=== PATIENT | female | born 1945 | race Two or more races ===

== ENCOUNTER 2023-02-04 23:09 | Inpatient (IN) | payer OTHER ==
[~2023-02-04] VITALS: Ht 152.4 cm; Wt 91.4 kg
[2023-02-05 00:34] LABS: Basophils # (auto) 0.1 10 ^3/uL (0-0.2); Hemoglobin 8.9 g/dL (12.2-16.2); Mean Corpuscular Hemoglobin 19.5 pg (28.0-32.0)
[2023-02-05 00:35] LABS: Basophils % (auto) 0.9 % (0.0-2.0); Eosinophils # (auto) 0.1 10 ^3/uL (0-0.8); Eosinophils % (auto) 0.6 % (0.0-7.0); Hematocrit 28.7 % (36.0-46.0); Lymphocytes # (auto) 0.9 10 ^3/uL (0.4-5.4); Mean Corpuscular Hgb Conc. 30.8 g/dL (32.0-36.0); Mean Corpuscular Volume 63.2 fL (80.0-100.0); Monocytes # (auto) 0.4 10 ^3/uL (0-1.3); Monocytes % (auto) 4.7 % (0.0-12.0); Neutrophils # (auto) 8.1 10 ^3/uL (1.6-8.6); Neutrophils % (auto) 84.8 % (37.0-80.0); Red Blood Cells 4.55 10^6/uL (4.0-5.20); Red Cell Distribution Width 18.7 % (11.8-14.3); White Blood Cell 9.5 10^3/uL (4.4-10.8)
[2023-02-05 00:46] LABS: Albumin 3.7 g/dL (3.4-5.0); BUN/Creatinine Ratio 23.8 (10.0-20.0); Calcium 8.4 mg/dL (8.5-10.1); Potassium 3.2 mmol/L (3.5-5.1)
[2023-02-05 00:55] LABS: Bilirubin, Total 0.4 mg/dL (0.2-1.0); Total Protein 6.8 g/dL (6.4-8.2)
[2023-02-05] MEDS ORDERED: NITROGLYCERIN 2% OINT 1GM PKG TD STA (06:11)
[2023-02-05] MEDS ORDERED: ASPirin 81 mg TAB PO ONE (06:15)
[2023-02-05] MEDS ORDERED: ONDANSETRON HCL 4 MG/2 ML VIAL IV ONE (06:15)
[2023-02-05] MEDS ORDERED: MORPHINE SULFATE 4 MG/ML SYR/VIAL IV ONE (06:15)
[2023-02-05] MEDS ORDERED: POTASSIUM CHL 20 Meq TABLET PO ONE (08:00)
[2023-02-05] MEDS ORDERED: MORPHINE SULFATE INJ 2 MG/ml SYRG IV PRN (10:15)
[2023-02-05] MEDS ORDERED: NITROGLYCERIN 0.4 MG SL TAB SL PRN (10:15)
[2023-02-05] MEDS ORDERED: AMLO1TAB21 PO (10:17)
[2023-02-05] MEDS ORDERED: FURO40TA4 PO (10:17)
[2023-02-05] MEDS ORDERED: RIV20T PO (10:17)
[2023-02-05] MEDS ORDERED: PANT40TA57 PO (10:17)
[2023-02-05] MEDS ORDERED: METO1TAB9 PO (10:17)
[2023-02-05] MEDS ORDERED: IPRATROPIUM BROM 0.5 MG/2.5ML INH SOL NEB PRN (10:30)
[2023-02-05] MEDS ORDERED: ALBUTEROL SULF 2.5 MG/0.5ML(0.5%) NEB SOLN NEB PRN (10:30)
[2023-02-05 10:44] VITALS: PULSE 61; RESP 18; O2SAT 98
[2023-02-05] MEDS ORDERED: IOHEXOL 300 MG/ML 100ML BOTTLE IJ ONE (11:28)
[2023-02-05 11:50] VITALS: O2SAT 96
[2023-02-05 16:00] LABS: INR 1.34 (0.9-1.15); Partial Thromboplastin Time 34.2 SEC (24.5-34.5); Prothrombin Time 13.8 sec (9.3-11.8)
[2023-02-05] MEDS ORDERED: RIVAROXABAN 20 MG TAB PO SCH (17:30)
[2023-02-05 18:23] VITALS: O2SAT 98
[2023-02-05 19:20] VITALS: PULSE 90; RESP 18; O2SAT 96
[2023-02-05] MEDS: ATORVASTATIN 20 MG TAB PO SCH (20:31)
[2023-02-05] MEDS: METOPROLOL SUCCINATE XL 50 MG TAB PO SCH ×2 (20:32→20:38)
[2023-02-05] MEDS: amLODIPine BESYLATE 5 MG TAB PO SCH (20:32)
[2023-02-05 23:03] VITALS: BP 153/78; PULSE 57; PULSE 60; RESP 18; TEMP 98.3; O2SAT 99
[2023-02-06] VITALS (9 sets, daily range): BP systolic 141–185; BP diastolic 72–89; PULSE 53–96; RESP 15–18; TEMP 97.6–98.6; O2SAT 96–100
[2023-02-06] MEDS: HYDROcodone-ACET 5/325MG TAB PO PRN ×2 (02:24→16:36)
[2023-02-06 02:48] LABS: Urine Bacteria FEW /hpf (None Seen); Urine Blood Negative /uL (Negative); Urine Clarity Clear (Clear); Urine Color Colorless (Yellow); Urine Protein, UAD Negative (Negative); Urine Specific Gravity 1.007 (1.001-1.035); Urine Urobilinogen Normal (Negative); Urine WBC 22 /hpf (0 - 5)
[2023-02-06 06:09] LABS: Basophils # (auto) 0 10 ^3/uL (0-0.2); Basophils % (auto) 0.6 % (0.0-2.0); Eosinophils # (auto) 0.1 10 ^3/uL (0-0.8); Eosinophils % (auto) 1.6 % (0.0-7.0); Hematocrit 26.8 % (36.0-46.0); Hemoglobin 8.4 g/dL (12.2-16.2); Lymphocytes # (auto) 1.7 10 ^3/uL (0.4-5.4); Lymphocytes % (auto) 36.7 % (10.0-50.0); Mean Corpuscular Hemoglobin 19.6 pg (28.0-32.0); Mean Corpuscular Hgb Conc. 31.2 g/dL (32.0-36.0); Mean Corpuscular Volume 62.8 fL (80.0-100.0); Monocytes # (auto) 0.5 10 ^3/uL (0-1.3); Monocytes % (auto) 10.9 % (0.0-12.0); Neutrophils # (auto) 2.3 10 ^3/uL (1.6-8.6); Neutrophils % (auto) 50.2 % (37.0-80.0); Red Blood Cells 4.26 10^6/uL (4.0-5.20); Red Cell Distribution Width 18.6 % (11.8-14.3); White Blood Cell 4.6 10^3/uL (4.4-10.8)
[2023-02-06 06:35] LABS: Calcium 8.4 mg/dL (8.5-10.1); Potassium 3.5 mmol/L (3.5-5.1)
[2023-02-06 06:38] LABS: % Iron Saturation 5.1 % (15-50)
[2023-02-06 06:39] LABS: BUN/Creatinine Ratio 18.2 (10.0-20.0); Bilirubin, Total 0.4 mg/dL (0.2-1.0); Total Protein 6.1 g/dL (6.4-8.2)
[2023-02-06 07:57] LABS: Hypochromia Marked
[2023-02-06 07:59] LABS: Platelet Estimate Decreased; Target Cell FEW
[2023-02-06 08:08] LABS: Anisocytosis Moderate
[2023-02-06] MEDS ORDERED: ADENOSINE 77 MG in GIVE UN-DILUTED 0 ML IV STA (08:37)
[2023-02-06] MEDS ORDERED: PANTOPRAZOLE 40 MG TAB PO SCH (10:00)
[2023-02-06] MEDS: ENOXAPARIN SOD 40 MG/0.4 ML SYRINGE SC SCH (10:18)
[2023-02-06] MEDS: ASPirin-EC 81 mg tab PO SCH (10:18)
[2023-02-06] MEDS: PANTOPRAZOLE 40 MG/10 ML VIAL INJ IV SCH (10:18)
[2023-02-06] MEDS: FUROSEMIDE 20 MG/2 ML VIAL IV SCH (10:19)
[2023-02-06] MEDS ORDERED: SODIUM FERR GLUC 62.5MG/5ML 125 MG in SODIUM CHL 0.9% 100 ML IV ONE (16:00)
[2023-02-06] MEDS: amLODIPine BESYLATE 5 MG TAB PO SCH (20:01)
[2023-02-06] MEDS: METOPROLOL SUCCINATE XL 50 MG TAB PO SCH (20:01)
[2023-02-06] MEDS: ATORVASTATIN 20 MG TAB PO SCH (20:02)
[2023-02-06] MEDS: hydrALAZINE HCL 20 MG/ML VL IV PRN (21:55)
[2023-02-07] VITALS (7 sets, daily range): BP systolic 105–167; BP diastolic 66–93; PULSE 50–89; RESP 16–19; TEMP 97.4–98; O2SAT 99–100
[2023-02-07] MEDS: HYDROcodone-ACET 5/325MG TAB PO PRN (03:10)
[2023-02-07] MEDS: PANTOPRAZOLE 40 MG/10 ML VIAL INJ IV SCH (08:42)
[2023-02-07] MEDS: FUROSEMIDE 20 MG/2 ML VIAL IV SCH (08:42)
[2023-02-07] MEDS: ASPirin-EC 81 mg tab PO SCH (08:42)
[2023-02-07] MEDS: ENOXAPARIN SOD 40 MG/0.4 ML SYRINGE SC SCH (08:42)
[2023-02-07 09:38] LABS: Basophils # (auto) 0.1 10 ^3/uL (0-0.2); Eosinophils # (auto) 0.1 10 ^3/uL (0-0.8); Hemoglobin 9.7 g/dL (12.2-16.2); Mean Corpuscular Hemoglobin 19.4 pg (28.0-32.0); Mean Corpuscular Volume 62.6 fL (80.0-100.0); Neutrophils # (auto) 2.4 10 ^3/uL (1.6-8.6); Neutrophils % (auto) 48.1 % (37.0-80.0)
[2023-02-07 09:40] LABS: Basophils % (auto) 1.2 % (0.0-2.0); Eosinophils % (auto) 1.2 % (0.0-7.0); Hematocrit 31.2 % (36.0-46.0); Lymphocytes # (auto) 1.8 10 ^3/uL (0.4-5.4); Lymphocytes % (auto) 36.4 % (10.0-50.0); Monocytes # (auto) 0.6 10 ^3/uL (0-1.3); Monocytes % (auto) 13.1 % (0.0-12.0); Nucleated Red Blood Cells % 0.2 %; Red Blood Cells 4.98 10^6/uL (4.0-5.20); Red Cell Distribution Width 19.2 % (11.8-14.3); White Blood Cell 4.9 10^3/uL (4.4-10.8)
[2023-02-07 09:58] LABS: Calcium 9.3 mg/dL (8.5-10.1); Potassium 4.2 mmol/L (3.5-5.1)
[2023-02-07] MEDS ORDERED: FUROSEMIDE 40 MG/4 ML VIAL IV SCH (10:00)
[2023-02-07 10:01] LABS: BUN/Creatinine Ratio 10.3 (10.0-20.0)
[2023-02-07 12:45] LABS: Hypochromia Marked; Platelet Estimate Adequate
[2023-02-07] MEDS: hydrALAZINE HCL 20 MG/ML VL IV PRN (15:18)
[2023-02-07] MEDS: METOPROLOL SUCCINATE XL 50 MG TAB PO SCH (20:21)
[2023-02-07] MEDS: amLODIPine BESYLATE 5 MG TAB PO SCH (20:22)
[2023-02-07] MEDS: ATORVASTATIN 20 MG TAB PO SCH (21:18)
[2023-02-08 05:00] VITALS: BP 127/71; PULSE 58; RESP 16; TEMP 98.1; O2SAT 99
[2023-02-08 07:05] VITALS: O2SAT 97
[2023-02-08 07:08] LABS: BUN/Creatinine Ratio 22.1 (10.0-20.0); Calcium 8.6 mg/dL (8.5-10.1); Potassium 3.5 mmol/L (3.5-5.1)
[2023-02-08 07:30] VITALS: PULSE 55
[2023-02-08] MEDS: PANTOPRAZOLE 40 MG/10 ML VIAL INJ IV SCH (08:58)
[2023-02-08] MEDS: ENOXAPARIN SOD 40 MG/0.4 ML SYRINGE SC SCH (08:58)
[2023-02-08] MEDS: ASPirin-EC 81 mg tab PO SCH (08:58)
[2023-02-08 09:00] VITALS: BP 147/76; PULSE 59; RESP 18; TEMP 98.1; O2SAT 100
[2023-02-08] MEDS ORDERED: FUROSEMIDE 40 MG/4 ML VIAL IV SCH (10:00)
== END 2023-02-08 12:25 | disposition home or self-care (01) | DRG 306 ==
LOC: ER 23:09 → TELE 02-05 10:06 → TELE-WESTW 02-05 22:22
PROVIDERS: ADMIT Internal Medicine Pulmonary Disease; ATTEND Student in an Organized Health Care Education/Training Program
DX: I35.0 Nonrheumatic aortic (valve) stenosis (principal); I50.43 Acute on chronic combined systolic (congestive) and diastolic (congestive) heart failure; I48.20 Chronic atrial fibrillation, unspecified; N39.0 Urinary tract infection, site not specified; K92.2 Gastrointestinal hemorrhage, unspecified; I11.0 Hypertensive heart disease with heart failure; K52.9 Noninfective gastroenteritis and colitis, unspecified; D50.9 Iron deficiency anemia, unspecified; J44.9 Chronic obstructive pulmonary disease, unspecified; E05.80 Other thyrotoxicosis without thyrotoxic crisis or storm; I25.10 Atherosclerotic heart disease of native coronary artery without angina pectoris; D63.8 Anemia in other chronic diseases classified elsewhere; E78.5 Hyperlipidemia, unspecified; I25.2 Old myocardial infarction; Z79.01 Long term (current) use of anticoagulants; Z95.0 Presence of cardiac pacemaker; Z88.0 Allergy status to penicillin; Z88.2 Allergy status to sulfonamides
CPT/HCPCS: 36415; 71045; 74176; 78452; 80048; 80053; 80061; 81001; 83540; 83550; 83735; 83880; 84436; 84443; 84481; 84484; 85025; 85379; 85610; 85730; 87086; 93005; 93017; 93306; 93886; 93970; 96374; 96375; 96376; C9113; G0378; J0153; J2405

== ENCOUNTER 2023-05-31 02:32 | Inpatient (IN) | payer OTHER ==
[~2023-05-31] VITALS: Ht 144.8 cm; Wt 73.4 kg
[~2023-05-31 02:32] MED LIST: AMLO1TAB21 PO; FURO40TA4 PO; METO1TAB9 PO; PANT40TA57 PO; RIV20T PO
[2023-05-31 03:28] LABS: Mean Corpuscular Hemoglobin 16.7 pg (28.0-32.0); White Blood Cell 4.7 10^3/uL (4.4-10.8)
[2023-05-31 03:30] LABS: Hematocrit 19.6 % (36.0-46.0); Mean Corpuscular Volume 55.5 fL (80.0-100.0); Red Blood Cells 3.53 10^6/uL (4.0-5.20)
[2023-05-31 03:35] LABS: Alanine Aminotransferase 31 U/L (7-40); Albumin 4.1 g/dL (3.2-4.8); Alkaline Phosphatase 103 U/L (46-116); Anion Gap 9 (5-15); Aspartate Aminotransferase 36 U/L (13-40); BUN/Creatinine Ratio 15.6 (10.0-20.0); Bilirubin, Total 0.6 mg/dL (0.2-1.0); Blood Urea Nitrogen 15 mg/dL (9-23); Calcium 8.4 mg/dL (8.7-10.4); Carbon Dioxide 24 mmol/L (20-30); Chloride 110 mmol/L (98-107); Glucose 90 mg/dL (74-106); Magnesium 1.8 mg/dL (1.6-2.6); Potassium 3.4 mmol/L (3.5-5.1); Sodium 143 mmol/L (136-145); Total Protein 6.6 g/dL (5.7-8.2)
[2023-05-31 03:44] LABS: Red Cell Distribution Width 20.2 % (11.8-14.3)
[2023-05-31 03:45] LABS: Hemoglobin 5.9 g/dL (12.2-16.2)
[2023-05-31 03:54] LABS: Basophils % (manual) 0 (0.0-2.0); Blast Cells 0; Metamyelocytes % 0; Myelocytes % 0; Promyelocytes % 0; Reactive Lymphocytes 0
[2023-05-31 04:44] LABS: Band Neutrophils % (manual) 1; Eosinophils % (manual) 1 (0-7); Lymphocytes % (manual) 27 (10.0-50.0); Monocytes % (manual) 7 (0-12)
[2023-05-31 04:45] LABS: Anisocytosis Slight; Hypochromia Marked; Ovalocytes FEW; Platelet Estimate Adequate; Target Cell FEW
[2023-05-31] MEDS ORDERED: LACTATED RINGER'S 1,000 ML IV ONE (06:00)
[2023-05-31] MEDS ORDERED: PANTOPRAZOLE 40mg/50ML NS AE 50 ML IV ONE (06:00)
[2023-05-31] MEDS ORDERED: PANTOPRAZOLE 80 MG in SODIUM CHL 0.9% 100 ML IV ONE (06:00)
[2023-05-31 06:20] VITALS: PULSE 53; RESP 18; O2SAT 97
[2023-05-31] MEDS ORDERED: IOHEXOL 300 MG/ML 100ML BOTTLE IJ ONE (06:23)
[2023-05-31] MEDS ORDERED: diphenhdrAMINE HCL 50 MG/1 ML VL IV ONE ×2 (08:00)
[2023-05-31] MEDS ORDERED: IODIXANOL 320MG/ML 100ML BTL IV ONE (08:02)
[2023-05-31 08:25] LABS: INR 1.54 (0.9-1.15); Prothrombin Time 15.7 sec (9.3-11.8)
[2023-05-31 09:34] LABS: Hematocrit 18.6 % (36.0-46.0)
[2023-05-31 09:43] LABS: Hemoglobin 5.5 g/dL (12.2-16.2)
[2023-05-31] MEDS ORDERED: ONDANSETRON HCL 4 MG/2 ML VIAL IV PRN (09:45)
[2023-05-31] MEDS ORDERED: ALBUTEROL MEDNEB 2.5 mg/3ml NEB NEB PRN (09:45)
[2023-05-31] MEDS ORDERED: MORPHINE SULFATE INJ 2 MG/ml SYRG IV PRN (09:45)
[2023-05-31] MEDS ORDERED: IPRATROPIUM BROM 0.5 MG/2.5ML INH SOL NEB PRN (09:45)
[2023-05-31] MEDS ORDERED: NITROGLYCERIN 0.4 MG SL TAB SL PRN (09:45)
[2023-05-31] MEDS ORDERED: POTASSIUM CHL 20MEQ/100ML 100 ML IV ONE (09:45)
[2023-05-31] MEDS ORDERED: hydrALAZINE HCL 20 MG/ML VL IV PRN (10:00)
[2023-05-31] MEDS ORDERED: PANTOPRAZOLE 40 MG/10 ML VIAL INJ IV SCH (10:00)
[2023-05-31] MEDS: FUROSEMIDE 40 MG/4 ML VIAL IV SCH (10:10)
[2023-05-31] MEDS: METOPROLOL SUCCINATE XL 50 MG TAB PO SCH (10:11)
[2023-05-31] MEDS: amLODIPine BESYLATE 5 MG TAB PO SCH (10:13)
[2023-05-31 10:21] VITALS: BP 171/85; PULSE 67; RESP 20; TEMP 98.2; O2SAT 97
[2023-05-31 10:24] LABS: Urine Bacteria NONE SEEN /hpf (None Seen); Urine Blood Negative /uL (Negative); Urine Clarity Clear (Clear); Urine Color Colorless (Yellow); Urine Protein, UAD Negative (Negative); Urine Specific Gravity 1.006 (1.001-1.035); Urine Urobilinogen Normal (Negative); Urine WBC <1 /hpf (0 - 5)
[2023-05-31 11:48] LABS: Hematocrit 20.3 % (36.0-46.0)
[2023-05-31 11:48] LABS: Free T3 2.74 pg/mL (2.3-4.2); Free T4 (Free Thyroxine) 1.08 ng/dL (0.89-1.76)
[2023-05-31 11:50] LABS: Hemoglobin 5.9 g/dL (12.2-16.2)
[2023-05-31 12:55] VITALS: PULSE 67; RESP 18; O2SAT 97
[2023-05-31] MEDS ORDERED: MAGNESIUM SULFATE 1GM/100ML 100 ML IV ONE (14:45)
[2023-05-31] MEDS ORDERED: POTASSIUM CHL 20 Meq TABLET PO ONE (14:45)
[2023-05-31] MEDS ORDERED: AMIODARONE HCL 200 MG TAB PO ONE (14:45)
[2023-05-31 18:39] VITALS: O2SAT 100
[2023-05-31 19:40] VITALS: RESP 20; O2SAT 100
[2023-05-31] MEDS: PANTOPRAZOLE 40mg/50ML NS AE 50 ML IV SCH (20:22)
[2023-05-31 21:21] LABS: Hematocrit 17.5 % (36.0-46.0)
[2023-05-31 21:24] LABS: Hemoglobin 5.3 g/dL (12.2-16.2)
[2023-05-31] MEDS ORDERED: AMIODARONE HCL 200 MG TAB PO SCH (22:00)
[2023-06-01] VITALS (11 sets, daily range): BP systolic 131–150; BP diastolic 62–75; PULSE 50–62; RESP 15–19; TEMP 98–99.4; O2SAT 99–100
[2023-06-01] MEDS: PANTOPRAZOLE 40mg/50ML NS AE 50 ML IV SCH ×5 (00:08→21:35)
[2023-06-01] MEDS ORDERED: METH5TAB98 PO (00:43)
[2023-06-01 05:52] LABS: Basophils # (auto) 0 10 ^3/uL (0-0.2); Eosinophils # (auto) 0.1 10 ^3/uL (0-0.8); Lymphocytes # (auto) 1.2 10 ^3/uL (0.4-5.4); Monocytes # (auto) 0.6 10 ^3/uL (0-1.3)
[2023-06-01 05:55] LABS: Basophils % (auto) 0.5 % (0.0-2.0); Eosinophils % (auto) 2.4 % (0.0-7.0); Hematocrit 18.1 % (36.0-46.0); Lymphocytes % (auto) 27.2 % (10.0-50.0); Mean Corpuscular Hemoglobin 16.6 pg (28.0-32.0); Mean Corpuscular Hgb Conc. 30.2 g/dL (32.0-36.0); Mean Corpuscular Volume 54.9 fL (80.0-100.0); Monocytes % (auto) 12.7 % (0.0-12.0); Neutrophils # (auto) 2.6 10 ^3/uL (1.6-8.6); Neutrophils % (auto) 57.2 % (37.0-80.0); Nucleated Red Blood Cells % 0.1 %; White Blood Cell 4.6 10^3/uL (4.4-10.8)
[2023-06-01 06:08] LABS: Alanine Aminotransferase 27 U/L (7-40); Albumin 3.6 g/dL (3.2-4.8); Alkaline Phosphatase 91 U/L (46-116); Anion Gap 6 (5-15); Aspartate Aminotransferase 23 U/L (13-40); BUN/Creatinine Ratio 11.8 (10.0-20.0); Bilirubin, Total 0.7 mg/dL (0.2-1.0); Blood Urea Nitrogen 11 mg/dL (9-23); Carbon Dioxide 27 mmol/L (20-30); Chloride 110 mmol/L (98-107); Glucose 73 mg/dL (74-106); Phosphorus 3.4 mg/dL (2.4-5.1); Potassium 3.7 mmol/L (3.5-5.1); Sodium 143 mmol/L (136-145); Total Protein 5.8 g/dL (5.7-8.2)
[2023-06-01 06:19] LABS: Hemoglobin 5.5 g/dL (12.2-16.2)
[2023-06-01] MEDS: FUROSEMIDE 40 MG/4 ML VIAL IV SCH (09:29)
[2023-06-01] MEDS: AMIODARONE HCL 200 MG TAB PO SCH ×2 (09:31→21:46)
[2023-06-01] MEDS: amLODIPine BESYLATE 5 MG TAB PO SCH (09:32)
[2023-06-01] MEDS: METOPROLOL SUCCINATE XL 50 MG TAB PO SCH (09:32)
[2023-06-01] MEDS ORDERED: POTASSIUM CHL 20MEQ/100ML 100 ML IV ONE (11:45)
[2023-06-01] MEDS ORDERED: SODIUM FERR GLUC 62.5MG/5ML 125 MG in SODIUM CHL 0.9% 100 ML IV ONE (14:00)
[2023-06-01] MEDS: MORPHINE SULFATE INJ 2 MG/ml SYRG IV PRN ×2 (15:22→23:50)
[2023-06-02] VITALS (9 sets, daily range): BP systolic 137–153; BP diastolic 59–75; PULSE 55–61; RESP 18–20; TEMP 98.8–99.6; O2SAT 96–100
[2023-06-02] MEDS: PANTOPRAZOLE 40mg/50ML NS AE 50 ML IV SCH ×4 (01:16→16:15)
[2023-06-02] MEDS ORDERED: LIDOCAINE VISCOUS 2% 15ML UD ONE (08:49)
[2023-06-02] MEDS ORDERED: diphenhdrAMINE HCL 50 MG/1 ML VL ONE (08:49)
[2023-06-02] MEDS ORDERED: SODIUM CHLORIDE LOCK 10 ML ONE (08:49)
[2023-06-02] MEDS ORDERED: MIDAZOLAM HCL 5 MG/ML-1ML VIAL ONE (08:49)
[2023-06-02] MEDS ORDERED: fentaNYL CITRATE 100 MCG/2 ML VL ONE ×2 (08:50→08:54)
[2023-06-02 09:22] LABS: Mean Corpuscular Hgb Conc. 30.5 g/dL (32.0-36.0); Red Blood Cells 3.61 10^6/uL (4.0-5.20)
[2023-06-02 09:23] LABS: Hematocrit 19.6 % (36.0-46.0); Mean Corpuscular Hemoglobin 16.6 pg (28.0-32.0); Mean Corpuscular Volume 54.4 fL (80.0-100.0); White Blood Cell 6.2 10^3/uL (4.4-10.8)
[2023-06-02 09:25] LABS: Red Cell Distribution Width 20.6 % (11.8-14.3)
[2023-06-02 09:27] LABS: Band Neutrophils % (manual) 0; Basophils % (manual) 0 (0.0-2.0); Blast Cells 0; Metamyelocytes % 0; Myelocytes % 0; Promyelocytes % 0; Reactive Lymphocytes 0
[2023-06-02 09:34] LABS: Chloride 105 mmol/L (98-107); Potassium 3.5 mmol/L (3.5-5.1); Sodium 140 mmol/L (136-145)
[2023-06-02 09:35] LABS: Anion Gap 5 (5-15); Carbon Dioxide 30 mmol/L (20-30)
[2023-06-02 09:36] LABS: Calcium 8.3 mg/dL (8.5-10.1)
[2023-06-02 09:40] LABS: Glucose 126 mg/dL (74-106)
[2023-06-02 09:41] LABS: BUN/Creatinine Ratio 11.3 (10.0-20.0); Blood Urea Nitrogen 11 mg/dL (9-23)
[2023-06-02] MEDS: FUROSEMIDE 40 MG TAB PO SCH (09:50)
[2023-06-02] MEDS: METOPROLOL SUCCINATE XL 50 MG TAB PO SCH (09:50)
[2023-06-02] MEDS: amLODIPine BESYLATE 5 MG TAB PO SCH (09:51)
[2023-06-02] MEDS: AMIODARONE HCL 200 MG TAB PO SCH ×2 (09:51→21:36)
[2023-06-02] MEDS ORDERED: IRON SUCROSE COMPLEX 200 MG in SODIUM CHL 0.9% 100 ML IV SCH (12:00)
[2023-06-02] MEDS: SODIUM FERR GLUC 62.5MG/5ML 125 MG in SODIUM CHL 0.9% 100 ML IV SCH (12:29)
[2023-06-02 12:49] LABS: Eosinophils % (manual) 1 (0-7); Lymphocytes % (manual) 31 (10.0-50.0); Monocytes % (manual) 7 (0-12); Platelet Estimate Adequate
[2023-06-02 12:50] LABS: Anisocytosis Slight; Hypochromia Marked; Ovalocytes MANY; Tear Drop Cells MANY
[2023-06-02] MEDS ORDERED: ACETAMINOPHEN 325 MG TAB PO PRN (20:15)
[2023-06-02] MEDS: MORPHINE SULFATE INJ 2 MG/ml SYRG IV PRN (21:02)
[2023-06-03] VITALS (11 sets, daily range): BP systolic 131–161; BP diastolic 73–78; PULSE 50–70; RESP 16–18; TEMP 98.1–99.3; O2SAT 97–100
[2023-06-03] MEDS: PANTOPRAZOLE 40mg/50ML NS AE 50 ML IV SCH ×6 (01:15→21:58)
[2023-06-03] MEDS: FUROSEMIDE 40 MG TAB PO SCH (10:29)
[2023-06-03] MEDS: METOPROLOL SUCCINATE XL 50 MG TAB PO SCH (10:30)
[2023-06-03] MEDS: AMIODARONE HCL 200 MG TAB PO SCH ×2 (10:31→21:51)
[2023-06-03] MEDS: amLODIPine BESYLATE 5 MG TAB PO SCH (10:32)
[2023-06-03 11:15] LABS: Chloride 104 mmol/L (98-107); Potassium 3.3 mmol/L (3.5-5.1); Sodium 138 mmol/L (136-145)
[2023-06-03 11:16] LABS: Anion Gap 9 (5-15); Carbon Dioxide 25 mmol/L (20-30)
[2023-06-03 11:17] LABS: Calcium 8.4 mg/dL (8.7-10.4)
[2023-06-03 11:21] LABS: Glucose 100 mg/dL (74-106)
[2023-06-03 11:29] LABS: BUN/Creatinine Ratio 5.9 (10.0-20.0); Blood Urea Nitrogen < 5 mg/dL (9-23)
[2023-06-03 11:55] LABS: Hemoglobin 7.1 g/dL (12.2-16.2); Lymphocytes # (auto) 2.6 10 ^3/uL (0.4-5.4); Mean Corpuscular Hemoglobin 16.3 pg (28.0-32.0); Monocytes # (auto) 0.8 10 ^3/uL (0-1.3); White Blood Cell 9.8 10^3/uL (4.4-10.8)
[2023-06-03 11:58] LABS: Basophils # (auto) 0.1 10 ^3/uL (0-0.2); Basophils % (auto) 0.7 % (0.0-2.0); Eosinophils # (auto) 0.1 10 ^3/uL (0-0.8); Eosinophils % (auto) 0.6 % (0.0-7.0); Hematocrit 23.9 % (36.0-46.0); Mean Corpuscular Hgb Conc. 29.6 g/dL (32.0-36.0); Mean Corpuscular Volume 55.1 fL (80.0-100.0); Monocytes % (auto) 8.4 % (0.0-12.0); Neutrophils # (auto) 6.2 10 ^3/uL (1.6-8.6); Neutrophils % (auto) 63.3 % (37.0-80.0); Nucleated Red Blood Cells % 0.4 %; Red Blood Cells 4.34 10^6/uL (4.0-5.20)
[2023-06-03 12:00] LABS: Red Cell Distribution Width 20.7 % (11.8-14.3)
[2023-06-03] MEDS: SODIUM FERR GLUC 62.5MG/5ML 125 MG in SODIUM CHL 0.9% 100 ML IV SCH (12:43)
[2023-06-03] MEDS ORDERED: TROLAMINE SALICYLATE 10% TOP CREAM TOP PRN (17:00)
[2023-06-03] MEDS ORDERED: TROLAMINE SALICYLATE 10% TOP CREAM TOP ONE (17:00)
[2023-06-03] MEDS: MORPHINE SULFATE INJ 2 MG/ml SYRG IV PRN (22:09)
[2023-06-04] VITALS (8 sets, daily range): BP systolic 140–154; BP diastolic 59–79; PULSE 58–76; RESP 18; TEMP 97.9–99; O2SAT 99–100
[2023-06-04] MEDS: PANTOPRAZOLE 40mg/50ML NS AE 50 ML IV SCH ×5 (02:36→22:45)
[2023-06-04 05:45] LABS: Anion Gap 8 (5-15); Carbon Dioxide 28 mmol/L (20-30); Chloride 101 mmol/L (98-107); Potassium 3.7 mmol/L (3.5-5.1); Sodium 137 mmol/L (136-145)
[2023-06-04 05:46] LABS: Calcium 8.4 mg/dL (8.7-10.4)
[2023-06-04 05:51] LABS: BUN/Creatinine Ratio 6.7 (10.0-20.0); Blood Urea Nitrogen 6 mg/dL (9-23); Glucose 86 mg/dL (74-106)
[2023-06-04 06:44] LABS: Basophils # (auto) 0.1 10 ^3/uL (0-0.2); Eosinophils # (auto) 0.1 10 ^3/uL (0-0.8); Eosinophils % (auto) 0.7 % (0.0-7.0)
[2023-06-04 06:46] LABS: Basophils % (auto) 0.8 % (0.0-2.0); Hematocrit 22.3 % (36.0-46.0); Lymphocytes # (auto) 3.4 10 ^3/uL (0.4-5.4); Lymphocytes % (auto) 36.5 % (10.0-50.0); Mean Corpuscular Hemoglobin 17.1 pg (28.0-32.0); Mean Corpuscular Hgb Conc. 30.8 g/dL (32.0-36.0); Mean Corpuscular Volume 55.4 fL (80.0-100.0); Monocytes # (auto) 0.8 10 ^3/uL (0-1.3); Monocytes % (auto) 8.2 % (0.0-12.0); Neutrophils % (auto) 53.8 % (37.0-80.0); Nucleated Red Blood Cells % 0.6 %; Red Blood Cells 4.02 10^6/uL (4.0-5.20); White Blood Cell 9.3 10^3/uL (4.4-10.8)
[2023-06-04 07:14] LABS: Red Cell Distribution Width 21.4 % (11.8-14.3)
[2023-06-04 07:17] LABS: Hemoglobin 6.9 g/dL (12.2-16.2)
[2023-06-04] MEDS: METOPROLOL SUCCINATE XL 50 MG TAB PO SCH (09:30)
[2023-06-04] MEDS: amLODIPine BESYLATE 5 MG TAB PO SCH (09:32)
[2023-06-04] MEDS: AMIODARONE HCL 200 MG TAB PO SCH ×2 (09:33→22:23)
[2023-06-04] MEDS: FUROSEMIDE 40 MG TAB PO SCH (09:36)
[2023-06-04] MEDS: SODIUM FERR GLUC 62.5MG/5ML 125 MG in SODIUM CHL 0.9% 100 ML IV SCH (12:35)
[2023-06-04] MEDS: MORPHINE SULFATE INJ 2 MG/ml SYRG IV PRN (22:37)
[2023-06-05] VITALS (7 sets, daily range): BP systolic 122–157; BP diastolic 58–72; PULSE 57–66; RESP 16–20; TEMP 98–99.1; O2SAT 91–100
[2023-06-05] MEDS: PANTOPRAZOLE 40mg/50ML NS AE 50 ML IV SCH ×4 (04:17→18:39)
[2023-06-05 08:20] LABS: Hematocrit 22.9 % (36.0-46.0); Mean Corpuscular Volume 56.6 fL (80.0-100.0)
[2023-06-05 08:21] LABS: Mean Corpuscular Hemoglobin 17.1 pg (28.0-32.0); Mean Corpuscular Hgb Conc. 30.2 g/dL (32.0-36.0); Red Blood Cells 4.05 10^6/uL (4.0-5.20); White Blood Cell 7.5 10^3/uL (4.4-10.8)
[2023-06-05 08:37] LABS: Chloride 101 mmol/L (98-107); Potassium 3.4 mmol/L (3.5-5.1); Sodium 136 mmol/L (136-145)
[2023-06-05 08:38] LABS: Anion Gap 8 (5-15); Calcium 8.6 mg/dL (8.5-10.1); Carbon Dioxide 27 mmol/L (20-30)
[2023-06-05 08:42] LABS: Red Cell Distribution Width 21.3 % (11.8-14.3)
[2023-06-05 08:43] LABS: BUN/Creatinine Ratio 7.1 (10.0-20.0); Blood Urea Nitrogen 6 mg/dL (9-23); Glucose 95 mg/dL (74-106)
[2023-06-05 08:44] LABS: Hemoglobin 6.9 g/dL (12.2-16.2)
[2023-06-05 08:46] LABS: Band Neutrophils % (manual) 0; Basophils % (manual) 0 (0.0-2.0); Blast Cells 0; Eosinophils % (manual) 0 (0-7); Metamyelocytes % 0; Myelocytes % 0; Promyelocytes % 0; Reactive Lymphocytes 0
[2023-06-05] MEDS ORDERED: POTASSIUM EFFERVESENT TAB 25 MEQ PO ONE (09:30)
[2023-06-05 09:59] LABS: Lymphocytes % (manual) 9 (10.0-50.0); Monocytes % (manual) 4 (0-12)
[2023-06-05 10:00] LABS: Anisocytosis Slight; Hypochromia Marked
[2023-06-05 10:01] LABS: Platelet Estimate Adequate
[2023-06-05] MEDS: METOPROLOL SUCCINATE XL 50 MG TAB PO SCH (10:03)
[2023-06-05] MEDS: amLODIPine BESYLATE 5 MG TAB PO SCH (10:04)
[2023-06-05] MEDS: FUROSEMIDE 40 MG TAB PO SCH (10:04)
[2023-06-05] MEDS: AMIODARONE HCL 200 MG TAB PO SCH ×2 (10:04→22:58)
[2023-06-05] MEDS: SODIUM FERR GLUC 62.5MG/5ML 125 MG in SODIUM CHL 0.9% 100 ML IV SCH (12:43)
[2023-06-05] MEDS: THROAT LOZENGES(CEPASTAT) MT PRN ×2 (18:39→23:34)
[2023-06-06] MEDS: PANTOPRAZOLE 40mg/50ML NS AE 50 ML IV SCH ×5 (03:55→21:56)
[2023-06-06 05:00] VITALS: BP 145/74; PULSE 60; RESP 19; TEMP 98.8; O2SAT 100
[2023-06-06 08:00] VITALS: BP_SYST 116; BP_SYST 162; BP_DIAS 70; BP_DIAS 87; PULSE 58; PULSE 63; RESP 22; TEMP 98.6; O2SAT 100
[2023-06-06] MEDS: AMIODARONE HCL 200 MG TAB PO SCH ×2 (09:54→22:00)
[2023-06-06] MEDS: FUROSEMIDE 40 MG TAB PO SCH (10:00)
[2023-06-06] MEDS: METOPROLOL SUCCINATE XL 50 MG TAB PO SCH (10:01)
[2023-06-06] MEDS: amLODIPine BESYLATE 5 MG TAB PO SCH (10:04)
[2023-06-06 12:00] VITALS: BP 140/65; PULSE 58; RESP 20; TEMP 99; O2SAT 100
[2023-06-06] MEDS: SODIUM FERR GLUC 62.5MG/5ML 125 MG in SODIUM CHL 0.9% 100 ML IV SCH (13:49)
[2023-06-06 16:00] VITALS: BP 124/51; PULSE 60; RESP 20; TEMP 98.6; O2SAT 100
[2023-06-06 20:00] VITALS: PULSE 63; PULSE 64; RESP 16; O2SAT 100
[2023-06-06] MEDS ORDERED: traMADol HCL 50 MG TAB PO PRN (21:15)
[2023-06-06 22:00] VITALS: BP 110/63; PULSE 63; RESP 16; TEMP 98; O2SAT 100
[2023-06-07] VITALS (7 sets, daily range): BP systolic 109–154; BP diastolic 70–81; PULSE 59–67; RESP 16–22; TEMP 98.1–99; O2SAT 98–100
[2023-06-07] MEDS: PANTOPRAZOLE 40mg/50ML NS AE 50 ML IV SCH ×4 (01:10→16:10)
[2023-06-07 06:57] LABS: Hemoglobin 7.3 g/dL (12.2-16.2)
[2023-06-07 06:59] LABS: Hematocrit 24.2 % (36.0-46.0); Mean Corpuscular Hemoglobin 17.4 pg (28.0-32.0); Mean Corpuscular Hgb Conc. 30.1 g/dL (32.0-36.0); Mean Corpuscular Volume 57.8 fL (80.0-100.0); Red Blood Cells 4.19 10^6/uL (4.0-5.20); White Blood Cell 7.8 10^3/uL (4.4-10.8)
[2023-06-07 07:36] LABS: Red Cell Distribution Width 21.9 % (11.8-14.3)
[2023-06-07 07:37] LABS: Band Neutrophils % (manual) 0; Basophils % (manual) 0 (0.0-2.0); Blast Cells 0; Metamyelocytes % 0; Myelocytes % 0; Promyelocytes % 0; Reactive Lymphocytes 0
[2023-06-07] MEDS ORDERED: POTASSIUM CHL 20MEQ/100ML 100 ML IV ONE (08:15)
[2023-06-07] MEDS: AMIODARONE HCL 200 MG TAB PO SCH (08:42)
[2023-06-07] MEDS: amLODIPine BESYLATE 5 MG TAB PO SCH (08:45)
[2023-06-07] MEDS: FUROSEMIDE 40 MG TAB PO SCH (08:46)
[2023-06-07 10:43] LABS: Eosinophils % (manual) 3 (0-7); Lymphocytes % (manual) 31 (10.0-50.0); Monocytes % (manual) 5 (0-12)
[2023-06-07 10:44] LABS: Platelet Estimate Adequate
[2023-06-07 10:46] LABS: Anisocytosis Slight; Hypochromia Marked
[2023-06-07] MEDS ORDERED: PANT40TA57 PO (11:05)
[2023-06-07] MEDS: THROAT LOZENGES(CEPASTAT) MT PRN (12:09)
[2023-06-07] MEDS ORDERED: POTASSIUM CHL 20 Meq TABLET PO ONE (12:30)
[2023-06-07] MEDS: METOPROLOL SUCCINATE XL 50 MG TAB PO SCH (12:41)
[2023-06-07] MEDS: SODIUM FERR GLUC 62.5MG/5ML 125 MG in SODIUM CHL 0.9% 100 ML IV SCH (12:42)
[2023-06-07] MEDS: diphenhdrAMINE HCL 50 MG/1 ML VL ONE ×2 (15:27→15:29)
[2023-06-07] MEDS ORDERED: LIDOCAINE VISCOUS 2% 15ML UD ONE (15:30)
[2023-06-07] MEDS ORDERED: MIDAZOLAM HCL 5 MG/ML-1ML VIAL ONE (15:30)
[2023-06-07] MEDS ORDERED: fentaNYL CITRATE 100 MCG/2 ML VL ONE (15:31)
== END 2023-06-07 20:08 | disposition home or self-care (01) | DRG 380 ==
LOC: ER 02:32 → TELE 09:39 → TELE-EAST 06-01 00:15
PROVIDERS: ADMIT Internal Medicine; ATTEND Internal Medicine
PROC: 05HC33Z Insertion of Infusion Device into Left Basilic Vein, Percutaneous Approach (ICD-10-PCS; principal; 2023-06-05)
PROC: B54NZZA Ultrasonography of Left Upper Extremity Veins, Guidance (ICD-10-PCS; 2023-06-05)
PROC: 0DB98ZX Excision of Duodenum, Via Natural or Artificial Opening Endoscopic, Diagnostic (ICD-10-PCS; 2023-06-07)
PROC: 0DB68ZX Excision of Stomach, Via Natural or Artificial Opening Endoscopic, Diagnostic (ICD-10-PCS; 2023-06-07)
DX: K22.11 Ulcer of esophagus with bleeding (principal); I50.33 Acute on chronic diastolic (congestive) heart failure; K29.01 Acute gastritis with bleeding; E66.9 Obesity, unspecified; I48.0 Paroxysmal atrial fibrillation; R04.0 Epistaxis; I16.0 Hypertensive urgency; E87.6 Hypokalemia; I80.8 Phlebitis and thrombophlebitis of other sites; I08.3 Combined rheumatic disorders of mitral, aortic and tricuspid valves; R39.198 Other difficulties with micturition; E05.90 Thyrotoxicosis, unspecified without thyrotoxic crisis or storm; K44.9 Diaphragmatic hernia without obstruction or gangrene; D50.9 Iron deficiency anemia, unspecified; I11.0 Hypertensive heart disease with heart failure; J44.9 Chronic obstructive pulmonary disease, unspecified; Z88.0 Allergy status to penicillin; Z88.2 Allergy status to sulfonamides; Z90.711 Acquired absence of uterus with remaining cervical stump; Z79.01 Long term (current) use of anticoagulants; Z68.35 Body mass index [BMI] 35.0-35.9, adult
CPT/HCPCS: 36415; 43239; 71045; 74177; 80048; 80053; 81001; 83735; 83880; 84100; 84439; 84443; 84481; 84484; 85007; 85014; 85018; 85025; 85027; 85610; 85730; 87086; 93005; 93306; 93970; 93971; C9113; G0378; J2250; J2405; J3480; Q9967

== ENCOUNTER 2024-05-10 06:10 | Inpatient (IN) | payer OTHER ==
[~2024-05-10] VITALS: Ht 162.6 cm; Wt 62.3 kg
[~2024-05-10 06:10] MED LIST changes: +METH5TAB98 PO; -RIV20T PO
[2024-05-10] MEDS: LABETALOL HCL 20 MG/4 ML VL IV ONE (08:49)
[2024-05-10 09:17] LABS: Chloride 108 mmol/L (98-107); Sodium 141 mmol/L (136-145)
[2024-05-10 09:18] LABS: Anion Gap 8 (5-15); Calcium 9.8 mg/dL (8.7-10.4); Carbon Dioxide 25 mmol/L (20-31)
[2024-05-10 09:23] LABS: BUN/Creatinine Ratio 21.4 (10.0-20.0); Blood Urea Nitrogen 15 mg/dL (9-23); Glucose 96 mg/dL (74-106)
[2024-05-10] MEDS ORDERED: ONDANSETRON HCL 4 MG/2 ML VIAL IV PRN (09:45)
[2024-05-10] MEDS ORDERED: KETOROLAC TROMETH 30 MG/ML 1ML VIAL IV PRN (09:45)
[2024-05-10 10:22] LABS: Hemoglobin 11.1 g/dL (12.2-16.2)
[2024-05-10 10:24] LABS: Hematocrit 34.4 % (36.0-46.0); Mean Corpuscular Hemoglobin 22.3 pg (28.0-32.0); Mean Corpuscular Hgb Conc. 32.3 g/dL (32.0-36.0); Platelet Count (auto) 243 10^3/uL (140-450); Red Blood Cells 4.98 10^6/uL (4.0-5.20); Red Cell Distribution Width 15.1 % (11.8-14.3); White Blood Cell 7.4 10^3/uL (4.4-10.8)
[2024-05-10 10:32] LABS: Basophils % (manual) 0 (0.0-2.0); Blast Cells 0; Eosinophils % (manual) 0 (0-7); Metamyelocytes % 0; Myelocytes % 0; Promyelocytes % 0; Reactive Lymphocytes 0
[2024-05-10] MEDS: SODIUM CHLORIDE 0.9% 1,000 ML IV ONE (10:32)
[2024-05-10] MEDS: FUROSEMIDE 40 MG TAB PO SCH (10:33)
[2024-05-10] MEDS: cefTRIAXone 1GM/50ML D5W 50 ML IV SCH (10:33)
[2024-05-10] MEDS: amLODIPine BESYLATE 5 MG TAB PO SCH (10:35)
[2024-05-10] MEDS: METOPROLOL SUCCINATE XL 50 MG TAB PO SCH (10:35)
[2024-05-10] MEDS: PANTOPRAZOLE 40 MG TAB PO SCH (10:36)
[2024-05-10 11:30] LABS: Urine Bacteria None Seen /hpf (None Seen)
[2024-05-10 11:53] LABS: Urine Blood Negative /uL (Negative); Urine Clarity Clear (Clear); Urine Color Light-Yellow (Yellow); Urine Protein, UAD Negative (Negative); Urine Specific Gravity 1.012 (1.001-1.035); Urine Urobilinogen Normal (Negative); Urine pH 5.5 (5.0-9.0)
[2024-05-10 12:22] LABS: Band Neutrophils % (manual) 5; Lymphocytes % (manual) 27 (10.0-50.0); Monocytes % (manual) 9 (0-12)
[2024-05-10 12:25] LABS: Platelet Estimate Adequate
[2024-05-10 12:26] LABS: Anisocytosis Slight; Hypochromia Moderate
[2024-05-10 12:27] LABS: Ovalocytes FEW
[2024-05-10 13:30] LABS: Urine Epithelial Cast FEW /hpf (<5); Urine WBC None Seen /hpf (0 - 5)
[2024-05-10] MEDS: methIMAzole 5 MG TAB PO SCH (14:00)
[2024-05-10 16:42] VITALS: BP 148/82
[2024-05-10 16:57] VITALS: PULSE 72; RESP 19; O2SAT 95
[2024-05-10] MEDS ORDERED: ACET-1881 PO (17:16)
[2024-05-10] MEDS: ACETAMINOPHEN 325 MG TAB PO PRN (17:30)
[2024-05-10 20:00] VITALS: RESP 18
[2024-05-10 21:00] VITALS: BP 166/113; PULSE 70; RESP 20; TEMP 97.8; O2SAT 100
[2024-05-10] MEDS: hydrALAZINE HCL 20 MG/ML VL IV PRN (21:54)
[2024-05-11] MEDS: diphenhdrAMINE HCL 50 MG/1 ML VL IV PRN (00:26)
[2024-05-11 07:17] LABS: Basophils # (auto) 0 10 ^3/uL (0-0.2); Eosinophils # (auto) 0 10 ^3/uL (0-0.8); Monocytes # (auto) 0.7 10 ^3/uL (0-1.3); Neutrophils # (auto) 7.8 10 ^3/uL (1.6-8.6); Nucleated Red Blood Cells % 0.1 %; Platelet Count (auto) 312 10^3/uL (140-450); Red Blood Cells 5.44 10^6/uL (4.0-5.20); White Blood Cell 9.6 10^3/uL (4.4-10.8)
[2024-05-11 07:20] LABS: Basophils % (auto) 0.4 % (0.0-2.0); Eosinophils % (auto) 0.4 % (0.0-7.0); Hematocrit 38.2 % (36.0-46.0); Lymphocytes % (auto) 10.5 % (10.0-50.0); Mean Corpuscular Hgb Conc. 31.3 g/dL (32.0-36.0); Mean Corpuscular Volume 70.2 fL (80.0-100.0); Monocytes % (auto) 7.7 % (0.0-12.0); Red Cell Distribution Width 14.8 % (11.8-14.3)
[2024-05-11 07:35] LABS: Anion Gap 13 (5-15); Carbon Dioxide 22 mmol/L (20-31); Chloride 108 mmol/L (98-107); Potassium 3.5 mmol/L (3.5-5.1); Sodium 143 mmol/L (136-145)
[2024-05-11 07:36] LABS: Calcium 10.2 mg/dL (8.7-10.4)
[2024-05-11 07:41] LABS: BUN/Creatinine Ratio 13.9 (10.0-20.0); Blood Urea Nitrogen 10 mg/dL (9-23); Glucose 104 mg/dL (74-106)
[2024-05-11 08:00] VITALS: PULSE 75; RESP 18; O2SAT 96
[2024-05-11 09:00] VITALS: BP 176/99; PULSE 94; RESP 17; TEMP 98.4; O2SAT 98
[2024-05-11 13:05] VITALS: BP 161/92; PULSE 91; RESP 16; TEMP 98.3; O2SAT 99
[2024-05-11] MEDS ORDERED: BACDST PO (13:43)
[2024-05-11 14:12] VITALS: BP 139/79; PULSE 84
[2024-05-11 14:17] VITALS: BP 139/79; PULSE 91; RESP 16; TEMP 98.3; O2SAT 99
== END 2024-05-11 15:00 | disposition home or self-care (01) | DRG 304 ==
LOC: ER 06:10 → OVERFLOW 09:40 → CENTRAL 16:40
PROVIDERS: ADMIT Registered Nurse General Practice; ATTEND Registered Nurse General Practice
DX: I16.0 Hypertensive urgency (principal); G93.41 Metabolic encephalopathy; N39.0 Urinary tract infection, site not specified; F03.90 Unspecified dementia, unspecified severity, without behavioral disturbance, psychotic disturbance, mood disturbance, and anxiety; J44.89 Other specified chronic obstructive pulmonary disease; I11.0 Hypertensive heart disease with heart failure; I48.91 Unspecified atrial fibrillation; E05.90 Thyrotoxicosis, unspecified without thyrotoxic crisis or storm; I50.9 Heart failure, unspecified; R32 Unspecified urinary incontinence; Z88.0 Allergy status to penicillin; Z79.899 Other long term (current) drug therapy
CPT/HCPCS: 36415; 70450; 71045; 80048; 81001; 82962; 84484; 85007; 85025; 85027; 87086; 99291; G0378; J1885

== ENCOUNTER 2024-07-26 05:43 | Inpatient (IN) | payer MEDICARE, OTHER ==
[~2024-07-26] VITALS: Ht 154.9 cm; Wt 60.2 kg
[~2024-07-26 05:43] MED LIST changes: +ACET-1881 PO; +BACDST PO; +FERR325T24 PO; +METO2.5T PO
--- NOTE | 2024-07-26 06:59 | ED.PDOC ---
Altered Mental Status HPI Comments 78 year old female brought in by daughter presents to the ED with chief complaint of ALOC. Daughter reports that the patient has been increasingly confused and having a poor appetite for the past few days. Daughter relays that the patient had stopped walking on her own yesterday and seems to have decreased activity, which is not normal for her. Daughter states over the past month, the patient has lost about 22 lbs due to a poor appetite. Daughter notes that the patient's urine has been dark recently. Patient denies any concerns at this time and is unable to answer questions. Chief Complaint: ALOC Time Seen by MD: 06:53 Reviewed Notes: Nurses Notes, Medications, Allergies Allergies: Coded Allergies: Penicillins (Verified Allergy, Unknown, 02/04/23) Sulfa Antibiotics (Verified Allergy, Unknown, 02/04/23) Home Meds Active Scripts Sulfamethoxazole W/Trimethopri (Bactrim Ds Tablet) 1 Tab Tb, 1 TAB PO BID for 3 Days, #6 TAB Prov:KIA BLOUNT MD 05/11/24 Pantoprazole Sodium Sesquihydr (Pantoprazole Sodium Dr) 40 Mg Tab, 1 TAB PO BID, #60 TAB 5 Refills Prov:TEAGAN ANN MD 06/07/23 Reported Medications Ferrous Sulfate (Gnp Iron) 325 Mg Tab, 1 TAB PO BID 07/26/24 Metolazone (Metolazone) 2.5 Mg Tab, 1 TAB PO DAILY 07/26/24 Acetaminophen (Acetaminophen) 325 Mg Tab, 325 MG PO Q4HP PRN for MILD PAIN for 30 Days, MG 0 Refills 05/10/24 Methimazole (Methimazole) 5 Mg Tab, 3 TAB PO TID 06/01/23 Furosemide (Furosemide) 40 Mg Tab, 1 TAB PO DAILY 02/05/23 Amlodipine Besylate (Amlodipine Besylate) 2.5 Mg Tab, 1 TAB PO DAILY 02/05/23 Metoprolol Succinate (Metoprolol Succinate Er) 100 Mg Tab, 1 TAB PO DAILY 02/05/23 Information Source: Patient, Relative (Daughter) Mode of Arrival: Ambulatory Severity: Moderate Timing: Days Duration: Since onset Prehospital treatment: None Quality: Decreased Alertness, Change in Behavior, Confusion, Not Eating Recent: None History of: Dementia Associated Signs and Symptoms: None Past Medical History PAST MEDICAL HISTORY: AFIB, Anemia, Asthma, CHF, COPD, Dementia, HTN Surgical History: Unknown [employer] History: Unknown Family History Family History: Reviewed,noncontributory to illness Social History Smoker: Non-Smoker Alcohol: Denies ETOH Use Drugs: Denies Drug Use Lives In: Home Constitutional: denies: chills, diaphoresis, fatigue, fever, malaise, sweats, weakness, others EENTM: denies: blurred vision, double vision, ear bleeding, ear discharge, ear drainage, ear pain, ear ringing, eye pain, eye redness, hearing loss, mouth pain , mouth swelling, nasal discharge, nose bleeding, nose congestion, nose pain, photophobia, tearing, throat pain, throat swelling, voice changes, others Respiratory: denies: cough, hemoptysis, orthopnea, SOB at rest, shortness of breath, SOB with excertion, stridor, wheezing, others Cardiovascular: denies: chest pain, dizzy spells, diaphoresis, Dyspnea on exertion, edema, irregular heart beat, left arm pain, lightheadedness, palpitations, PND, syncope, others Gastrointestinal: reports: poor appetite; denies: abdomen distended, abdominal pain, blood streaked bowels, constipated, diarrhea, dysphagia, difficulty swallowing, hematemesis, melena, nausea, poor fluid intake, rectal bleeding, rectal pain, vomiting, others Genitourinary: denies: abnormal vagina bleeding, burning, dyspareunia, dysuria, flank pain, frequency, hematuria, incontinence, pain, , vagina discharge, urgency, others Neurological: denies: dizziness, fainting, headache, left sided numbness, left sided weakness, numbness, paresthesia, pre-existing deficit, right sided numbness, right sided weakness, seizure, speech problems, tingling, tremors, weakness, others Musculoskeletal: denies: back pain, gout, joint pain, joint swelling, muscle pain, muscle stiffness, neck pain, others Integumetry: denies: bruises, change in color, change in hair/nails, dryness, laceration, lesions, lumps, rash, wounds, others Allergic/Immunocompromised: denies: Difficulty Healing, Frequent Infections, Hives, Itching, others Hematologic/Lymphatic: denies: anemia, blood clots, easy bleeding, easy bruising, swollen glands, others Endocrine: denies: excessive hunger, excessive sweating, excessive thirst, excessive urination, flushing, intolerance to cold, intolerance to heat, unexplained weight gain, unexplained weight loss, others Psychiatric: denies: anxiety, bipolar disorder, depression, hopeless, panic disorder, schizophrenia, sleepless, suicidal, others Unable to Obtain due to: Altered Mental Status, Dementia All Other Systems: Reviewed and Negative Physical Exam General Appearance: No Apparent Distress, Other (Patient not able to follow commands completely) HEENT: Normal ENT Inspection, PERRL/EOMI Neck: Full Range of Motion, Non-Tender, Normal, Normal Inspection Respiratory: Chest Non-Tender, Lungs Clear, No Accessory Muscle Use, No Respiratory Distress, Normal Breath Sounds Cardiovascular: No Edema, No JVD, No Murmur, No Gallop, Normal Peripheral Pulses, Regular Rate/Rhythm Breast Exam: Deferred Gastrointestinal: No Organomegaly, Non Tender, No Pulsatile Mass, Normal Bowel Sounds, Soft Genitalia: Deferred Pelvic: Deferred Rectal: Deferred Extremities: No calf tenderness, Normal capillary refill, Normal inspection, Normal range of motion, Non-tender, No pedal edema Musculoskeletal : Apperance: Normal Neurologic: Alert, hospitality aide II-XII nml as Tested, No Motor Deficits, Normal Affect, Normal Mood, No Sensory Deficits Cerebellar Function: Normal Reflexes: Normal Skin: Dry, Normal Color, Warm Lymphatic: No Adenopathy EKG EKG : Pulse Rate (adult): 92 Equality: Normal Cardiac Rhythm: NSR Block: None Hypertrophy: None ST: Normal Comments Normal axis, Normal intervals, no ischemic changes Was a procedure done? Was a procedure done?: No Differential Diagnosis (ALOC) Differential Diagnosis: Dehydration, Encephalopathy, Other (UTI) X-Ray, Labs, Meds, VS Vital Signs Date Time Temp Pulse Resp B/P (MAP) Pulse Ox O2 Delivery O2 Flow Rate FiO2 07/26/24 16:14 95 29 129/75 (93) 99 07/26/24 13:55 98.9 108 18 123/86 (98) 99 98.9 07/26/24 10:57 98.7 119 16 123/74 (90) 99 98.7 07/26/24 08:46 91 17 96 Room Air* 0 21 07/26/24 08:17 98.4 99 18 151/94 (113) 99 98.4 07/26/24 06:59 92 07/26/24 06:33 92 07/26/24 06:09 99.6 91 20 149/97 (114) 96 Lab Test 07/26/24 08:34 07/26/24 08:19 07/26/24 07:16 Range/Units Urine Color Yellow Yellow Urine Clarity Hazy H Clear Urine pH 6.0 5.0-9.[address] 1.030 1.001-1.035 Urine Protein 1+ H Negative Urine Ketones Trace Negative Urine Blood Negative Negative /uL Urine Nitrite Negative Negative Urine Bilirubin Negative Negative Urine Urobilinogen Normal Negative mg/dL Urine Leukocyte Esterase 3+ Negative /uL Urine RBC 2 0 - 4 /hpf Urine WBC 43 0 - 5 /hpf Urine Squamous Epithelial Cells Few <5 /hpf Urine Bacteria Few H None Seen /hpf Urine Mucus Few None Seen Urine Glucose Normal Normal mg/dL Troponin I High Sensitivity 20 20 </=34 ng/L White Blood Count 7.7 4.4-10.8 10^3/uL Red Blood Count 5.25 H 4.0-5.20 10^6/uL Hemoglobin 11.2 L 12.2-16.2 g/dL Hematocrit 35.1 L 36.0-46.0 % Mean Corpuscular Volume 66.8 L 80.0-100.0 fL Mean Corpuscular Hemoglobin 21.4 L 28.0-32.0 pg Mean Corpuscular Hemoglobin Concent 32.0 32.0-36.0 g/dL Red Cell Distribution Width 16.2 H 11.8-14.3 % Platelet Count 303 140-450 10^3/uL Mean Platelet Volume 9.7 6.9-10.8 fL Neutrophils (%) (Auto) 73.3 37.0-80.0 % Lymphocytes (%) (Auto) 15.5 10.0-50.0 % Monocytes (%) (Auto) 9.8 0.0-12.0 % Eosinophils (%) (Auto) 1.0 0.0-7.0 % Basophils (%) (Auto) 0.4 0.0-2.0 % Neutrophils # (Auto) 5.7 1.6-8.6 10 ^3/uL Lymphocytes # (Auto) 1.2 0.4-5.4 10 ^3/uL Monocytes # (Auto) 0.8 0-1.3 10 ^3/uL Eosinophils # (Auto) 0.1 0-0.8 10 ^3/uL Basophils # (Auto) 0 0-0.2 10 ^3/uL Nucleated Red Blood Cells 0.1 % Sodium Level 144 136-145 mmol/L Potassium Level 3.3 L 3.5-5.1 mmol/L Chloride Level 109 H 98-107 mmol/L Carbon Dioxide Level 27 20-31 mmol/L Anion Gap 8 5-15 Blood Urea Nitrogen 24 H 9-23 mg/dL Creatinine 0.55 0.550-1.02 mg/dL Glomerular Filtration Rate Calc 94 >90 mL/min BUN/Creatinine Ratio 43.6 H 10.0-20.0 Serum Glucose 104 74-106 mg/dL Calcium Level 10.5 H 8.7-10.4 mg/dL Total Bilirubin 0.6 0.2-1.0 mg/dL Aspartate Amino Transferase (AST) 19 13-40 U/L Alanine Aminotransferase (ALT) 13 7-40 U/L Alkaline Phosphatase 65 46-116 U/L Total Protein 6.7 5.7-8.2 g/dL Albumin 3.8 3.2-4.8 g/dL Current Medications Medications (Trade) Dose Ordered Sig/Heather Route Start Time Stop Time Status Last Admin Sodium Chloride 1,000 ml @ 1,000 mls/hr Q1H ONCE IVB 07/26/24 06:45 07/26/24 07:44 DC 07/26/24 08:37 CT Head: FINDINGS: There is no evidence of acute intracranial hemorrhage, extra-axial collection, mass effect, midline shift, herniation or hydrocephalus. There are periventricular and subcortical hypodensities, nonspecific, but likely reflecting sequelae of chronic microvascular ischemic changes. The ventricles, sulci and cisterns are age appropriate. The leahy-white differentiation is intact. Mastoid air cells are clear. There is opacification of the right maxillary sinus. No depressed calvarial fracture. The surrounding soft tissues are unremarkable. IMPRESSION: 1. No evidence of acute intracranial abnormality. Chest XR: FINDINGS: Lungs: Clear. Cardiac: Heart size is within normal limits. Pulmonary vasculature: Unremarkable. Mediastinum/bk: A zipper overlies the mediastinum near the aortic arch, partially obscuring visualization. Dense atherosclerotic calcification of the aortic arch. Bones: No acute osseous abnormality identified. Other: No other significant findings. IMPRESSION: No evidence of acute disease in the chest. X-Ray, Labs, Meds, VS Comment Patient has elevated troponin. She has a paced rhythm. There is no ST elevation. Therefore patient was treated for non STEMI. Recommended hospitalization. Patient agreed Images Reviewed?: Images reviewed and evaluated by me Time of 1ST Reevaluation: 07:53 Reevaluation 1ST: Unchanged Patient Education/Counseling: Diagnosis, Treatment Family Education/Counseling: Diagnosis, Treatment Additional Information I reviewed the following notes from patient's past medical encounters: 05/10/24 for ALOC The following tests were ordered, and results were reviewed by me: Troponin, UA, CBC, CMP, EKG, Head CT, Chest XR Additional Information was gathered from interviewing the following independent historians: Daughter I reviewed and agreed with the following test results read by other providers: Head CT, Chest XR I discussed treatment and results with medical personnel and daughter. Departure 1 Departure Time of Disposition: 16:32 Impression: Primary Impression: Non-STEMI (non-ST elevated myocardial infarction) Disposition: ADMITTED INPATIENT Admit to: Tele Condition: Critical Critical Care Note Critical Care Time?: Yes (35 min-critical care time only) Critical care comment: CRITICAL CARE TIME: 35 minutes Treatments/Evaluations: Close monitoring and treatment of unstable vital signs, cardiorespiratory, and neurologic status, while maintaining tight balance of fluid, respiratory, and cardiac interventions. This time includes discussing the case with the patient and the patients family. This time does not include all procedures stated elsewhere in this record. This time also includes reviewing old records, labs and radiological studies. This time includes examining and re- examining the patient. Additionally, this time also includes arranging care with admitting and consulting physicians. Stability Stability form required: No Heart Score Heart Score: Heart Score Response (Comments) Value History N/A 0 EKG N/A 0 Age N/A 0 Risk Factors N/A 0 Troponin N/A 0 Total 0 I personally scribed for MARCO RAGLAND MD ([email or web address]) on 07/26/24 at 06:59. Electronically submitted by Ernie Durán ([email or web address]). I personally scribed for MARCO RAGLAND MD ([email or web address]) on 07/26/24 at 07:42. Electronically submitted by Ernie Durán ([email or web address]). I personally scribed for MARCO RAGLAND MD ([email or web address]) on 07/26/24 at 08:12. Electronically submitted by Ernie Durán ([email or web address]). MARCO RAGLAND MD Jul 26, 2024 06:59
--- NOTE | 2024-07-26 07:37 | DVH ---
CLINICAL INFORMATION: 78 years old, Female; shortness of breath. TECHNIQUE: Single AP portable chest radiograph was obtained. COMPARISON: XY CHEST PORTABLE on DOS: 05/10/24, XY CHEST PORTABLE on DOS: 05/31/23, XY CHEST PORTABLE on DOS: 02/04/23 FINDINGS: Lungs: Clear. Cardiac: Heart size is within normal limits. Pulmonary vasculature: Unremarkable. Mediastinum/bk: A zipper overlies the mediastinum near the aortic arch, partially obscuring visuali zation. Dense atherosclerotic calcification of the aortic arch. Bones: No acute osseous abnormality identified. Other: No other significant findings. IMPRESSION: No evidence of acute disease in the chest.
--- NOTE | 2024-07-26 07:39 | DVH ---
EXAM: CT HEAD WITHOUT CONTRAST INDICATION: ams TECHNIQUE: CT of the head without intravenous contrast. Coronal and sagittal reformatted images are submitted. Radiation Dose : 1. Head: CT Dose: CTDI volume is 48.92 mGy. Dose-length product is 871.49 mGy*cm The dose indicators for CT are the volume Computed Tomography (CT) Dose Index (CTDIvol) and the Dose Length Product (DLP), and are measured in units of mGy and mGy-cm, respectively. These indicators are not patient dose, but values generated from the CT scanner acquisition factors. The report includes radiation exposure data for exposures received during this examination. All CT scans at this medical facility are performed using dose modulation techniques as appropriate to a performed exam including the following: Automated exposure control was utilized; adjustment of the MA and/or KV according to patient size; and use of iterative reconstruction technique. COMPARISON: CT HEAD WITHOUT CONTRAST on DOS: 05/10/24 FINDINGS: There is no evidence of acute intracranial hemorrhage, extra-axial collection, mass effect, midline s hift, herniation or hydrocephalus. There are periventricular and subcortical hypodensities, nonspecific, but likely reflecting sequelae of chronic microvascular ischemic changes. The ventricles, sulci and cisterns are age appropriate. The leahy-white differentiation is intact. Mastoid air cells are clear. There is opacification of the right maxillary sinus. No depressed calvarial fracture. The surrounding soft tissues are unremarkable. IMPRESSION: 1. No evidence of acute intracranial abnormality.
--- NOTE | 2024-07-26 07:53 | ECG ---
[facility] Test Date: 2024-07-26 Test Time: 06:18:55 Pat Name: KALI QUAN Department: ER Room: Gender: F Rate Examiner: STACEY : 1945 Requested By: MARCO RAGLAND Order Number: [id number] Reading MD: Kevan Wong Measurements Intervals Edgar Rate: 92 P: 22 UT: 137 QRS: -9 QRSD: 86 T: 41 QT: 346 QTc: 429 Interpretive Statements Sinus rhythm Left ventricular hypertrophy Baseline wander in lead(s) V3 Electronically Signed On 07-26-2024 13:15:04 PST by Kevan Wong Please click the below link to view image of tracing.
[2024-07-26 08:07] LABS: Basophils # (auto) 0 10 ^3/uL (0-0.2); Eosinophils # (auto) 0.1 10 ^3/uL (0-0.8); Hemoglobin 11.2 g/dL (12.2-16.2); Monocytes # (auto) 0.8 10 ^3/uL (0-1.3); Neutrophils # (auto) 5.7 10 ^3/uL (1.6-8.6); Nucleated Red Blood Cells % 0.1 %
[2024-07-26 08:12] LABS: Basophils % (auto) 0.4 % (0.0-2.0); Hematocrit 35.1 % (36.0-46.0); Lymphocytes # (auto) 1.2 10 ^3/uL (0.4-5.4); Lymphocytes % (auto) 15.5 % (10.0-50.0); Mean Corpuscular Hemoglobin 21.4 pg (28.0-32.0); Mean Corpuscular Volume 66.8 fL (80.0-100.0); Monocytes % (auto) 9.8 % (0.0-12.0); Neutrophils % (auto) 73.3 % (37.0-80.0); Platelet Count (auto) 303 10^3/uL (140-450); Red Blood Cells 5.25 10^6/uL (4.0-5.20); Red Cell Distribution Width 16.2 % (11.8-14.3); White Blood Cell 7.7 10^3/uL (4.4-10.8)
[2024-07-26 08:23] LABS: Alanine Aminotransferase 13 U/L (7-40); Albumin 3.8 g/dL (3.2-4.8); Alkaline Phosphatase 65 U/L (46-116); Anion Gap 8 (5-15); Aspartate Aminotransferase 19 U/L (13-40); BUN/Creatinine Ratio 43.6 (10.0-20.0); Bilirubin, Total 0.6 mg/dL (0.2-1.0); Carbon Dioxide 27 mmol/L (20-31); Glucose 104 mg/dL (74-106); Sodium 144 mmol/L (136-145); Total Protein 6.7 g/dL (5.7-8.2)
[2024-07-26 08:30] LABS: Blood Urea Nitrogen 24 mg/dL (9-23); Calcium 10.5 mg/dL (8.7-10.4); Chloride 109 mmol/L (98-107); Potassium 3.3 mmol/L (3.5-5.1)
[2024-07-26] MEDS: SODIUM CHLORIDE 0.9% 1,000 ML IVB ONE (08:37)
[2024-07-26 08:46] VITALS: PULSE 91; RESP 17; O2SAT 96
[2024-07-26 09:12] LABS: Urine Bacteria FEW /hpf (None Seen); Urine Blood Negative /uL (Negative); Urine Color Yellow (Yellow); Urine Mucus FEW (None Seen); Urine Protein, UAD 1+ (Negative); Urine Squamous Epithelial Cell FEW /hpf (<5); Urine Urobilinogen Normal (Negative); Urine WBC 43 /hpf (0 - 5)
[2024-07-26 09:15] LABS: Urine Clarity Hazy (Clear)
[2024-07-26] MEDS ORDERED: HYDROcodone-ACET 5/325MG TAB PO PRN (16:15)
[2024-07-26] MEDS: cefTRIAXone 1GM/50ML D5W 50 ML IV ONE (16:15)
[2024-07-26] MEDS ORDERED: MORPHINE SULFATE INJ 2 MG/ml SYRG IV PRN (16:15)
[2024-07-26] MEDS ORDERED: NITROGLYCERIN 0.4 MG SL TAB SL PRN (16:15)
[2024-07-26] MEDS: POTASSIUM CHLORIDE 40 MEQ, LIDOCAINE 1% (LOCAL ANESTH.) 4 ML in SODIUM CHL 0.9% 250 ML IV ONE (16:15)
[2024-07-26] MEDS ORDERED: FERR1TAB8 PO (16:25)
[2024-07-26] MEDS: MAGNESIUM SULFATE 1GM/100ML 100 ML IV ONE (16:42)
--- NOTE | 2024-07-26 16:48 | DVHHP2 ---
History of Present Illness Reason for Visit: ALOC History of Present Illness Zara Soriano is a 78-year-old female with past medical history of hypertension, COPD, asthma, AFib, CHF, dementia, anemia, and stent placement over 3 years ago per daughter who presents to the ED for altered level of consciousness. Patient's daughter reports that her confusion has gotten progressively worse in the last week, also poor appetite, loss of 22 lb in the last several months, complains of leg pain bilateral, and decreased activity. Patient's daughter also reports that she has been voiding with dark urine. Patient's daughter states that she was able to walk around but the last week she has been in bed. Patient's daughter reports that she has been with them for 3 years but before that was in [place]. Patient answers questions with soft voice and tone but confused, however is alert. Upon examination when palpating lower extremities patient grimaces and complains of pain. 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 Heme/Onc: Anemia NOS Past Surgical History EGD Stent greater than 3 years ago Family History: None Smoke: No ALCOHOL: none Drugs: None Lives: with Family Domestic Violence: Neg Review of Systems Constitutional: Yes: Weakness, Other (Poor appetite) Genitourinary: Other (Dark urine output) Musculoskeletal: leg pain; No: other, neck pain, shoulder pain, arm pain, back pain, hand pain, foot pain Neurological: Confusion Allergies: Coded Allergies: Penicillins (Verified Allergy, Unknown, 02/04/23) Sulfa Antibiotics (Verified Allergy, Unknown, 02/04/23) Exam Vital Signs Vital Signs Date Time Temp Pulse Resp B/P (MAP) Pulse Ox O2 Delivery O2 Flow Rate FiO2 07/26/24 16:14 95 29 129/75 (93) 99 07/26/24 13:55 98.9 98.9 07/26/24 08:46 Room Air* 0 21 General Appearance: Alert, Cooperative, No acute distress HEENT: Atraumatic, PERRLA, EOMI, Mucous membr. moist/pink Respiratory: Clear to auscultation, Normal air movement Cardiovascular: Normal S1, Normal S2, No murmurs Abdominal: Normal bowel sounds, Soft, No tenderness, No hepatospenomegaly, No masses Extremities: No cyanosis Skin: No significant lesion Neuro: Sensation intact Psych/Mental Status: Other (confused) Labs/Xrays Labs Test 07/26/24 08:34 07/26/24 08:19 07/26/24 07:16 Range/Units Urine Color Yellow Yellow Urine Clarity Hazy H Clear Urine pH 6.0 5.0-9.0 Urine Specific [place] 1.030 1.001-1.035 Urine Protein 1+ H Negative Urine Ketones Trace Negative Urine Blood Negative Negative /uL Urine Nitrite Negative Negative Urine Bilirubin Negative Negative Urine Urobilinogen Normal Negative mg/dL Urine Leukocyte Esterase 3+ Negative /uL Urine RBC 2 0 - 4 /hpf Urine WBC 43 0 - 5 /hpf Urine Squamous Epithelial Cells Few <5 /hpf Urine Bacteria Few H None Seen /hpf Urine Mucus Few None Seen Urine Glucose Normal Normal mg/dL Troponin I High Sensitivity 20 </=34 ng/L White Blood Count 7.7 4.4-10.8 10^3/uL Red Blood Count 5.25 H 4.0-5.20 10^6/uL Hemoglobin 11.2 L 12.2-16.2 g/dL Hematocrit 35.1 L 36.0-46.0 % Mean Corpuscular Volume 66.8 L 80.0-100.0 fL Mean Corpuscular Hemoglobin 21.4 L 28.0-32.0 pg Mean Corpuscular Hemoglobin Concent 32.0 32.0-36.0 g/dL Red Cell Distribution Width 16.2 H 11.8-14.3 % Platelet Count 303 140-450 10^3/uL Mean Platelet Volume 9.7 6.9-10.8 fL Neutrophils (%) (Auto) 73.3 37.0-80.0 % Lymphocytes (%) (Auto) 15.5 10.0-50.0 % Monocytes (%) (Auto) 9.8 0.0-12.0 % Eosinophils (%) (Auto) 1.0 0.0-7.0 % Basophils (%) (Auto) 0.4 0.0-2.0 % Neutrophils # (Auto) 5.7 1.6-8.6 10 ^3/uL Lymphocytes # (Auto) 1.2 0.4-5.4 10 ^3/uL Monocytes # (Auto) 0.8 0-1.3 10 ^3/uL Eosinophils # (Auto) 0.1 0-0.8 10 ^3/uL Basophils # (Auto) 0 0-0.2 10 ^3/uL Nucleated Red Blood Cells 0.1 % Sodium Level 144 136-145 mmol/L Potassium Level 3.3 L 3.5-5.1 mmol/L Chloride Level 109 H 98-107 mmol/L Carbon Dioxide Level 27 20-31 mmol/L Anion Gap 8 5-15 Blood Urea Nitrogen 24 H 9-23 mg/dL Creatinine 0.55 0.550-1.02 mg/dL Glomerular Filtration Rate Calc 94 >90 mL/min BUN/Creatinine Ratio 43.6 H 10.0-20.0 Serum Glucose 104 74-106 mg/dL Calcium Level 10.5 H 8.7-10.4 mg/dL Total Bilirubin 0.6 0.2-1.0 mg/dL Aspartate Amino Transferase (AST) 19 13-40 U/L Alanine Aminotransferase (ALT) 13 7-40 U/L Alkaline Phosphatase 65 46-116 U/L Total Protein 6.7 5.7-8.2 g/dL Albumin 3.8 3.2-4.8 g/dL EXAM: CT HEAD WITHOUT CONTRAST INDICATION: ams TECHNIQUE: CT of the head without intravenous contrast. Coronal and sagittal reformatted images are submitted. Radiation Dose : 1. Head: CT Dose: CTDI volume is 48.92 mGy. Dose-length product is 871.49 mGy*cm The dose indicators for CT are the volume Computed Tomography (CT) Dose Index (CTDIvol) and the Dose Length Product (DLP), and are measured in units of mGy and mGy-cm, respectively. These indicators are not patient dose, but values generated from the CT scanner acquisition factors. The report includes radiation exposure data for exposures received during this examination. All CT scans at this medical facility are performed using dose modulation techniques as appropriate to a performed exam including the following: Automated exposure control was utilized; adjustment of the MA and/or KV according to patient size; and use of iterative reconstruction technique. COMPARISON: CT HEAD WITHOUT CONTRAST on DOS: 05/10/24 FINDINGS: There is no evidence of acute intracranial hemorrhage, extra-axial collection, mass effect, midline shift, herniation or hydrocephalus. There are periventricular and subcortical hypodensities, nonspecific, but likely reflecting sequelae of chronic microvascular ischemic changes. The ventricles, sulci and cisterns are age appropriate. The leahy-white differentiation is intact. Mastoid air cells are clear. There is opacification of the right maxillary sinus. No depressed calvarial fracture. The surrounding soft tissues are unremarkable. IMPRESSION: 1. No evidence of acute intracranial abnormality. CLINICAL INFORMATION: 78 years old, Female; shortness of breath. TECHNIQUE: Single AP portable chest radiograph was obtained. COMPARISON: XY CHEST PORTABLE on DOS: 05/10/24, XY CHEST PORTABLE on DOS: 05/31/23, XY CHEST PORTABLE on DOS: 02/04/23 FINDINGS: Lungs: Clear. Cardiac: Heart size is within normal limits. Pulmonary vasculature: Unremarkable. Mediastinum/bk: A zipper overlies the mediastinum near the aortic arch, partially obscuring visualization. Dense atherosclerotic calcification of the aortic arch. Bones: No acute osseous abnormality identified. Other: No other significant findings. IMPRESSION: No evidence of acute disease in the chest. 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 labs TSH Vitamin B12 Vitamin-D Hypokalemia Replete lytes Chronic hypertension Continue home medication Chronic COPD Chronic asthma Respiratory treatments p.r.n. Chronic AFib History of stent 3 years ago Continue home medication Rounding team to Consider cardiology consult if patient is symptomatic Chronic CHF Continue home medication Chronic dementia Monitor FEN/PPX diet HL PUD ppx -continue home med, protonix DVT ppx - Lovenox Discussed plan of care with patient, patient's daughter, and nurse Admit to tele Home medications reconciled Plan discussed with: Patient, Daughter My Orders Orders - ESTELLA JAVIER [employer]GER Procedure Category Date Status Time Ceftriaxone Ivpb PHA 07/27/24 Verified Rocephin 09:00 Ceftriaxone Ivpb PHA 07/26/24 Verified Rocephin 16:15 Admit ADMIT 07/26/24 Verified 16:15 Allergies LJ 07/26/24 Verified 16:15 Code Status CODE 07/26/24 Verified 16:15 Hydrocodone-Acet PHA 07/26/24 Verified 5/325mg Tab ([place] 16:15 Ondansetron Hcl PHA 07/26/24 Verified (Zofran) 16:15 Complete Blood Count LAB 07/27/24 Verified 04:00 Comprehensive LAB 07/27/24 Verified Metabolic Panel 04:00 Cardiac DIET 07/26/24 Verified Diet-2gna,Lofat,Lochol Dinner Enoxaparin Sodium PHA 07/27/24 Verified (Lovenox) 10:00 Acetaminophen Tablet PHA 07/26/24 Verified (Tylenol Tablet) 16:15 Nitroglycerin PHA 07/26/24 Verified Sublingual (Ntrostat 16:15 Morphine Sulfate PHA 07/26/24 Verified Injection 16:15 Stat Ekg For Chest [facility] 07/26/24 Verified Pain 16:15 Notify Md Of Changes [facility] 07/26/24 Verified From Base 16:15 Hydroelectric Systems Technician For [facility] 07/26/24 Verified 24 Hours 16:15 Emergency Dysrhythmia [facility] 07/26/24 Verified Protocol 16:15 Rhythm Strips Once [facility] 07/26/24 Verified Every Shift 16:15 Oxygen By Nasal RT 07/26/24 Verified Cannula 16:15 Furosemide Injection PHA 07/27/24 Verified (Lasix Injection) 10:00 Potassium Chl Bin PHA 07/26/24 Verified KCL 16:15 Magnesium LAB 07/26/24 Verified 16:15 Magnesium Bin PHA 07/26/24 Verified 16:15 Bilat Lower Dvt US 07/26/24 Verified 16:15 Furosemide Tablet PHA 07/27/24 Verified (Lasix Tablet) 10:00 Methimazole Tab PHA 07/26/24 Verified (Tapazole) 22:00 Pantoprazole Tablet PHA 07/26/24 Verified (Protonix Tablet) 22:00 (Nf) Amlodipine PHA 07/27/24 Verified Besylate 10:00 (Nf) Metoprolol PHA 07/27/24 Verified Succinate (Metoprolol 10:00 Date of Service: Jul 26, 2024 Billing Provider: ESTELLA JAVIER Common Visit Codes: [id number] INP/OBS CARE (HIGH) ESTELLA JAVIER Jul 26, 2024 16:48
[2024-07-26 18:40] VITALS: PULSE 93; RESP 18; O2SAT 99
[2024-07-26 19:00] VITALS: BP 162/87; PULSE 97; RESP 18; TEMP 98.2; O2SAT 97
--- NOTE | 2024-07-26 19:24 | DVH ---
Procedure: US BiLat Lower DVT Study Date and Requested Time: 07/26/2024 06:10 PM History: pain ble Comparison: US BILAT LOWER DVT on DOS: 05/31/23, US BILAT LOWER DVT on DOS: 02/05/23 Technique: Multiple high resolution leahy-scale images with and without compression obtained of the bi lateral lower extremity veins, including the common femoral vein, deep femoral vein, proximal mid and distal superficial femoral vein, and popliteal vein. Additional limited images of the greater saphen ous vein also obtained. Augmentation performed as indicated. Color and spectral doppler flow images o btained as indicated. Findings: No visible intraluminal venous thrombus. No evidence of incompressibility or abnormal color or spectr al Doppler flow visualized in the bilateral lower extremity veins including, the common femoral vein, deep femoral vein, proximal mid and distal superficial femoral vein, and popliteal vein. Greater sap henous vein grossly unremarkable. Impression: No sonographic evidence of bilateral lower extremity deep venous thrombosis.
[2024-07-26 20:00] VITALS: PULSE 97; RESP 18; O2SAT 96
[2024-07-26 21:00] VITALS: BP 162/81; PULSE 97; RESP 18; TEMP 98.2; O2SAT 96
[2024-07-26] MEDS: methIMAzole 5 MG TAB PO ONE (21:51)
[2024-07-26] MEDS ORDERED: methIMAzole 5 MG TAB PO SCH (22:00)
[2024-07-27] VITALS (7 sets, daily range): BP systolic 122–166; BP diastolic 67–98; PULSE 63–105; RESP 18–20; TEMP 98.1–99.3; O2SAT 93–98
[2024-07-27 06:28] LABS: Basophils # (auto) 0 10 ^3/uL (0-0.2); Eosinophils # (auto) 0.1 10 ^3/uL (0-0.8); Monocytes # (auto) 0.9 10 ^3/uL (0-1.3); Red Cell Distribution Width 15.9 % (11.8-14.3)
[2024-07-27 06:32] LABS: Alanine Aminotransferase 15 U/L (7-40); Alkaline Phosphatase 63 U/L (46-116); Anion Gap 9 (5-15); Aspartate Aminotransferase 17 U/L (13-40); BUN/Creatinine Ratio 39.2 (10.0-20.0); Blood Urea Nitrogen 20 mg/dL (9-23); Calcium 9.9 mg/dL (8.7-10.4); Carbon Dioxide 28 mmol/L (20-31); Glucose 94 mg/dL (74-106); Sodium 145 mmol/L (136-145)
[2024-07-27 06:33] LABS: Albumin 3.6 g/dL (3.2-4.8); Basophils % (auto) 0.3 % (0.0-2.0); Bilirubin, Total 0.7 mg/dL (0.2-1.0); Eosinophils % (auto) 1.2 % (0.0-7.0); Hematocrit 32.7 % (36.0-46.0); Hemoglobin 10.7 g/dL (12.2-16.2); Lymphocytes # (auto) 0.9 10 ^3/uL (0.4-5.4); Lymphocytes % (auto) 9.8 % (10.0-50.0); Mean Corpuscular Hemoglobin 21.7 pg (28.0-32.0); Mean Corpuscular Hgb Conc. 32.6 g/dL (32.0-36.0); Mean Corpuscular Volume 66.5 fL (80.0-100.0); Monocytes % (auto) 9.2 % (0.0-12.0); Neutrophils # (auto) 7.6 10 ^3/uL (1.6-8.6); Neutrophils % (auto) 79.5 % (37.0-80.0); Platelet Count (auto) 286 10^3/uL (140-450); Red Blood Cells 4.92 10^6/uL (4.0-5.20); Total Protein 6.2 g/dL (5.7-8.2); White Blood Cell 9.5 10^3/uL (4.4-10.8)
[2024-07-27 06:39] LABS: Chloride 108 mmol/L (98-107); Potassium 3.5 mmol/L (3.5-5.1)
[2024-07-27] MEDS: ENOXAPARIN SOD 30 MG/0.3 ML SYRINGE SC SCH (10:00)
[2024-07-27] MEDS ORDERED: FUROSEMIDE 40 MG TAB PO SCH (10:00)
[2024-07-27] MEDS: METOPROLOL SUCCINATE XL 50 MG TAB PO SCH (10:27)
[2024-07-27] MEDS: amLODIPine BESYLATE 5 MG TAB PO SCH (10:28)
[2024-07-27] MEDS: FUROSEMIDE 40 MG/4 ML VIAL IV SCH (10:41)
[2024-07-27] MEDS: cefTRIAXone 1GM/50ML D5W 50 ML IV SCH (10:41)
--- NOTE | 2024-07-27 12:28 | DVHPN2 ---
Reviewed: Care Plan, H&P, Labs, Medications, Previous Orders, Radiology Changes from previous H/P or p: No Changes Genitourinary: Other (Dark urine output) Musculoskeletal: No other, No neck pain, No shoulder pain, No arm pain, No back pain, No hand pain; leg pain; No foot pain Objective Vitals Vital Signs Date Time Temp Pulse Resp B/P (MAP) Pulse Ox O2 Delivery O2 Flow Rate FiO2 07/27/24 10:41 166/98 07/27/24 10:27 63 07/27/24 09:00 98.3 19 97 98.3 07/26/24 20:00 Room Air* 0 21 Intake/Output Intake and Output 07/27/24 07:00 Intake Total 1150 ml Balance 1150 ml Intake Oral 150 ml IV Total 1000 ml # Voids 3 Medications Current Medications Medications Dose Ordered Sig/Heather Route Start Time Stop Time Status Last Admin Dose Admin Ceftriaxone Sodium 50 ml @ 100 mls/hr DAILY@09 IV 07/27/24 09:00 07/27/24 10:41 100 MLS/HR Acetaminophen/ Hydrocodone Bitart 1 tab Q4HP PRN PO 07/26/24 16:15 Ondansetron HCl 4 mg Q4HP PRN IV 07/26/24 16:15 Enoxaparin Sodium 30 mg DAILY SC 07/27/24 10:00 Acetaminophen 650 mg Q6HP PRN PO 07/26/24 16:15 Nitroglycerin 0.4 mg Q5MINP PRN SL 07/26/24 16:15 Morphine Sulfate 2 mg Q30M PRN IV 07/26/24 16:15 Furosemide 40 mg DAILY IV 07/27/24 10:00 07/27/24 10:41 40 MG Methimazole 15 mg TID PO 07/26/24 22:00 UNV Pantoprazole Sodium 40 mg BID PO 07/26/24 22:00 Hold Amlodipine Besylate 2.5 mg DAILY PO 07/27/24 10:00 07/27/24 10:28 2.5 MG Metoprolol Succinate 100 mg DAILY PO 07/27/24 10:00 07/27/24 10:27 100 MG Laboratory Results Laboratory Tests 07/27/24 05:30 Chemistry Test 07/27/24 05:30 Albumin 3.6 g/dL (3.2-4.8) Calcium Level 9.9 mg/dL (8.7-10.4) Total Protein 6.2 g/dL (5.7-8.2) LFT Test 07/27/24 05:30 Alanine Aminotransferase (ALT) 15 U/L (7-40) Alkaline Phosphatase 63 U/L (46-116) Aspartate Amino Transferase (AST) 17 U/L (13-40) Total Bilirubin 0.7 mg/dL (0.2-1.0) Urinalysis Test 07/26/24 08:34 Urine Color Yellow (Yellow) Urine Clarity Hazy (Clear) H Urine pH 6.0 (5.0-9.0) Urine Specific [place] 1.030 (1.001-1.035) Urine Protein 1+ (Negative) H Urine Ketones Trace (Negative) Urine Blood Negative /uL (Negative) Urine Nitrite Negative (Negative) Urine Bilirubin Negative (Negative) Urine Urobilinogen Normal mg/dL (Negative) Urine Leukocyte Esterase 3+ /uL (Negative) Urine RBC 2 /hpf (0 - 4) Urine WBC 43 /hpf (0 - 5) Urine Squamous Epithelial Cells Few /hpf (<5) Urine Bacteria Few /hpf (None Seen) H Urine Mucus Few (None Seen) Urine Glucose Normal mg/dL (Normal) Labs and/or images reviewed: Labs reviewed by me, Image(s) reviewed by me Assessment/Plan Assessment/Plan Sepsis secondary to urinary tract infection blood cultures urine cultures Acute urinary tract infection: Rocephin Acute metabolic encephalopathy Hypertension : Amlodipine, metoprolol Acute hypokalemia Acute COPD exacerbation History of AFib Acute CHF exacerbation Dementia History of stents 3 years ago We will check D-dimer Kassandra test rapid influenza test Chest x-ray negative CT head negative DVT ruled out Time spent 65 minutes Condition guarded Advanced care planning time 20 minutes Patient is full code Plan discussed with: Patient My Orders Orders - DARIO HOLMAN MD Procedure Category Date Status Time Blood Culture TARIK 07/27/24 Transmitted 12:21 Urine Bacterial TARIK 07/27/24 Transmitted Culture 12:21 Date of Service: Jul 27, 2024 Billing Provider: DARIO HOLMAN MD Common Visit Codes: [id number] CARE 30-74 MIN DARIO HOLMAN MD Jul 27, 2024 12:28
[2024-07-27] MEDS: ACETAMINOPHEN 325 MG TAB PO PRN (15:34)
--- NOTE | 2024-07-27 21:57 | DVHSR ---
APPROVED REPORT EXAM: Two-dimensional and M-mode echocardiogram with Doppler and color Doppler. Blood Pressure: 166/67 mmHg INDICATION CHF RISK FACTORS Height: 5'1", Weight: 128 DIMENSIONS LVDd4.2 (3.8-5.7cm)LA (2D)4.0 (1.9-4.0cm)Aortic Root3.2 (2.0-3.7cm) LVDs3.3 (2.5-4.0cm)LA (MM) (1.9-4.0cm)Aortic Cusp Exc1.2 (1.5-2.0cm) EF (%) 45.0 (55-70%)Rt. Atrium4.0 (1.9-4.0cm)Asc. Aorta cm IVSd1.3 (0.7-1.1cm)RV (D) (1.8-2.4cm) PWd1.3 (0.7-1.1cm) Mitral Valve MitralMitral Stenosis E wave0.91m/sMV Mean GR.mmHg A wave0.79m/sMV Peak GR.mmHg E/A ratio1.22D MVAcm2 DECEL [id number] 1/2 Timems Aortic Valve Aortic ValveAortic Stenosis V11.16m/Miki Mean GR.10mmHg V22.38m/Miki Peak GR.23mmHg LVOT Diameter1.9 (1.8-2.4cm)Doppler AVA1.38cm2 AI P 1/2 Lzcu917.19ms Pulmonic Valve V21.48m/s Tricuspid Valve TR Velocity3.57m/s [id number] Other Information Technically limited study due to body habitus, patient sensitive to touch. Conclusion 1. MODERATE DEGREE LVH AND MODERATE DEGREE LV DIASTOLIC DYSFUNCTION 2. LV EJECTION FRACTION IS 55% AND IS NORMAL 3. SLIGHTLY DILATED LA 4. HEAVILY CALCIFIED AORTIC LEAFLETS PEAK GRADIENT ACROSS AORTIC VALVE IS 23 MM OF HG AND MEAN GRADIENT IS 10 MM OF HG AORTIC VALVE AREA IS 1.37 CM SQUARE. IT IS MODERATE DEGREE AORTIC STENOSIS ASSOCIATED MODERATE DEGREE AORTIC REGURGITATION 5.. MODERATE DEGREE PULMONARY HYPERTENSION RVSP IS 55 MM OF HG AND IS HIGH 6. NO EFFUSION
[2024-07-27] MEDS ORDERED: FURO20TA3 PO (22:08)
[2024-07-27] MEDS ORDERED: PANT40TA2 PO (22:12)
[2024-07-27] MEDS ORDERED: METO-289 PO (22:12)
[2024-07-28] VITALS (9 sets, daily range): BP systolic 116–173; BP diastolic 70–103; PULSE 68–150; RESP 14–19; TEMP 97.8–101.1; O2SAT 96–100
[2024-07-28 00:26] LABS: COVID19 ANTIGEN SOFIA FIA NEGATIVE (NEGATIVE); Rapid Influenza A Negative (Negative); Rapid Influenza B Negative (Negative)
--- NOTE | 2024-07-28 08:25 | DVHPN2 ---
Reviewed: Care Plan, H&P, Labs, Medications, Previous Orders, Radiology Changes from previous H/P or p: No Changes Genitourinary: Other (Dark urine output) Musculoskeletal: No other, No neck pain, No shoulder pain, No arm pain, No back pain, No hand pain; leg pain; No foot pain Objective Vitals Vital Signs Date Time Temp Pulse Resp B/P (MAP) Pulse Ox O2 Delivery O2 Flow Rate FiO2 07/28/24 05:00 98.1 68 16 143/70 (94) 99 98.1 07/27/24 20:00 Room Air* 0 21 Intake/Output Intake and Output 07/28/24 07:00 Intake Total 530 ml Output Total 700 ml Balance -170 ml Intake Oral 480 ml IV Total 50 ml Output Urine Total 700 ml # Voids 3 Medications Current Medications Medications Dose Ordered Sig/Heather Route Start Time Stop Time Status Last Admin Dose Admin Ceftriaxone Sodium 50 ml @ 100 mls/hr DAILY@09 IV 07/27/24 09:00 07/27/24 10:41 100 MLS/HR Acetaminophen/ Hydrocodone Bitart 1 tab Q4HP PRN PO 07/26/24 16:15 Ondansetron HCl 4 mg Q4HP PRN IV 07/26/24 16:15 Enoxaparin Sodium 30 mg DAILY SC 07/27/24 10:00 07/27/24 14:54 30 MG Acetaminophen 650 mg Q6HP PRN PO 07/26/24 16:15 07/27/24 21:58 650 MG Nitroglycerin 0.4 mg Q5MINP PRN SL 07/26/24 16:15 Morphine Sulfate 2 mg Q30M PRN IV 07/26/24 16:15 Furosemide 40 mg DAILY IV 07/27/24 10:00 07/27/24 10:41 40 MG Methimazole 15 mg TID PO 07/26/24 22:00 Hold Pantoprazole Sodium 40 mg BID PO 07/26/24 22:00 Hold Amlodipine Besylate 2.5 mg DAILY PO 07/27/24 10:00 07/27/24 10:28 2.5 MG Metoprolol Succinate 100 mg DAILY PO 07/27/24 10:00 07/27/24 10:27 100 MG Laboratory Results Laboratory Tests 07/27/24 05:30 Coagulation Test 07/27/24 12:50 D-Dimer, Quantitative 1.01 mg/L FEU (0.0-0.49) H Urinalysis Test 07/26/24 08:34 Urine Color Yellow (Yellow) Urine Clarity Hazy (Clear) H Urine pH 6.0 (5.0-9.0) Urine Specific [place] 1.030 (1.001-1.035) Urine Protein 1+ (Negative) H Urine Ketones Trace (Negative) Urine Blood Negative /uL (Negative) Urine Nitrite Negative (Negative) Urine Bilirubin Negative (Negative) Urine Urobilinogen Normal mg/dL (Negative) Urine Leukocyte Esterase 3+ /uL (Negative) Urine RBC 2 /hpf (0 - 4) Urine WBC 43 /hpf (0 - 5) Urine Squamous Epithelial Cells Few /hpf (<5) Urine Bacteria Few /hpf (None Seen) H Urine Mucus Few (None Seen) Urine Glucose Normal mg/dL (Normal) Labs and/or images reviewed: Labs reviewed by me, Image(s) reviewed by me Assessment/Plan Assessment/Plan Sepsis secondary to urinary tract infection blood cultures pending, urine cultures pending Acute urinary tract infection: Rocephin Acute metabolic encephalopathy Hypertension : Amlodipine, metoprolol Acute hypokalemia Acute COPD exacerbation History of AFib History of hyperthyroidism: continue methimazole 15 mg PO TID Acute CHF exacerbation: Ejection fraction 55% Dementia History of stents 3 years ago Kassandra test negative Flu test negative D-dimer elevated 1.0: Patient is altered and confused; we will do CT chest angiogram to rule out PE tomorrow Chest x-ray negative CT head negative DVT ruled out Time spent 45 minutes Condition guarded Patient is full code Plan discussed with: Patient My Orders Orders - DARIO HOLMAN MD Procedure Category Date Status Time Blood Culture TARIK 07/27/24 In Process 12:21 Urine Bacterial TARIK 07/27/24 In Process Culture 12:21 Date of Service: Jul 28, 2024 Billing Provider: DARIO HOLMAN MD Common Visit Codes: [id number] INP/OBS CARE(HIGH) DARIO HOLMAN MD Jul 28, 2024 08:25
--- NOTE | 2024-07-28 09:27 | DVH ---
CLINICAL INFORMATION: 78 years old, Female; Altered mental status. TECHNIQUE: Axial imaging was obtained through the brain without contrast. Coronal and sagittal refor matted images were obtained, reviewed, and stored. Images were reviewed in brain and bone windows. A ll CT scans at this medical facility are performed using dose modulation techniques as appropriate to a performed exam including the following: Automated exposure control was utilized; adjustment of the MA and/or KV according to patient size; and use of iterative reconstruction technique. CTDIvol = 58.5, 58.5, 0.07 mGy DLP = 2058.87 mGy-cm COMPARISON: CT HEAD WITHOUT CONTRAST on DOS: 07/26/24, CT HEAD WITHOUT CONTRAST on DOS: 05/10/24 FINDINGS: There is prominent motion artifact on the 1st attempted images with improvement on the 2nd set of images, although mild motion artifact persists. There is no acute intracranial hemorrhage or e xtraaxial fluid collection. No mass effect or midline shift. Scattered areas of hypoattenuation are s een in the periventricular and subcortical white matter, which are nonspecific but most likely sequel ae of small vessel ischemic disease. The ventricles and sulci are within normal limits in size for ag e. Basal cisterns are patent. The calvarium is unremarkable. Partial opacification of the right m axillary sinus. There is thickening of the right maxillary sinus matute, likely due to chronic sinusit is. Mastoid air cells are clear. IMPRESSION: 1. Motion limited study. 2. No evidence of acute intracranial hemorrhage. 3. Nonacute findings as described above.
[2024-07-28] MEDS: methIMAzole 5 MG TAB PO SCH (09:43)
[2024-07-28] MEDS: ONDANSETRON HCL 4 MG/2 ML VIAL IV PRN (10:54)
[2024-07-28 14:31] LABS: Basophils # (auto) 0 10 ^3/uL (0-0.2); Basophils % (auto) 0.2 % (0.0-2.0); Eosinophils # (auto) 0 10 ^3/uL (0-0.8); Lymphocytes # (auto) 0.3 10 ^3/uL (0.4-5.4); Neutrophils # (auto) 12.1 10 ^3/uL (1.6-8.6)
[2024-07-28 14:34] LABS: Eosinophils % (auto) 0.1 % (0.0-7.0); Hematocrit 38.8 % (36.0-46.0); Lymphocytes % (auto) 2.7 % (10.0-50.0); Mean Corpuscular Hemoglobin 21.2 pg (28.0-32.0); Mean Corpuscular Hgb Conc. 31.1 g/dL (32.0-36.0); Mean Corpuscular Volume 68.4 fL (80.0-100.0); Monocytes # (auto) 0.2 10 ^3/uL (0-1.3); Monocytes % (auto) 1.4 % (0.0-12.0); Neutrophils % (auto) 95.6 % (37.0-80.0); Nucleated Red Blood Cells % 0.4 %; Platelet Count (auto) 334 10^3/uL (140-450); Red Blood Cells 5.67 10^6/uL (4.0-5.20); Red Cell Distribution Width 15.8 % (11.8-14.3); White Blood Cell 12.7 10^3/uL (4.4-10.8)
--- NOTE | 2024-07-28 15:12 | DVH ---
CHEST RADIOGRAPH Indication: R/O ASPIRATION Technique: Single frontal view of the chest was obtained Comparison: XY CHEST PORTABLE on DOS: 07/26/24, XY CHEST PORTABLE on DOS: 05/10/24, XY CHEST PORTABLE on DOS: 05/31/23 FINDINGS: Lines and Tubes: None Lungs: Possible right perihilar infiltrate Pleura: No effusion. No pneumothorax. Cardiomediastinal contours: Unremarkable Bones: No acute osseous abnormality. IMPRESSION: 1. Possible right perihilar infiltrate.
[2024-07-28 15:24] LABS: Alanine Aminotransferase 17 U/L (7-40); Alkaline Phosphatase 73 U/L (46-116); Anion Gap 15 (5-15); Aspartate Aminotransferase 35 U/L (13-40); Blood Urea Nitrogen 18 mg/dL (9-23); Calcium 10.2 mg/dL (8.7-10.4); Carbon Dioxide 25 mmol/L (20-31); Chloride 102 mmol/L (98-107); Potassium 3.8 mmol/L (3.5-5.1); Sodium 142 mmol/L (136-145)
[2024-07-28 15:25] LABS: Albumin 4.1 g/dL (3.2-4.8); Bilirubin, Total 0.4 mg/dL (0.2-1.0); Total Protein 7.3 g/dL (5.7-8.2)
[2024-07-28 15:44] LABS: Glucose 129 mg/dL (74-106)
[2024-07-28] MEDS ORDERED: METOPROLOL TARTRATE 50 MG TAB PO ONE (16:45)
[2024-07-28] MEDS: hydrALAZINE HCL 20 MG/ML VL IV ONE (16:56)
[2024-07-28] MEDS: SODIUM CHLORIDE 0.9% 250 ML IV ONE (20:30)
[2024-07-28] MEDS: ACETAMINOPHEN 650 MG RECT SUPP PR PRN (20:35)
[2024-07-28 20:53] LABS: Hematocrit 42.6 % (36.0-46.0); Hemoglobin 13.2 g/dL (12.2-16.2); Mean Corpuscular Hemoglobin 20.9 pg (28.0-32.0); Mean Corpuscular Volume 67.5 fL (80.0-100.0); Platelet Count (auto) 338 10^3/uL (140-450); Red Blood Cells 6.32 10^6/uL (4.0-5.20); White Blood Cell 10.5 10^3/uL (4.4-10.8)
[2024-07-28] MEDS: ACETAMINOPHEN 650 MG RECT SUPP PR ONE (20:53)
[2024-07-28 21:03] LABS: Band Neutrophils % (manual) 0; Basophils % (manual) 0 (0.0-2.0); Blast Cells 0; Eosinophils % (manual) 0 (0-7); Metamyelocytes % 0; Myelocytes % 0; Promyelocytes % 0; Reactive Lymphocytes 0
[2024-07-28 21:12] LABS: Alanine Aminotransferase 15 U/L (7-40); Albumin 4.4 g/dL (3.2-4.8); Alkaline Phosphatase 76 U/L (46-116); Anion Gap 15 (5-15); Aspartate Aminotransferase 25 U/L (13-40); BUN/Creatinine Ratio 25.7 (10.0-20.0); Blood Urea Nitrogen 19 mg/dL (9-23); Carbon Dioxide 24 mmol/L (20-31); Chloride 102 mmol/L (98-107); Magnesium 1.6 mg/dL (1.6-2.6); Sodium 141 mmol/L (136-145)
[2024-07-28 21:13] LABS: Bilirubin, Total 0.4 mg/dL (0.2-1.0); Total Protein 7.8 g/dL (5.7-8.2)
[2024-07-28 21:15] LABS: Calcium 10.5 mg/dL (8.7-10.4); Glucose 140 mg/dL (74-106); Potassium 3.3 mmol/L (3.5-5.1)
[2024-07-28 21:49] LABS: Lymphocytes % (manual) 4 (10.0-50.0); Monocytes % (manual) 3 (0-12); Platelet Estimate Adequate
[2024-07-28 21:50] LABS: Hypochromia Moderate
[2024-07-28] MEDS ORDERED: METOPROLOL TARTRATE 50 MG TAB PO SCH (22:00)
--- NOTE | 2024-07-28 22:21 | DVHINCON2 ---
Date of service: Jul 28, [address] Khalil Reason for Consultation AOC changes History of Present Illness Ms. Gisela Escalona is a 78 years old female with a history of hypertension, atrial fibrillation have congestive heart failure, asthma, COPD, anemia, dementia, the patient was brought to the [facility] on 07/26/2024 with a chief company of progressive confusion. At this time, she is awake, she was possibly responds to verbal stimuli, but she is only oriented to herself, she does not vocalize, follow my verbal commands, but she was able to move her arms and legs According to her daughters, the past and has been doing well for 1-2 weeks, she was active until 1-2 weeks ago, when she became progressively confused, become less physically active, she stopped walking for about one week, she has been very sleep for 2-3 days prior to this hospitalization. In the hospital, the patient was found to have UTI, she was spiked temperature on 07/28/2024 Since [id number], the patient has had progressive mild intermittent short-term memory difficulty, she was has gait disturbance and she used a cane to walk. In early 2023, the patient was said to have dementia, she remember all her family members, but she was not able to find her way home in her neighborhood, she was completely dependent on the family for daily living, her family put her on the close supervision She was not on dementia treatment Her daughter relates the patient was had three convulsive event with loss of consciousness in 2022, 2023, and 06/2024, there was no associated incontinence or other trauma/laceration, the patient is not on seizure medications On 07/28/2024, the patient was had a spell of unresponsiveness to verbal stimuli, and her heart rate was 150, the EKG shows evidence of SVT One of the daughters was very upset because she did not understand why the patient was had Shaw when she already had UTI Urinalysis, 07/26/2024: 43, urine leukocyte esterase: 3+ WBC/HB/PLT/MCV, 07/28/2024: 10.5/34/2/338/67.5 CMP, 07/28/2024: Unremarkable Ca, 07/26/2024:10.5, 07/27/2024: 9.9 Vitamin B12, 07/26/2024: 892 TSH, 07/26/2024: < 0.01 Chest x-ray, 07/26/2024: No evidence of acute disease in the chest CT head, 07/26/2024: No evidence of acute intracranial abnormality CT head, 07/28/2024: 1. Motion limited study. 2. No evidence of acute intracranial hemorrhage. 3. Nonacute findings as described above Past Medical History Hypertension, congestive heart failure, AFib, asthma, COPD, anemia, dementia Past Surgical History None Family History: FH: dementia G8 FATHER FHx: rheumatoid arthritis G8 MOTHER Family History Rheumatoid arthritis, her father had dementia Social History She was tobacco smoke, no history of alcohol or recreational substance abuse Allergies: Coded Allergies: Penicillins (Verified Allergy, Unknown, 02/04/23) Sulfa Antibiotics (Verified Allergy, Unknown, 02/04/23) Home Meds Reported Medications Pantoprazole Sodium Sesquihydr (Protonix) 40 Mg Tab, 40 MG PO DAILY, #30 TAB 07/27/24 Metoprolol Succinate (Metoprolol Succinate Er) 50 Mg Tab, 50 MG PO DAILY for 30 Days, MG 07/27/24 Furosemide (Furosemide) 20 Mg Tab, 20 MG PO DAILY, TAB 07/27/24 Ferrous Sulfate (Ferrous Sulfate) 325 Mg Tab, 325 MG PO EOD for 30 Days, MG 07/27/24 Methimazole (Methimazole) 5 Mg Tab, 15 MG PO DAILY, TAB 07/27/24 Acetaminophen (Acetaminophen) 325 Mg Tab, 325 MG PO Q4HP PRN for MILD PAIN for 30 Days, MG 0 Refills 05/10/24 Amlodipine Besylate (Amlodipine Besylate) 2.5 Mg Tab, 1 TAB PO DAILY 02/05/23 Discontinued Reported Medications Pantoprazole Sodium Sesquihydr (Protonix) 40 Mg Tab, 20 MG PO DAILY, #30 TAB 07/27/24 Ferrous Sulfate (Gnp Iron) 325 Mg Tab, 1 TAB PO BID 07/26/24 Metolazone (Metolazone) 2.5 Mg Tab, 1 TAB PO DAILY 07/26/24 Methimazole (Methimazole) 5 Mg Tab, 3 TAB PO TID 06/01/23 Furosemide (Furosemide) 40 Mg Tab, 1 TAB PO DAILY 02/05/23 Metoprolol Succinate (Metoprolol Succinate Er) 100 Mg Tab, 1 TAB PO DAILY 02/05/23 Current Medications Current Medications Medications (Trade) Dose Ordered Sig/Heather Route PRN Reason Start Time Stop Time Status Last Admin Methimazole (Tapazole) 15 mg DAILY PO 07/28/24 10:00 Metoprolol Tartrate (Lopressor Tablet) 50 mg BID PO 07/28/24 22:00 07/28/24 16:47 DC Acetaminophen (Tylenol Suppository) 650 mg Q6HP PRN DC PAIN SCALE 1-3 OR TEMP>100.4 07/28/24 20:30 07/28/24 20:35 Review of Systems As above, the other systems are negative Vital Signs Vital Signs Date Time Temp Pulse Resp B/P (MAP) Pulse Ox O2 Delivery O2 Flow Rate FiO2 07/28/24 21:48 99.0 07/28/24 21:00 150 19 149/79 (102) 99 07/28/24 08:10 Room Air* 0 21 Physical Exam GENERAL EXAM: General: the patient is well developed and nourished. No acute distress. HEENT: Normocephalic, neck is supple, no carotid bruits. No mass. RESPIRATORY: Normal respiratory effort with symmetrical lung expansion. Lungs clear to auscultation. CARDIOVASCULAR: Regular rate and rhythm with no murmurs. S1, S2. ABDOMEN: Soft, nontender, normal bowel sound NEUROLOGICAL: MENTAL STATUS: Subjective SPEECH, LANGUAGE, HIGHER CORTICAL FUNCTION: She does not vocalize CRANIAL NERVES: #2: Visual field is full to visual thread #3,4,6: Pupils are equal, round and reactive. EOMs full and conjugate. #5: Facial sensation intact in all three divisions bilaterally. Mandibular strength intact. #7: Facial muscles symmetrical and strength intact. #8: Deferred #9,10: Deferred #11: Deferred #12: Deferred SENSATION: Sensation to touch and pinprick is okay MOTOR: Normal tone in the upper and lower extremity. Normal muscle bulk. No fasciculations. No abnormal movements or posturing. She moves the arms and legs REFLEXES: Deep tendon reflexes are symmetrical. No pathological reflexes. CEREBELLAR/COORDINATION: Deferred GAIT/STATION: deferred Labs/Diagnostic Data Labs Test 07/28/24 20:40 07/28/24 20:27 07/28/24 13:52 07/27/24 23:40 Range/Units White Blood Count 10.5 4.4-10.8 10^3/uL Red Blood Count 6.32 H 4.0-5.20 10^6/uL Hemoglobin 13.2 12.2-16.2 g/dL Hematocrit 42.6 36.0-46.0 % Mean Corpuscular Volume 67.5 L 80.0-100.0 fL Mean Corpuscular Hemoglobin 20.9 L 28.0-32.0 pg Mean Corpuscular Hemoglobin Concent 31.0 L 32.0-36.0 g/dL Red Cell Distribution Width 16.0 H 11.8-14.3 % Platelet Count 338 140-450 10^3/uL Mean Platelet Volume 9.2 6.9-10.8 fL Neutrophils (%) (Auto) 37.0-80.0 % Lymphocytes (%) (Auto) 10.0-50.0 % Monocytes (%) (Auto) 0.0-12.0 % Basophils (%) (Auto) 0.0-2.0 % Neutrophils # (Auto) 1.6-8.6 10 ^3/uL Lymphocytes # (Auto) 0.4-5.4 10 ^3/uL Monocytes # (Auto) 0-1.3 10 ^3/uL Differential Total Cells Counted 100.0 100 Neutrophils % (Manual) 93 H 37.0-80.0 Band Neutrophils % (Manual) 0 Lymphocytes % (Manual) 4 L 10.0-50.0 Monocytes % (Manual) 3 0-12 Eosinophils % (Manual) 0 0-7 Basophils % (Manual) 0 0.0-2.0 Metamyelocytes % (manual) 0 Myelocytes % (Manual) 0 Promyelocytes % (Manual) 0 Blast Cells % (Manual) 0 Reactive Lymphocytes 0 Platelet Estimate Adequate Hypochromasia (manual) Moderate Microcytosis Marked Sodium Level 141 136-145 mmol/L Potassium Level 3.3 L 3.5-5.1 mmol/L Chloride Level 102 98-107 mmol/L Carbon Dioxide Level 24 20-31 mmol/L Anion Gap 15 5-15 Blood Urea Nitrogen 19 9-23 mg/dL Creatinine 0.74 0.550-1.02 mg/dL Glomerular Filtration Rate Calc 83 >90 mL/min BUN/Creatinine Ratio 25.7 H 10.0-20.0 Serum Glucose 140 H 74-106 mg/dL Lactic Acid Level 1.6 0.4-2.0 mmol/L Calcium Level 10.5 H 8.7-10.4 mg/dL Magnesium Level 1.6 1.6-2.6 mg/dL Total Bilirubin 0.4 0.2-1.0 mg/dL Aspartate Amino Transferase (AST) 25 13-40 U/L Alanine Aminotransferase (ALT) 15 7-40 U/L Alkaline Phosphatase 76 46-116 U/L Total Protein 7.8 5.7-8.2 g/dL Albumin 4.4 3.2-4.8 g/dL POC Glucose 153 H 70-106 mg/dl Eosinophils (%) (Auto) 0.1 0.0-7.0 % Eosinophils # (Auto) 0 0-0.8 10 ^3/uL Basophils # (Auto) 0 0-0.2 10 ^3/uL Nucleated Red Blood Cells 0.4 % Ammonia 21 11-32 umol/L Influenza Type A Antigen Negative Negative Influenza Type B Antigen Negative Negative SARS-CoV-2 Antigen (Rapid) Negative NEGATIVE Test 07/27/24 12:50 07/26/24 08:34 07/26/24 08:19 07/26/24 08:16 Range/Units D-Dimer, Quantitative 1.01 H 0.0-0.49 mg/L FEU Urine Color Yellow Yellow Urine Clarity Hazy H Clear Urine pH 6.0 5.0-9.0 Urine Specific [place] 1.030 1.001-1.035 Urine Protein 1+ H Negative Urine Ketones Trace Negative Urine Blood Negative Negative /uL Urine Nitrite Negative Negative Urine Bilirubin Negative Negative Urine Urobilinogen Normal Negative mg/dL Urine Leukocyte Esterase 3+ Negative /uL Urine RBC 2 0 - 4 /hpf Urine WBC 43 0 - 5 /hpf Urine Squamous Epithelial Cells Few <5 /hpf Urine Bacteria Few H None Seen /hpf Urine Mucus Few None Seen Urine Glucose Normal Normal mg/dL Troponin I High Sensitivity 20 </=34 ng/L Thyroid Stimulating Hormone (TSH) < 0.01 L 0.55-4.78 uIU/mL Vitamin B12 Level 892 211-911 pg/mL Microbiology Date/Time Source Procedure Growth Status 07/27/24 14:10 Blood Blood Culture - Preliminary NO GROWTH AFTER 24 HOURS OF INCUBATION. Resulted Assessment Altered mental status Metabolic encephalopathy secondary to UTI Dementia Likely Alzheimer disease Rule out other etiology Urinary tract infection Sepsis Convulsive spells with loss of consciousness Like the patient was had generalized tonic-clonic seizure Rule out other etiology Gait disturbance secondary to dementia, metabolic encephalopathy Plan/Recommendation Monitoring Supportive treatment Telemetry Vitamin B12, folic acid EEG MRI brain scan IV antibiotics Ativan for seizure breakthrough May consider preventive seizure treatment Up to chair Physical therapy Room bright during the daytime More recommendation per clinical course This is a long, complicated consultation Prognosis: Poor This medical document was created using an electronic medical record system with [employer]ge dictation system. Although this document has been carefully reviewed, there may still be some phonetic and typographical errors. These areas are purely typographical due to imperfections of the software programs, and do not reflect any compromise in the patient's medical care. Plan discussed with: Daughter, Other AIDEN GONZALEZ MD Jul 28, 2024 22:21
[2024-07-28] MEDS: dilTIAZem 25 MG/5 ML VIAL IV ONE (23:04)
[2024-07-28] MEDS: POTASSIUM CHL 20MEQ/100ML 100 ML IV ONE (23:05)
[2024-07-28] MEDS ORDERED: LORazepam 2MG/ML-1ML VIAL IV PRN (23:15)
[2024-07-29] VITALS (13 sets, daily range): BP systolic 141–181; BP diastolic 76–106; PULSE 90–166; RESP 14–39; TEMP 98.2–103.2; O2SAT 88–100
[2024-07-29] MEDS: SODIUM CHLORIDE 0.9% 500 ML IV ONE (05:21)
--- NOTE | 2024-07-29 07:01 | RESUS ---
CODE ASSIST ASSESSSMENT Initial Information Code Assist Date: Jul 28, 2024 Code Assist Time: 20:23 Location of Arrest: Central Room # 215B Time Notified: 20:23 Time PMD returned call: 20:23 Crash Cart Opened and Supplies: No Situation Staff concerned/worried, speci: HR >130 Situation comment: Patient's heart rate elevated, EKG done, EKG showed SVT, code assist called, resident Olivia reviewed EKG, new orders received. Background Background: Zara Soriano is a 78-year-old female with past medical history of hypertension, COPD, asthma, AFib, CHF, dementia, anemia, and stent placement over 3 years ago per daughter who presents to the ED for altered level of consciousness. Patient's daughter reports that her confusion has gotten progressively worse in the last week, also poor appetite, loss of 22 lb in the last several months, complains of leg pain bilateral, and decreased activity. Patient's daughter also reports that she has been voiding with dark urine. Patient's daughter states that she was able to walk around but the last week she has been in bed. Assessment Temperature (Fahrenheit): 103 Blood Pressure Systolic: 146 Blood Pressure Diastolic: 73 Respiratory Rate: 24 O2 Sat by Pulse Oximetry: 97 Recommendations/Interventions Medications and Responses : ADULT Medications Given: Medication Comment: TYLENOL 650 MG RECTAL AND NS 250 ML Heart Rate: 131 EKG Rhythm: Atrial Flutter Blood Pressure Systolic: 141 Blood Pressure Diastolic: 75 Respiratory Rate: 20 O2 Sat by Pulse Oximetry: 97 Outcome Outcome: Problem Resolved Team Members Team Members GENOVEVA BRAN RN, DONNA RN, ANYI RN, REGLA RN DA RN, LUIS F RN, JAYLENE RT, NIHARIKA RT. GENOVEVA PATEL Jul 29, 2024 07:01
[2024-07-29] MEDS: ACETAMINOPHEN IV 1000 MG/100ML (10MG/ML) IV ONE (07:08)
--- NOTE | 2024-07-29 07:35 | RESUS ---
CODE ASSIST ASSESSSMENT Initial Information Code Assist Date: Jul 29, 2024 Code Assist Time: 06:37 Location of Arrest: Central Room # 215B Time Notified: 06:37 Time PMD returned call: 06:37 Crash Cart Opened and Supplies: No Situation Staff concerned/worried, speci: HR >130 Situation comment: Patient's heart rate elevated, EKG done, EKG showed SVT, code assist called, resident Olivia reviewed EKG, new orders received. Background Background: Zara Soriano is a 78-year-old female with past medical history of hypertension, COPD, asthma, AFib, CHF, dementia, anemia, and stent placement over 3 years ago per daughter who presents to the ED for altered level of consciousness. Patient's daughter reports that her confusion has gotten progressively worse in the last week, also poor appetite, loss of 22 lb in the last several months, complains of leg pain bilateral, and decreased activity. Patient's daughter also reports that she has been voiding with dark urine. Patient's daughter states that she was able to walk around but the last week she has been in bed. Assessment Temperature (Fahrenheit): 103 Blood Pressure Systolic: 146 Blood Pressure Diastolic: 73 Respiratory Rate: 24 O2 Sat by Pulse Oximetry: 97 Assessment comment: PT AWAKE SHIVERING, COOLING MEASURES BEEN DONE. Recommendations/Interventions Medications and Responses : Medication Time: 06:45 Route of Administration: IV Medication Comment: TYLENOL 1 GM IV EKG Rhythm: Atrial Fibrillation Blood Pressure Systolic: 170 Blood Pressure Diastolic: 101 Respiratory Rate: 24 O2 Sat by Pulse Oximetry: 97 Procedures: Cardiac Monitoring Outcome Outcome: Problem Resolved Team Members Team Members GENOVEVA HENRY MAY RN, LUIS F RN, ANYI RN, DONNA RN, FAYE RT, KEMAR RT GENOVEVA PATEL Jul 29, 2024 07:35
[2024-07-29 07:40] LABS: Urine Bacteria None Seen /hpf (None Seen)
[2024-07-29] MEDS: POTASSIUM CHL 20MEQ/100ML 100 ML IV ONE (07:45)
[2024-07-29] MEDS ORDERED: VANCOMYCIN PER PHARMACY 0 MG IV SCH (07:45)
[2024-07-29 08:00] LABS: Urine Blood 2+ /uL (Negative); Urine Clarity Clear (Clear); Urine Color Yellow (Yellow); Urine Mucus FEW (None Seen); Urine Protein, UAD 1+ (Negative); Urine Specific Gravity 1.027 (1.001-1.035); Urine Squamous Epithelial Cell FEW /hpf (<5); Urine Urobilinogen Normal (Negative); Urine WBC 2 /hpf (0 - 5); Urine pH 5.5 (5.0-9.0)
[2024-07-29 08:06] LABS: Basophils # (auto) 0 10 ^3/uL (0-0.2); Lymphocytes # (auto) 0.5 10 ^3/uL (0.4-5.4); Monocytes # (auto) 0.5 10 ^3/uL (0-1.3); Nucleated Red Blood Cells % 0.1 %
[2024-07-29 08:08] LABS: Basophils % (auto) 0.3 % (0.0-2.0); Eosinophils # (auto) 0.3 10 ^3/uL (0-0.8); Eosinophils % (auto) 2.4 % (0.0-7.0); Hematocrit 38.5 % (36.0-46.0); Hemoglobin 11.8 g/dL (12.2-16.2); Lymphocytes % (auto) 4.1 % (10.0-50.0); Mean Corpuscular Hemoglobin 21.2 pg (28.0-32.0); Mean Corpuscular Hgb Conc. 30.7 g/dL (32.0-36.0); Mean Corpuscular Volume 69.2 fL (80.0-100.0); Monocytes % (auto) 4.3 % (0.0-12.0); Neutrophils # (auto) 11.3 10 ^3/uL (1.6-8.6); Neutrophils % (auto) 88.9 % (37.0-80.0); Platelet Count (auto) 372 10^3/uL (140-450); Red Blood Cells 5.56 10^6/uL (4.0-5.20); Red Cell Distribution Width 16.1 % (11.8-14.3); White Blood Cell 12.7 10^3/uL (4.4-10.8)
[2024-07-29 08:19] LABS: Alanine Aminotransferase 13 U/L (7-40); Alkaline Phosphatase 67 U/L (46-116); Anion Gap 16 (5-15); Aspartate Aminotransferase 30 U/L (13-40); Bilirubin, Total 0.5 mg/dL (0.2-1.0); Blood Urea Nitrogen 19 mg/dL (9-23); Calcium 9.8 mg/dL (8.7-10.4); Carbon Dioxide 21 mmol/L (20-31); Chloride 106 mmol/L (98-107); Magnesium 1.8 mg/dL (1.6-2.6); Potassium 3.8 mmol/L (3.5-5.1); Sodium 143 mmol/L (136-145); Total Protein 7.2 g/dL (5.7-8.2)
[2024-07-29 08:21] LABS: Glucose 136 mg/dL (74-106)
--- NOTE | 2024-07-29 09:02 | DVHPN2 ---
Progress Note - Dictate Date Seen: Jul 29, 2024 Medical Necessity Reason Pt with a Central, PICC or Fol: Yes The following are medically ne: Shaw Catheter Subjective Ms. Gisela Escalona is a 78 years old female with a history of hypertension, atrial fibrillation have congestive heart failure, asthma, COPD, anemia, dementia, the patient was brought to the [facility] on 07/26/2024 with a chief company of progressive confusion. I have seen and examined the patient, I have discussed with her nurse, she had Julius cox assistant professor of german called out for SVT in the morning on 07/29/24. Eyes are open, looking around, does not pay attention to me, does not respond to my verbal stimuli She spikes temperature Her daughter in the room, they confirmed the history is obtained from them yesterday Her daughter relates the patient father had Lewy body disease (he did have visual hallucination) Urinalysis, 07/26/2024: 43, urine leukocyte esterase: 3+ WBC/HB/PLT/MCV, 07/28/2024: 10.5/34/2/338/67.5 CMP, 07/28/2024: Unremarkable Ca, 07/26/2024:10.5, 07/27/2024: 9.9 Vitamin B12, 07/26/2024: 892 TSH, 07/26/2024: < 0.01 Chest x-ray, 07/26/2024: No evidence of acute disease in the chest CT head, 07/26/2024: No evidence of acute intracranial abnormality CT head, 07/28/2024: 1. Motion limited study. 2. No evidence of acute intracranial hemorrhage. 3. Nonacute findings as described above vital signs Vital Sign Date Time Temp Pulse Resp B/P (MAP) Pulse Ox O2 Delivery O2 Flow Rate FiO2 07/29/24 07:49 24 97 07/29/24 07:01 217.4 131 07/29/24 05:00 141/102 (115) 07/28/24 20:00 Room Air* 0 21 Total Intake and Output 07/28/24 07/28/24 07/29/24 15:00 23:00 07:00 Intake Total 0 ml 300 ml 600 ml Output Total 600 ml 300 ml Balance 0 ml -300 ml 300 ml medications Current Medications Medications Dose Ordered Sig/Heather Route Start Time Stop Time Status Last Admin Dose Admin Ceftriaxone Sodium 50 ml @ 100 mls/hr DAILY@09 IV 07/27/24 09:00 07/28/24 09:43 100 MLS/HR Ondansetron HCl 4 mg Q4HP PRN IV 07/26/24 16:15 07/28/24 10:54 4 MG Enoxaparin Sodium 30 mg DAILY SC 07/27/24 10:00 07/28/24 10:00 30 MG Nitroglycerin 0.4 mg Q5MINP PRN SL 07/26/24 16:15 Morphine Sulfate 2 mg Q30M PRN IV 07/26/24 16:15 Furosemide 40 mg DAILY IV 07/27/24 10:00 07/28/24 09:43 40 MG Pantoprazole Sodium 40 mg BID PO 07/26/24 22:00 Hold Amlodipine Besylate 2.5 mg DAILY PO 07/27/24 10:00 07/27/24 10:28 2.5 MG Metoprolol Succinate 100 mg DAILY PO 07/27/24 10:00 07/27/24 10:27 100 MG Methimazole 15 mg DAILY PO 07/28/24 10:00 Acetaminophen 650 mg Q6HP PRN NH 07/28/24 20:30 07/29/24 02:46 650 MG Lorazepam 1 mg ONCE PRN IV 07/28/24 23:15 Vancomycin HCl 0 ml @ 0 mls/hr UD IV 07/29/24 07:45 UNV Hydralazine HCl 10 mg Q6HP PRN IV 07/29/24 08:45 objective General: the patient is well developed and nourished. No acute distress. MENTAL STATUS: Subjective SPEECH, LANGUAGE, HIGHER CORTICAL FUNCTION: She does not vocalize CRANIAL NERVES: Pupils are equal, round and reactive. EOMs full and conjugate. Facial sensation intact in all three divisions bilaterally. Mandibular strength intact. Facial muscles symmetrical and strength intact. SENSATION: Sensation to touch and pinprick is okay MOTOR: Normal tone in the upper and lower extremity. Normal muscle bulk. No fasciculations. No abnormal movements or posturing. She moves the arms and legs REFLEXES: Deep tendon reflexes are symmetrical. No pathological reflexes. CEREBELLAR/COORDINATION: Deferred GAIT/STATION: deferred laboratory and microbiology Laboratory Tests 07/29/24 07:23 Test 07/29/24 07:23 Range/Units Serum Glucose 136 H 74-106 mg/dL Problem List Altered mental status Metabolic encephalopathy secondary to UTI Dementia ? Alzheimer disease ? Lewy body disease Rule out other etiology Urinary tract infection Sepsis Convulsive spells with loss of consciousness Like the patient was had generalized tonic-clonic seizure Rule out other etiology Gait disturbance secondary to dementia, metabolic encephalopathy Assessment/Plan Monitoring Supportive treatment Telemetry Vitamin B12, folic acid EEG MRI brain scan IV antibiotics Ativan for seizure breakthrough May consider preventive seizure treatment Up to chair Physical therapy Room bright during the daytime More recommendation per clinical course This medical document was created using an electronic medical record system with [employer] dictation system. Although this document has been carefully reviewed, there may still be some phonetic and typographical errors. These areas are purely typographical due to imperfections of the software programs, and do not reflect any compromise in the patient's medical care. Prognosis poor Plan discussed with: Daughter, Other Total Time (mins): 40 AIDEN GONZALEZ MD Jul 29, 2024 09:02
[2024-07-29] MEDS: hydrALAZINE HCL 20 MG/ML VL IV PRN (09:09)
[2024-07-29] MEDS: KETOROLAC TROMETH 30 MG/ML 1ML VIAL IV STA (09:10)
[2024-07-29 09:25] LABS: Ovalocytes FEW; Tear Drop Cells FEW
[2024-07-29 09:26] LABS: Hypochromia Moderate
[2024-07-29 09:27] LABS: Giant Platelets Few; Large Platelets FEW; Platelet Estimate Adequate
[2024-07-29] MEDS: METOPROLOL TARTRATE 1MG/1ML-5ML VIAL IV ONE (09:58)
[2024-07-29] MEDS ORDERED: LABETALOL HCL 20 MG/4 ML VL IV PRN (10:30)
--- NOTE | 2024-07-29 10:56 | ECG ---
[facility] Test Date: 2024-07-28 Test Time: 17:55:02 Pat Name: KALI QUAN Department: Respiratoy Room: 0262D Gender: F Urban Anthropologist: PAIGE : 1945 Requested By: RENETTA BARNHART Order Number: [id number] Reading MD: Maddy Tucker Measurements Intervals Pillager Rate: 138 P: 0 CA: 0 QRS: 70 QRSD: 97 T: -30 QT: 315 QTc: 478 Interpretive Statements Incomplete analysis due to missing data in precordial lead(s) Likely sinus tachycardia Probable left ventricular hypertrophy Nonspecific T abnormalities, inferior leads Artifact in lead(s) II,III,aVL,V1,V2,V3,V5 and baseline wander in lead(s) V2 Missing lead(s): V6 Electronically Signed On 07-30-2024 12:16:21 PST by Maddy Tucker Please click the below link to view image of tracing.
[2024-07-29] MEDS: VANCOMYCIN 750MG KIT 100 ML IV ONE (11:26)
[2024-07-29] MEDS: SODIUM CHLORIDE 0.9% 1,000 ML IV ONE (11:26)
[2024-07-29 12:46] LABS: Folate (Folic Acid) 30.88 ng/mL (>5.38)
[2024-07-29] MEDS ORDERED: AMIODARONE 360mg/200mL PREMIX 200 ML IV ONE (13:45)
[2024-07-29] MEDS ORDERED: methIMAzole 5 MG TAB PO SCH (14:00)
[2024-07-29] MEDS: AMIODARONE BOLUS KIT 100 ML IV ONE (14:23)
[2024-07-29] MEDS: HYDROCORTISONE SOD SUCC 100 MG/2ML INJ VIAL IV STA (14:57)
[2024-07-29] MEDS: MEROPENEM 1GM IVPB 50 ML IV ONE (15:07)
--- NOTE | 2024-07-29 15:19 | DVHINCON2 ---
Date of service: Jul 29, [address] Nassar Reason for Consultation concern for thyroid storm History of Present Illness 78 year old female with a history of hypertension, CAD s/p PCI, HF, Afib, asthma, COPD who presents on 07/26 with altered level of conscoiusness. Patient has been experiencing gradually declining energy levels, increased confusion, reduced appetite, approximately 22lb weight loss over past 1mo prior to admission, and b/l LE pain as well. Patient was admitted on 07/26. Initially was hemodynamically stable. There was concern of some unclear infection and patient has been receiving IV abx since admission. Recently escalated to IV vancomycin and meropenem. Notably during initial workup patient found to have TSH undetectably low. She does have an underlying history of hyperthyroidism for which she takes MMI 15mg tid. Although unclear whether patient has been taking at home or not. As of 07/28 patient has been developing increased fevers, SVT, hypertension. No currently identifiable infection. Past Medical History Problems Medical Problems: (1) Non-STEMI (non-ST elevated myocardial infarction) Status: Acute Family History: FH: dementia G8 FATHER FHx: rheumatoid arthritis G8 MOTHER Allergies: Coded Allergies: Penicillins (Verified Allergy, Unknown, 02/04/23) Sulfa Antibiotics (Verified Allergy, Unknown, 02/04/23) Home Meds Reported Medications Pantoprazole Sodium Sesquihydr (Protonix) 40 Mg Tab, 40 MG PO DAILY, #30 TAB 07/27/24 Metoprolol Succinate (Metoprolol Succinate Er) 50 Mg Tab, 50 MG PO DAILY for 30 Days, MG 07/27/24 Furosemide (Furosemide) 20 Mg Tab, 20 MG PO DAILY, TAB 07/27/24 Ferrous Sulfate (Ferrous Sulfate) 325 Mg Tab, 325 MG PO EOD for 30 Days, MG 07/27/24 Methimazole (Methimazole) 5 Mg Tab, 15 MG PO DAILY, TAB 07/27/24 Acetaminophen (Acetaminophen) 325 Mg Tab, 325 MG PO Q4HP PRN for MILD PAIN for 30 Days, MG 0 Refills 05/10/24 Amlodipine Besylate (Amlodipine Besylate) 2.5 Mg Tab, 1 TAB PO DAILY 02/05/23 Discontinued Reported Medications Pantoprazole Sodium Sesquihydr (Protonix) 40 Mg Tab, 20 MG PO DAILY, #30 TAB 07/27/24 Ferrous Sulfate (Gnp Iron) 325 Mg Tab, 1 TAB PO BID 07/26/24 Metolazone (Metolazone) 2.5 Mg Tab, 1 TAB PO DAILY 07/26/24 Methimazole (Methimazole) 5 Mg Tab, 3 TAB PO TID 06/01/23 Furosemide (Furosemide) 40 Mg Tab, 1 TAB PO DAILY 02/05/23 Metoprolol Succinate (Metoprolol Succinate Er) 100 Mg Tab, 1 TAB PO DAILY 02/05/23 Current Medications Current Medications Medications (Trade) Dose Ordered Sig/Heather Route PRN Reason Start Time Stop Time Status Last Admin Metoprolol Tartrate (Lopressor Tablet) 50 mg BID PO 07/28/24 22:00 07/28/24 16:47 DC Acetaminophen (Tylenol Suppository) 650 mg Q6HP PRN ID PAIN SCALE 1-3 OR TEMP>100.4 07/28/24 20:30 07/29/24 12:21 Lorazepam (Ativan Inj) 1 mg ONCE PRN IV MRI 07/28/24 23:15 Vancomycin HCl 0 ml @ 0 mls/hr UD IV 07/29/24 07:45 Hydralazine HCl (Apresoline Injection) 10 mg Q6HP PRN IV SBP>170 07/29/24 08:45 07/29/24 11:58 DC 07/29/24 09:09 Ketorolac Tromethamine (Toradol Injection) 15 mg ONCE STAT IV 07/29/24 08:46 07/29/24 08:56 DC 07/29/24 09:10 Labetalol HCl (Labetalol HCl) 20 mg PRN PRN IV SBP>160 07/29/24 10:30 07/29/24 10:54 DC Labetalol HCl (Labetalol HCl) 20 mg Q2HPRN PRN IV SBP>160 07/29/24 10:45 Amlodipine Besylate (Norvasc Tablet) 10 mg DAILY PO 07/30/24 10:00 Methimazole (Tapazole) 15 mg TID PO 07/29/24 14:00 Vancomycin HCl 250 ml @ 250 mls/hr DAILY IV 07/30/24 11:00 Hydrocortisone Sodium Succinate (Solu-CORTEF INJECTION) 100 mg Q8HR STAT IV 07/29/24 13:50 07/29/24 14:18 DC 07/29/24 14:57 Vital Signs Vital Signs Date Time Temp Pulse Resp B/P (MAP) Pulse Ox O2 Delivery O2 Flow Rate FiO2 07/29/24 13:21 99.7 07/29/24 09:58 156 168/91 07/29/24 07:49 24 97 07/28/24 20:00 Room Air* 0 21 Physical Exam Gen - lying in bed HEENT - nontender thyroid, non enlarged thyroid CV - tachycardic Resp - CTAB Neuro - AO x 0, alert, but not able to verbalize Labs/Diagnostic Data Labs Test 07/29/24 14:25 07/29/24 07:46 07/29/24 07:23 07/28/24 23:38 Range/Units Thyroid Stimulating Hormone (TSH) < 0.01 L 0.55-4.78 uIU/mL White Blood Count 12.7 H 4.4-10.8 10^3/uL Red Blood Count 5.56 H 4.0-5.20 10^6/uL Hemoglobin 11.8 L 12.2-16.2 g/dL Hematocrit 38.5 36.0-46.0 % Mean Corpuscular Volume 69.2 L 80.0-100.0 fL Mean Corpuscular Hemoglobin 21.2 L 28.0-32.0 pg Mean Corpuscular Hemoglobin Concent 30.7 L 32.0-36.0 g/dL Red Cell Distribution Width 16.1 H 11.8-14.3 % Platelet Count 372 140-450 10^3/uL Mean Platelet Volume 9.6 6.9-10.8 fL Neutrophils (%) (Auto) 88.9 H 37.0-80.0 % Lymphocytes (%) (Auto) 4.1 L 10.0-50.0 % Monocytes (%) (Auto) 4.3 0.0-12.0 % Eosinophils (%) (Auto) 2.4 0.0-7.0 % Basophils (%) (Auto) 0.3 0.0-2.0 % Neutrophils # (Auto) 11.3 H 1.6-8.6 10 ^3/uL Lymphocytes # (Auto) 0.5 0.4-5.4 10 ^3/uL Monocytes # (Auto) 0.5 0-1.3 10 ^3/uL Eosinophils # (Auto) 0.3 0-0.8 10 ^3/uL Basophils # (Auto) 0 0-0.2 10 ^3/uL Nucleated Red Blood Cells 0.1 % Platelet Estimate Adequate Large Platelets Few Giant Platelets Few Hypochromasia (manual) Moderate Poikilocytosis (manual) Slight Microcytosis Marked Tear Drop Cells Few Ovalocytes Few Urine Color Yellow Yellow Urine Clarity Clear Clear Urine pH 5.5 5.0-9.0 Urine Specific [place] 1.027 1.001-1.035 Urine Protein 1+ H Negative Urine Ketones 3+ H Negative Urine Blood 2+ H Negative /uL Urine Nitrite Negative Negative Urine Bilirubin Negative Negative Urine Urobilinogen Normal Negative mg/dL Urine Leukocyte Esterase Trace Negative /uL Urine RBC 63 0 - 4 /hpf Urine WBC 2 0 - 5 /hpf Urine Squamous Epithelial Cells Few <5 /hpf Urine Bacteria None seen None Seen /hpf Urine Mucus Few None Seen Urine Glucose Normal Normal mg/dL Sodium Level 143 136-145 mmol/L Potassium Level 3.8 3.5-5.1 mmol/L Chloride Level 106 98-107 mmol/L Carbon Dioxide Level 21 20-31 mmol/L Anion Gap 16 H 5-15 Blood Urea Nitrogen 19 9-23 mg/dL Creatinine 0.73 0.550-1.02 mg/dL Glomerular Filtration Rate Calc 85 >90 mL/min BUN/Creatinine Ratio 26.0 H 10.0-20.0 Serum Glucose 136 H 74-106 mg/dL Hemoglobin A1c 5.0 <5.7 % A1C Lactic Acid Level 1.9 0.4-2.0 mmol/L Calcium Level 9.8 8.7-10.4 mg/dL Magnesium Level 1.8 1.6-2.6 mg/dL Total Bilirubin 0.5 0.2-1.0 mg/dL Aspartate Amino Transferase (AST) 30 13-40 U/L Alanine Aminotransferase (ALT) 13 7-40 U/L Alkaline Phosphatase 67 46-116 U/L Total Protein 7.2 5.7-8.2 g/dL Albumin 4.0 3.2-4.8 g/dL Folic Acid 30.88 >5.38 ng/mL Test 07/28/24 20:40 07/28/24 20:27 07/28/24 13:52 07/27/24 23:40 Range/Units Differential Total Cells Counted 100.0 100 Neutrophils % (Manual) 93 H 37.0-80.0 Band Neutrophils % (Manual) 0 Lymphocytes % (Manual) 4 L 10.0-50.0 Monocytes % (Manual) 3 0-12 Eosinophils % (Manual) 0 0-7 Basophils % (Manual) 0 0.0-2.0 Metamyelocytes % (manual) 0 Myelocytes % (Manual) 0 Promyelocytes % (Manual) 0 Blast Cells % (Manual) 0 Reactive Lymphocytes 0 POC Glucose 153 H 70-106 mg/dl Ammonia 21 11-32 umol/L Influenza Type A Antigen Negative Negative Influenza Type B Antigen Negative Negative SARS-CoV-2 Antigen (Rapid) Negative NEGATIVE Test 07/27/24 12:50 07/26/24 08:19 07/26/24 08:16 Range/Units D-Dimer, Quantitative 1.01 H 0.0-0.49 mg/L FEU Troponin I High Sensitivity 20 </=34 ng/L Microbiology Date/Time Source Procedure Growth Status 07/28/24 00:10 Voided Urine Urine Culture - Preliminary Resulted 07/27/24 14:10 Blood Blood Culture - Preliminary NO GROWTH AFTER 48 HOURS OF INCUBATION. Resulted Assessment # Thyroid storm # Sepsis # Afib with RVR # Hypertension # Asthma # COPD # CAD s/p PCI - Start hydrocortisone IV 100mg every 8 hours - Place NG tube - Start PTU 400mg bolus once, then 200mg every 4 hours - Start propranolol 40mg every 4 hours - Order TSH, FT4, TT3, TRAb, TSI - Consider empiric IV abx and pursuing infectious workup as needed Plan discussed with: Other (family unable to be contacted) CHRIS LUCIO MD Jul 29, 2024 15:19
[2024-07-29 15:24] LABS: Free T4 (Free Thyroxine) 3.94 ng/dL (0.89-1.76); T3 Total 1.72 ng/mL (0.60-1.81)
[2024-07-29] MEDS: PROPYLTHIOURACIL 50 MG TAB NG ONE (15:30)
--- NOTE | 2024-07-29 16:30 | DVHPN2 ---
Subjective Seen and examined at bedside. Family also present at bedside. Patient is very agitated. Daughters at bedside. Possibly patients condition due to thyroid storm? No clear evidence of infection but will still continue ABx. Endocrine was consulted. Reviewed: Care Plan, H&P, Labs, Medications, Previous Orders, Radiology Changes from previous H/P or p: No Changes Genitourinary: No Dysuria, No Frequency, No Incontinence, No Hematuria, No Retention, No Other Musculoskeletal: No other, No neck pain, No shoulder pain, No arm pain, No back pain, No hand pain, No foot pain Objective Vitals Vital Signs Date Time Temp Pulse Resp B/P (MAP) Pulse Ox O2 Delivery O2 Flow Rate FiO2 07/29/24 13:21 99.7 07/29/24 09:58 156 168/91 07/29/24 07:49 24 97 07/28/24 20:00 Room Air* 0 21 Intake/Output Intake and Output 07/29/24 07:00 Intake Total 900 ml Output Total 900 ml Balance 0 ml Intake Oral 0 ml IV Total 900 ml Output Urine Total 900 ml # Bowel Movements 1 Exam Gen: in bed agitated and restless Cvs: Tachycardic, Irregular Resp: BLAE Abd: Soft, NT Drilling Supervisor: AAO x 2 Ext: Able to move all 4 ext w/o difficulty Medications Current Medications Medications Dose Ordered Sig/Heather Route Start Time Stop Time Status Last Admin Dose Admin Ceftriaxone Sodium 50 ml @ 100 mls/hr DAILY@09 IV 07/27/24 09:00 07/29/24 15:06 100 MLS/HR Ondansetron HCl 4 mg Q4HP PRN IV 07/26/24 16:15 07/28/24 10:54 4 MG Enoxaparin Sodium 30 mg DAILY SC 07/27/24 10:00 07/29/24 15:08 30 MG Nitroglycerin 0.4 mg Q5MINP PRN SL 07/26/24 16:15 Morphine Sulfate 2 mg Q30M PRN IV 07/26/24 16:15 Furosemide 40 mg DAILY IV 07/27/24 10:00 07/28/24 09:43 40 MG Pantoprazole Sodium 40 mg BID PO 07/26/24 22:00 Hold Metoprolol Succinate 100 mg DAILY PO 07/27/24 10:00 Hold 07/27/24 10:27 100 MG Acetaminophen 650 mg Q6HP PRN VT 07/28/24 20:30 07/29/24 12:21 650 MG Lorazepam 1 mg ONCE PRN IV 07/28/24 23:15 Vancomycin HCl 0 ml @ 0 mls/hr UD IV 07/29/24 07:45 Labetalol HCl 20 mg Q2HPRN PRN IV 07/29/24 10:45 Amlodipine Besylate 10 mg DAILY PO 07/30/24 10:00 Vancomycin HCl 250 ml @ 250 mls/hr DAILY IV 07/30/24 11:00 Propylthiouracil 200 mg Q4HR NG 07/29/24 18:00 Propranolol HCl 40 mg Q4HR NG 07/29/24 15:30 Dorzolamide HCl 1 drop QAM EACHEYE 07/30/24 07:00 UNV Hydrocortisone Sodium Succinate 100 mg Q8HR IV 07/29/24 22:00 Laboratory Results Laboratory Tests 07/29/24 07:23 Chemistry Test 07/28/24 20:40 07/29/24 07:23 Albumin 4.4 g/dL (3.2-4.8) 4.0 g/dL (3.2-4.8) Calcium Level 10.5 mg/dL (8.7-10.4) H 9.8 mg/dL (8.7-10.4) Magnesium Level 1.6 mg/dL (1.6-2.6) 1.8 mg/dL (1.6-2.6) Total Protein 7.8 g/dL (5.7-8.2) 7.2 g/dL (5.7-8.2) LFT Test 07/28/24 20:40 07/29/24 07:23 Alanine Aminotransferase (ALT) 15 U/L (7-40) 13 U/L (7-40) Alkaline Phosphatase 76 U/L (46-116) 67 U/L (46-116) Aspartate Amino Transferase (AST) 25 U/L (13-40) 30 U/L (13-40) Total Bilirubin 0.4 mg/dL (0.2-1.0) 0.5 mg/dL (0.2-1.0) HgA1c, TSH Test 07/29/24 07:23 07/29/24 07:46 Hemoglobin A1c 5.0 % A1C (<5.7) Thyroid Stimulating Hormone (TSH) < 0.01 uIU/mL (0.55-4.78) L Urinalysis Test 07/29/24 07:23 Urine Color Yellow (Yellow) Urine Clarity Clear (Clear) Urine pH 5.5 (5.0-9.0) Urine Specific [place] 1.027 (1.001-1.035) Urine Protein 1+ (Negative) H Urine Ketones 3+ (Negative) H Urine Blood 2+ /uL (Negative) H Urine Nitrite Negative (Negative) Urine Bilirubin Negative (Negative) Urine Urobilinogen Normal mg/dL (Negative) Urine Leukocyte Esterase Trace /uL (Negative) Urine RBC 63 /hpf (0 - 4) Urine WBC 2 /hpf (0 - 5) Urine Squamous Epithelial Cells Few /hpf (<5) Urine Bacteria None seen /hpf (None Seen) Urine Mucus Few (None Seen) Urine Glucose Normal mg/dL (Normal) Microbiology Microbiology Date/Time Source Procedure Growth Status 07/28/24 00:10 Voided Urine Urine Culture - Preliminary Resulted 07/27/24 14:10 Blood Blood Culture - Preliminary NO GROWTH AFTER 48 HOURS OF INCUBATION. Resulted Assessment/Plan Assessment/Plan # Metabolic vs Toxic Encephalopathy - Cont Abx for now - CT Head negative # Possible Thyroid Storm - Endocrine Cx done - Hydrocortisone IV - PTU and Propanolol # Leg Pain - MRI as outpatient Critical care time 45 mins Plan discussed with: Patient My Orders Orders - RENETTA BARNHART MD Procedure Category Date Status Time Labetalol Hcl PHA 07/29/24 In Process (Labetalol Hcl) 10:45 Amlodipine Tablet PHA 07/30/24 In Process (Norvasc Tablet) 10:00 Complete Blood Count LAB 07/30/24 Verified 04:00 Comprehensive LAB 07/30/24 Verified Metabolic Panel 04:00 B-Type Natriuretic LAB 07/30/24 Verified Peptide 04:00 Magnesium LAB 07/30/24 Verified 04:00 Thyroid Stimulating LAB 08/03/24 Verified Hormone 05:00 Place Ng ORDERS 07/29/24 Transmitted 15:37 Date of Service: Jul 29, 2024 Billing Provider: RENETTA BARNHART MD Common Visit Codes: 67189-[id number] CARE 30-74 MIN RENETTA BARNHART MD Jul 29, 2024 16:30
--- NOTE | 2024-07-29 16:59 | ECG ---
[facility] Test Date: 2024-07-28 Test Time: 18:31:50 Pat Name: KALI QUAN Department: Respiratoy Room: 0262D Gender: F Cardiac Care Nurse: PAIGE : 1945 Requested By: DARIO HOLMAN Order Number: [id number] Reading MD: Maddy Tucker Measurements Intervals [place] Rate: 133 P: 74 PA: 137 QRS: -8 QRSD: 83 T: 79 QT: 315 QTc: 469 Interpretive Statements Sinus tachycardia Multiform ventricular premature complexes Left ventricular hypertrophy Nonspecific T abnrm, anterolateral leads Electronically Signed On 07-30-2024 12:16:30 PST by Maddy Tucker Please click the below link to view image of tracing.
[2024-07-29 17:06] LABS: Vitamin D 25-Hydroxy 37 ng/mL (.); Vitamin D-2 25-Hydroxy <1.0 ng/mL (.); Vitamin D-3 25-Hydroxy 37 ng/mL (.)
[2024-07-29] MEDS: PROPRANOLOL HCL 20 MG TAB NG SCH (18:00)
[2024-07-29] MEDS: HYDROCORTISONE SOD SUCC 100 MG/2ML INJ VIAL IV ONE (19:07)
[2024-07-29] MEDS: LABETALOL HCL 20 MG/4 ML VL IV PRN (19:07)
[2024-07-29] MEDS ORDERED: AMIODARONE 360mg/200mL PREMIX 200 ML IV SCH (19:46)
--- NOTE | 2024-07-29 21:52 | DVH ---
EXAM: XY CHEST XRAY 1 VIEW TECHNIQUE: Single frontal chest radiograph CLINICAL HISTORY: NG PLACEMENT CONFIRMATION COMPARISON: XY CHEST PORTABLE on DOS: 07/28/24, XY CHEST PORTABLE on DOS: 07/26/24, XY CHEST PORTABLE o n DOS: 05/10/24 Findings/Impression: Frontal chest radiograph demonstrates no acute osseous or superficial soft tissue abnormalities. Enteric tube terminates above the level of the GE junction. Recommend advancing 9 cm for more optimal positioning. The trachea is midline. The cardiac silhouette and mediastinum are within normal limits. No pneumothorax, pleural effusions, or consolidations.
[2024-07-29] MEDS ORDERED: DORZOLAMIDE HCL 2% OPTH(EYE) SOL 10ML EACHEYE ONE (22:00)
[2024-07-29] MEDS: PROPYLTHIOURACIL 50 MG TAB NG SCH (22:00)
[2024-07-29] MEDS: PROPRANOLOL HCL 20 MG TAB ONE ×2 (22:48)
[2024-07-30] VITALS (23 sets, daily range): BP systolic 97–166; BP diastolic 58–90; PULSE 67–118; RESP 12–27; TEMP 98.4–99.9; O2SAT 95–100
[2024-07-30] MEDS: HYDROCORTISONE SOD SUCC 100 MG/2ML INJ VIAL IV SCH (03:32)
[2024-07-30] MEDS ORDERED: DORZOLAMIDE HCL 2% OPTH(EYE) SOL 10ML EACHEYE SCH (07:00)
--- NOTE | 2024-07-30 08:09 | ECG ---
[facility] Test Date: 2024-07-29 Test Time: 12:52:01 Pat Name: KALI QUAN Department: Respiratoy Room: 0262D A Gender: F Investigation Manager: : 1945 Requested By: CRISTELA SOARES Order Number: [id number] Reading MD: Maddy Tucker Measurements Intervals [place] Rate: 134 P: 82 AL: 132 QRS: -25 QRSD: 124 T: 77 QT: 303 QTc: 453 Interpretive Statements Sinus tachycardia Multiform ventricular premature complexes Anterior Q waves possibly due to LVH Artifact in lead(s) I,II,III,aVR,aVL,aVF,V1,V2 Electronically Signed On 07-30-2024 12:18:00 PST by Maddy Tucker Please click the below link to view image of tracing.
--- NOTE | 2024-07-30 09:10 | DVHPN2 ---
Progress Note - Dictate Date Seen: Jul 30, 2024 Medical Necessity Reason Pt with a Central, PICC or Fol: Yes The following are medically ne: Shaw Catheter Subjective Ms. Gisela Escalona is a 78 years old female with a history of hypertension, atrial fibrillation have congestive heart failure, asthma, COPD, anemia, dementia, the patient was brought to the [facility] on 07/26/2024 with a chief company of progressive confusion. I have seen and examined the patient, I have discussed with her nurse, her eyes are open, at times looking around, but is nonresponsive to my verbal stimuli, she responds to visual thread She spikes temperature Urinalysis, 07/26/2024: 43, urine leukocyte esterase: 3+ WBC/HB/PLT/MCV, 07/28/2024: 10.5/34/2/338/67.5 CMP, 07/28/2024: Unremarkable Ca, 07/26/2024:10.5, 07/27/2024: 9.9 Vitamin B12, 07/26/2024: 892 Folic acid 07/26/24: 30.88 TSH, 07/26/2024: < 0.01 Chest x-ray, 07/26/2024: No evidence of acute disease in the chest CT head, 07/26/2024: No evidence of acute intracranial abnormality CT head, 07/28/2024: 1. Motion limited study. 2. No evidence of acute intracranial hemorrhage. 3. Nonacute findings as described above vital signs Vital Sign Date Time Temp Pulse Resp B/P (MAP) Pulse Ox O2 Delivery O2 Flow Rate FiO2 07/30/24 08:00 99.7 75 25 164/89 (114) 99 211.5 07/30/24 06:00 Room Air* 0 21 Total Intake and Output 07/29/24 07/29/24 07/30/24 15:00 23:00 07:00 Intake Total 0 ml 0 ml Output Total 250 ml Balance -250 ml 0 ml medications Current Medications Medications Dose Ordered Sig/Heather Route Start Time Stop Time Status Last Admin Dose Admin Ceftriaxone Sodium 50 ml @ 100 mls/hr DAILY@09 IV 07/27/24 09:00 07/29/24 15:06 100 MLS/HR Ondansetron HCl 4 mg Q4HP PRN IV 07/26/24 16:15 07/28/24 10:54 4 MG Enoxaparin Sodium 30 mg DAILY SC 07/27/24 10:00 07/29/24 15:08 30 MG Nitroglycerin 0.4 mg Q5MINP PRN SL 07/26/24 16:15 Morphine Sulfate 2 mg Q30M PRN IV 07/26/24 16:15 Furosemide 40 mg DAILY IV 07/27/24 10:00 07/28/24 09:43 40 MG Pantoprazole Sodium 40 mg BID PO 07/26/24 22:00 Hold Metoprolol Succinate 100 mg DAILY PO 07/27/24 10:00 Hold 07/27/24 10:27 100 MG Acetaminophen 650 mg Q6HP PRN FL 07/28/24 20:30 07/29/24 12:21 650 MG Lorazepam 1 mg ONCE PRN IV 07/28/24 23:15 Vancomycin HCl 0 ml @ 0 mls/hr UD IV 07/29/24 07:45 Labetalol HCl 20 mg Q2HPRN PRN IV 07/29/24 10:45 07/29/24 19:07 20 MG Amlodipine Besylate 10 mg DAILY PO 07/30/24 10:00 Vancomycin HCl 250 ml @ 250 mls/hr DAILY IV 07/30/24 11:00 Propylthiouracil 200 mg Q4HR NG 07/29/24 18:00 07/30/24 05:45 200 MG Propranolol HCl 40 mg Q4HR NG 07/29/24 15:30 07/30/24 05:45 40 MG Dorzolamide HCl 1 drop QAM EACHEYE 07/30/24 07:00 UNV Hydrocortisone Sodium Succinate 100 mg Q8H IV 07/30/24 03:00 07/30/24 03:32 100 MG objective General: the patient is well developed and nourished. No acute distress. MENTAL STATUS: Subjective SPEECH, LANGUAGE, HIGHER CORTICAL FUNCTION: She does not vocalize CRANIAL NERVES: Pupils are equal, round and reactive. EOMs full and conjugate. Facial sensation intact in all three divisions bilaterally. Mandibular strength intact. Facial muscles symmetrical and strength intact. SENSATION: Sensation to touch and pinprick is okay MOTOR: Normal tone in the upper and lower extremity. Normal muscle bulk. No fasciculations. No abnormal movements or posturing. She moves the arms and legs REFLEXES: Deep tendon reflexes are symmetrical. No pathological reflexes. CEREBELLAR/COORDINATION: Deferred GAIT/STATION: deferred laboratory and microbiology Test 07/30/24 08:45 Range/Units Serum Glucose Pending Problem List Altered mental status Metabolic encephalopathy secondary to UTI Dementia ? Alzheimer disease ? Lewy body disease Rule out other etiology Urinary tract infection Sepsis Convulsive spells with loss of consciousness Like the patient had generalized tonic-clonic seizure Rule out other etiology Gait disturbance secondary to dementia, metabolic encephalopathy Assessment/Plan Monitoring Supportive treatment Telemetry EEG MRI brain scan IV antibiotics Ativan for seizure breakthrough May consider preventive seizure treatment Up to chair Physical therapy Room bright during the daytime More recommendation per clinical course This medical document was created using an electronic medical record system with [employer] computerized dictation system. Although this document has been carefully reviewed, there may still be some phonetic and typographical errors. These areas are purely typographical due to imperfections of the software programs, and do not reflect any compromise in the patient's medical care. Prognosis poor Plan discussed with: Other AIDEN GONZALEZ MD Jul 30, 2024 09:09
[2024-07-30 09:25] LABS: Eosinophils # (auto) 0 10 ^3/uL (0-0.8); Mean Corpuscular Hemoglobin 20.7 pg (28.0-32.0); White Blood Cell 20.6 10^3/uL (4.4-10.8)
[2024-07-30 09:30] LABS: Basophils # (auto) 0.1 10 ^3/uL (0-0.2); Basophils % (auto) 0.3 % (0.0-2.0); Hematocrit 38.4 % (36.0-46.0); Hemoglobin 11.8 g/dL (12.2-16.2); Lymphocytes # (auto) 0.8 10 ^3/uL (0.4-5.4); Lymphocytes % (auto) 3.8 % (10.0-50.0); Mean Corpuscular Hgb Conc. 30.6 g/dL (32.0-36.0); Mean Corpuscular Volume 67.5 fL (80.0-100.0); Monocytes # (auto) 0.9 10 ^3/uL (0-1.3); Monocytes % (auto) 4.4 % (0.0-12.0); Neutrophils # (auto) 18.9 10 ^3/uL (1.6-8.6); Neutrophils % (auto) 91.5 % (37.0-80.0); Nucleated Red Blood Cells % 0.1 %; Platelet Count (auto) 347 10^3/uL (140-450); Red Blood Cells 5.69 10^6/uL (4.0-5.20)
[2024-07-30 10:01] LABS: Alanine Aminotransferase 14 U/L (7-40); Alkaline Phosphatase 61 U/L (46-116); Anion Gap 13 (5-15); BUN/Creatinine Ratio 44.9 (10.0-20.0); Calcium 10.1 mg/dL (8.7-10.4); Carbon Dioxide 26 mmol/L (20-31)
[2024-07-30 10:02] LABS: Albumin 3.9 g/dL (3.2-4.8); Aspartate Aminotransferase 20 U/L (13-40)
[2024-07-30 10:03] LABS: Bilirubin, Total 0.5 mg/dL (0.2-1.0); Total Protein 6.8 g/dL (5.7-8.2)
[2024-07-30 10:26] LABS: Blood Urea Nitrogen 31 mg/dL (9-23); Chloride 108 mmol/L (98-107); Glucose 132 mg/dL (74-106); Potassium 3.2 mmol/L (3.5-5.1); Sodium 147 mmol/L (136-145)
[2024-07-30] MEDS: amLODIPine BESYLATE 5 MG TAB PO SCH (10:57)
[2024-07-30] MEDS: VANCOMYCIN 1GM/250ML KIT 250 ML IV SCH (10:57)
--- NOTE | 2024-07-30 14:36 | DVHPN2 ---
Progress Note - Dictate Date Seen: Jul 30, 2024 Medical Necessity Reason Pt with a Central, PICC or Fol: Yes The following are medically ne: Shaw Catheter Subjective Patient still not oriented or responding well to voice. HR more well controlled. NGT placed yesterday with initiation of thioamide and beta wes. Amiodarone gtt d/c'd. vital signs Vital Sign Date Time Temp Pulse Resp B/P (MAP) Pulse Ox O2 Delivery O2 Flow Rate FiO2 07/30/24 13:55 70 146/81 07/30/24 13:00 99.7 19 98 211.5 07/30/24 12:00 Room Air* 0 21 Total Intake and Output 07/29/24 07/29/24 07/30/24 15:00 23:00 07:00 Intake Total 0 ml 0 ml Output Total 250 ml Balance -250 ml 0 ml medications Current Medications Medications Dose Ordered Sig/Heather Route Start Time Stop Time Status Last Admin Dose Admin Ceftriaxone Sodium 50 ml @ 100 mls/hr DAILY@09 IV 07/27/24 09:00 07/30/24 08:56 100 MLS/HR Ondansetron HCl 4 mg Q4HP PRN IV 07/26/24 16:15 07/28/24 10:54 4 MG Enoxaparin Sodium 30 mg DAILY SC 07/27/24 10:00 07/30/24 10:55 30 MG Nitroglycerin 0.4 mg Q5MINP PRN SL 07/26/24 16:15 Morphine Sulfate 2 mg Q30M PRN IV 07/26/24 16:15 Furosemide 40 mg DAILY IV 07/27/24 10:00 07/30/24 10:55 40 MG Pantoprazole Sodium 40 mg BID PO 07/26/24 22:00 Hold Metoprolol Succinate 100 mg DAILY PO 07/27/24 10:00 Hold 07/27/24 10:27 100 MG Acetaminophen 650 mg Q6HP PRN NC 07/28/24 20:30 07/29/24 12:21 650 MG Lorazepam 1 mg ONCE PRN IV 07/28/24 23:15 Vancomycin HCl 0 ml @ 0 mls/hr UD IV 07/29/24 07:45 Labetalol HCl 20 mg Q2HPRN PRN IV 07/29/24 10:45 07/30/24 08:56 20 MG Amlodipine Besylate 10 mg DAILY PO 07/30/24 10:00 07/30/24 10:57 10 MG Vancomycin HCl 250 ml @ 250 mls/hr DAILY IV 07/30/24 11:00 07/30/24 10:57 250 MLS/HR Propylthiouracil 200 mg Q4HR NG 07/29/24 18:00 07/30/24 13:56 200 MG Propranolol HCl 40 mg Q4HR NG 07/29/24 15:30 07/30/24 13:55 40 MG Dorzolamide HCl 1 drop QAM EACHEYE 07/30/24 07:00 UNV Hydrocortisone Sodium Succinate 100 mg Q8H IV 07/30/24 03:00 07/30/24 11:00 100 MG objective Gen - lying in bed, not communicative HEENT - no thyromegaly CV - RRR, no m/r/g Resp - CTAB Psych - awake, somewhat alert but not oriented laboratory and microbiology Laboratory Tests 07/30/24 08:45 Test 07/30/24 08:45 Range/Units Serum Glucose 132 H 74-106 mg/dL Assessment/Plan # Thyroid storm # Sepsis # Afib with RVR # Hypertension # Asthma # COPD # CAD s/p PCI - Continue hydrocortisone IV 100mg every 8 hours - Continue PTU via NGT 200mg every 4 hours - Continue propranolol via NGT 40mg every 4 hours - Follow up TRAb, TSI - Consider empiric IV abx and pursuing infectious workup as needed - Repeat FT4 daily Dietary Evaluation Review Comments: 1) Consider a Cardiac diet modified per [employer] recommendation if necessary 2) Continue current plan of care Expected Outcomes/Goals: F/U in 2-3 days Plan discussed with: Other (family not available) CHRIS LUCIO MD Jul 30, 2024 14:36
[2024-07-30] MEDS ORDERED: DEXTROSE (50%) 50ML SYRG IV PRN (15:30)
[2024-07-30] MEDS: POTASSIUM CHLORIDE 40 MEQ, LIDOCAINE 1% (LOCAL ANESTH.) 4 ML in SODIUM CHL 0.9% 250 ML IV ONE (15:30)
[2024-07-30] MEDS: PANTOPRAZOLE 40 MG/10 ML VIAL INJ IV ONE (15:42)
[2024-07-30] MEDS ORDERED: LABETALOL HCL 20 MG/4 ML VL IV PRN (16:00)
[2024-07-30] MEDS ORDERED: MEROPENEM 1GM IVPB 50 ML IV ONE (16:00)
[2024-07-30] MEDS ORDERED: MEROPENEM 1GM IVPB 50 ML IV SCH (16:30)
--- NOTE | 2024-07-30 16:33 | DVH ---
RENAL ULTRASOUND CLINICAL HISTORY: RENAL FAILURE TECHNIQUE: Multiple ultrasound images of the kidneys and bladder were obtained. COMPARISON: None FINDINGS: The right kidney measures 10.3 cm in length. The left kidney measures 9.2 cm. There is a 2.6 cm cyst in the lower pole of the right kidney. There is no sonographic evidence of nephrolithiasis, hydroneph rosis or suspicious appearing renal lesion. Bladder appears within normal limits with prevoid volume measuring 307 cc. IMPRESSION: 1. 2.6 cm right lower pole renal cyst. 2. There is no sonographic evidence of nephrolithiasis or hydronephrosis. HS:Y
[2024-07-30] MEDS: ACCU-CHEK COMFORT CURVE STRIP VI SCH (18:00)
[2024-07-30] MEDS: InsuLIN REG 1unit/0.01ml Soln (100units/ml) SC SCH (18:00)
[2024-07-30 18:56] LABS: INR 1.14 (0.9-1.15); Partial Thromboplastin Time 21.9 SEC (24.5-34.5); Prothrombin Time 11.9 sec (9.3-11.8)
--- NOTE | 2024-07-30 19:56 | DVHPNRES ---
Progress Note Date Seen: Jul 30, 2024 Resident Creating Document: CRISTELA SOARES RESIDENT Medical Necessity Reason Pt with a Central, PICC or Fol: No Subjective Review of Systems Patient seen and examined at bedside Patient is extremely lethargic, does not respond to commands, GCS 11 Review of system could not be done as patient does not respond to to questions Objective vital signs Vital Sign Date Time Temp Pulse Resp B/P (MAP) Pulse Ox O2 Delivery O2 Flow Rate FiO2 07/30/24 18:00 20 99 Room Air* 0 21 07/30/24 18:00 99.5 70 135/75 (95) 99.5 Total Intake and Output 07/29/24 07/29/24 07/30/24 15:00 23:00 07:00 Intake Total 0 ml 0 ml Output Total 250 ml Balance -250 ml 0 ml medications Current Medications Medications Dose Ordered Sig/Heather Route Start Time Stop Time Status Last Admin Dose Admin Enoxaparin Sodium 30 mg DAILY SC 07/27/24 10:00 07/30/24 10:55 30 MG Pantoprazole Sodium 40 mg BID PO 07/26/24 22:00 Hold Metoprolol Succinate 100 mg DAILY PO 07/27/24 10:00 07/27/24 10:27 100 MG Acetaminophen 650 mg Q6HP PRN [place] 07/28/24 20:30 07/29/24 12:21 650 MG Lorazepam 1 mg ONCE PRN IV 07/28/24 23:15 Vancomycin HCl 0 ml @ 0 mls/hr UD IV 07/29/24 07:45 Amlodipine Besylate 10 mg DAILY PO 07/30/24 10:00 07/30/24 10:57 10 MG Vancomycin HCl 250 ml @ 250 mls/hr DAILY IV 07/30/24 11:00 07/30/24 10:57 250 MLS/HR Dorzolamide HCl 1 drop QAM EACHEYE 07/30/24 07:00 UNV Diagnostic Test (Pha) 1 strip Q6HR 07/30/24 18:00 07/30/24 18:00 1 STRIP Insulin Human Regular Q6HR SC 07/30/24 18:00 Dextrose 50 ml UD PRN IV 07/30/24 15:30 Labetalol HCl 20 mg Q4HP PRN IV 07/30/24 16:00 Methimazole 15 mg DAILY PO 07/31/24 10:00 Meropenem 50 ml @ 17 mls/hr Q12H IV 07/30/24 16:30 Examination Examination General Appearance: patient does not respond to commands, GCS 11, extreme lethargy HEENT: EOMI Respiratory: Clear to auscultation, Normal air movement Cardiovascular: Regular rate, Normal S1, Normal S2 Abdominal: Normal bowel sounds Extremities: No cyanosis, No edema, Normal pulses, No tenderness/swelling Skin: No rashes, No breakdown Neuro: incomplete neurological examination as patient does not respond to commands, GCS 11 laboratory and microbiology Laboratory Tests 07/30/24 08:45 Test 07/30/24 08:45 Range/Units Serum Glucose 132 H 74-106 mg/dL Microbiology Date/Time Source Procedure Growth Status 07/29/24 10:40 Blood Blood Culture - Preliminary NO GROWTH AFTER 24 HOURS OF INCUBATION. Resulted 07/29/24 07:23 Urine - [place] Urine Culture - Preliminary Resulted Labs and/or images reviewed: Labs reviewed by me, Image(s) reviewed by me Problem List/Assessment/Plan Problem List/Assessment/Plan Assessment/plan Neurology # metabolic encephalopathy due to sepsis/questionable thyroid storm/? Meningitis -head CT -IV antibiotics, vancomycin and meropenem -patient was planned for lumbar puncture but family mentioned they want to be at bedside and they want the procedure to be tomorrow # dementia -family history of lewy body dementia Cardiology # heart failure with preserved ejection fraction, chronic -echo reveals moderate degree LVH and moderate degree LV diastolic dysfunction #Heavily calcified aortic leaflets -seen on echo # moderate degree pulmonary hypertension, likely group two/group three -seen on echo with RVSP of 55 #Hypertension -on metoprolol home dose # AFib with RVR, currently sinus rhythm with multiple PACs -continue home dose metoprolol -patient did not take any anticoagulation at home Respiratory # COPD, stable -currently on room air Endocrine # hyperthyroidism, tidal some less likely DC hydrocortisone, DC propranolol, DC PTU Continue home dose methimazole Urology #UTI -urine culture IV antibiotics Hematology/oncology # microcytic anemia Monitor CBC # coagulopathy likely due to sepsis -monitor Nephrology # hypokalemia Replaced Monitor BMP # hyponatremia Monitor We will consider starting free water through NG-tube if does not improve # 2.6 cm right lower pole renal cyst -seen on imaging Drips Lines Nutrition will start enteral nutrition through NG tube Bowel regimen The patient is currently NPO, will start after nutrition DVT prophylaxis -Low dose Lovenox 30mg SC daily Input/output Family is refusing Shaw's catheter Code status discussed for greater than 22 minutes, full code Critical care time excluding procedure 51 minutes Case discussion with Dr. Perez Daughter at bedside explained about the condition of the patient, and also explained to the daughter over the phone Plan discussed with: Other My Orders My Orders Orders - CRISTELA SOARES Procedure Category Date Status Time Glucose Blood PHA 07/30/24 In Process (Accu-Chek Comfort 18:00 Insulin R (Human) PHA 07/30/24 In Process (Insulin R) 18:00 Dextrose 50% Syringe PHA 07/30/24 In Process 15:30 Dietary Evaluation Review Comments: 1) Consider a Cardiac diet modified per E COMMERCE MARKETING MANAGER recommendation if necessary 2) Continue current plan of care Expected Outcomes/Goals: F/U in 2-3 days Date of Service: Jul 30, 2024 Billing Provider: NORMAN PEREZ MD Common Visit Codes: 70190-HGHCOLSI CARE 30-74 MIN CRISTELA SOARES Jul 30, 2024 19:56 NORMAN PEREZ MD Jul 31, 2024 15:57
[2024-07-30] MEDS: MEROPENEM 1GM IVPB 50 ML IV SCH (21:15)
[2024-07-31] VITALS (26 sets, daily range): BP systolic 113–159; BP diastolic 49–103; PULSE 69–84; RESP 11–23; TEMP 98.4–99.5; O2SAT 96–100
[2024-07-31] MEDS ORDERED: Jevity 1.2 Cal/Fiber 1 Liter GT SCH ×2 (06:45→07:00)
[2024-07-31 08:44] LABS: Anion Gap 10 (5-15); Calcium 10.1 mg/dL (8.7-10.4); Carbon Dioxide 27 mmol/L (20-31)
[2024-07-31 08:46] LABS: Chloride 115 mmol/L (98-107); Potassium 3.4 mmol/L (3.5-5.1); Sodium 152 mmol/L (136-145)
[2024-07-31 08:49] LABS: BUN/Creatinine Ratio 67.9 (10.0-20.0)
[2024-07-31 08:50] LABS: Blood Urea Nitrogen 53 mg/dL (9-23); Glucose 111 mg/dL (74-106); Magnesium 2.1 mg/dL (1.6-2.6)
[2024-07-31 08:55] LABS: Free T3 3.48 pg/mL (2.3-4.2)
[2024-07-31 08:56] LABS: Free T4 (Free Thyroxine) 2.66 ng/dL (0.89-1.76)
[2024-07-31 08:57] LABS: Hematocrit 34.6 % (36.0-46.0); Hemoglobin 10.7 g/dL (12.2-16.2); Mean Corpuscular Hemoglobin 20.7 pg (28.0-32.0); Mean Corpuscular Volume 66.8 fL (80.0-100.0); Platelet Count (auto) 307 10^3/uL (140-450); Red Blood Cells 5.18 10^6/uL (4.0-5.20); Red Cell Distribution Width 15.9 % (11.8-14.3); White Blood Cell 18.4 10^3/uL (4.4-10.8)
[2024-07-31 09:06] LABS: Thyrotropin Receptor Antibody 3.94 IU/L (0.00-1.75)
[2024-07-31 09:19] LABS: Band Neutrophils % (manual) 0; Basophils % (manual) 0 (0.0-2.0); Blast Cells 0; Eosinophils % (manual) 0 (0-7); Metamyelocytes % 0; Myelocytes % 0; Promyelocytes % 0; Reactive Lymphocytes 0
[2024-07-31] MEDS: methIMAzole 5 MG TAB PO SCH (10:00)
[2024-07-31] MEDS ORDERED: FUROSEMIDE 20 MG TAB PO SCH (10:00)
[2024-07-31] MEDS: PANTOPRAZOLE 40 MG TAB PO SCH (10:04)
[2024-07-31] MEDS: POTASSIUM EFFERVESENT TAB 25 MEQ PO ONE (10:07)
--- NOTE | 2024-07-31 10:46 | DVHPN2 ---
Progress Note - Dictate Date Seen: Jul 31, 2024 Medical Necessity Reason Pt with a Central, PICC or Fol: No Subjective Ms. Gisela Escalona is a 78 years old female with a history of hypertension, atrial fibrillation have congestive heart failure, asthma, COPD, anemia, dementia, the patient was brought to the [facility] on 07/26/2024 with a chief company of progressive confusion. I have seen and examined the patient, I have discussed with her nurse, she was awake, she talked a little bit, oriented to person, place, she follows a bit, She spikes temperature I have talked to MRI center, they did not think the patient was good candidate at this moment Urinalysis, 07/26/2024: 43, urine leukocyte esterase: 3+ WBC/HB/PLT/MCV, 07/28/2024: 10.5/34/2/338/67.5 CMP, 07/28/2024: Unremarkable Ca, 07/26/2024:10.5, 07/27/2024: 9.9 Vitamin B12, 07/26/2024: 892 Folic acid 07/26/24: 30.88 TSH, 07/26/2024: < 0.01 Chest x-ray, 07/26/2024: No evidence of acute disease in the chest CT head, 07/26/2024: No evidence of acute intracranial abnormality CT head, 07/28/2024: 1. Motion limited study. 2. No evidence of acute intracranial hemorrhage. 3. Nonacute findings as described above vital signs Vital Sign Date Time Temp Pulse Resp B/P (MAP) Pulse Ox O2 Delivery O2 Flow Rate FiO2 07/31/24 09:32 71 132/70 07/31/24 08:00 99.1 97 210.4 07/31/24 08:00 20 Room Air* 0 21 Total Intake and Output 07/30/24 07/30/24 07/31/24 15:00 23:00 07:00 Intake Total 363.0 ml 21 ml Balance 363.0 ml 21 ml medications Current Medications Medications Dose Ordered Sig/Heather Route Start Time Stop Time Status Last Admin Dose Admin Enoxaparin Sodium 30 mg DAILY SC 07/27/24 10:00 07/31/24 09:33 30 MG Pantoprazole Sodium 40 mg BID PO 07/26/24 22:00 07/31/24 10:04 40 MG Metoprolol Succinate 100 mg DAILY PO 07/27/24 10:00 07/31/24 09:32 100 MG Acetaminophen 650 mg Q6HP PRN PA 07/28/24 20:30 07/29/24 12:21 650 MG Lorazepam 1 mg ONCE PRN IV 07/28/24 23:15 Vancomycin HCl 0 ml @ 0 mls/hr UD IV 07/29/24 07:45 Amlodipine Besylate 10 mg DAILY PO 07/30/24 10:00 07/30/24 10:57 10 MG Vancomycin HCl 250 ml @ 250 mls/hr DAILY IV 07/30/24 11:00 07/31/24 07:50 250 MLS/HR Dorzolamide HCl 1 drop QAM EACHEYE 07/30/24 07:00 UNV Diagnostic Test (Pha) 1 strip Q6HR 07/30/24 18:00 07/31/24 05:18 1 STRIP Insulin Human Regular Q6HR SC 07/30/24 18:00 Dextrose 50 ml UD PRN IV 07/30/24 15:30 Labetalol HCl 20 mg Q4HP PRN IV 07/30/24 16:00 Methimazole 15 mg DAILY PO 07/31/24 10:00 Meropenem 50 ml @ 17 mls/hr Q12H IV 07/30/24 21:00 07/31/24 09:34 17 MLS/HR Enteral Nutritional Formula 1,000 ml 30ML/HR GT 07/31/24 07:00 Purified Water 100 ml Q6HR GT 07/31/24 12:00 objective General: the patient is well developed and nourished. No acute distress. MENTAL STATUS: Subjective SPEECH, LANGUAGE, HIGHER CORTICAL FUNCTION: She does not vocalize CRANIAL NERVES: Pupils are equal, round and reactive. EOMs full and conjugate. Facial sensation intact in all three divisions bilaterally. Mandibular strength intact. Facial muscles symmetrical and strength intact. SENSATION: Sensation to touch and pinprick is okay MOTOR: Normal tone in the upper and lower extremity. Normal muscle bulk. No fasciculations. No abnormal movements or posturing. She moves the arms and legs REFLEXES: Deep tendon reflexes are symmetrical. No pathological reflexes. CEREBELLAR/COORDINATION: Deferred GAIT/STATION: deferred laboratory and microbiology Laboratory Tests 07/31/24 08:15 Test 07/31/24 08:15 Range/Units Serum Glucose 111 H 74-106 mg/dL Problem List Altered mental status Metabolic encephalopathy secondary to UTI Dementia ? Alzheimer disease ? Lewy body disease Rule out other etiology Urinary tract infection Sepsis Convulsive spells with loss of consciousness Like the patient had generalized tonic-clonic seizure Rule out other etiology Gait disturbance secondary to dementia, metabolic encephalopathy Assessment/Plan Monitoring Supportive treatment Telemetry EEG MRI brain scan IV antibiotics Ativan for seizure breakthrough May consider preventive seizure treatment Up to chair Physical therapy Room bright during the daytime More recommendation per clinical course This medical document was created using an electronic medical record system with Surikate dictation system. Although this document has been carefully reviewed, there may still be some phonetic and typographical errors. These areas are purely typographical due to imperfections of the software programs, and do not reflect any compromise in the patient's medical care. Prognosis poor Dietary Evaluation Review Comments: 1) Consider a Cardiac diet modified per STOCK MIXER recommendation if necessary 2) Continue current plan of care Expected Outcomes/Goals: F/U in 2-3 days Plan discussed with: Other AIDEN GONZALEZ MD Jul 31, 2024 10:46
[2024-07-31] MEDS: FREE WATER GT SCH ×2 (11:15→18:16)
[2024-07-31 11:40] LABS: Lymphocytes % (manual) 6 (10.0-50.0); Monocytes % (manual) 9 (0-12)
[2024-07-31 11:41] LABS: Hypochromia Marked; Platelet Estimate Adequate
--- NOTE | 2024-07-31 11:52 | DVHPNRES ---
Progress Note Date Seen: Jul 31, 2024 Resident Creating Document: CRISTELA SOARES RESIDENT Medical Necessity Reason Pt with a Central, PICC or Fol: No Subjective Review of Systems Patient seen and examined at bedside. She is more alert compared to yesterday Patient is still extremely lethargic but speaks some sentences Mentioning of abdominal pain Objective vital signs Vital Sign Date Time Temp Pulse Resp B/P (MAP) Pulse Ox O2 Delivery O2 Flow Rate FiO2 07/31/24 11:02 136/70 07/31/24 10:00 99.0 77 98 210.2 07/31/24 10:00 20 Room Air* 0 21 Total Intake and Output 07/30/24 07/30/24 07/31/24 15:00 23:00 07:00 Intake Total 363.0 ml 21 ml Balance 363.0 ml 21 ml medications Current Medications Medications Dose Ordered Sig/Heather Route Start Time Stop Time Status Last Admin Dose Admin Enoxaparin Sodium 30 mg DAILY SC 07/27/24 10:00 07/31/24 09:33 30 MG Pantoprazole Sodium 40 mg BID PO 07/26/24 22:00 07/31/24 10:04 40 MG Metoprolol Succinate 100 mg DAILY PO 07/27/24 10:00 07/31/24 09:32 100 MG Acetaminophen 650 mg Q6HP PRN [place] 07/28/24 20:30 07/29/24 12:21 650 MG Lorazepam 1 mg ONCE PRN IV 07/28/24 23:15 Vancomycin HCl 0 ml @ 0 mls/hr UD IV 07/29/24 07:45 Amlodipine Besylate 10 mg DAILY PO 07/30/24 10:00 07/31/24 11:02 10 MG Vancomycin HCl 250 ml @ 250 mls/hr DAILY IV 07/30/24 11:00 07/31/24 07:50 250 MLS/HR Dorzolamide HCl 1 drop QAM EACHEYE 07/30/24 07:00 UNV Diagnostic Test (Pha) 1 strip Q6HR 07/30/24 18:00 07/31/24 11:15 1 STRIP Insulin Human Regular Q6HR SC 07/30/24 18:00 Dextrose 50 ml UD PRN IV 07/30/24 15:30 Labetalol HCl 20 mg Q4HP PRN IV 07/30/24 16:00 Methimazole 15 mg DAILY PO 07/31/24 10:00 Meropenem 50 ml @ 17 mls/hr Q12H IV 07/30/24 21:00 07/31/24 09:34 17 MLS/HR Enteral Nutritional Formula 1,000 ml 30ML/HR GT 07/31/24 07:00 Purified Water 100 ml Q6HR GT 07/31/24 12:00 07/31/24 11:15 100 ML Examination Examination General Appearance: extreme lethargy Respiratory: Clear to auscultation, Normal air movement Cardiovascular: Regular rate, Normal S1, Normal S2 Abdominal: Normal bowel sounds Extremities: No cyanosis, No edema, Normal pulses, No tenderness/swelling Skin: No rashes, No breakdown Neuro: Extreme lethargy, able to move all 4 limbs but motor strength is not accessed as patient is not responding to commands and is extremely lethargic laboratory and microbiology Laboratory Tests 07/31/24 08:15 Test 07/31/24 08:15 Range/Units Serum Glucose 111 H 74-106 mg/dL Microbiology Date/Time Source Procedure Growth Status 07/29/24 10:40 Blood Blood Culture - Preliminary NO GROWTH AFTER 48 HOURS OF INCUBATION. Resulted 07/29/24 07:23 Urine - [place] Urine Culture - Final Complete Labs and/or images reviewed: Labs reviewed by me, Image(s) reviewed by me Problem List/Assessment/Plan Problem List/Assessment/Plan Assessment/plan Neurology # metabolic encephalopathy due to sepsis/questionable thyroid storm/? Meningitis -head CT -IV antibiotics, vancomycin and meropenem -patient was planned for lumbar puncture but family refused # dementia -family history of lewy body dementia Cardiology # heart failure with preserved ejection fraction, chronic -echo reveals moderate degree LVH and moderate degree LV diastolic dysfunction #Heavily calcified aortic leaflets -seen on echo # moderate degree pulmonary hypertension, likely group two/group three -seen on echo with RVSP of 55 #Hypertension -on metoprolol home dose # AFib with RVR, currently sinus rhythm with multiple PACs -continue home dose metoprolol -patient did not take any anticoagulation at home Respiratory # COPD, stable -currently on room air Endocrine # hyperthyroidism, tidal some less likely DC hydrocortisone, DC propranolol, DC PTU Continue home dose methimazole Urology #UTI -urine culture IV antibiotics Hematology/oncology # microcytic anemia Monitor CBC # coagulopathy likely due to sepsis -monitor Nephrology # hypokalemia Replaced Monitor BMP # hyponatremia Monitor free water 200ml Q6 # 2.6 cm right lower pole renal cyst -seen on imaging Drips Lines Nutrition enteral nutrition through NG tube Bowel regimen The patient is currently NPO, will start after nutrition DVT prophylaxis -Low dose Lovenox 30mg SC daily Input/output Family is refusing Shaw's catheter Physical therapy evaluation ordered swallow request ordered Code status discussed for greater than 22 minutes, full code Critical care time excluding procedure 49 minutes Case discussion with Dr. Perez Daughter at bedside explained about the condition of the patient Plan discussed with: Other My Orders My Orders Orders - CRISTELA SOARES Procedure Category Date Status Time Glucose Blood PHA 07/30/24 In Process (Accu-Chek Comfort 18:00 Insulin R (Human) PHA 07/30/24 In Process (Insulin R) 18:00 Dextrose 50% Syringe PHA 07/30/24 In Process 15:30 Nutritional PHA 07/31/24 In Process Supplements (Jevity 07:00 Free Water PHA 07/31/24 In Process 12:00 Electrocardigram EKG 07/31/24 Logged 11:36 Electrocardigram EKG 07/31/24 Logged 11:36 Dietary Evaluation Review Comments: 1) Consider a Cardiac diet modified per COMPOSING ROOM MACHINIST APPRENTICE recommendation if necessary 2) Continue current plan of care Expected Outcomes/Goals: F/U in 2-3 days Date of Service: Jul 31, 2024 Billing Provider: NORMAN PEREZ MD Common Visit Codes: [id number] CARE 30-74 MIN CRISTELA SOARES Jul 31, 2024 11:52 NORMAN PEREZ MD Aug 01, 2024 12:39
--- NOTE | 2024-07-31 12:12 | DVHPN2 ---
Progress Note - Dictate Date Seen: Jul 31, 2024 Medical Necessity Reason Pt with a Central, PICC or Fol: No Subjective Patient starting to respond and be more alert. Generally improving mentation overall. Hemodynamically stable. vital signs Vital Sign Date Time Temp Pulse Resp B/P (MAP) Pulse Ox O2 Delivery O2 Flow Rate FiO2 07/31/24 11:02 136/70 07/31/24 10:00 99.0 77 98 210.2 07/31/24 10:00 20 Room Air* 0 21 Total Intake and Output 07/30/24 07/30/24 07/31/24 15:00 23:00 07:00 Intake Total 363.0 ml 21 ml Balance 363.0 ml 21 ml medications Current Medications Medications Dose Ordered Sig/Heather Route Start Time Stop Time Status Last Admin Dose Admin Enoxaparin Sodium 30 mg DAILY SC 07/27/24 10:00 07/31/24 09:33 30 MG Pantoprazole Sodium 40 mg BID PO 07/26/24 22:00 07/31/24 10:04 40 MG Metoprolol Succinate 100 mg DAILY PO 07/27/24 10:00 07/31/24 09:32 100 MG Acetaminophen 650 mg Q6HP PRN [place] 07/28/24 20:30 07/29/24 12:21 650 MG Lorazepam 1 mg ONCE PRN IV 07/28/24 23:15 Vancomycin HCl 0 ml @ 0 mls/hr UD IV 07/29/24 07:45 Amlodipine Besylate 10 mg DAILY PO 07/30/24 10:00 07/31/24 11:02 10 MG Vancomycin HCl 250 ml @ 250 mls/hr DAILY IV 07/30/24 11:00 07/31/24 07:50 250 MLS/HR Dorzolamide HCl 1 drop QAM EACHEYE 07/30/24 07:00 UNV Diagnostic Test (Pha) 1 strip Q6HR 07/30/24 18:00 07/31/24 11:15 1 STRIP Insulin Human Regular Q6HR SC 07/30/24 18:00 Dextrose 50 ml UD PRN IV 07/30/24 15:30 Labetalol HCl 20 mg Q4HP PRN IV 07/30/24 16:00 Methimazole 15 mg DAILY PO 07/31/24 10:00 Meropenem 50 ml @ 17 mls/hr Q12H IV 07/30/24 21:00 07/31/24 09:34 17 MLS/HR Enteral Nutritional Formula 1,000 ml 30ML/HR GT 07/31/24 07:00 Purified Water 100 ml Q6HR GT 07/31/24 12:00 07/31/24 11:15 100 ML objective Gen - lying in bed, not communicative HEENT - no thyromegaly CV - RRR, no m/r/g Resp - CTAB Psych - awake, somewhat alert but not oriented laboratory and microbiology Laboratory Tests 07/31/24 08:15 Test 07/31/24 08:15 Range/Units Serum Glucose 111 H 74-106 mg/dL Assessment/Plan # Uncontrolled hyperthyroidism secondary to Graves' disease # Acute on chronic encephalopathy # Sepsis # Afib with RVR # Hypertension # Asthma # COPD # CAD s/p PCI - Continue MMI 15mg daily via NGT - Repeat FT4 daily - Recommend continued infectious workup Dietary Evaluation Review Comments: 1) Consider a Cardiac diet modified per OPHTHALMIC SURGICAL ASSISTANT recommendation if necessary 2) Continue current plan of care Expected Outcomes/Goals: F/U in 2-3 days Plan discussed with: Other (no family available to discuss) CHRIS LUCIO MD Jul 31, 2024 12:12
--- NOTE | 2024-07-31 12:45 | ECG ---
[facility] Test Date: 2024-07-29 Test Time: 06:36:00 Pat Name: KALI QUAN Department: Respiratoy Room: 0262D A Gender: F Behavioral Instructor: shantell : 1945 Requested By: CRISTELA SOARES Order Number: [id number] Reading MD: Maddy Tucker Measurements Intervals [place] Rate: 162 P: 259 [place]: 62 QRS: -8 QRSD: 119 T: 74 QT: 291 QTc: 478 Interpretive Statements Supraventricular tachycardia Left ventricular hypertrophy Repolarization abnormality prob rate related Electronically Signed On 08-01-2024 13:27:33 PST by Maddy Tucker Please click the below link to view image of tracing.
--- NOTE | 2024-07-31 12:47 | ECG ---
[facility] Test Date: 2024-07-28 Test Time: 20:23:16 Pat Name: KALI QUAN Department: Respiratoy Room: 0262D A Gender: F Photoengraver: AM : 1945 Requested By: CRISTELA SOARES Order Number: [id number] Reading MD: Maddy Tucker Measurements Intervals [place] Rate: 155 P: -79 [place]: 96 QRS: 11 QRSD: 101 T: 85 QT: 330 QTc: 530 Interpretive Statements Supraventricular tachycardia ST elevations, anteroseptal leads; consider acute infarct. LVH by voltage Electronically Signed On 08-01-2024 13:27:12 PST by Maddy Tcuker Please click the below link to view image of tracing.
--- NOTE | 2024-07-31 22:18 | DVHEEG2 ---
Neurology EEG Procedural Note Procedural Note EXAM DATE: 07/30/2024 REFERRING DOCTOR: Dr. Gonzalez TECHNIQUE: Eighteen channels of EEG, 2 channels of EOG, and 1 channel of EKG were recorded using the International 10/20 system. CLINICAL DATA: The patient was referred for an EEG evaluation for the evidence of seizure disorder. MEDICATIONS: See chart BACKGROUND ACTIVITY: There was large amount of movement and electrode activity in the recording, possibly there was diffuse theta activity over both hemispheres ACTIVATION: Hyperventilation: Not done Photic Stimulation: Not done Sleep: Not seen IMPRESSION: This is on inadequate, possibly mildly abnormal EEG, please correlate clinically and consider follow up EEG if clinically indicated. The EKG channel showed an irregular heart rate of 78 per [place] [address] AIDEN GONZALEZ MD Jul 31, 2024 22:18
[2024-08-01] VITALS (24 sets, daily range): BP systolic 108–145; BP diastolic 65–93; PULSE 40–86; RESP 11–28; TEMP 97.9–99.5; O2SAT 94–100
[2024-08-01 05:34] LABS: Anion Gap 7 (5-15); Carbon Dioxide 31 mmol/L (20-31); Potassium 3.7 mmol/L (3.5-5.1)
[2024-08-01 05:40] LABS: BUN/Creatinine Ratio 51.8 (10.0-20.0); Magnesium 2.2 mg/dL (1.6-2.6)
[2024-08-01 05:43] LABS: Eosinophils # (auto) 0 10 ^3/uL (0-0.8); Hemoglobin 11.1 g/dL (12.2-16.2); Mean Corpuscular Hgb Conc. 31.2 g/dL (32.0-36.0); Monocytes # (auto) 1.1 10 ^3/uL (0-1.3); Nucleated Red Blood Cells % 0.1 %; White Blood Cell 14.2 10^3/uL (4.4-10.8)
[2024-08-01 05:45] LABS: Basophils # (auto) 0 10 ^3/uL (0-0.2); Basophils % (auto) 0.2 % (0.0-2.0); Eosinophils % (auto) 0.1 % (0.0-7.0); Hematocrit 35.7 % (36.0-46.0); Lymphocytes % (auto) 7.4 % (10.0-50.0); Mean Corpuscular Hemoglobin 20.8 pg (28.0-32.0); Mean Corpuscular Volume 66.6 fL (80.0-100.0); Monocytes % (auto) 7.6 % (0.0-12.0); Neutrophils % (auto) 84.7 % (37.0-80.0); Platelet Count (auto) 276 10^3/uL (140-450); Red Blood Cells 5.36 10^6/uL (4.0-5.20); Red Cell Distribution Width 15.9 % (11.8-14.3)
[2024-08-01 05:50] LABS: Blood Urea Nitrogen 44 mg/dL (9-23); Chloride 115 mmol/L (98-107); Glucose 121 mg/dL (74-106); Sodium 153 mmol/L (136-145)
[2024-08-01 08:02] LABS: Base Excess 3.3 mmol/L (-2.0-3.0)
[2024-08-01] MEDS ORDERED: Nepro With Carb Steady 1 Liter Bottle GT SCH (08:30)
[2024-08-01] MEDS: PANTOPRAZOLE 40 MG TAB PO SCH (10:15)
--- NOTE | 2024-08-01 10:53 | DVHPN2 ---
Progress Note - Dictate Date Seen: Aug 01, 2024 Medical Necessity Reason Pt with a Central, PICC or Fol: No Subjective Ms. Gisela Escalona is a 78 years old female with a history of hypertension, atrial fibrillation have congestive heart failure, asthma, COPD, anemia, dementia, the patient was brought to the [facility] on 07/26/2024 with a chief company of progressive confusion. I have seen and examined the patient, I have discussed with her nurse, she keeps improving, alert, oriented to person, place, she talks more, and she answers some questions, but what she talked about was difficult to understand Urinalysis, 07/26/2024: 43, urine leukocyte esterase: 3+ WBC/HB/PLT/MCV, 07/28/2024: 10.5/34/2/338/67.5 CMP, 07/28/2024: Unremarkable Ca, 07/26/2024:10.5, 07/27/2024: 9.9 Vitamin B12, 07/26/2024: 892 Folic acid 07/26/24: 30.88 TSH, 07/26/2024: < 0.01 EEG, 07/30/24: Inadequate, possibly mildly abnormal EEG Chest x-ray, 07/26/2024: No evidence of acute disease in the chest CT head, 07/26/2024: No evidence of acute intracranial abnormality CT head, 07/28/2024: 1. Motion limited study. 2. No evidence of acute intracranial hemorrhage. 3. Nonacute findings as described above vital signs Vital Sign Date Time Temp Pulse Resp B/P (MAP) Pulse Ox O2 Delivery O2 Flow Rate FiO2 08/01/24 10:00 99.5 78 11 129/75 (93) 100 211.1 08/01/24 09:32 Room Air* 0 21 Total Intake and Output 07/31/24 07/31/24 08/01/24 15:00 23:00 07:00 Intake Total 307 ml 583 ml 673 ml Balance 307 ml 583 ml 673 ml medications Current Medications Medications Dose Ordered Sig/Heather Route Start Time Stop Time Status Last Admin Dose Admin Enoxaparin Sodium 30 mg DAILY SC 07/27/24 10:00 08/01/24 08:21 30 MG Metoprolol Succinate 100 mg DAILY PO 07/27/24 10:00 08/01/24 08:22 100 MG Acetaminophen 650 mg Q6HP PRN PA 07/28/24 20:30 07/29/24 12:21 650 MG Lorazepam 1 mg ONCE PRN IV 07/28/24 23:15 Vancomycin HCl 0 ml @ 0 mls/hr UD IV 07/29/24 07:45 Amlodipine Besylate 10 mg DAILY PO 07/30/24 10:00 08/01/24 08:21 10 MG Vancomycin HCl 250 ml @ 250 mls/hr DAILY IV 07/30/24 11:00 07/31/24 07:50 250 MLS/HR Dorzolamide HCl 1 drop QAM EACHEYE 07/30/24 07:00 UNV Diagnostic Test (Pha) 1 strip Q6HR 07/30/24 18:00 08/01/24 10:31 1 STRIP Insulin Human Regular Q6HR SC 07/30/24 18:00 Dextrose 50 ml UD PRN IV 07/30/24 15:30 Labetalol HCl 20 mg Q4HP PRN IV 07/30/24 16:00 Methimazole 15 mg DAILY PO 07/31/24 10:00 08/01/24 09:36 15 MG Meropenem 50 ml @ 17 mls/hr Q12H IV 07/30/24 21:00 08/01/24 08:23 17 MLS/HR Purified Water 200 ml Q6HR GT 07/31/24 18:00 08/01/24 10:31 200 ML Enteral Nutritional Formula 1,000 ml 30ML/HR GT 08/01/24 08:30 Pantoprazole Sodium 40 mg DAILY PO 08/01/24 10:15 objective General: the patient is well developed and nourished. No acute distress. MENTAL STATUS: Subjective SPEECH, LANGUAGE, HIGHER CORTICAL FUNCTION: Subjective CRANIAL NERVES: Pupils are equal, round and reactive. EOMs full and conjugate. Facial sensation intact in all three divisions bilaterally. Mandibular strength intact. Facial muscles symmetrical and strength intact. SENSATION: Sensation to touch and pinprick is okay MOTOR: Normal tone in the upper and lower extremity. Normal muscle bulk. No fasciculations. No abnormal movements or posturing. She moves the arms and legs REFLEXES: Deep tendon reflexes are symmetrical. No pathological reflexes. CEREBELLAR/COORDINATION: Deferred GAIT/STATION: deferred laboratory and microbiology Laboratory Tests 08/01/24 05:06 Test 08/01/24 05:06 Range/Units Serum Glucose 121 H 74-106 mg/dL Problem List Altered mental status Metabolic encephalopathy secondary to UTI Dementia ? Alzheimer disease ? Lewy body disease Rule out other etiology Urinary tract infection Sepsis Convulsive spells with loss of consciousness Like the patient had generalized tonic-clonic seizure Rule out other etiology Gait disturbance secondary to dementia, metabolic encephalopathy Assessment/Plan Monitoring Supportive treatment Telemetry MRI brain scan IV antibiotics Ativan for seizure breakthrough May consider preventive seizure treatment Up to chair Physical therapy Room bright during the daytime More recommendation per clinical course This medical document was created using an electronic medical record system with [employer] dictation system. Although this document has been carefully reviewed, there may still be some phonetic and typographical errors. These areas are purely typographical due to imperfections of the software programs, and do not reflect any compromise in the patient's medical care. Prognosis poor Dietary Evaluation Review Comments: 1) Consider a Cardiac diet modified per FAIRING WORKER recommendation if necessary 2) Continue current plan of care Expected Outcomes/Goals: F/U in 2-3 days Plan discussed with: Other AIDEN GONZALEZ MD Aug 01, 2024 10:53
--- NOTE | 2024-08-01 13:11 | DVHPN2 ---
Progress Note - Dictate Date Seen: Aug 01, 2024 Medical Necessity Reason Pt with a Central, PICC or Fol: No Subjective Continues to increase in orientation however still somewhat incomprehensible. RR slightly increased however afebrile. vital signs Vital Sign Date Time Temp Pulse Resp B/P (MAP) Pulse Ox O2 Delivery O2 Flow Rate FiO2 08/01/24 12:00 99.5 74 24 137/74 (95) 97 211.1 08/01/24 11:55 Room Air* 0 21 Total Intake and Output 07/31/24 07/31/24 08/01/24 14:59 22:59 06:59 Intake Total 307 ml 566 ml 690 ml Balance 307 ml 566 ml 690 ml medications Current Medications Medications Dose Ordered Sig/Heather Route Start Time Stop Time Status Last Admin Dose Admin Enoxaparin Sodium 30 mg DAILY SC 07/27/24 10:00 08/01/24 08:21 30 MG Metoprolol Succinate 100 mg DAILY PO 07/27/24 10:00 08/01/24 08:22 100 MG Acetaminophen 650 mg Q6HP PRN FL 07/28/24 20:30 07/29/24 12:21 650 MG Lorazepam 1 mg ONCE PRN IV 07/28/24 23:15 Vancomycin HCl 0 ml @ 0 mls/hr UD IV 07/29/24 07:45 Amlodipine Besylate 10 mg DAILY PO 07/30/24 10:00 08/01/24 08:21 10 MG Vancomycin HCl 250 ml @ 250 mls/hr DAILY IV 07/30/24 11:00 08/01/24 11:15 250 MLS/HR Dorzolamide HCl 1 drop QAM EACHEYE 07/30/24 07:00 UNV Diagnostic Test (Pha) 1 strip Q6HR 07/30/24 18:00 08/01/24 10:31 1 STRIP Insulin Human Regular Q6HR SC 07/30/24 18:00 Dextrose 50 ml UD PRN IV 07/30/24 15:30 Labetalol HCl 20 mg Q4HP PRN IV 07/30/24 16:00 Methimazole 15 mg DAILY PO 07/31/24 10:00 08/01/24 09:36 15 MG Meropenem 50 ml @ 17 mls/hr Q12H IV 07/30/24 21:00 08/01/24 08:23 17 MLS/HR Purified Water 200 ml Q6HR GT 07/31/24 18:00 08/01/24 10:31 200 ML Enteral Nutritional Formula 1,000 ml 30ML/HR GT 08/01/24 08:30 Pantoprazole Sodium 40 mg DAILY PO 08/01/24 10:15 objective Gen - lying in bed, not communicative HEENT - no thyromegaly CV - RRR, no m/r/g Resp - CTAB Psych - awake, somewhat alert but not oriented laboratory and microbiology Laboratory Tests 08/01/24 05:06 Test 08/01/24 05:06 Range/Units Serum Glucose 121 H 74-106 mg/dL Assessment/Plan # Uncontrolled hyperthyroidism secondary to Graves' disease # Acute on chronic encephalopathy # Sepsis # Afib with RVR # Hypertension # Asthma # COPD # CAD s/p PCI - Continue MMI 15mg daily - Repeat FT4 daily - Agree with delirium precautions Dietary Evaluation Review Comments: 1) Consider a Cardiac diet modified per HORTICULTURAL TECHNICAL OFFICER recommendation if necessary 2) Continue current plan of care Expected Outcomes/Goals: F/U in 2-3 days Plan discussed with: Other (n/a) CHRIS LUCIO MD Aug 01, 2024 13:11
[2024-08-01 17:06] LABS: Thyroid Stimulating Immunoglob 5.63 IU/L (0.00-0.55)
--- NOTE | 2024-08-01 20:43 | DVHPNRES ---
Progress Note Date Seen: Aug 01, 2024 Resident Creating Document: CRISTELA SOARES RESIDENT Medical Necessity Reason Pt with a Central, PICC or Fol: No Subjective Review of Systems Patient seen and examined at bedside. She is more alert compared to yesterday Patient is still extremely lethargic but speaks some sentences Pt passed swallow evaluation and was started on mech soft diet later mentions of pain in the nose due to NG tube Objective vital signs Vital Sign Date Time Temp Pulse Resp B/P (MAP) Pulse Ox O2 Delivery O2 Flow Rate FiO2 08/01/24 17:04 98.4 76 16 131/74 (93) 94 98.4 08/01/24 11:55 Room Air* 0 21 Total Intake and Output 07/31/24 07/31/24 08/01/24 15:00 23:00 07:00 Intake Total 307 ml 583 ml 673 ml Balance 307 ml 583 ml 673 ml medications Current Medications Medications Dose Ordered Sig/Heather Route Start Time Stop Time Status Last Admin Dose Admin Enoxaparin Sodium 30 mg DAILY SC 07/27/24 10:00 08/01/24 08:21 30 MG Metoprolol Succinate 100 mg DAILY PO 07/27/24 10:00 08/01/24 08:22 100 MG Lorazepam 1 mg ONCE PRN IV 07/28/24 23:15 Vancomycin HCl 0 ml @ 0 mls/hr UD IV 07/29/24 07:45 Amlodipine Besylate 10 mg DAILY PO 07/30/24 10:00 08/01/24 08:21 10 MG Vancomycin HCl 250 ml @ 250 mls/hr DAILY IV 07/30/24 11:00 08/01/24 11:15 250 MLS/HR Dorzolamide HCl 1 drop QAM EACHEYE 07/30/24 07:00 UNV Diagnostic Test (Pha) 1 strip Q6HR 07/30/24 18:00 08/01/24 18:00 1 STRIP Insulin Human Regular Q6HR SC 07/30/24 18:00 Dextrose 50 ml UD PRN IV 07/30/24 15:30 Labetalol HCl 20 mg Q4HP PRN IV 07/30/24 16:00 Methimazole 15 mg DAILY PO 07/31/24 10:00 08/01/24 09:36 15 MG Meropenem 50 ml @ 17 mls/hr Q12H IV 07/30/24 21:00 08/01/24 08:23 17 MLS/HR Purified Water 200 ml Q6HR GT 07/31/24 18:00 08/01/24 10:31 200 ML Enteral Nutritional Formula 1,000 ml 30ML/HR GT 08/01/24 08:30 Pantoprazole Sodium 40 mg DAILY PO 08/01/24 10:15 Acetaminophen 650 mg Q6HP PRN PO 08/01/24 19:15 Examination Examination General Appearance: extreme lethargy Respiratory: Clear to auscultation, Normal air movement Cardiovascular: Regular rate, Normal S1, Normal S2 Abdominal: Normal bowel sounds Extremities: No cyanosis, No edema, Normal pulses, No tenderness/swelling Skin: No rashes, No breakdown Neuro: Extreme lethargy, able to move all 4 limbs but motor strength is not accessed as patient is not responding to commands and is extremely lethargic laboratory and microbiology Laboratory Tests 08/01/24 05:06 Test 08/01/24 05:06 Range/Units Serum Glucose 121 H 74-106 mg/dL Microbiology Date/Time Source Procedure Growth Status 07/31/24 17:00 Nose MRSA Screen - Final Complete 07/29/24 10:40 Blood Blood Culture - Preliminary NO GROWTH AFTER 72 HOURS OF INCUBATION. Resulted 07/29/24 07:23 Urine - [place] Urine Culture - Final Complete Labs and/or images reviewed: Labs reviewed by me, Image(s) reviewed by me Problem List/Assessment/Plan Problem List/Assessment/Plan Assessment/plan Neurology # metabolic encephalopathy due to sepsis/questionable thyroid storm/? Meningitis -head CT -IV antibiotics, vancomycin and meropenem -patient was planned for lumbar puncture but family refused # dementia -family history of lewy body dementia Cardiology # heart failure with preserved ejection fraction, chronic -echo reveals moderate degree LVH and moderate degree LV diastolic dysfunction #Heavily calcified aortic leaflets -seen on echo # moderate degree pulmonary hypertension, likely group two/group three -seen on echo with RVSP of 55 #Hypertension -on metoprolol home dose # AFib with RVR, currently sinus rhythm with multiple PACs -continue home dose metoprolol -patient did not take any anticoagulation at home Respiratory # COPD, stable -currently on room air Endocrine # hyperthyroidism, tidal some less likely DC hydrocortisone, DC propranolol, DC PTU Continue home dose methimazole Urology #UTI -urine culture IV antibiotics Hematology/oncology # microcytic anemia Monitor CBC # coagulopathy likely due to sepsis -monitor Nephrology # hypokalemia Replaced Monitor BMP # hyponatremia Monitor free water 200ml Q6 # 2.6 cm right lower pole renal cyst -seen on imaging Drips Lines Nutrition soft mechanical diet DVT prophylaxis -Low dose Lovenox 30mg SC daily Input/output Family is refusing Shaw's catheter Physical therapy evaluation ordered Code status discussed for greater than 22 minutes, full code Critical care time excluding procedure 49 minutes downgraded to telemetry Case discussion with Dr. Perez Daughter at bedside explained about the condition of the patient Plan discussed with: Patient, Other My Orders My Orders Orders - CRISTELA SOARES Procedure Category Date Status Time Nutritional PHA 08/01/24 In Process Supplements (Nepro 08:30 Transfer Orders XFER 08/01/24 Transmitted 08:32 Sitter At Bedside ORDERS 08/01/24 Transmitted 08:32 Pantoprazole Tablet PHA 08/01/24 In Process (Protonix Tablet) 10:15 Mechanical Soft Diet DIET 08/01/24 Transmitted Dinner Discontinue Ng ORDERS 08/01/24 Transmitted 19:14 Acetaminophen Tablet PHA 08/01/24 In Process (Tylenol Tablet) 19:15 Dietary Evaluation Review Comments: 1) Consider a Cardiac diet modified per DIRECTOR OF MANAGED CARE recommendation if necessary 2) Continue current plan of care Expected Outcomes/Goals: F/U in 2-3 days Date of Service: Aug 01, 2024 Billing Provider: NORMAN PEREZ MD Common Visit Codes: [id number] CARE 30-74 MIN CRISTELA SOARES Aug 01, 2024 20:43 NORMAN PEREZ MD Aug 04, 2024 16:53
[2024-08-02] VITALS (8 sets, daily range): BP systolic 124–149; BP diastolic 66–86; PULSE 63–104; RESP 17–22; TEMP 97.5–98.9; O2SAT 95–99
[2024-08-02 06:20] LABS: Basophils # (auto) 0 10 ^3/uL (0-0.2); Mean Corpuscular Hemoglobin 21.1 pg (28.0-32.0); Nucleated Red Blood Cells % 0.2 %; Red Blood Cells 5.15 10^6/uL (4.0-5.20)
[2024-08-02 06:25] LABS: Basophils % (auto) 0.2 % (0.0-2.0); Eosinophils # (auto) 0.1 10 ^3/uL (0-0.8); Eosinophils % (auto) 0.5 % (0.0-7.0); Hematocrit 35.4 % (36.0-46.0); Hemoglobin 10.8 g/dL (12.2-16.2); Lymphocytes # (auto) 1.8 10 ^3/uL (0.4-5.4); Lymphocytes % (auto) 15.8 % (10.0-50.0); Mean Corpuscular Hgb Conc. 30.6 g/dL (32.0-36.0); Mean Corpuscular Volume 68.8 fL (80.0-100.0); Monocytes % (auto) 8.6 % (0.0-12.0); Neutrophils # (auto) 8.6 10 ^3/uL (1.6-8.6); Neutrophils % (auto) 74.9 % (37.0-80.0); Platelet Count (auto) 237 10^3/uL (140-450); Red Cell Distribution Width 16.1 % (11.8-14.3); White Blood Cell 11.5 10^3/uL (4.4-10.8)
[2024-08-02 06:45] LABS: Anion Gap 7 (5-15); Carbon Dioxide 29 mmol/L (20-31); Potassium 4.1 mmol/L (3.5-5.1)
[2024-08-02 06:46] LABS: Calcium 9.8 mg/dL (8.7-10.4)
[2024-08-02 06:51] LABS: BUN/Creatinine Ratio 40.6 (10.0-20.0); Glucose 97 mg/dL (74-106)
[2024-08-02 06:52] LABS: Blood Urea Nitrogen 28 mg/dL (9-23); Chloride 116 mmol/L (98-107); Magnesium 2.3 mg/dL (1.6-2.6); Sodium 152 mmol/L (136-145)
[2024-08-02 07:12] LABS: Anisocytosis Slight; Hypochromia Slight; Platelet Estimate Adequate
[2024-08-02 07:13] LABS: Ovalocytes FEW
--- NOTE | 2024-08-02 16:10 | DVHPN2 ---
Progress Note - Dictate Date Seen: Aug 02, 2024 Medical Necessity Reason Pt with a Central, PICC or Fol: No Subjective Still minimally comprehensible though alert. Swallow eval completed. vital signs Vital Sign Date Time Temp Pulse Resp B/P (MAP) Pulse Ox O2 Delivery O2 Flow Rate FiO2 08/02/24 13:00 97.5 63 17 124/76 (92) 98 97.5 08/02/24 08:15 Room Air* 0 21 Total Intake and Output 08/01/24 08/01/24 08/02/24 14:59 22:59 06:59 Intake Total 300 ml 120 ml 50 ml Balance 300 ml 120 ml 50 ml medications Current Medications Medications Dose Ordered Sig/Heather Route Start Time Stop Time Status Last Admin Dose Admin Enoxaparin Sodium 30 mg DAILY SC 07/27/24 10:00 08/02/24 09:48 30 MG Metoprolol Succinate 100 mg DAILY PO 07/27/24 10:00 08/02/24 09:55 100 MG Lorazepam 1 mg ONCE PRN IV 07/28/24 23:15 Vancomycin HCl 0 ml @ 0 mls/hr UD IV 07/29/24 07:45 Amlodipine Besylate 10 mg DAILY PO 07/30/24 10:00 08/02/24 09:57 10 MG Vancomycin HCl 250 ml @ 250 mls/hr DAILY IV 07/30/24 11:00 08/02/24 13:16 250 MLS/HR Dorzolamide HCl 1 drop QAM EACHEYE 07/30/24 07:00 UNV Diagnostic Test (Pha) 1 strip Q6HR 07/30/24 18:00 08/02/24 12:07 1 STRIP Insulin Human Regular Q6HR SC 07/30/24 18:00 Dextrose 50 ml UD PRN IV 07/30/24 15:30 Labetalol HCl 20 mg Q4HP PRN IV 07/30/24 16:00 Methimazole 15 mg DAILY PO 07/31/24 10:00 08/02/24 09:48 15 MG Meropenem 50 ml @ 17 mls/hr Q12H IV 07/30/24 21:00 08/02/24 09:48 17 MLS/HR Purified Water 200 ml Q6HR GT 07/31/24 18:00 08/02/24 12:00 200 ML Enteral Nutritional Formula 1,000 ml 30ML/HR GT 08/01/24 08:30 Pantoprazole Sodium 40 mg DAILY PO 08/01/24 10:15 08/02/24 09:49 40 MG Acetaminophen 650 mg Q6HP PRN PO 08/01/24 19:15 objective Gen - lying in bed, minimally communicative HEENT - no thyromegaly CV - RRR, no m/r/g Resp - CTAB Psych - awake, somewhat alert but not oriented laboratory and microbiology Laboratory Tests 08/02/24 05:52 Test 08/02/24 05:52 Range/Units Serum Glucose 97 74-106 mg/dL Assessment/Plan # Uncontrolled hyperthyroidism secondary to Graves' disease # Acute on chronic encephalopathy # Sepsis # Afib with RVR # Hypertension # Asthma # COPD # CAD s/p PCI - Continue MMI 15mg daily - Repeat FT4 daily - Agree with delirium precautions Dietary Evaluation Review Comments: 1) Consider a Cardiac diet modified per SUPERVISOR RUBBER COVERING recommendation if necessary 2) Continue current plan of care Expected Outcomes/Goals: F/U in 2-3 days Plan discussed with: Other (family n/a) CHRIS LUCIO MD Aug 02, 2024 16:10
--- NOTE | 2024-08-02 16:16 | DVHPNRES ---
Progress Note Date Seen: Aug 02, 2024 Resident Creating Document: CRISTELA SOARES RESIDENT Medical Necessity Reason Pt with a Central, PICC or Fol: No Subjective Review of Systems Patient seen and examined at bedside. She is more alert compared to yesterday Patient is still extremely lethargic but speaks some sentences ROS could not be done as pt is confused Objective vital signs Vital Sign Date Time Temp Pulse Resp B/P (MAP) Pulse Ox O2 Delivery O2 Flow Rate FiO2 08/02/24 13:00 97.5 63 17 124/76 (92) 98 97.5 08/02/24 08:15 Room Air* 0 21 Total Intake and Output 08/01/24 08/01/24 08/02/24 14:59 22:59 06:59 Intake Total 300 ml 120 ml 50 ml Balance 300 ml 120 ml 50 ml medications Current Medications Medications Dose Ordered Sig/Heather Route Start Time Stop Time Status Last Admin Dose Admin Enoxaparin Sodium 30 mg DAILY SC 07/27/24 10:00 08/02/24 09:48 30 MG Metoprolol Succinate 100 mg DAILY PO 07/27/24 10:00 08/02/24 09:55 100 MG Lorazepam 1 mg ONCE PRN IV 07/28/24 23:15 Vancomycin HCl 0 ml @ 0 mls/hr UD IV 07/29/24 07:45 Amlodipine Besylate 10 mg DAILY PO 07/30/24 10:00 08/02/24 09:57 10 MG Vancomycin HCl 250 ml @ 250 mls/hr DAILY IV 07/30/24 11:00 08/02/24 13:16 250 MLS/HR Dorzolamide HCl 1 drop QAM EACHEYE 07/30/24 07:00 UNV Diagnostic Test (Pha) 1 strip Q6HR 07/30/24 18:00 08/02/24 12:07 1 STRIP Insulin Human Regular Q6HR SC 07/30/24 18:00 Dextrose 50 ml UD PRN IV 07/30/24 15:30 Labetalol HCl 20 mg Q4HP PRN IV 07/30/24 16:00 Methimazole 15 mg DAILY PO 07/31/24 10:00 08/02/24 09:48 15 MG Meropenem 50 ml @ 17 mls/hr Q12H IV 07/30/24 21:00 08/02/24 09:48 17 MLS/HR Purified Water 200 ml Q6HR GT 07/31/24 18:00 08/02/24 12:00 200 ML Enteral Nutritional Formula 1,000 ml 30ML/HR GT 08/01/24 08:30 Pantoprazole Sodium 40 mg DAILY PO 08/01/24 10:15 08/02/24 09:49 40 MG Acetaminophen 650 mg Q6HP PRN PO 08/01/24 19:15 Examination Examination General Appearance: extreme lethargy Respiratory: Clear to auscultation, Normal air movement Cardiovascular: Regular rate, Normal S1, Normal S2 Abdominal: Normal bowel sounds Extremities: No cyanosis, No edema, Normal pulses, No tenderness/swelling Skin: No rashes, No breakdown Neuro: Extreme lethargy, able to move all 4 limbs but motor strength is not accessed as patient is not responding to commands and is extremely lethargic laboratory and microbiology Laboratory Tests 08/02/24 05:52 Test 08/02/24 05:52 Range/Units Serum Glucose 97 74-106 mg/dL Microbiology Date/Time Source Procedure Growth Status 07/31/24 17:00 Nose MRSA Screen - Final Complete 07/29/24 10:40 Blood Blood Culture - Preliminary NO GROWTH AFTER 72 HOURS OF INCUBATION. Resulted 07/29/24 07:23 Urine - [place] Urine Culture - Final Complete Labs and/or images reviewed: Labs reviewed by me, Image(s) reviewed by me Problem List/Assessment/Plan Problem List/Assessment/Plan Assessment/plan Neurology # metabolic encephalopathy due to sepsis/questionable thyroid storm/? Meningitis -head CT -IV antibiotics, vancomycin and meropenem -patient was planned for lumbar puncture but family refused # dementia -family history of lewy body dementia Cardiology # heart failure with preserved ejection fraction, chronic -echo reveals moderate degree LVH and moderate degree LV diastolic dysfunction #Heavily calcified aortic leaflets -seen on echo # moderate degree pulmonary hypertension, likely group two/group three -seen on echo with RVSP of 55 #Hypertension -on metoprolol home dose # AFib with RVR, currently sinus rhythm with multiple PACs -continue home dose metoprolol -patient did not take any anticoagulation at home Respiratory # COPD, stable -currently on room air Endocrine # hyperthyroidism, tidal some less likely DC hydrocortisone, DC propranolol, DC PTU Continue home dose methimazole Urology #UTI -urine culture IV antibiotics Hematology/oncology # microcytic anemia Monitor CBC # coagulopathy likely due to sepsis -monitor Nephrology # hypokalemia Replaced Monitor BMP # hyponatremia Monitor free water 200ml Q6 # 2.6 cm right lower pole renal cyst -seen on imaging Drips Lines Nutrition soft mechanical diet DVT prophylaxis -Low dose Lovenox 30mg SC daily Input/output Family is refusing Shaw's catheter Physical therapy evaluation ordered Code status discussed for greater than 22 minutes, full code downgraded to telemetry Case discussion with Dr. Isabel Plan discussed with: Other My Orders My Orders Orders - CRISTELA SOARES RESIDENT Procedure Category Date Status Time Mechanical Soft Diet DIET 08/01/24 Transmitted Dinner Discontinue Ng ORDERS 08/01/24 Transmitted 19:14 Acetaminophen Tablet PHA 08/01/24 In Process (Tylenol Tablet) 19:15 Dietary Evaluation Review Comments: 1) Consider a Cardiac diet modified per POLYMER MATERIALS CONSULTANT recommendation if necessary 2) Continue current plan of care Expected Outcomes/Goals: F/U in 2-3 days Date of Service: Aug 02, 2024 Billing Provider: NGHIA ISABEL DO Common Visit Codes: [id number] INP/OBS CARE(HIGH) CRISTELA SOARES RESIDENT Aug 02, 2024 16:16 NGHIA ISABEL DO Aug 02, 2024 17:14
[2024-08-03] VITALS (7 sets, daily range): BP systolic 101–148; BP diastolic 61–83; PULSE 60–119; RESP 17–20; TEMP 97.6–98.5; O2SAT 92–98
[2024-08-03 10:25] LABS: Hemoglobin 11.1 g/dL (12.2-16.2); White Blood Cell 11.7 10^3/uL (4.4-10.8)
[2024-08-03 10:27] LABS: Hematocrit 35.5 % (36.0-46.0); Mean Corpuscular Hemoglobin 21.1 pg (28.0-32.0); Mean Corpuscular Hgb Conc. 31.2 g/dL (32.0-36.0); Mean Corpuscular Volume 67.7 fL (80.0-100.0); Platelet Count (auto) 226 10^3/uL (140-450); Red Blood Cells 5.25 10^6/uL (4.0-5.20); Red Cell Distribution Width 15.6 % (11.8-14.3)
[2024-08-03 10:30] LABS: Alanine Aminotransferase 23 U/L (7-40); Albumin 3.6 g/dL (3.2-4.8); Alkaline Phosphatase 57 U/L (46-116); Anion Gap 8 (5-15); Aspartate Aminotransferase 27 U/L (13-40); BUN/Creatinine Ratio 24.1 (10.0-20.0); Bilirubin, Total 0.6 mg/dL (0.2-1.0); Blood Urea Nitrogen 13 mg/dL (9-23); Calcium 9.6 mg/dL (8.7-10.4); Carbon Dioxide 28 mmol/L (20-31); Chloride 106 mmol/L (98-107); Glucose 86 mg/dL (74-106); Potassium 3.6 mmol/L (3.5-5.1); Sodium 142 mmol/L (136-145); Total Protein 5.8 g/dL (5.7-8.2)
[2024-08-03 10:33] LABS: Band Neutrophils % (manual) 0; Basophils % (manual) 0 (0.0-2.0); Blast Cells 0; Metamyelocytes % 0; Myelocytes % 0; Promyelocytes % 0; Reactive Lymphocytes 0
[2024-08-03 11:03] LABS: Eosinophils % (manual) 4 (0-7); Lymphocytes % (manual) 19 (10.0-50.0); Monocytes % (manual) 5 (0-12)
[2024-08-03 11:04] LABS: Anisocytosis Slight; Hypochromia Slight
[2024-08-03 11:05] LABS: Ovalocytes FEW; Platelet Estimate Adequate
--- NOTE | 2024-08-03 15:35 | MEDREC ---
[facility] Intervention Section I [facility] Intervention: Deescalate AB based on CS (THE FINAL URINE AND BLOOD CULTURE SHOWED NO GROWTH. MRSA SCREEN WAS NEGATIVE. PATIENT IS AFEBRILE AND WBC IS TRENDING DOWN. PLEASE CONSIDER DE-ESCALATING OR DISCONTINUING ANTIBIOTICS IF THER ARE NO MORE CONCERNS FOR INFECTIONS) BIJU CISNEROS Aug 03, 2024 15:35
--- NOTE | 2024-08-03 20:43 | DVHPN2 ---
Subjective in bed confused Reviewed: Care Plan, H&P, Labs, Medications, Previous Orders, Radiology Changes from previous H/P or p: No Changes Genitourinary: Other (Dark urine output) Musculoskeletal: No other, No neck pain, No shoulder pain, No arm pain, No back pain, No hand pain; leg pain; No foot pain Objective Vitals Vital Signs Date Time Temp Pulse Resp B/P (MAP) Pulse Ox O2 Delivery O2 Flow Rate FiO2 08/03/24 20:19 17 Room Air* 0 21 08/03/24 17:00 98.1 60 137/61 (86) 96 98.1 Intake/Output Intake and Output 08/03/24 05:00 Intake Total 654 ml Balance 654 ml Intake Oral 354 ml IV Total 300 ml # Voids 5 # Bowel Movements 3 Medications Current Medications Medications Dose Ordered Sig/Heather Route Start Time Stop Time Status Last Admin Dose Admin Enoxaparin Sodium 30 mg DAILY SC 07/27/24 10:00 08/02/24 09:48 30 MG Metoprolol Succinate 100 mg DAILY PO 07/27/24 10:00 08/03/24 09:46 100 MG Lorazepam 1 mg ONCE PRN IV 07/28/24 23:15 Vancomycin HCl 0 ml @ 0 mls/hr UD IV 07/29/24 07:45 Amlodipine Besylate 10 mg DAILY PO 07/30/24 10:00 08/03/24 09:45 10 MG Vancomycin HCl 250 ml @ 250 mls/hr DAILY IV 07/30/24 11:00 08/03/24 11:52 250 MLS/HR Dorzolamide HCl 1 drop QAM EACHEYE 07/30/24 07:00 UNV Diagnostic Test (Pha) 1 strip Q6HR 07/30/24 18:00 08/03/24 20:15 1 STRIP Insulin Human Regular Q6HR SC 07/30/24 18:00 Dextrose 50 ml UD PRN IV 07/30/24 15:30 Labetalol HCl 20 mg Q4HP PRN IV 07/30/24 16:00 Methimazole 15 mg DAILY PO 07/31/24 10:00 08/03/24 09:44 15 MG Meropenem 50 ml @ 17 mls/hr Q12H IV 07/30/24 21:00 08/03/24 09:42 17 MLS/HR Purified Water 200 ml Q6HR GT 07/31/24 18:00 08/02/24 17:23 200 ML Enteral Nutritional Formula 1,000 ml 30ML/HR GT 08/01/24 08:30 Pantoprazole Sodium 40 mg DAILY PO 08/01/24 10:15 08/03/24 09:46 40 MG Acetaminophen 650 mg Q6HP PRN PO 08/01/24 19:15 Laboratory Results Laboratory Tests 08/03/24 09:34 Chemistry Test 08/03/24 09:34 Albumin 3.6 g/dL (3.2-4.8) Calcium Level 9.6 mg/dL (8.7-10.4) Magnesium Level 2.0 mg/dL (1.6-2.6) Total Protein 5.8 g/dL (5.7-8.2) LFT Test 08/03/24 09:34 Alanine Aminotransferase (ALT) 23 U/L (7-40) Alkaline Phosphatase 57 U/L (46-116) Aspartate Amino Transferase (AST) 27 U/L (13-40) Total Bilirubin 0.6 mg/dL (0.2-1.0) HgA1c, TSH Test 08/03/24 09:34 Thyroid Stimulating Hormone (TSH) < 0.01 uIU/mL (0.55-4.78) L Urinalysis Test 07/29/24 07:23 Urine Color Yellow (Yellow) Urine Clarity Clear (Clear) Urine pH 5.5 (5.0-9.0) Urine Specific [place] 1.027 (1.001-1.035) Urine Protein 1+ (Negative) H Urine Ketones 3+ (Negative) H Urine Blood 2+ /uL (Negative) H Urine Nitrite Negative (Negative) Urine Bilirubin Negative (Negative) Urine Urobilinogen Normal mg/dL (Negative) Urine Leukocyte Esterase Trace /uL (Negative) Urine RBC 63 /hpf (0 - 4) Urine WBC 2 /hpf (0 - 5) Urine Squamous Epithelial Cells Few /hpf (<5) Urine Bacteria None seen /hpf (None Seen) Urine Mucus Few (None Seen) Urine Glucose Normal mg/dL (Normal) Microbiology Microbiology Date/Time Source Procedure Growth Status 07/31/24 17:00 Nose MRSA Screen - Final Complete 07/29/24 10:40 Blood Blood Culture - Final NO GROWTH AFTER 5 DAYS OF INCUBATION. Complete 07/29/24 07:23 Urine - [place] Urine Culture - Final Complete Assessment/Plan Assessment/Plan Neurology # metabolic encephalopathy due to sepsis/questionable thyroid storm/? Meningitis -head CT -IV antibiotics, vancomycin and meropenem -patient was planned for lumbar puncture but family refused # dementia -family history of lewy body dementia Cardiology # heart failure with preserved ejection fraction, chronic -echo reveals moderate degree LVH and moderate degree LV diastolic dysfunction #Heavily calcified aortic leaflets -seen on echo # moderate degree pulmonary hypertension, likely group two/group three -seen on echo with RVSP of 55 #Hypertension -on metoprolol home dose # AFib with RVR, currently sinus rhythm with multiple PACs -continue home dose metoprolol -patient did not take any anticoagulation at home Respiratory # COPD, stable -currently on room air Endocrine # hyperthyroidism, tidal some less likely DC hydrocortisone, DC propranolol, DC PTU Continue home dose methimazole Urology #UTI -urine culture IV antibiotics Hematology/oncology # microcytic anemia Monitor CBC # coagulopathy likely due to sepsis -monitor Nephrology # hypokalemia Replaced Monitor BMP # hyponatremia Monitor free water 200ml Q6 # 2.6 cm right lower pole renal cyst -seen on imaging Drips Lines Nutrition soft mechanical diet DVT prophylaxis -Low dose Lovenox 30mg SC daily Input/output Family is refusing Shaw's catheter Physical therapy evaluation ordered Code status discussed for greater than 22 minutes, full code Plan discussed with: Patient Date of Service: Aug 03, 2024 Billing Provider: KIA BLOUNT MD Common Visit Codes: [id number] INP/OBS CARE(HIGH) KIA BLOUNT MD Aug 03, 2024 20:43
[2024-08-04] VITALS (9 sets, daily range): BP systolic 108–153; BP diastolic 56–80; PULSE 60–80; RESP 17–18; TEMP 97.1–98.1; O2SAT 94–97
--- NOTE | 2024-08-04 11:11 | DVHPN2 ---
Subjective Seen and examined at bedside. Mental status has improved. No complaints. DC Tele. Reviewed: Care Plan, H&P, Labs, Medications, Previous Orders, Radiology Changes from previous H/P or p: No Changes Genitourinary: Other (Dark urine output) Musculoskeletal: No other, No neck pain, No shoulder pain, No arm pain, No back pain, No hand pain; leg pain; No foot pain Objective Vitals Vital Signs Date Time Temp Pulse Resp B/P (MAP) Pulse Ox O2 Delivery O2 Flow Rate FiO2 08/04/24 10:28 153/76 08/04/24 10:27 65 08/04/24 09:00 98.0 17 96 98.0 08/03/24 20:19 Room Air* 0 21 Intake/Output Intake and Output 08/04/24 07:00 Intake Total 2018 ml Output Total 1 ml Balance 2016 ml Intake Oral 1668 ml IV Total 350 ml Output Urine Total 1 ml # Voids 4 Exam Gen: in bed NAD Cvs: N S1/S2, RRR Resp: BLAE Abd: Soft, NT Advertising Account Representative: AAO x 3 Ext: Able to move all 4 ext w/o difficulty Medications Current Medications Medications Dose Ordered Sig/Heather Route Start Time Stop Time Status Last Admin Dose Admin Enoxaparin Sodium 30 mg DAILY SC 07/27/24 10:00 08/04/24 10:28 30 MG Metoprolol Succinate 100 mg DAILY PO 07/27/24 10:00 08/04/24 10:27 100 MG Lorazepam 1 mg ONCE PRN IV 07/28/24 23:15 Vancomycin HCl 0 ml @ 0 mls/hr UD IV 07/29/24 07:45 Amlodipine Besylate 10 mg DAILY PO 07/30/24 10:00 08/04/24 10:28 10 MG Vancomycin HCl 250 ml @ 250 mls/hr DAILY IV 07/30/24 11:00 08/03/24 11:52 250 MLS/HR Dorzolamide HCl 1 drop QAM EACHEYE 07/30/24 07:00 UNV Diagnostic Test (Pha) 1 strip Q6HR 07/30/24 18:00 08/04/24 05:32 1 STRIP Insulin Human Regular Q6HR SC 07/30/24 18:00 Dextrose 50 ml UD PRN IV 07/30/24 15:30 Labetalol HCl 20 mg Q4HP PRN IV 07/30/24 16:00 Methimazole 15 mg DAILY PO 07/31/24 10:00 08/04/24 10:26 15 MG Meropenem 50 ml @ 17 mls/hr Q12H IV 07/30/24 21:00 08/04/24 10:26 17 MLS/HR Purified Water 200 ml Q6HR GT 07/31/24 18:00 08/02/24 17:23 200 ML Enteral Nutritional Formula 1,000 ml 30ML/HR GT 08/01/24 08:30 Pantoprazole Sodium 40 mg DAILY PO 08/01/24 10:15 08/04/24 10:28 40 MG Acetaminophen 650 mg Q6HP PRN PO 08/01/24 19:15 Laboratory Results Laboratory Tests 08/03/24 09:34 08/04/24 06:13 Urinalysis Test 07/29/24 07:23 Urine Color Yellow (Yellow) Urine Clarity Clear (Clear) Urine pH 5.5 (5.0-9.0) Urine Specific [place] 1.027 (1.001-1.035) Urine Protein 1+ (Negative) H Urine Ketones 3+ (Negative) H Urine Blood 2+ /uL (Negative) H Urine Nitrite Negative (Negative) Urine Bilirubin Negative (Negative) Urine Urobilinogen Normal mg/dL (Negative) Urine Leukocyte Esterase Trace /uL (Negative) Urine RBC 63 /hpf (0 - 4) Urine WBC 2 /hpf (0 - 5) Urine Squamous Epithelial Cells Few /hpf (<5) Urine Bacteria None seen /hpf (None Seen) Urine Mucus Few (None Seen) Urine Glucose Normal mg/dL (Normal) Microbiology Microbiology Date/Time Source Procedure Growth Status 07/31/24 17:00 Nose MRSA Screen - Final Complete 07/29/24 10:40 Blood Blood Culture - Final NO GROWTH AFTER 5 DAYS OF INCUBATION. Complete 07/29/24 07:23 Urine - [place] Urine Culture - Final Complete Assessment/Plan Assessment/Plan # Metabolic vs Toxic Encephalopathy - Possibly due to UTI # Possible Thyroid Storm (RULED OUT) # Hyperthyroid - Cont Meds - Outpatient mgmnt # Leg Pain - MRI as outpatient Plan discussed with: Patient My Orders Orders - RENETTA BARNHART MD Procedure Category Date Status Time Discontinue Tele LJ 08/04/24 Transmitted 11:08 Basic Metabolic Panel LAB 08/05/24 Verified 04:00 Magnesium LAB 08/05/24 Verified 04:00 Date of Service: Aug 04, 2024 Billing Provider: RENETTA BARNHART MD Common Visit Codes: [id number] INP/OBS CARE(MOD) RENETTA BARNHART MD Aug 04, 2024 11:11
[2024-08-05] VITALS (7 sets, daily range): BP systolic 113–132; BP diastolic 59–74; PULSE 55–68; RESP 17–20; TEMP 97.7–98.6; O2SAT 91–99
[2024-08-05 06:59] LABS: Hemoglobin 9.8 g/dL (12.2-16.2); Mean Corpuscular Hemoglobin 20.9 pg (28.0-32.0); Red Cell Distribution Width 15.6 % (11.8-14.3); White Blood Cell 11.6 10^3/uL (4.4-10.8)
[2024-08-05 07:08] LABS: Hematocrit 31.1 % (36.0-46.0); Mean Corpuscular Hgb Conc. 31.4 g/dL (32.0-36.0); Mean Corpuscular Volume 66.7 fL (80.0-100.0); Platelet Count (auto) 246 10^3/uL (140-450); Red Blood Cells 4.67 10^6/uL (4.0-5.20)
[2024-08-05 07:12] LABS: Band Neutrophils % (manual) 0; Basophils % (manual) 0 (0.0-2.0); Blast Cells 0; Metamyelocytes % 0; Myelocytes % 0; Promyelocytes % 0; Reactive Lymphocytes 0
[2024-08-05 07:15] LABS: Anion Gap 8 (5-15); Carbon Dioxide 28 mmol/L (20-31); Chloride 107 mmol/L (98-107); Sodium 143 mmol/L (136-145)
[2024-08-05 07:16] LABS: Calcium 9.3 mg/dL (8.7-10.4)
[2024-08-05 07:21] LABS: BUN/Creatinine Ratio 19.3 (10.0-20.0); Blood Urea Nitrogen 11 mg/dL (9-23); Glucose 80 mg/dL (74-106)
[2024-08-05 07:24] LABS: Potassium 3.4 mmol/L (3.5-5.1)
[2024-08-05 08:13] LABS: Eosinophils % (manual) 4 (0-7); Lymphocytes % (manual) 18 (10.0-50.0); Monocytes % (manual) 9 (0-12); Platelet Estimate Adequate
[2024-08-05 08:14] LABS: Hypochromia Moderate
[2024-08-05] MEDS: POTASSIUM EFFERVESENT TAB 25 MEQ PO ONE (10:10)
[2024-08-05] MEDS: ACETAMINOPHEN 325 MG TAB PO PRN (20:08)
--- NOTE | 2024-08-05 22:04 | DVHPNRES ---
Progress Note Date Seen: Aug 05, 2024 Resident Creating Document: CRISTELA SOARES RESIDENT Medical Necessity Reason Pt with a Central, PICC or Fol: No Subjective Review of Systems Patient seen and examined at bedside. She is more alert compared to yesterday pt mentions pain in the legs . PT evaluation ordered Objective vital signs Vital Sign Date Time Temp Pulse Resp B/P (MAP) Pulse Ox O2 Delivery O2 Flow Rate FiO2 08/05/24 17:07 98.6 68 18 113/59 (77) 91 98.6 08/05/24 08:00 Room Air* 0 21 Total Intake and Output 08/04/24 08/04/24 08/05/24 15:00 23:00 07:00 Intake Total 50 ml 650 ml 300 ml Balance 50 ml 650 ml 300 ml medications Current Medications Medications Dose Ordered Sig/Heather Route Start Time Stop Time Status Last Admin Dose Admin Enoxaparin Sodium 30 mg DAILY SC 07/27/24 10:00 08/04/24 10:28 30 MG Metoprolol Succinate 100 mg DAILY PO 07/27/24 10:00 08/05/24 08:37 100 MG Lorazepam 1 mg ONCE PRN IV 07/28/24 23:15 Amlodipine Besylate 10 mg DAILY PO 07/30/24 10:00 08/04/24 10:28 10 MG Dorzolamide HCl 1 drop QAM EACHEYE 07/30/24 07:00 UNV Diagnostic Test (Pha) 1 strip Q6HR 07/30/24 18:00 08/05/24 13:20 1 STRIP Insulin Human Regular Q6HR SC 07/30/24 18:00 Dextrose 50 ml UD PRN IV 07/30/24 15:30 Labetalol HCl 20 mg Q4HP PRN IV 07/30/24 16:00 Methimazole 15 mg DAILY PO 07/31/24 10:00 08/05/24 08:36 15 MG Meropenem 50 ml @ 17 mls/hr Q12H IV 07/30/24 21:00 08/05/24 20:22 17 MLS/HR Purified Water 200 ml Q6HR GT 07/31/24 18:00 08/05/24 17:49 200 ML Enteral Nutritional Formula 1,000 ml 30ML/HR GT 08/01/24 08:30 Pantoprazole Sodium 40 mg DAILY PO 08/01/24 10:15 08/05/24 10:10 40 MG Acetaminophen 650 mg Q6HP PRN PO 08/01/24 19:15 08/05/24 20:08 650 MG Examination Examination General Appearance: extreme lethargy Respiratory: Clear to auscultation, Normal air movement Cardiovascular: Regular rate, Normal S1, Normal S2 Abdominal: Normal bowel sounds Extremities: No cyanosis, No edema, Normal pulses, No tenderness/swelling Skin: No rashes, No breakdown Neuro: Extreme lethargy, able to move all 4 limbs but motor strength is not accessed as patient is not responding to commands and is extremely lethargic laboratory and microbiology Laboratory Tests 08/05/24 06:31 Test 08/05/24 06:31 Range/Units Serum Glucose 80 74-106 mg/dL Microbiology Date/Time Source Procedure Growth Status 07/31/24 17:00 Nose MRSA Screen - Final Complete 07/29/24 10:40 Blood Blood Culture - Final NO GROWTH AFTER 5 DAYS OF INCUBATION. Complete 07/29/24 07:23 Urine - [place] Urine Culture - Final Complete Problem List/Assessment/Plan Problem List/Assessment/Plan Assessment/plan Neurology # metabolic encephalopathy due to sepsis/questionable thyroid storm/? Meningitis -head CT -IV antibiotics, vancomycin and meropenem -patient was planned for lumbar puncture but family refused # dementia -family history of lewy body dementia Cardiology # heart failure with preserved ejection fraction, chronic -echo reveals moderate degree LVH and moderate degree LV diastolic dysfunction #Heavily calcified aortic leaflets -seen on echo # moderate degree pulmonary hypertension, likely group two/group three -seen on echo with RVSP of 55 #Hypertension -on metoprolol home dose # AFib with RVR, currently sinus rhythm with multiple PACs -continue home dose metoprolol -patient did not take any anticoagulation at home Respiratory # COPD, stable -currently on room air Endocrine # hyperthyroidism, tidal some less likely DC hydrocortisone, DC propranolol, DC PTU Continue home dose methimazole Urology #UTI -urine culture IV antibiotics Hematology/oncology # microcytic anemia Monitor CBC # coagulopathy likely due to sepsis -monitor Nephrology # hypokalemia Replaced Monitor BMP # hyponatremia Monitor free water 200ml Q6 # 2.6 cm right lower pole renal cyst -seen on imaging Drips Lines Nutrition soft mechanical diet DVT prophylaxis -Low dose Lovenox 30mg SC daily Input/output Family is refusing Shaw's catheter Physical therapy evaluation ordered Code status discussed for greater than 22 minutes, full code Case discussion with Dr. Perez Plan discussed with: Other Dietary Evaluation Review Comments: 1) Consider a Cardiac diet modified per RATE AND COST ANALYST recommendation if necessary 2) Continue current plan of care Expected Outcomes/Goals: F/U in 2-3 days Date of Service: Aug 05, 2024 Billing Provider: NORMAN PEREZ MD Common Visit Codes: [id number] INP/OBS CARE(HIGH) Secondary Visit Codes: [id number] CARE PLAN 30 MINUTES CRISTELA SOARES RESIDENT Aug 05, 2024 22:04 NORMAN PEREZ MD Aug 06, 2024 16:00
--- NOTE | 2024-08-05 22:36 | DVHPN2 ---
Progress Note - Dictate Date Seen: Aug 05, 2024 Medical Necessity Reason Pt with a Central, PICC or Fol: No Subjective Ms. Gisela Escalona is a 78 years old female with a history of hypertension, atrial fibrillation have congestive heart failure, asthma, COPD, anemia, dementia, the patient was brought to the [facility] on 07/26/2024 with a chief company of progressive confusion. I have seen and examined the patient, I have discussed with her nurse, helena. She was oriented to person, place, confused sometimes, Urinalysis, 07/26/2024: 43, urine leukocyte esterase: 3+ WBC/HB/PLT/MCV, 07/28/2024: 10.5/34/2/338/67.5 CMP, 07/28/2024: Unremarkable Ca, 07/26/2024:10.5, 07/27/2024: 9.9 Vitamin B12, 07/26/2024: 892 Folic acid 07/26/24: 30.88 TSH, 07/26/2024: < 0.01 EEG, 07/30/24: Inadequate, possibly mildly abnormal EEG Chest x-ray, 07/26/2024: No evidence of acute disease in the chest CT head, 07/26/2024: No evidence of acute intracranial abnormality CT head, 07/28/2024: 1. Motion limited study. 2. No evidence of acute intracranial hemorrhage. 3. Nonacute findings as described above vital signs Vital Sign Date Time Temp Pulse Resp B/P (MAP) Pulse Ox O2 Delivery O2 Flow Rate FiO2 08/05/24 17:07 98.6 68 18 113/59 (77) 91 98.6 08/05/24 08:00 Room Air* 0 21 Total Intake and Output 08/04/24 08/04/24 08/05/24 15:00 23:00 07:00 Intake Total 50 ml 650 ml 300 ml Balance 50 ml 650 ml 300 ml medications Current Medications Medications Dose Ordered Sig/Heather Route Start Time Stop Time Status Last Admin Dose Admin Enoxaparin Sodium 30 mg DAILY SC 07/27/24 10:00 08/04/24 10:28 30 MG Metoprolol Succinate 100 mg DAILY PO 07/27/24 10:00 08/05/24 08:37 100 MG Lorazepam 1 mg ONCE PRN IV 07/28/24 23:15 Amlodipine Besylate 10 mg DAILY PO 07/30/24 10:00 08/04/24 10:28 10 MG Dorzolamide HCl 1 drop QAM EACHEYE 07/30/24 07:00 UNV Diagnostic Test (Pha) 1 strip Q6HR 07/30/24 18:00 08/05/24 13:20 1 STRIP Insulin Human Regular Q6HR SC 07/30/24 18:00 Dextrose 50 ml UD PRN IV 07/30/24 15:30 Labetalol HCl 20 mg Q4HP PRN IV 07/30/24 16:00 Methimazole 15 mg DAILY PO 07/31/24 10:00 08/05/24 08:36 15 MG Meropenem 50 ml @ 17 mls/hr Q12H IV 07/30/24 21:00 08/05/24 20:22 17 MLS/HR Purified Water 200 ml Q6HR GT 07/31/24 18:00 08/05/24 17:49 200 ML Enteral Nutritional Formula 1,000 ml 30ML/HR GT 08/01/24 08:30 Pantoprazole Sodium 40 mg DAILY PO 08/01/24 10:15 08/05/24 10:10 40 MG Acetaminophen 650 mg Q6HP PRN PO 08/01/24 19:15 08/05/24 20:08 650 MG objective General: the patient is well developed and nourished. No acute distress. MENTAL STATUS: Subjective SPEECH, LANGUAGE, HIGHER CORTICAL FUNCTION: Subjective CRANIAL NERVES: Pupils are equal, round and reactive. EOMs full and conjugate. Facial sensation intact in all three divisions bilaterally. Mandibular strength intact. Facial muscles symmetrical and strength intact. SENSATION: Sensation to touch and pinprick is okay MOTOR: Normal tone in the upper and lower extremity. Normal muscle bulk. No fasciculations. No abnormal movements or posturing. She moves the arms and legs REFLEXES: Deep tendon reflexes are symmetrical. No pathological reflexes. CEREBELLAR/COORDINATION: Deferred GAIT/STATION: deferred laboratory and microbiology Laboratory Tests 08/05/24 06:31 Test 08/05/24 06:31 Range/Units Serum Glucose 80 74-106 mg/dL Problem List Altered mental status Metabolic encephalopathy secondary to UTI Dementia ? Alzheimer disease ? Lewy body disease Rule out other etiology Urinary tract infection Sepsis Convulsive spells with loss of consciousness Like the patient had generalized tonic-clonic seizure Rule out other etiology Gait disturbance secondary to dementia, metabolic encephalopathy Assessment/Plan Monitoring Supportive treatment Telemetry MRI brain scan IV antibiotics Ativan for seizure breakthrough May consider preventive seizure treatment Up to chair Physical therapy Room bright during the daytime More recommendation per clinical course This medical document was created using an electronic medical record system with [employer] dictation system. Although this document has been carefully reviewed, there may still be some phonetic and typographical errors. These areas are purely typographical due to imperfections of the software programs, and do not reflect any compromise in the patient's medical care. Prognosis poor Dietary Evaluation Review Comments: 1) Consider a Cardiac diet modified per ERP BUSINESS ANALYST recommendation if necessary 2) Continue current plan of care Expected Outcomes/Goals: F/U in 2-3 days Plan discussed with: Other AIDEN GONZALEZ MD Aug 05, 2024 22:36
[2024-08-06 09:07] VITALS: BP 148/74; PULSE 55; RESP 20; TEMP 98.2; O2SAT 100
[2024-08-06 10:50] LABS: Chloride 104 mmol/L (98-107); Potassium 3.7 mmol/L (3.5-5.1); Sodium 142 mmol/L (136-145)
[2024-08-06 10:51] LABS: Anion Gap 9 (5-15); Calcium 9.5 mg/dL (8.7-10.4); Carbon Dioxide 29 mmol/L (20-31)
[2024-08-06 10:53] LABS: Hematocrit 34.3 % (36.0-46.0); Mean Corpuscular Volume 66.9 fL (80.0-100.0); Red Blood Cells 5.13 10^6/uL (4.0-5.20)
[2024-08-06 10:56] LABS: BUN/Creatinine Ratio 17.2 (10.0-20.0); Blood Urea Nitrogen 11 mg/dL (9-23); Hemoglobin 10.7 g/dL (12.2-16.2); Mean Corpuscular Hemoglobin 20.9 pg (28.0-32.0); Mean Corpuscular Hgb Conc. 31.3 g/dL (32.0-36.0); Platelet Count (auto) 287 10^3/uL (140-450); Red Cell Distribution Width 15.5 % (11.8-14.3); White Blood Cell 11.6 10^3/uL (4.4-10.8)
[2024-08-06 10:57] LABS: Magnesium 1.8 mg/dL (1.6-2.6)
[2024-08-06 11:03] LABS: Glucose 109 mg/dL (74-106)
[2024-08-06 11:05] LABS: Band Neutrophils % (manual) 0; Basophils % (manual) 0 (0.0-2.0); Blast Cells 0; Myelocytes % 0; Promyelocytes % 0; Reactive Lymphocytes 0
--- NOTE | 2024-08-06 11:13 | DVHPN2 ---
Progress Note - Dictate Date Seen: Aug 06, 2024 Medical Necessity Reason Pt with a Central, PICC or Fol: No Subjective Ms. Gisela Escalona is a 78 years old female with a history of hypertension, atrial fibrillation have congestive heart failure, asthma, COPD, anemia, dementia, the patient was brought to the [facility] on 07/26/2024 with a chief company of progressive confusion. I have seen and examined the patient, I have discussed with her nurse, daughters are in the room with her, and she can sit up with assistance She was oriented to person, place. She talks more than last night Urinalysis, 07/26/2024: 43, urine leukocyte esterase: 3+ WBC/HB/PLT/MCV, 07/28/2024: 10.5/34/2/338/67.5 CMP, 07/28/2024: Unremarkable Ca, 07/26/2024:10.5, 07/27/2024: 9.9 Vitamin B12, 07/26/2024: 892 Folic acid 07/26/24: 30.88 TSH, 07/26/2024: < 0.01 EEG, 07/30/24: Inadequate, possibly mildly abnormal EEG Chest x-ray, 07/26/2024: No evidence of acute disease in the chest CT head, 07/26/2024: No evidence of acute intracranial abnormality CT head, 07/28/2024: 1. Motion limited study. 2. No evidence of acute intracranial hemorrhage. 3. Nonacute findings as described above vital signs Vital Sign Date Time Temp Pulse Resp B/P (MAP) Pulse Ox O2 Delivery O2 Flow Rate FiO2 08/06/24 09:18 55 148/74 08/06/24 09:07 98.2 20 100 98.2 08/06/24 08:05 Room Air* 0 21 Total Intake and Output 08/05/24 08/05/24 08/06/24 15:00 23:00 07:00 Intake Total 520 ml 420 ml 550 ml Balance 520 ml 420 ml 550 ml medications Current Medications Medications Dose Ordered Sig/Heather Route Start Time Stop Time Status Last Admin Dose Admin Enoxaparin Sodium 30 mg DAILY SC 07/27/24 10:00 08/06/24 09:12 30 MG Metoprolol Succinate 100 mg DAILY PO 07/27/24 10:00 08/05/24 08:37 100 MG Lorazepam 1 mg ONCE PRN IV 07/28/24 23:15 Amlodipine Besylate 10 mg DAILY PO 07/30/24 10:00 08/06/24 09:17 10 MG Dorzolamide HCl 1 drop QAM EACHEYE 07/30/24 07:00 UNV Diagnostic Test (Pha) 1 strip Q6HR 07/30/24 18:00 08/05/24 13:20 1 STRIP Insulin Human Regular Q6HR SC 07/30/24 18:00 Dextrose 50 ml UD PRN IV 07/30/24 15:30 Labetalol HCl 20 mg Q4HP PRN IV 07/30/24 16:00 Methimazole 15 mg DAILY PO 07/31/24 10:00 08/06/24 09:13 15 MG Meropenem 50 ml @ 17 mls/hr Q12H IV 07/30/24 21:00 08/06/24 09:10 17 MLS/HR Purified Water 200 ml Q6HR GT 07/31/24 18:00 08/06/24 11:07 200 ML Enteral Nutritional Formula 1,000 ml 30ML/HR GT 08/01/24 08:30 Pantoprazole Sodium 40 mg DAILY PO 08/01/24 10:15 08/06/24 09:12 40 MG Acetaminophen 650 mg Q6HP PRN PO 08/01/24 19:15 08/06/24 04:14 650 MG objective General: the patient is well developed and nourished. No acute distress. MENTAL STATUS: Subjective SPEECH, LANGUAGE, HIGHER CORTICAL FUNCTION: Subjective CRANIAL NERVES: Pupils are equal, round and reactive. EOMs full and conjugate. Facial sensation intact in all three divisions bilaterally. Mandibular strength intact. Facial muscles symmetrical and strength intact. SENSATION: Sensation to touch and pinprick is okay MOTOR: Normal tone in the upper and lower extremity. Normal muscle bulk. No fasciculations. No abnormal movements or posturing. She moves the arms and legs REFLEXES: Deep tendon reflexes are symmetrical. No pathological reflexes. CEREBELLAR/COORDINATION: Deferred GAIT/STATION: deferred laboratory and microbiology Laboratory Tests 08/06/24 10:17 Test 08/06/24 10:17 Range/Units Serum Glucose 109 H 74-106 mg/dL Problem List Altered mental status Metabolic encephalopathy secondary to UTI Dementia ? Alzheimer disease ? Lewy body disease Rule out other etiology Urinary tract infection Sepsis Convulsive spells with loss of consciousness Like the patient had generalized tonic-clonic seizure Rule out other etiology Gait disturbance secondary to dementia, metabolic encephalopathy Assessment/Plan Monitoring Supportive treatment Telemetry MRI brain scan IV antibiotics Ativan for seizure breakthrough May consider preventive seizure treatment Up to chair Physical therapy Room bright during the daytime More recommendation per clinical course This medical document was created using an electronic medical record system with [employer] dictation system. Although this document has been carefully reviewed, there may still be some phonetic and typographical errors. These areas are purely typographical due to imperfections of the software programs, and do not reflect any compromise in the patient's medical care. Prognosis poor Dietary Evaluation Review Comments: 1) Consider a Cardiac diet modified per TELEPHONE WORKER recommendation if necessary 2) Continue current plan of care Expected Outcomes/Goals: F/U in 2-3 days Plan discussed with: Daughter, Other AIDEN GONZALEZ MD Aug 06, 2024 11:13
[2024-08-06 12:21] VITALS: PULSE 68
[2024-08-06 12:34] LABS: Eosinophils % (manual) 6 (0-7); Lymphocytes % (manual) 17 (10.0-50.0); Metamyelocytes % 1; Monocytes % (manual) 6 (0-12)
[2024-08-06 12:35] LABS: Hypochromia Moderate; Platelet Estimate Adequate
[2024-08-06 13:00] VITALS: BP 130/76; PULSE 65; RESP 18; TEMP 98; O2SAT 99
[2024-08-06 17:00] VITALS: BP 137/75; PULSE 61; RESP 20; TEMP 99.1; O2SAT 99
[2024-08-06] MEDS: cefTRIAXone 1GM/50ML D5W 50 ML IV ONE (17:58)
--- NOTE | 2024-08-06 18:32 | DVHPNRES ---
Progress Note Date Seen: Aug 06, 2024 Resident Creating Document: CRISTELA SOARES RESIDENT Medical Necessity Reason Pt with a Central, PICC or Fol: No Subjective Review of Systems Patient seen and examined at bedside. She is more alert compared to yesterday library services coordinator consulted to arrange SNF Objective vital signs Vital Sign Date Time Temp Pulse Resp B/P (MAP) Pulse Ox O2 Delivery O2 Flow Rate FiO2 08/06/24 17:00 99.1 61 20 137/75 (95) 99 99.1 08/06/24 08:05 Room Air* 0 21 Total Intake and Output 08/05/24 08/05/24 08/06/24 15:00 23:00 07:00 Intake Total 520 ml 420 ml 550 ml Balance 520 ml 420 ml 550 ml medications Current Medications Medications Dose Ordered Sig/Heather Route Start Time Stop Time Status Last Admin Dose Admin Enoxaparin Sodium 30 mg DAILY SC 07/27/24 10:00 08/06/24 09:12 30 MG Metoprolol Succinate 100 mg DAILY PO 07/27/24 10:00 08/05/24 08:37 100 MG Lorazepam 1 mg ONCE PRN IV 07/28/24 23:15 Amlodipine Besylate 10 mg DAILY PO 07/30/24 10:00 08/06/24 09:17 10 MG Dorzolamide HCl 1 drop QAM EACHEYE 07/30/24 07:00 UNV Diagnostic Test (Pha) 1 strip Q6HR 07/30/24 18:00 08/06/24 17:14 1 STRIP Insulin Human Regular Q6HR SC 07/30/24 18:00 Dextrose 50 ml UD PRN IV 07/30/24 15:30 Labetalol HCl 20 mg Q4HP PRN IV 07/30/24 16:00 Methimazole 15 mg DAILY PO 07/31/24 10:00 08/06/24 09:13 15 MG Purified Water 200 ml Q6HR GT 07/31/24 18:00 08/06/24 17:14 200 ML Enteral Nutritional Formula 1,000 ml 30ML/HR GT 08/01/24 08:30 Pantoprazole Sodium 40 mg DAILY PO 08/01/24 10:15 08/06/24 09:12 40 MG Acetaminophen 650 mg Q6HP PRN PO 08/01/24 19:15 08/06/24 04:14 650 MG Ceftriaxone Sodium 50 ml @ 100 mls/hr DAILY@09 IV 08/07/24 09:00 Examination General Appearance: alert and oriented X3 Respiratory: Clear to auscultation, Normal air movement Cardiovascular: Regular rate, Normal S1, Normal S2 Abdominal: Normal bowel sounds Extremities: No cyanosis, No edema, Normal pulses, No tenderness/swelling Skin: No rashes, No breakdown Neuro: normal speech and tone laboratory and microbiology Laboratory Tests 08/06/24 10:17 Test 08/06/24 10:17 Range/Units Serum Glucose 109 H 74-106 mg/dL Microbiology Date/Time Source Procedure Growth Status 07/31/24 17:00 Nose MRSA Screen - Final Complete 07/29/24 10:40 Blood Blood Culture - Final NO GROWTH AFTER 5 DAYS OF INCUBATION. Complete 07/29/24 07:23 Urine - [place] Urine Culture - Final Complete Labs and/or images reviewed: Labs reviewed by me, Image(s) reviewed by me Problem List/Assessment/Plan Problem List/Assessment/Plan Assessment/plan Neurology # metabolic encephalopathy due to sepsis/questionable thyroid storm/? Meningitis -head CT -IV antibiotics Dc vanco and meropenam -IV ceftriaxone -patient was planned for lumbar puncture but family refused # dementia -family history of lewy body dementia Cardiology # heart failure with preserved ejection fraction, chronic -echo reveals moderate degree LVH and moderate degree LV diastolic dysfunction #Heavily calcified aortic leaflets -seen on echo # moderate degree pulmonary hypertension, likely group two/group three -seen on echo with RVSP of 55 #Hypertension -on metoprolol home dose # AFib with RVR, currently sinus rhythm with multiple PACs -continue home dose metoprolol -patient did not take any anticoagulation at home Respiratory # COPD, stable -currently on room air Endocrine # hyperthyroidism, thyroid storm less likely DC hydrocortisone, DC propranolol, DC PTU Continue home dose methimazole Urology #UTI -urine culture Dc vanco and meropenam -IV ceftriaxone Hematology/oncology # microcytic anemia Monitor CBC # coagulopathy likely due to sepsis -monitor Nephrology # hypokalemia Replaced Monitor BMP # hyponatremia Monitor free water 200ml Q6 # 2.6 cm right lower pole renal cyst -seen on imaging Drips Lines Nutrition soft mechanical diet DVT prophylaxis -Low dose Lovenox 30mg SC daily Input/output Family is refusing Shaw's catheter Physical therapy evaluation ordered library services coordinator consulted to arrange Code status discussed for greater than 22 minutes, full code Case discussion with Dr. Perez Plan discussed with: Other My Orders My Orders Orders - CRISTELA SOARES RESIDENT Procedure Category Date Status Time Mechanical Soft Diet DIET 08/06/24 Transmitted Breakfast Ceftriaxone 1gm/50ml PHA 08/07/24 In Process D5w (Rocephin) 09:00 * Grader Operator CONS 08/06/24 Transmitted Consult Dietary Evaluation Review Comments: 1) Consider a Cardiac diet modified per FARE COLLECTOR recommendation if necessary 2) Continue current plan of care Expected Outcomes/Goals: F/U in 2-3 days Date of Service: Aug 06, 2024 Billing Provider: NORMAN PEREZ MD Common Visit Codes: [id number] INP/OBS CARE(HIGH) Secondary Visit Codes: [id number] CARE PLAN 30 MINUTES CRISTELA SOARES RESIDENT Aug 06, 2024 18:32 NORMAN PEREZ MD Aug 07, 2024 15:21
[2024-08-06 20:00] VITALS: PULSE 70; RESP 20
[2024-08-06 22:00] VITALS: BP 108/65; PULSE 67; RESP 18; TEMP 98.3; O2SAT 98
[2024-08-07] VITALS (8 sets, daily range): BP systolic 112–141; BP diastolic 67–85; PULSE 60–73; RESP 17–19; TEMP 97.9–99.1; O2SAT 97–100
[2024-08-07 08:00] LABS: Anion Gap 5 (5-15); Carbon Dioxide 29 mmol/L (20-31); Chloride 107 mmol/L (98-107); Potassium 4.1 mmol/L (3.5-5.1); Sodium 141 mmol/L (136-145)
[2024-08-07 08:01] LABS: Calcium 9.4 mg/dL (8.7-10.4)
[2024-08-07 08:06] LABS: BUN/Creatinine Ratio 10.2 (10.0-20.0); Blood Urea Nitrogen 6 mg/dL (9-23); Glucose 85 mg/dL (74-106); Magnesium 1.8 mg/dL (1.6-2.6)
[2024-08-07] MEDS: cefTRIAXone 1GM/50ML D5W 50 ML IV SCH (11:17)
--- NOTE | 2024-08-07 16:45 | DVHPNRES ---
Progress Note Date Seen: Aug 07, 2024 Resident Creating Document: CRISTELA SOARES RESIDENT Medical Necessity Reason Pt with a Central, PICC or Fol: No Subjective Review of Systems Patient seen and examined at bedside. Patient is confused, mildly lethargic Review of system could not be done as patient is confused donor services team leader consulted to arrange SNF Objective vital signs Vital Sign Date Time Temp Pulse Resp B/P (MAP) Pulse Ox O2 Delivery O2 Flow Rate FiO2 08/07/24 13:59 98.0 72 18 141/85 (103) 100 98.0 08/07/24 08:05 Room Air* 0 21 Total Intake and Output 08/06/24 08/06/24 08/07/24 15:00 23:00 07:00 Intake Total 160 ml 420 ml 480 ml Balance 160 ml 420 ml 480 ml medications Current Medications Medications Dose Ordered Sig/Heather Route Start Time Stop Time Status Last Admin Dose Admin Metoprolol Succinate 100 mg DAILY PO 07/27/24 10:00 08/07/24 11:22 100 MG Lorazepam 1 mg ONCE PRN IV 07/28/24 23:15 Amlodipine Besylate 10 mg DAILY PO 07/30/24 10:00 08/07/24 11:21 10 MG Dorzolamide HCl 1 drop QAM EACHEYE 07/30/24 07:00 UNV Diagnostic Test (Pha) 1 strip Q6HR 07/30/24 18:00 08/07/24 11:22 1 STRIP Insulin Human Regular Q6HR SC 07/30/24 18:00 Dextrose 50 ml UD PRN IV 07/30/24 15:30 Labetalol HCl 20 mg Q4HP PRN IV 07/30/24 16:00 Methimazole 15 mg DAILY PO 07/31/24 10:00 08/07/24 11:21 15 MG Purified Water 200 ml Q6HR GT 07/31/24 18:00 08/07/24 11:22 200 ML Enteral Nutritional Formula 1,000 ml 30ML/HR GT 08/01/24 08:30 Pantoprazole Sodium 40 mg DAILY PO 08/01/24 10:15 08/07/24 11:21 40 MG Acetaminophen 650 mg Q6HP PRN PO 08/01/24 19:15 08/06/24 04:14 650 MG Ceftriaxone Sodium 50 ml @ 100 mls/hr DAILY@09 IV 08/07/24 09:00 08/07/24 11:17 100 MLS/HR Examination General Appearance: Confused Respiratory: Clear to auscultation, Normal air movement Cardiovascular: Regular rate, Normal S1, Normal S2 Abdominal: Normal bowel sounds Extremities: No cyanosis, No edema, Normal pulses, No tenderness/swelling Skin: No rashes, No breakdown Neuro: normal speech and tone, confused laboratory and microbiology Laboratory Tests 08/07/24 07:15 Test 08/07/24 07:15 Range/Units Serum Glucose 85 74-106 mg/dL Microbiology Date/Time Source Procedure Growth Status 07/31/24 17:00 Nose MRSA Screen - Final Complete 07/29/24 10:40 Blood Blood Culture - Final NO GROWTH AFTER 5 DAYS OF INCUBATION. Complete 07/29/24 07:23 Urine - [place] Urine Culture - Final Complete Labs and/or images reviewed: Labs reviewed by me, Image(s) reviewed by me Problem List/Assessment/Plan Problem List/Assessment/Plan Assessment/plan Neurology # metabolic encephalopathy due to sepsis/questionable thyroid storm/? Meningitis -head CT -IV antibiotics Dc vanco and meropenam -IV ceftriaxone -patient was planned for lumbar puncture but family refused # dementia -family history of lewy body dementia Cardiology # heart failure with preserved ejection fraction, chronic -echo reveals moderate degree LVH and moderate degree LV diastolic dysfunction #Heavily calcified aortic leaflets -seen on echo # moderate degree pulmonary hypertension, likely group two/group three -seen on echo with RVSP of 55 #Hypertension -on metoprolol home dose # AFib with RVR, currently sinus rhythm with multiple PACs -continue home dose metoprolol -patient did not take any anticoagulation at home Respiratory # COPD, stable -currently on room air Endocrine # hyperthyroidism, thyroid storm less likely DC hydrocortisone, DC propranolol, DC PTU Continue home dose methimazole Urology #UTI -urine culture Dc vanco and meropenam -IV ceftriaxone Hematology/oncology # microcytic anemia Monitor CBC # coagulopathy likely due to sepsis -monitor Nephrology # hypokalemia Replaced Monitor BMP # hyponatremia Monitor free water 200ml Q6 # 2.6 cm right lower pole renal cyst -seen on imaging [place] Nutrition soft mechanical diet DVT prophylaxis -Low dose Lovenox 30mg SC daily Input/output Family is refusing Shaw's catheter Physical therapy evaluation ordered donor services team leader consulted to arrange SNF Code status discussed for greater than minutes, full code Case discussion with Dr. Perez Plan discussed with: Other My Orders My Orders Orders - CRISTELA SOARES RESIDENT Procedure Category Date Status Time Ceftriaxone 1gm/50ml PHA 08/07/24 In Process D5w (Rocephin) 09:00 * Bunch Trimmer Mold CONS 08/06/24 Transmitted Consult Dietary Evaluation Review Comments: 1) Consider a Cardiac diet modified per DEVELOPER PROGRAMMER recommendation if necessary 2) Continue current plan of care Expected Outcomes/Goals: F/U in 2-3 days Date of Service: Aug 07, 2024 Billing Provider: NORMAN PEREZ MD Common Visit Codes: [id number] INP/OBS CARE(HIGH) CRISTELA SOARES RESIDENT Aug 07, 2024 16:45 NORMAN PEREZ MD Aug 08, 2024 12:02
[2024-08-08] VITALS (9 sets, daily range): BP systolic 120–149; BP diastolic 65–75; PULSE 50–70; RESP 16–19; TEMP 97.1–98.9; O2SAT 94–100
[2024-08-08 06:22] LABS: Mean Corpuscular Volume 67.2 fL (80.0-100.0)
[2024-08-08 06:25] LABS: Hematocrit 31.7 % (36.0-46.0); Mean Corpuscular Hemoglobin 21.1 pg (28.0-32.0); Mean Corpuscular Hgb Conc. 31.4 g/dL (32.0-36.0); Platelet Count (auto) 303 10^3/uL (140-450); Red Blood Cells 4.72 10^6/uL (4.0-5.20); White Blood Cell 8.6 10^3/uL (4.4-10.8)
[2024-08-08 06:30] LABS: Chloride 107 mmol/L (98-107); Sodium 141 mmol/L (136-145)
[2024-08-08 06:31] LABS: Band Neutrophils % (manual) 0; Basophils % (manual) 0 (0.0-2.0); Blast Cells 0; Metamyelocytes % 0; Myelocytes % 0; Promyelocytes % 0; Reactive Lymphocytes 0
[2024-08-08 06:32] LABS: Calcium 9.6 mg/dL (8.7-10.4)
[2024-08-08 06:36] LABS: Glucose 81 mg/dL (74-106)
[2024-08-08 06:37] LABS: BUN/Creatinine Ratio 10.2 (10.0-20.0); Blood Urea Nitrogen 6 mg/dL (9-23); Magnesium 1.9 mg/dL (1.6-2.6)
[2024-08-08 06:39] LABS: Phosphorus 3.1 mg/dL (2.4-5.1)
[2024-08-08 07:42] LABS: Anion Gap 5 (5-15); Carbon Dioxide 29 mmol/L (20-31)
[2024-08-08 07:43] LABS: Eosinophils % (manual) 4 (0-7); Lymphocytes % (manual) 25 (10.0-50.0); Monocytes % (manual) 10 (0-12); Platelet Estimate Adequate
--- NOTE | 2024-08-08 15:54 | DVHPNRES ---
Progress Note Date Seen: Aug 08, 2024 Resident Creating Document: CRISTELA SOARES RESIDENT Medical Necessity Reason Pt with a Central, PICC or Fol: No Subjective Review of Systems Patient seen and examined at bedside. Patient is mildly confused but improved compared to yesterday community services officer consulted to arrange SNF Objective vital signs Vital Sign Date Time Temp Pulse Resp B/P (MAP) Pulse Ox O2 Delivery O2 Flow Rate FiO2 08/08/24 13:00 98.4 58 19 149/75 (99) 100 98.4 08/08/24 08:00 Room Air* 0 21 Total Intake and Output 08/07/24 08/07/24 08/08/24 15:00 23:00 07:00 Intake Total 50 ml 450 ml 650 ml Balance 50 ml 450 ml 650 ml medications Current Medications Medications Dose Ordered Sig/Heather Route Start Time Stop Time Status Last Admin Dose Admin Metoprolol Succinate 100 mg DAILY PO 07/27/24 10:00 08/07/24 11:22 100 MG Amlodipine Besylate 10 mg DAILY PO 07/30/24 10:00 08/08/24 10:36 10 MG Dorzolamide HCl 1 drop QAM EACHEYE 07/30/24 07:00 UNV Labetalol HCl 20 mg Q4HP PRN IV 07/30/24 16:00 Methimazole 15 mg DAILY PO 07/31/24 10:00 08/08/24 10:35 15 MG Purified Water 200 ml Q6HR GT 07/31/24 18:00 08/08/24 06:15 200 ML Pantoprazole Sodium 40 mg DAILY PO 08/01/24 10:15 08/08/24 10:36 40 MG Acetaminophen 650 mg Q6HP PRN PO 08/01/24 19:15 08/06/24 04:14 650 MG Ceftriaxone Sodium 50 ml @ 100 mls/hr DAILY@09 IV 08/07/24 09:00 08/08/24 10:32 100 MLS/HR Examination General Appearance: Confused Respiratory: Clear to auscultation, Normal air movement Cardiovascular: Regular rate, Normal S1, Normal S2 Abdominal: Normal bowel sounds Extremities: No cyanosis, No edema, Normal pulses, No tenderness/swelling Skin: No rashes, No breakdown Neuro: normal speech and tone, confused laboratory and microbiology Laboratory Tests 08/08/24 05:54 Test 08/08/24 05:54 Range/Units Serum Glucose 81 74-106 mg/dL Microbiology Date/Time Source Procedure Growth Status 07/31/24 17:00 Nose MRSA Screen - Final Complete 07/29/24 10:40 Blood Blood Culture - Final NO GROWTH AFTER 5 DAYS OF INCUBATION. Complete 07/29/24 07:23 Urine - [place] Urine Culture - Final Complete Labs and/or images reviewed: Labs reviewed by me, Image(s) reviewed by me Problem List/Assessment/Plan Problem List/Assessment/Plan Assessment/plan Neurology # metabolic encephalopathy due to sepsis/questionable thyroid storm/? Meningitis -head CT -IV antibiotics Dc vanco and meropenem -IV ceftriaxone -patient was planned for lumbar puncture but family refused # dementia -family history of Lewy body dementia Cardiology # heart failure with preserved ejection fraction, chronic -echo reveals moderate degree LVH and moderate degree LV diastolic dysfunction #Heavily calcified aortic leaflets -seen on echo # moderate degree pulmonary hypertension, likely group two/group three -seen on echo with RVSP of 55 #Hypertension -on metoprolol home dose # AFib with RVR, currently sinus rhythm with multiple PACs -continue home dose metoprolol -patient did not take any anticoagulation at home Respiratory # COPD, stable -currently on room air Endocrine # hyperthyroidism, thyroid storm less likely DC hydrocortisone, DC propranolol, DC PTU Continue home dose methimazole Urology #UTI -urine culture Dc vanco and meropenam -IV ceftriaxone Hematology/oncology # microcytic anemia Monitor CBC # coagulopathy likely due to sepsis -monitor Nephrology # hypokalemia Replaced Monitor BMP # hyponatremia Monitor free water 200ml Q6 # 2.6 cm right lower pole renal cyst -seen on imaging [place]rips [place] Nutrition soft mechanical diet DVT prophylaxis -Low dose Lovenox 30mg SC daily Input/output Family is refusing Shaw's catheter Physical therapy evaluation ordered community services officer consulted to arrange SNF Code status discussed for greater than 22 minutes, full code Case discussion with Dr. Perez Plan discussed with: Other Dietary Evaluation Review Comments: 1) Consider a Cardiac diet modified per SPOUT WORKER recommendation if necessary 2) Continue current plan of care Expected Outcomes/Goals: F/U in 2-3 days Date of Service: Aug 08, 2024 Billing Provider: NORMAN PEREZ MD Common Visit Codes: [id number] INP/OBS CARE(HIGH) Secondary Visit Codes: [id number] CARE PLAN 30 MINUTES CRISTELA SOARES Aug 08, 2024 15:54 NORMAN PEREZ MD Aug 11, 2024 12:26
--- NOTE | 2024-08-08 15:55 | DVHPNRES ---
Progress Note Medical Necessity Reason Pt with a Central, PICC or Fol: No Objective vital signs Vital Sign Date Time Temp Pulse Resp B/P (MAP) Pulse Ox O2 Delivery O2 Flow Rate FiO2 08/08/24 13:00 98.4 58 19 149/75 (99) 100 98.4 08/08/24 08:00 Room Air* 0 21 Total Intake and Output 08/07/24 08/07/24 08/08/24 15:00 23:00 07:00 Intake Total 50 ml 450 ml 650 ml Balance 50 ml 450 ml 650 ml medications Current Medications Medications Dose Ordered Sig/Heather Route Start Time Stop Time Status Last Admin Dose Admin Metoprolol Succinate 100 mg DAILY PO 07/27/24 10:00 08/07/24 11:22 100 MG Amlodipine Besylate 10 mg DAILY PO 07/30/24 10:00 08/08/24 10:36 10 MG Dorzolamide HCl 1 drop QAM EACHEYE 07/30/24 07:00 UNV Labetalol HCl 20 mg Q4HP PRN IV 07/30/24 16:00 Methimazole 15 mg DAILY PO 07/31/24 10:00 08/08/24 10:35 15 MG Purified Water 200 ml Q6HR GT 07/31/24 18:00 08/08/24 06:15 200 ML Pantoprazole Sodium 40 mg DAILY PO 08/01/24 10:15 08/08/24 10:36 40 MG Acetaminophen 650 mg Q6HP PRN PO 08/01/24 19:15 08/06/24 04:14 650 MG Ceftriaxone Sodium 50 ml @ 100 mls/hr DAILY@09 IV 08/07/24 09:00 08/08/24 10:32 100 MLS/HR laboratory and microbiology Laboratory Tests 08/08/24 05:54 Test 08/08/24 05:54 Range/Units Serum Glucose 81 74-106 mg/dL Microbiology Date/Time Source Procedure Growth Status 07/31/24 17:00 Nose MRSA Screen - Final Complete 07/29/24 10:40 Blood Blood Culture - Final NO GROWTH AFTER 5 DAYS OF INCUBATION. Complete 07/29/24 07:23 Urine - [place] Urine Culture - Final Complete Problem List/Assessment/Plan Problem List/Assessment/Plan Assessment/plan Neurology # metabolic encephalopathy due to sepsis/questionable thyroid storm/? Meningitis -head CT -IV antibiotics Dc vanco and meropenam -IV ceftriaxone -patient was planned for lumbar puncture but family refused # dementia -family history of lewy body dementia Cardiology # heart failure with preserved ejection fraction, chronic -echo reveals moderate degree LVH and moderate degree LV diastolic dysfunction #Heavily calcified aortic leaflets -seen on echo # moderate degree pulmonary hypertension, likely group two/group three -seen on echo with RVSP of 55 #Hypertension -on metoprolol home dose # AFib with RVR, currently sinus rhythm with multiple PACs -continue home dose metoprolol -patient did not take any anticoagulation at home Respiratory # COPD, stable -currently on room air Endocrine # hyperthyroidism, thyroid storm less likely DC hydrocortisone, DC propranolol, DC PTU Continue home dose methimazole Urology #UTI -urine culture Dc vanco and meropenam -IV ceftriaxone Hematology/oncology # microcytic anemia Monitor CBC # coagulopathy likely due to sepsis -monitor Nephrology # hypokalemia Replaced Monitor BMP # hyponatremia Monitor free water 200ml Q6 # 2.6 cm right lower pole renal cyst -seen on imaging [place] Nutrition soft mechanical diet DVT prophylaxis -Low dose Lovenox 30mg SC daily Input/output Family is refusing Shaw's catheter Physical therapy evaluation ordered visitor services information assistant consulted to arrange SNF Code status discussed for greater than 22 minutes, full code Case discussion with Dr. Carroll Dietary Evaluation Review Comments: 1) Consider a Cardiac diet modified per CD STORAGE AND MATERIALS MAKE UP HELPER recommendation if necessary 2) Continue current plan of care Expected Outcomes/Goals: F/U in 2-3 days CRISTELA SOARES RESIDENT Aug 08, 2024 15:55
[2024-08-09 05:00] VITALS: BP 145/72; PULSE 60; RESP 18; TEMP 98.2; O2SAT 100
[2024-08-09 07:36] VITALS: PULSE 52; RESP 17; O2SAT 98
[2024-08-09 09:00] VITALS: BP 135/58; PULSE 62; RESP 16; TEMP 98.2; O2SAT 95
[2024-08-09 13:00] VITALS: BP 121/69; PULSE 86; RESP 16; TEMP 98.1; O2SAT 100
[2024-08-09] MEDS ORDERED: AMLO1TAB23 PO (13:14)
[2024-08-09 15:47] VITALS: BP 121/69; PULSE 86; RESP 16; TEMP 98.1; O2SAT 100
--- NOTE | 2024-08-09 15:50 | DVHDSRES ---
Discharge Summary Date of Admission Resident Creating Document: CRISTELA SOARES Jul 26, 2024 at 16:15 Date of Discharge: Aug 09, 2024 Labs/Diagnostic Data: Laboratory Results Test 08/08/24 05:54 08/07/24 11:21 08/07/24 07:15 08/06/24 10:17 White Blood Count 8.6 10^3/uL (4.4-10.8) Red Blood Count 4.72 10^6/uL (4.0-5.20) Hemoglobin 10.0 g/dL (12.2-16.2) Hematocrit 31.7 % (36.0-46.0) Mean Corpuscular Volume 67.2 fL (80.0-100.0) Mean Corpuscular Hemoglobin 21.1 pg (28.0-32.0) Mean Corpuscular Hemoglobin Concent 31.4 g/dL (32.0-36.0) Red Cell Distribution Width 16.0 % (11.8-14.3) Platelet Count 303 10^3/uL (140-450) Mean Platelet Volume 9.0 fL (6.9-10.8) Neutrophils (%) (Auto) % (37.0-80.0) Lymphocytes (%) (Auto) % (10.0-50.0) Monocytes (%) (Auto) % (0.0-12.0) Basophils (%) (Auto) % (0.0-2.0) Neutrophils # (Auto) 10 ^3/uL (1.6-8.6) Lymphocytes # (Auto) 10 ^3/uL (0.4-5.4) Monocytes # (Auto) 10 ^3/uL (0-1.3) Differential Total Cells Counted 100.0 (100) Neutrophils % (Manual) 61 (37.0-80.0) Band Neutrophils % (Manual) 0 Lymphocytes % (Manual) 25 (10.0-50.0) Monocytes % (Manual) 10 (0-12) Eosinophils % (Manual) 4 (0-7) Basophils % (Manual) 0 (0.0-2.0) Metamyelocytes % (manual) 0 Myelocytes % (Manual) 0 Promyelocytes % (Manual) 0 Blast Cells % (Manual) 0 Reactive Lymphocytes 0 Platelet Estimate Adequate Sodium Level 141 mmol/L (136-145) Potassium Level 4.0 mmol/L (3.5-5.1) Chloride Level 107 mmol/L (98-107) Carbon Dioxide Level 29 mmol/L (20-31) Anion Gap 5 (5-15) Blood Urea Nitrogen 6 mg/dL (9-23) Creatinine 0.59 mg/dL (0.550-1.02) Glomerular Filtration Rate Calc 93 mL/min (>90) BUN/Creatinine Ratio 10.2 (10.0-20.0) Serum Glucose 81 mg/dL (74-106) Calcium Level 9.6 mg/dL (8.7-10.4) Phosphorus Level 3.1 mg/dL (2.4-5.1) Magnesium Level 1.9 mg/dL (1.6-2.6) POC Glucose 97 mg/dl (70-106) Eosinophils (%) (Auto) % (0.0-7.0) Eosinophils # (Auto) 10 ^3/uL (0-0.8) Basophils # (Auto) 10 ^3/uL (0-0.2) Nucleated Red Blood Cells % Hypochromasia (manual) Moderate Microcytosis Marked Test 08/03/24 09:34 08/02/24 05:52 08/01/24 10:03 08/01/24 07:50 Anisocytosis (manual) Slight Ovalocytes Few Schistocytes Few Total Bilirubin 0.6 mg/dL (0.2-1.0) Aspartate Amino Transferase (AST) 27 U/L (13-40) Alanine Aminotransferase (ALT) 23 U/L (7-40) Alkaline Phosphatase 57 U/L (46-116) Total Protein 5.8 g/dL (5.7-8.2) Albumin 3.6 g/dL (3.2-4.8) Thyroid Stimulating Hormone (TSH) < 0.01 uIU/mL (0.55-4.78) Free Thyroxine (T4) Calculated 2.24 ng/dL (0.89-1.76) Vancomycin Level Trough 12.2 ug/mL (5-10) Blood Gas Specimen Type Arterial Blood Gas Sample Site Right brachial Blood Gas Patient Temperature 37.0 Arterial Blood Date Drawn [id number] Arterial Blood pH 7.478 (7.350-7.450) Arterial Blood Partial Pressure CO2 37.1 mmHg (32.0-45.0) Arterial Blood Partial Pressure O2 72.0 mmHg (83.0-108.0) Arterial Blood HCO3 26.9 mmol/L (21.0-28.0) Arterial Blood Oxygen Saturation 94.4 % (94.0-98.0) Arterial Blood Base Excess 3.3 mmol/L (-2.0-3.0) Arterial Blood Oxyhemoglobin 93.4 % (94.0-98.0) Arterial Blood Carboxyhemoglobin 0.4 % (0.5-1.5) Arterial Blood Methemoglobin 0.7 % (0.0-1.5) Alec Test N/a Blood Gas Total Hemoglobin 11.20 g/dL (12.0-16.0) Blood Gas Modality Room air FiO2 % 21.0 Test 07/31/24 08:15 07/30/24 18:13 07/30/24 12:31 07/30/24 08:45 Free Triiodothyronine (T3) pg/mL 3.48 pg/mL (2.3-4.2) Prothrombin Time 11.9 sec (9.3-11.8) Prothrombin Time INR 1.14 (0.9-1.15) Activated Partial Thromboplast Time 21.9 SEC (24.5-34.5) Thyroid Stimulating Immunoglobulin 5.63 IU/L (0.00-0.55) Thyrotropin Receptor Antibody 3.94 IU/L (0.00-1.75) B-Type Natriuretic Peptide 281.39 pg/mL (0-100) Test 07/29/24 14:25 07/29/24 07:46 07/29/24 07:23 07/28/24 23:38 Total Triiodothyronine (TT3) 1.72 ng/mL (0.60-1.81) Creatine Kinase 227 U/L (34-145) Large Platelets Few Giant Platelets Few Poikilocytosis (manual) Slight Tear Drop Cells Few Urine Color Yellow (Yellow) Urine Clarity Clear (Clear) Urine pH 5.5 (5.0-9.0) Urine Specific [place] 1.027 (1.001-1.035) Urine Protein 1+ (Negative) Urine Ketones 3+ (Negative) Urine Blood 2+ /uL (Negative) Urine Nitrite Negative (Negative) Urine Bilirubin Negative (Negative) Urine Urobilinogen Normal mg/dL (Negative) Urine Leukocyte Esterase Trace /uL (Negative) Urine RBC 63 /hpf (0 - 4) Urine WBC 2 /hpf (0 - 5) Urine Squamous Epithelial Cells Few /hpf (<5) Urine Bacteria None seen /hpf (None Seen) Urine Mucus Few (None Seen) Urine Glucose Normal mg/dL (Normal) Hemoglobin A1c 5.0 % A1C (<5.7) Lactic Acid Level 1.9 mmol/L (0.4-2.0) Vitamin B12 Level 948 pg/mL (211-911) Folic Acid 30.88 ng/mL (>5.38) Test 07/28/24 13:52 07/27/24 23:40 07/27/24 12:50 07/26/24 08:19 Ammonia 21 umol/L (11-32) Influenza Type A Antigen Negative (Negative) Influenza Type B Antigen Negative (Negative) SARS-CoV-2 Antigen (Rapid) Negative (NEGATIVE) D-Dimer, Quantitative 1.01 mg/L FEU (0.0-0.49) Troponin I High Sensitivity 20 ng/L (</=34) Test 07/26/24 08:16 Vitamin D 25-Hydroxy 37 ng/mL (.) 25-Hydroxy Vitamin D2 <1.0 ng/mL (.) 25-Hydroxy Vitamin D3 37 ng/mL (.) Other Laboratory Tests 08/08/24 05:54 Brief Hx & Hospital Course: 78-year-old female with past medical history of hypertension, COPD, asthma, AFib, CHF, anemia, dementia, heart failure with preserved ejection fraction, hyperthyroidism presented with chief complaint of altered level of consciousness. Urine routine showed evidence of UTI. Patient was started on IV antibiotics. Patient was extremely lethargic. TSH was very low, concerning for thyroid stone. Temporary Help Agency Referral Clerk was consulted. Patient's free T3 and T4 was ordered. Patient was treated with the home dose methimazole for hyperthyroidism. Patient was upgraded to the LUCINDA. Head CT was ordered. Patient had episodes of atrial fibrillation with RVR. Hypokalemia was corrected. Shaw's catheter was initially placed, which was later removed as per family request. Family refused for lumbar puncture. Patient was started on vancomycin and meropenem. Patient is lethargic got improved and patient got more alert during the hospital stay but had fluctuation in cognition. Physical therapy was consulted. Later antibiotics were downgraded to IV ceftriaxone. Echocardiogram revealed moderate degree LVH and moderate degree diastolic dysfunction and heavy calcified aortic leaflets. Patient was started on home medication for hypertension. After swallow evaluation, patient was started on diet which was advanced as tolerated. Physical therapy was consulted, recommended SNF placement, criminal justice social worker was consulted to arrange transfer to SNF At the time of discharge, patient had stable vitals, no new complaints. Discharge plan was discussed with the patient's family and patient was transferred to [facility] facility for physical therapy and rehabilitation. 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 Meningitis Dementia UTI Heart failure with preserved ejection fraction Heavily calcified aortic leaflets Moderate degree pulmonary hypertension Hypertension AFib with RVR COPD Hyperthyroidism UTI Microcytic anemia Coagulopathy likely due to sepsis Hypokalemia Hyponatremia 2.6 cm right lower pole renal cyst Discharge Disposition: Assisted Facility Discharge Instruct/Medications Diet: Regular Activity: No Restrictions, As Tolerated Follow Up/Referral: f/u with PCP within 1 week f/u with Temporary Help Agency Referral Clerk within 1-2 weeks Discharge Statement: "Patient was advised to return to the ER or call 911 if any headaches, dizziness, shortness of breath, chest pain, abdominal pain, bleeding, fevers, or worsening of medical condition. Patient was counseled about treatment plan, medications, possible side effects, patientverbalized understanding. All questions were answered to the best of my ability. This discharge took greater then 30 minutes in planning, reviewing documentation, counseling the patient, and discussing with other team members." ASSESSMENT ASSESSMENT Assessment metabolic encephalopathy UTI CRISTELA SOARES RESIDENT Aug 09, 2024 15:50
[2024-08-09] MEDS ORDERED: METH5TAB98 PO (19:39)
== END 2024-08-09 16:00 | DRG 871 ==
LOC: ER 05:43 → TELE 16:15 → TELE-CENTR 17:55 → ICU CENTRL 07-29 17:47 → DOU IN ICU 07-29 18:16 → ICU CENTRL 07-29 18:21 → DOU IN ICU 07-29 18:22 → TELE-CENTR 08-01 13:48 → CENTRAL 08-04 11:09 → TELE-CENTR 08-08 08:49 → CENTRAL 08-08 12:45
PROVIDERS: ADMIT Internal Medicine; ATTEND Emergency Medicine
PROC: 05HA33Z Insertion of Infusion Device into Left Brachial Vein, Percutaneous Approach (ICD-10-PCS; principal; 2024-07-30)
PROC: B54NZZA Ultrasonography of Left Upper Extremity Veins, Guidance (ICD-10-PCS; 2024-07-30)
DX: A41.9 Sepsis, unspecified organism (principal); E05.01 Thyrotoxicosis with diffuse goiter with thyrotoxic crisis or storm; G93.41 Metabolic encephalopathy; I21.4 Non-ST elevation (NSTEMI) myocardial infarction; G03.9 Meningitis, unspecified; N39.0 Urinary tract infection, site not specified; J44.1 Chronic obstructive pulmonary disease with (acute) exacerbation; I47.10 Supraventricular tachycardia, unspecified; E87.1 Hypo-osmolality and hyponatremia; D68.9 Coagulation defect, unspecified; I50.30 Unspecified diastolic (congestive) heart failure; E87.6 Hypokalemia; Z20.822 Contact with and (suspected) exposure to COVID-19; D50.9 Iron deficiency anemia, unspecified; I27.20 Pulmonary hypertension, unspecified; N28.1 Cyst of kidney, acquired; G40.909 Epilepsy, unspecified, not intractable, without status epilepticus; I11.0 Hypertensive heart disease with heart failure; F03.90 Unspecified dementia, unspecified severity, without behavioral disturbance, psychotic disturbance, mood disturbance, and anxiety; I25.10 Atherosclerotic heart disease of native coronary artery without angina pectoris; I48.91 Unspecified atrial fibrillation; Z88.0 Allergy status to penicillin; Z88.2 Allergy status to sulfonamides; Z79.899 Other long term (current) drug therapy; Z82.49 Family history of ischemic heart disease and other diseases of the circulatory system; Z81.8 Family history of other mental and behavioral disorders; Z98.61 Coronary angioplasty status; I25.2 Old myocardial infarction
CPT/HCPCS: 36415; 36600; 70450; 71045; 76775; 80048; 80053; 80202; 81001; 82140; 82306; 82550; 82565; 82607; 82746; 82805; 82962; 83036; 83605; 83735; 83880; 84100; 84439; 84443; 84445; 84480; 84481; 84484; 85007; 85025; 85027; 85379; 85610; 85730; 87040; 87081; 87086; 87426; 87804; 92507; 93005; 93306; 93970; 95819; 97110; 97116; 97162; 97530; 99291; G0378; J0131; J1885; J2003; J2185; J2405; J2470; J3480

== ENCOUNTER 2024-08-14 17:51 | Inpatient (IN) | payer OTHER ==
[~2024-08-14] VITALS: Ht 190.5 cm; Wt 55.8 kg
[~2024-08-14 17:51] MED LIST changes: +AMLO1TAB23 PO; -BACDST PO; +FURO20TA3 PO; +METO-289 PO; +PANT40TA2 PO; -PANT40TA57 PO
--- NOTE | 2024-08-14 18:22 | ED.PDOC ---
Altered Mental Status HPI Comments Zara Escalona is a 78-year-old female patient who presents to the ED via EMS due to altered mental status presenting a fall approximately three days ago, with uncertain head trauma. Patient lives in [facility], obtained information from EMS paramedics. Could not obtain review of systems due to clinical status. Past medical history: Alzheimer's disease with dementia, diabetic, COPD, CHF Surgical history uncertain Family history: Undetermined Social history: Lives in specialized nursing facility. Denies current tobacco, alcohol and other drug abuse Allergies: Penicillin and sulfa antibiotics Home medication: Amlodipine, Protonix, Toprol Chief Complaint: ALOC Time Seen by MD: 18:01 Allergies: Coded Allergies: Penicillins (Verified Allergy, Unknown, 02/04/23) Sulfa Antibiotics (Verified Allergy, Unknown, 02/04/23) Home Meds Reported Medications Pantoprazole Sodium Sesquihydr (Protonix) 40 Mg Tab, 40 MG PO DAILY, #30 TAB 07/27/24 Metoprolol Succinate (Metoprolol Succinate Er) 50 Mg Tab, 50 MG PO DAILY for 30 Days, MG 07/27/24 Furosemide (Furosemide) 20 Mg Tab, 20 MG PO DAILY, TAB 07/27/24 Ferrous Sulfate (Ferrous Sulfate) 325 Mg Tab, 325 MG PO EOD for 30 Days, MG 07/27/24 Methimazole (Methimazole) 5 Mg Tab, 15 MG PO DAILY, TAB 07/27/24 Acetaminophen (Acetaminophen) 325 Mg Tab, 325 MG PO Q4HP PRN for MILD PAIN for 30 Days, MG 0 Refills 05/10/24 Amlodipine Besylate (Amlodipine Besylate) 2.5 Mg Tab, 1 TAB PO DAILY 02/05/23 Past Medical History PAST MEDICAL HISTORY: AFIB, Anemia, Asthma, CHF, COPD, Dementia, HTN Surgical History: Unknown [employer]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 Family History Family History: Reviewed,noncontributory to illness Social History Smoker: Non-Smoker Alcohol: Denies ETOH Use Drugs: Denies Drug Use Lives In: Home Physical Exam Exam Comments Luis Coma score 12/15 General Appearance: No Apparent Distress, Normal HEENT: Normal ENT Inspection, Pharynx Normal, TMs Normal Neck: Full Range of Motion, Non-Tender, Normal, Normal Inspection Respiratory: Chest Non-Tender, Lungs Clear, No Accessory Muscle Use, No Respiratory Distress, Normal Breath Sounds Cardiovascular: Irregular, No Edema, No JVD, No Gallop, Normal Peripheral Pulses, Systolic Murmur Breast Exam: Deferred Gastrointestinal: No Organomegaly, Non Tender, No Pulsatile Mass, Normal Bowel Sounds, Soft Genitalia: Deferred Pelvic: Deferred Rectal: Deferred Extremities: No calf tenderness, Normal capillary refill, Normal inspection, Normal range of motion, Non-tender, No pedal edema Neurologic: Disoriented, Other (Confused, slurred speech, pupils are pinpoint) Cerebellar Function: Unable to Test (Does not respond to order) Reflexes: Other (Reduced) Skin: Dry, Normal Color, Warm Lymphatic: No Adenopathy EKG EKG : Comments Sinus rhythm with frequent PVCs, old anterior infarct, no ST alteration Was a procedure done? Was a procedure done?: No Differential Diagnosis (ALOC) Differential Diagnosis: Dehydration, Hypoglycemia, Sepsis, Hypoxemia, Seizure, CVA, Drug Overdose, ETOH Intoxication X-Ray, Labs, Meds, VS Vital Signs Date Time Temp Pulse Resp B/P (MAP) Pulse Ox O2 Delivery O2 Flow Rate FiO2 08/14/24 19:15 98.1 08/14/24 18:00 100.9 80 17 130/60 (83) 97 Lab Test 08/14/24 19:50 08/14/24 18:33 Range/Units Blood Gas Specimen Type Arterial Blood Gas Sample Site Right radial Blood Gas Patient Temperature 37.0 Arterial Blood Date Drawn [id number] Arterial Blood pH 7.513 H 7.350-7.450 Arterial Blood Partial Pressure CO2 28.2 L 32.0-45.0 mmHg Arterial Blood Partial Pressure O2 79.0 L 83.0-108.0 mmHg Arterial Blood HCO3 22.2 21.0-28.0 mmol/L Arterial Blood Oxygen Saturation 96.2 94.0-98.0 % Arterial Blood Base Excess 0.0 -2.0-3.0 mmol/L Arterial Blood Oxyhemoglobin 94.8 94.0-98.0 % Arterial Blood Carboxyhemoglobin 0.7 0.5-1.5 % Arterial Blood Methemoglobin 0.8 0.0-1.5 % Alec Test Yes Blood Gas Total Hemoglobin 11.00 L 12.0-16.0 g/dL Blood Gas Modality Room air FiO2 % 21.0 White Blood Count 8.6 4.4-10.8 10^3/uL Red Blood Count 5.49 H 4.0-5.20 10^6/uL Hemoglobin 11.5 L 12.2-16.2 g/dL Hematocrit 38.1 # 36.0-46.0 % Mean Corpuscular Volume 69.3 L 80.0-100.0 fL Mean Corpuscular Hemoglobin 21.0 L 28.0-32.0 pg Mean Corpuscular Hemoglobin Concent 30.3 L 32.0-36.0 g/dL Red Cell Distribution Width 17.1 H 11.8-14.3 % Platelet Count 298 140-450 10^3/uL Mean Platelet Volume 7.9 6.9-10.8 fL Neutrophils (%) (Auto) 90.2 H 37.0-80.0 % Lymphocytes (%) (Auto) 3.9 L 10.0-50.0 % Monocytes (%) (Auto) 4.6 0.0-12.0 % Eosinophils (%) (Auto) 0.6 0.0-7.0 % Basophils (%) (Auto) 0.7 0.0-2.0 % Neutrophils # (Auto) 7.8 1.6-8.6 10 ^3/uL Lymphocytes # (Auto) 0.3 L 0.4-5.4 10 ^3/uL Monocytes # (Auto) 0.4 0-1.3 10 ^3/uL Eosinophils # (Auto) 0.1 0-0.8 10 ^3/uL Basophils # (Auto) 0.1 0-0.2 10 ^3/uL Nucleated Red Blood Cells 0.1 % Prothrombin Time 11.1 9.3-11.8 sec Prothrombin Time INR 1.05 0.9-1.15 Activated Partial Thromboplast Time 22.0 L 24.5-34.5 SEC Sodium Level 140 136-145 mmol/L Potassium Level 3.7 3.5-5.1 mmol/L Chloride Level 107 98-107 mmol/L Carbon Dioxide Level 23 20-31 mmol/L Anion Gap 10 5-15 Blood Urea Nitrogen 12 9-23 mg/dL Creatinine 0.58 0.550-1.02 mg/dL Glomerular Filtration Rate Calc 93 >90 mL/min BUN/Creatinine Ratio 20.7 H 10.0-20.0 Serum Glucose 82 74-106 mg/dL Lactic Acid Level 1.4 0.4-2.0 mmol/L Calcium Level 9.2 8.7-10.4 mg/dL Phosphorus Level 3.7 2.4-5.1 mg/dL Magnesium Level 1.6 1.6-2.6 mg/dL Total Bilirubin 0.5 0.2-1.0 mg/dL Aspartate Amino Transferase (AST) 25 13-40 U/L Alanine Aminotransferase (ALT) 11 7-40 U/L Alkaline Phosphatase 72 46-116 U/L Total Protein 6.2 5.7-8.2 g/dL Albumin 3.8 3.2-4.8 g/dL Thyroid Stimulating Hormone (TSH) 0.01 L 0.55-4.78 uIU/mL Time of 1ST Reevaluation: 20:16 Reevaluation 1ST: Unchanged Patient Education/Counseling: Diagnosis, Treatment, Prognosis Family Education/Counseling: Diagnosis, Treatment, Prognosis Departure 1 Departure Time of Disposition: 20:16 Impression: Primary Impression: Metabolic encephalopathy Additional Impression: Altered mental status Disposition: ADMITTED INPATIENT Condition: Serious Additional Instructions: Reviewed vital signs (including fever of 100.9 F), complementary workup (laboratory, chest x-ray and head CT). Ruled out intracranial bleeding at the moment. Pending urine analysis. Since patient had recent UTI with similar symptoms, suspect patient is currently undergoing new episode of UTI. Have indicated IV antibiotics (levofloxacin since she is allergic to penicillin and sulfa antibiotics), indicated IV fluids, suggest avoiding oral medication at this point. Critical Care Note Critical Care Time?: No Stability Stability form required: No Heart Score Heart Score: Heart Score Response (Comments) Value History N/A 0 EKG N/A 0 Age N/A 0 Risk Factors N/A 0 Troponin N/A 0 Total 0 SHOAIB BURR RESIDENT Aug 14, 2024 18:22
[2024-08-14 18:47] LABS: Mean Corpuscular Volume 69.3 fL (80.0-100.0); Nucleated Red Blood Cells % 0.1 %
[2024-08-14 18:51] LABS: Basophils # (auto) 0.1 10 ^3/uL (0-0.2); Basophils % (auto) 0.7 % (0.0-2.0); Eosinophils # (auto) 0.1 10 ^3/uL (0-0.8); Eosinophils % (auto) 0.6 % (0.0-7.0); Hematocrit 38.1 % (36.0-46.0); Hemoglobin 11.5 g/dL (12.2-16.2); Lymphocytes # (auto) 0.3 10 ^3/uL (0.4-5.4); Lymphocytes % (auto) 3.9 % (10.0-50.0); Mean Corpuscular Hgb Conc. 30.3 g/dL (32.0-36.0); Monocytes # (auto) 0.4 10 ^3/uL (0-1.3); Monocytes % (auto) 4.6 % (0.0-12.0); Neutrophils # (auto) 7.8 10 ^3/uL (1.6-8.6); Neutrophils % (auto) 90.2 % (37.0-80.0); Platelet Count (auto) 298 10^3/uL (140-450); Red Blood Cells 5.49 10^6/uL (4.0-5.20); Red Cell Distribution Width 17.1 % (11.8-14.3); White Blood Cell 8.6 10^3/uL (4.4-10.8)
[2024-08-14 19:02] LABS: INR 1.05 (0.9-1.15); Prothrombin Time 11.1 sec (9.3-11.8)
--- NOTE | 2024-08-14 19:05 | ECG ---
[facility] Test Date: 2024-08-14 Test Time: 18:14:03 Pat Name: KALI QUAN Department: ER Room: [address] [place] [address] Gender: F Pre Sales Architect: JANIS : [id number] Requested By: SHOAIB BURR Order Number: [id number] Reading MD: Kevan Wong Measurements Intervals [place] Rate: 83 P: 35 MD: 165 QRS: -22 QRSD: 83 T: 62 QT: 387 QTc: 455 Interpretive Statements Sinus rhythm Paired ventricular premature complexes Inferior infarct, old Anterior infarct, old Electronically Signed On 08-15-2024 9:08:25 PST by Kevan Wong Please click the below link to view image of tracing.
[2024-08-14 19:08] LABS: Alanine Aminotransferase 11 U/L (7-40); Albumin 3.8 g/dL (3.2-4.8); Alkaline Phosphatase 72 U/L (46-116); Anion Gap 10 (5-15); Aspartate Aminotransferase 25 U/L (13-40); BUN/Creatinine Ratio 20.7 (10.0-20.0); Bilirubin, Total 0.5 mg/dL (0.2-1.0); Blood Urea Nitrogen 12 mg/dL (9-23); Calcium 9.2 mg/dL (8.7-10.4); Carbon Dioxide 23 mmol/L (20-31); Chloride 107 mmol/L (98-107); Glucose 82 mg/dL (74-106); Magnesium 1.6 mg/dL (1.6-2.6); Phosphorus 3.7 mg/dL (2.4-5.1); Potassium 3.7 mmol/L (3.5-5.1); Sodium 140 mmol/L (136-145); Total Protein 6.2 g/dL (5.7-8.2)
[2024-08-14] MEDS: ACETAMINOPHEN 650 MG RECT SUPP PR ONE ×2 (19:15)
--- NOTE | 2024-08-14 19:44 | DVH ---
EXAM: CT Head Without Intravenous Contrast CLINICAL INDICATION: ALOC TECHNIQUE: Axial computed tomography images of the head/brain without intravenous contrast. This CT exam was performed using one or more of the following dose reduction techniques: automated exposure control, adjustment of the mA and/or kV according to patient size, and/or use of iterative reconstru ction technique. CONTRAST: COMPARISON: CT HEAD WITHOUT CONTRAST on DOS: 07/28/24, CT HEAD WITHOUT CONTRAST on DOS: 07/26/24, CT HEAD WITHOUT CONTRAST on DOS: 05/10/24 FINDINGS: BRAIN AND EXTRA-AXIAL SPACES: No acute intracranial hemorrhage, midline shift or mass effect. If sy mptoms persist, further evaluation with MRI is recommended. Mild brain atrophy. Mild microvascular ischemic disease. BONES/JOINTS: Unremarkable. No acute fracture. SOFT TISSUES: Unremarkable. SINUSES: Unremarkable as visualized. No acute sinusitis. MASTOID AIR CELLS: Unremarkable as visualized. No mastoid effusion. OTHER FINDINGS: . . IMPRESSION: No acute intracranial hemorrhage, midline shift or mass effect. If symptoms persist, further evaluat ion with MRI is recommended.
--- NOTE | 2024-08-14 19:47 | DVH ---
EXAM: XR Chest, 1 View CLINICAL INDICATION: ALOC TECHNIQUE: Frontal view of the chest. COMPARISON: XY CHEST XRAY 1 VIEW on DOS: 07/29/24, XY CHEST PORTABLE on DOS: 07/28/24, XY CHEST GUANAKO BLE on DOS: 07/26/24, XY CHEST PORTABLE on DOS: 05/10/24, XY CHEST PORTABLE on DOS: 05/31/23 FINDINGS: LUNGS AND PLEURAL SPACES: Pulmonary venous congestion. No consolidation. No pneumothorax. HEART: Unremarkable. No cardiomegaly. MEDIASTINUM: Unremarkable. Normal mediastinal contour. BONES/JOINTS: Unremarkable. No acute fracture. OTHER FINDINGS: . . IMPRESSION: Pulmonary venous congestion.
[2024-08-14] MEDS: SODIUM CHLORIDE 0.9% 1,000 ML IV SCH (20:15)
[2024-08-14] MEDS: levoFLOXacin 500MG 100 ML IV ONE (20:15)
[2024-08-14 20:45] LABS: Free T3 4.11 pg/mL (2.3-4.2)
[2024-08-14 20:46] LABS: Free T4 (Free Thyroxine) 1.4 ng/dL (0.89-1.76)
[2024-08-14 21:50] VITALS: PULSE 82; RESP 18; O2SAT 98
--- NOTE | 2024-08-14 23:33 | DVHHPRES ---
History of Present Illness Resident Creating Document: EMILY WALTER RESDIENT History of Present Illness This is a 78-year-old female with a past medical history of hypertension, COPD, AFib, CHF (preserved ejection fraction), hyperthyroidism, Hx of UTI brought to the hospital due to altered mental status. The patient stays at [place] [facility] acute [facility] since 1 week for rehabilitation, and had a fall 3 days back with an uncertain head trauma. The patient was discharged from [facility] at 07/26/2024 admitted due to encephalopathy secondary to UTI and the patient was given vancomycin and meropenem. per,you milan, the patient at baseline can communicate properly but since fall 3 days back being more altered. Due to altered mental status review of system could not obtain. PMHx: hypertension, COPD, AFib, CHF (preserved ejection fraction), hyperthyroidism, Hx of UTI PSHx: Not significant Family history: father had Resrtepo body dementia Social history: Ex-smoker, denies current smoking, alcohol or any other drug use Home medication: Metoprolol, Norvasc, Lasix, methimazole, melatonin Allergic history: Penicillin and sulfa antibiotics Review of Systems Review of Systems Due to altered mental status, review of systems could not obtain. Allergies: Coded Allergies: Penicillins (Verified Allergy, Unknown, 02/04/23) Sulfa Antibiotics (Verified Allergy, Unknown, 02/04/23) Medications Current Medications Medications Dose Ordered Sig/Heather Route Start Time Stop Time Status Last Admin Dose Admin Sodium Chloride 1,000 ml @ 75 mls/hr [id number] IV 08/14/24 20:15 Levofloxacin 50 ml @ 50 mls/hr DAILY@2100 IV 08/15/24 21:00 Exam Vital Signs Vital Signs Date Time Temp Pulse Resp B/P (MAP) Pulse Ox O2 Delivery O2 Flow Rate FiO2 08/14/24 19:15 98.1 08/14/24 18:00 80 17 130/60 (83) 97 Exam General Appearance: Elderly confused patient is lying on the bed, disoriented to time/person and place HEENT: Atraumatic, PERRLA, EOMI, Mucous membrane moist/pink Respiratory: Clear to auscultation, Normal air movement Cardiovascular: Regular rate, Normal S1, Normal S2, No murmurs, no chest wall tenderness Abdominal: Normal bowel sounds, Soft, No tenderness, No hepatospenomegaly, No masses Extremities: Right lower limb tenderness Skin: No rashes, No breakdown, No significant lesion Neuro: Normal gait, Normal speech, Strength at 5/5 X4 ext, Normal tone, Sensation intact, Cranial nerves 3-12 NL, Reflexes 2+ Psych/Mental Status: Mental status NL, Mood NL Labs/Xrays Labs Test 08/14/24 19:58 08/14/24 19:50 08/14/24 18:33 Range/Units Free Thyroxine (T4) Calculated 1.40 0.89-1.76 ng/dL Free Triiodothyronine (T3) pg/mL 4.11 2.3-4.2 pg/mL Blood Gas Specimen Type Arterial Blood Gas Sample Site Right radial Blood Gas Patient Temperature 37.0 Arterial Blood Date Drawn [id number] Arterial Blood pH 7.513 H 7.350-7.450 Arterial Blood Partial Pressure CO2 28.2 L 32.0-45.0 mmHg Arterial Blood Partial Pressure O2 79.0 L 83.0-108.0 mmHg Arterial Blood HCO3 22.2 21.0-28.0 mmol/L Arterial Blood Oxygen Saturation 96.2 94.0-98.0 % Arterial Blood Base Excess 0.0 -2.0-3.0 mmol/L Arterial Blood Oxyhemoglobin 94.8 94.0-98.0 % Arterial Blood Carboxyhemoglobin 0.7 0.5-1.5 % Arterial Blood Methemoglobin 0.8 0.0-1.5 % Alec Test Yes Blood Gas Total Hemoglobin 11.00 L 12.0-16.0 g/dL Blood Gas Modality Room air FiO2 % 21.0 White Blood Count 8.6 4.4-10.8 10^3/uL Red Blood Count 5.49 H 4.0-5.20 10^6/uL Hemoglobin 11.5 L 12.2-16.2 g/dL Hematocrit 38.1 # 36.0-46.0 % Mean Corpuscular Volume 69.3 L 80.0-100.0 fL Mean Corpuscular Hemoglobin 21.0 L 28.0-32.0 pg Mean Corpuscular Hemoglobin Concent 30.3 L 32.0-36.0 g/dL Red Cell Distribution Width 17.1 H 11.8-14.3 % Platelet Count 298 140-450 10^3/uL Mean Platelet Volume 7.9 6.9-10.8 fL Neutrophils (%) (Auto) 90.2 H 37.0-80.0 % Lymphocytes (%) (Auto) 3.9 L 10.0-50.0 % Monocytes (%) (Auto) 4.6 0.0-12.0 % Eosinophils (%) (Auto) 0.6 0.0-7.0 % Basophils (%) (Auto) 0.7 0.0-2.0 % Neutrophils # (Auto) 7.8 1.6-8.6 10 ^3/uL Lymphocytes # (Auto) 0.3 L 0.4-5.4 10 ^3/uL Monocytes # (Auto) 0.4 0-1.3 10 ^3/uL Eosinophils # (Auto) 0.1 0-0.8 10 ^3/uL Basophils # (Auto) 0.1 0-0.2 10 ^3/uL Nucleated Red Blood Cells 0.1 % Prothrombin Time 11.1 9.3-11.8 sec Prothrombin Time INR 1.05 0.9-1.15 Activated Partial Thromboplast Time 22.0 L 24.5-34.5 SEC Sodium Level 140 136-145 mmol/L Potassium Level 3.7 3.5-5.1 mmol/L Chloride Level 107 98-107 mmol/L Carbon Dioxide Level 23 20-31 mmol/L Anion Gap 10 5-15 Blood Urea Nitrogen 12 9-23 mg/dL Creatinine 0.58 0.550-1.02 mg/dL Glomerular Filtration Rate Calc 93 >90 mL/min BUN/Creatinine Ratio 20.7 H 10.0-20.0 Serum Glucose 82 74-106 mg/dL Lactic Acid Level 1.4 0.4-2.0 mmol/L Calcium Level 9.2 8.7-10.4 mg/dL Phosphorus Level 3.7 2.4-5.1 mg/dL Magnesium Level 1.6 1.6-2.6 mg/dL Total Bilirubin 0.5 0.2-1.0 mg/dL Aspartate Amino Transferase (AST) 25 13-40 U/L Alanine Aminotransferase (ALT) 11 7-40 U/L Alkaline Phosphatase 72 46-116 U/L Total Protein 6.2 5.7-8.2 g/dL Albumin 3.8 3.2-4.8 g/dL Thyroid Stimulating Hormone (TSH) 0.01 L 0.55-4.78 uIU/mL Assessment/Plan Assessment/Plan Acute Metabolic encephalopathy, likely due to UTI History of Dementia Status post mechanical fall Head CT scan is normal Check flu/[id number] nares, urine and blood culture IV normal saline Empiric antibiotic of vancomycin and cefepime History of COPD/asthma Breathing treatment PRN History of atrial fibrillation, currently normal sinus rhythm History of diastolic heart failure Serum pulmonary hypertension History of hypertension Echo from 07/27/2024 shows EF 55% with moderate diastolic heart failure Hypothyroidism Continue methimazole Anemia, microcytic hypochromic DIET: NPO DVT PROPHYLAXIS: Lovenox CODE STATUS: Goal of care discussed with the patient's daughter through the phone, she would like to discussed with the family for code status. DISPOSITION: Telemetry Patient is not giving permission to pass the [facility] for getting urine sample. Patient's status and paln discussed with the patient's daughter through the phone. Case discussed with Dr. Martinez. Plan discussed with: Daughter, Other (RN) My Orders Orders - EMILY WALTER RESDIPRATIMA Procedure Category Date Status Time Admit ADMIT 08/14/24 Transmitted 23:27 Oxygen By Nasal RT 08/14/24 Transmitted Cannula 23:27 Stat Ekg For Chest [facility] 08/14/24 In Process Pain 23:27 Notify Of Changes LJ 08/14/24 In Process From Base 23:27 Claim Agent For LJ 08/14/24 In Process 24 Hours 23:27 Emergency Dysrhythmia [facility] 08/14/24 In Process Protocol 23:27 Rhythm Strips Once [facility] 08/14/24 In Process Every Shift 23:27 Date of Service: Aug 14, 2024 Billing Provider: JOSSY NOLAND MD Common Visit Codes: [id number] INP/OBS CARE (HIGH) EMILY WALTER RESDIENT Aug 14, 2024 23:33 JOSSY NOLAND MD Aug 21, 2024 15:56
[2024-08-15] MEDS: VANCOMYCIN 1GM/250ML KIT 250 ML IV ONE (05:30)
[2024-08-15] MEDS ORDERED: VANCOMYCIN PER PHARMACY 0 MG IV SCH ×2 (05:30→16:00)
[2024-08-15] MEDS: SODIUM CHLORIDE 0.9% 1,000 ML IV ONE (05:30)
[2024-08-15] MEDS: ENOXAPARIN SOD 40 MG/0.4 ML SYRINGE SC ONE (05:30)
[2024-08-15] MEDS: methIMAzole 5 MG TAB PO ONE (05:45)
[2024-08-15 05:58] LABS: Basophils # (auto) 0 10 ^3/uL (0-0.2); Basophils % (auto) 0.4 % (0.0-2.0); Eosinophils # (auto) 0 10 ^3/uL (0-0.8); Eosinophils % (auto) 0.1 % (0.0-7.0); Hematocrit 31.5 % (36.0-46.0); Lymphocytes # (auto) 0.3 10 ^3/uL (0.4-5.4); Lymphocytes % (auto) 5.5 % (10.0-50.0); Mean Corpuscular Hemoglobin 20.9 pg (28.0-32.0); Mean Corpuscular Hgb Conc. 31.9 g/dL (32.0-36.0); Mean Corpuscular Volume 65.7 fL (80.0-100.0); Monocytes # (auto) 0.7 10 ^3/uL (0-1.3); Monocytes % (auto) 13.1 % (0.0-12.0); Neutrophils # (auto) 4.4 10 ^3/uL (1.6-8.6); Neutrophils % (auto) 80.9 % (37.0-80.0); Nucleated Red Blood Cells % 0.1 %; Platelet Count (auto) 336 10^3/uL (140-450); White Blood Cell 5.5 10^3/uL (4.4-10.8)
[2024-08-15 05:59] LABS: Platelet Estimate Adequate
[2024-08-15] MEDS ORDERED: CEFEPIME 1GM/ 50ML 50 ML IV SCH (06:00)
[2024-08-15 06:22] LABS: Alanine Aminotransferase 11 U/L (7-40); Albumin 3.7 g/dL (3.2-4.8); Alkaline Phosphatase 66 U/L (46-116); Anion Gap 10 (5-15); Aspartate Aminotransferase 21 U/L (13-40); BUN/Creatinine Ratio 27.3 (10.0-20.0); Bilirubin, Total 0.5 mg/dL (0.2-1.0); Blood Urea Nitrogen 18 mg/dL (9-23); Calcium 9.1 mg/dL (8.7-10.4); Carbon Dioxide 25 mmol/L (20-31); Chloride 106 mmol/L (98-107); Glucose 91 mg/dL (74-106); Sodium 141 mmol/L (136-145)
[2024-08-15 06:23] LABS: Potassium 3.3 mmol/L (3.5-5.1); Total Protein 5.8 g/dL (5.7-8.2)
[2024-08-15 08:51] LABS: Urine Bacteria FEW /hpf (None Seen); Urine Blood Negative /uL (Negative); Urine Clarity Clear (Clear); Urine Color Yellow (Yellow); Urine Hyaline Cast FEW /lpf (0 - 2); Urine Mucus FEW (None Seen); Urine Protein, UAD TRACE (Negative); Urine Specific Gravity 1.024 (1.001-1.035); Urine Squamous Epithelial Cell None Seen /hpf (<5); Urine Urobilinogen Normal (Negative); Urine WBC 2 /HPF (0-5); Urine pH 5.5 (5.0-9.0)
[2024-08-15] MEDS ORDERED: levoFLOXacin 500MG 100 ML IV SCH (10:00)
[2024-08-15] MEDS ORDERED: IPRATROPIUM BROM 0.5 MG/2.5ML INH SOL NEB SCH (10:00)
[2024-08-15] MEDS ORDERED: ENOXAPARIN SOD 40 MG/0.4 ML SYRINGE SC SCH (10:00)
[2024-08-15 10:16] LABS: COVID19 ANTIGEN SOFIA FIA NEGATIVE (NEGATIVE)
[2024-08-15 10:30] LABS: Rapid Influenza A Negative (Negative); Rapid Influenza B Negative (Negative)
[2024-08-15 10:45] LABS: Opiate Scree,Urine Neg (NEGATIVE)
[2024-08-15 10:50] LABS: Amphetamine Screen, Urine Neg (NEGATIVE); Barbiturate Scree,Urine Neg (NEGATIVE); Benzodiazephine Screen, Urine Neg (NEGATIVE); Cannabinoid Screen, Urine Neg (NEGATIVE); Cocaine Screen, Urine Neg (NEGATIVE); Phencyclidine Screen, Urine Neg (NEGATIVE)
[2024-08-15] MEDS: AZITHROMYCIN 500MG/ 250ML 250 ML IV ONE (12:00)
[2024-08-15] MEDS ORDERED: CEFEPIME 2GM/50ML NS 50 ML IV ONE (15:45)
[2024-08-15] MEDS ORDERED: DOXYCYCLINE 100MG/100ML 100 ML IV ONE (15:45)
[2024-08-15] MEDS ORDERED: AZTREONAM 1GM INJ 1 GM in D5W 5% 50 ML IV SCH (16:02)
--- NOTE | 2024-08-15 16:02 | DVHPN2 ---
Subjective 08/15 patient continues to be severely lethargic, speaking very slowly and after delayed pauses. Unable to get any significant history from patient. She appears to have hypersensitive to any touch. Contacted her daughter Thelma who endorses that patient at baseline is of normal functional status aside from some mild dementia that includes some short-term memory loss. Reviewed: H&P Changes from previous H/P or p: No Changes General: Per HPI Objective Vitals Vital Signs Date Time Temp Pulse Resp B/P (MAP) Pulse Ox O2 Delivery O2 Flow Rate FiO2 08/15/24 15:50 94 15 132/72 (92) 96 08/15/24 13:29 97.9 97.9 08/14/24 21:50 Room Air* 0 21 Exam GEN: thin frail, alert, HEENT: NC/AT; MMM. CV: systolic murur 08/22 LUNGS: CTAB, no w/r/c. ABD: Soft, NT/ND, NBS, no masses or organomegaly. EXT: skin Warm, well perfused. no rashes. No clubbing, cyanosis, or edema. NEURO: Ambulating with no limitations. unable to perform complete neuro exam, not following commands. slow delayed speech, moving al extremities, AOx2 (not to time, 1942) Medications Current Medications Medications Dose Ordered Sig/Heather Route Start Time Stop Time Status Last Admin Dose Admin Methimazole 15 mg DAILY PO 08/16/24 10:00 Doxycycline Hyclate 100 ml @ 50 mls/hr Q12H IV 08/16/24 10:00 Laboratory Results Laboratory Tests 08/15/24 05:36 Chemistry Test 08/14/24 18:33 08/15/24 05:36 Albumin 3.8 g/dL (3.2-4.8) 3.7 g/dL (3.2-4.8) Calcium Level 9.2 mg/dL (8.7-10.4) 9.1 mg/dL (8.7-10.4) Magnesium Level 1.6 mg/dL (1.6-2.6) Phosphorus Level 3.7 mg/dL (2.4-5.1) Total Protein 6.2 g/dL (5.7-8.2) 5.8 g/dL (5.7-8.2) Coagulation Test 08/14/24 18:33 Prothrombin Time 11.1 sec (9.3-11.8) Prothrombin Time INR 1.05 (0.9-1.15) Activated Partial Thromboplast Time 22.0 SEC (24.5-34.5) L LFT Test 08/14/24 18:33 08/15/24 05:36 Alanine Aminotransferase (ALT) 11 U/L (7-40) 11 U/L (7-40) Alkaline Phosphatase 72 U/L (46-116) 66 U/L (46-116) Aspartate Amino Transferase (AST) 25 U/L (13-40) 21 U/L (13-40) Total Bilirubin 0.5 mg/dL (0.2-1.0) 0.5 mg/dL (0.2-1.0) HgA1c, TSH Test 08/14/24 18:33 Thyroid Stimulating Hormone (TSH) 0.01 uIU/mL (0.55-4.78) L Urinalysis Test 08/15/24 08:10 Urine Color Yellow (Yellow) Urine Clarity Clear (Clear) Urine pH 5.5 (5.0-9.0) Urine Specific [place] 1.024 (1.001-1.035) Urine Protein Trace (Negative) H Urine Ketones 1+ (Negative) H Urine Blood Negative /uL (Negative) Urine Nitrite Negative (Negative) Urine Bilirubin Negative (Negative) Urine Urobilinogen Normal mg/dL (Negative) Urine Leukocyte Esterase Negative /uL (Negative) Urine RBC 2 /hpf (0 - 4) Urine Microscopic WBC 2 /HPF (0-5) Urine Squamous Epithelial Cells None seen /hpf (<5) Urine Bacteria Few /hpf (None Seen) H Urine Hyaline Casts Few /lpf (0 - 2) Urine Mucus Few (None Seen) Urine Glucose Normal mg/dL (Normal) Blood Gas Results Test 08/14/24 19:50 Arterial Blood pH 7.513 (7.350-7.450) FiO2 % 21.0 Labs and/or images reviewed: Labs reviewed by me, Image(s) reviewed by me Assessment/Plan Assessment/Plan # metabolic encephalopathy due to sepsis/infection? questionable thyroid abnormalities? Meningitis? -head CT nl, need MRI, re-consult neuro -IV antibiotics, stopped nazario. cont vanc and aztreonam (possible meningitis), add doxy (cover atypicals) -PRIOR patient was planned for lumbar puncture but family refused. lots of ABx, can still consider lumbar LP though ?RPR, lyme?, # dementia -family history of Lewy body dementia #severe mlnutriotion, BMI 15 # heart failure with preserved ejection fraction, chronic-echo reveals moderate degree LVH and moderate degree LV diastolic dysfunction #Heavily calcified aortic leaflets-seen on echo # moderate degree pulmonary hypertension, likely group two/group three-seen on echo with RVSP of 55 #Hypertension-on metoprolol home dose # AFib with RVR, currently sinus rhythm with multiple PACs-continue home dose metoprolol-patient did not take any anticoagulation at home # COPD, stable-currently on room air # hyperthyroidism, thyroid storm less likely- Continue home dose methimazole #UTI (prior vanc/nazario/ctx) - now vanc/aztreonam/doxy # microcytic anemia Monitor CBC # coagulopathy likely due to sepsis-monitor # hypokalemia Replaced prn # hyponatremia - Monitor # 2.6 cm right lower pole renal cyst -seen on imaging diet - 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
[2024-08-15] MEDS ORDERED: AZTREONAM 1GM INJ 2 GM in D5W 5% 100 ML IV SCH ×2 (16:38→16:39)
[2024-08-15] MEDS ORDERED: VANCOMYCIN 750MG KIT 100 ML IV SCH (17:00)
[2024-08-15 17:40] VITALS: BP 149/87; PULSE 88; RESP 16; TEMP 98.9; O2SAT 99
[2024-08-15 18:39] VITALS: PULSE 88; RESP 16; O2SAT 99
[2024-08-15] MEDS: VANCOMYCIN 750MG KIT 100 ML IV SCH (19:52)
[2024-08-15 20:00] VITALS: PULSE 85; PULSE 88; RESP 16; O2SAT 99
[2024-08-15 21:00] VITALS: BP 170/82; PULSE 79; RESP 18; TEMP 97; O2SAT 99
[2024-08-15] MEDS ORDERED: levoFLOXacin 250MG 50 ML IV SCH (21:00)
[2024-08-15] MEDS: AZTREONAM 1GM INJ 2 GM in D5W 5% 100 ML IV SCH (22:30)
--- NOTE | 2024-08-15 22:56 | DVHINCON2 ---
Date of service: Aug 15, [address] Jerri Martinez Reason for Consultation Relapse encephalopathy with falls History of Present Illness Zara Escalona is a 78-year-old female patient who presents to the ED via EMS due to altered mental status presenting a fall approximately three days ago, with uncertain head trauma. Patient lives in [place] [facility], obtained information from EMS paramedics. Could not obtain review of systems due to clinical status. Ms. Gisela Escalona is a 78 years old female with a history of hypertension, atrial fibrillation have congestive heart failure, asthma, COPD, anemia, dementia, the patient was brought to the [facility] on 08/14/2024 with a chief company of ALOC. At this time, she is awake, she she talks a little bit, she was oriented to person, place, but she was not always cooperative I saw her on 07/28/24 for ALOC urinary tract infection, sepsis She was discharged from the [facility] for ALOC on 08/08/2024, but the patient was noticed to be mentally altered in her long-term and the she was brought back to the hospital, the patient was had fall three days prior to the ER visit According to my consult dated 07/28/2024, her daughters related in [id number], she developed progressive mild intermittent short-term memory difficulty, gait disturbance and she used a cane to walk. In early 2023, she was said to have dementia, she remembers all her family members, but she cannot find her way home in her neighborhood, she is completely dependent on the family,SNF for daily living Her daughter related the patient had three convulsive events with loss of consciousness in 2022, 2023, and 06/2024, there was no associated incontinence, oral trauma/laceration, the patient is not on seizure medications UDS, 07/29/2024: Negative Urinalysis, 08/15/2024: WBC: 2, urine leukocyte esterase: Negative WBC/HB/PLT/MCV, 08/15/2024: 5.5//336/65.7 CMP, 07/29/2024: Unremarkable Vitamin B12, 07/26/2024: 892 Folic acid 07/26/24: 30.88 TSH, 07/26/2024: < 0.01, 08/14/2019 5:0.01 FT4, 08/14/2024: 1.4 EEG, 07/30/24: Inadequate, possibly mildly abnormal EEG Chest x-ray, 08/14/2024: Pulmonary venous congestion CT head, 07/26/2024: No evidence of acute intracranial abnormality CT head, 07/28/2024: 1. Motion limited study. 2. No evidence of acute intracranial hemorrhage. 3. Nonacute findings as described above CT head, 08/14/2024: No acute intracranial hemorrhage, midline shift or mass effect. If symptoms persist, further evaluation with MRI is recommended Past Medical History Hypertension, congestive heart failure, AFib, asthma, COPD, anemia, dementia Past Surgical History None Family History: FH: dementia G8 FATHER FHx: rheumatoid arthritis G8 MOTHER Family History Father had Lewy body disease, rheumatoid arthritis Social History She was a tobacco smoker, no history of alcohol or recreational substance abuse Allergies: Coded Allergies: Penicillins (Verified Allergy, Unknown, 02/04/23) Sulfa Antibiotics (Verified Allergy, Unknown, 02/04/23) Home Meds Reported Medications Metolazone (Metolazone) 2.5 Mg Tab, 1 TAB PO DAILY for 90 Days, #90 08/15/24 Metoprolol Succinate (Metoprolol Succinate Er) 100 Mg Tab, 1 TAB PO DAILY for 31 Days, #31 08/15/24 Furosemide (Furosemide) 40 Mg Tab, 1 TAB PO DAILY for 90 Days, #90 08/15/24 Amlodipine Besylate (Amlodipine Besylate) 10 Mg Tab, 1 TAB PO DAILY for 31 Days, #31 08/15/24 Pantoprazole Sodium Sesquihydr (Protonix) 40 Mg Tab, 1 TAB PO DAILY for 31 Days 07/27/24 Ferrous Sulfate (Ferrous Sulfate) 325 Mg Tab, 1 TAB PO BID for 90 Days, #180 07/27/24 Methimazole (Methimazole) 5 Mg Tab, 3 TAB PO DAILY for 31 Days, #93 07/27/24 Acetaminophen (Acetaminophen) 325 Mg Tab, 325 MG PO Q4HP PRN for MILD PAIN for 30 Days, MG 0 Refills 05/10/24 Discontinued Reported Medications Metoprolol Succinate (Metoprolol Succinate Er) 50 Mg Tab, 50 MG PO DAILY for 30 Days, MG 07/27/24 Furosemide (Furosemide) 20 Mg Tab, 20 MG PO DAILY, TAB 07/27/24 Amlodipine Besylate (Amlodipine Besylate) 2.5 Mg Tab, 1 TAB PO DAILY 02/05/23 Current Medications Current Medications Medications (Trade) Dose Ordered Sig/Heather Route PRN Reason Start Time Stop Time Status Last Admin Levofloxacin/ Dextrose 100 ml @ 100 mls/hr DAILY IV 08/15/24 10:00 08/14/24 20:29 DC Levofloxacin 50 ml @ 50 mls/hr DAILY@2100 IV 08/15/24 21:00 08/15/24 05:21 DC Vancomycin HCl 0 ml @ 0 mls/hr UD IV 08/15/24 05:30 08/15/24 15:40 DC Cefepime HCl 50 ml @ 12.5 mls/hr Q8HR IV 08/15/24 06:00 08/15/24 07:45 DC Enoxaparin Sodium (Lovenox) 40 mg DAILY SC 08/15/24 10:00 08/15/24 07:45 DC Methimazole (Tapazole) 15 mg DAILY PO 08/16/24 10:00 Ipratropium [place] (Atrovent Medneb) 0.5 mg Q4HWA NEB 08/15/24 10:00 08/15/24 07:45 DC Vancomycin HCl 250 ml @ 250 mls/hr Q24H IV 08/16/24 06:00 08/15/24 15:40 DC Azithromycin 250 ml @ 125 mls/hr DAILY IV 08/16/24 10:00 08/15/24 15:40 DC Doxycycline Hyclate 100 ml @ 50 mls/hr Q12H IV 08/16/24 10:00 Cefepime HCl 50 ml @ 12.5 mls/hr DAILY IV 08/16/24 10:00 08/15/24 15:47 DC Vancomycin HCl 0 ml @ 0 mls/hr UD IV 08/15/24 16:00 Aztreonam 1 gm/ Dextrose 50 ml @ 100 mls/hr Q8HR IV 08/15/24 16:02 08/15/24 16:38 DC Vancomycin HCl 100 ml @ 100 mls/hr Q12H IV 08/15/24 17:00 08/15/24 19:44 DC Aztreonam 2 gm/ Dextrose 100 ml @ 100 mls/hr Q8HR IV 08/15/24 16:38 08/15/24 16:39 DC Aztreonam 2 gm/ Dextrose 100 ml @ 100 mls/hr Q8H IV 08/15/24 16:39 08/15/24 21:31 DC Vancomycin HCl 100 ml @ 100 mls/hr Q12H IV 08/15/24 20:00 08/15/24 19:52 Aztreonam 2 gm/ Dextrose 100 ml @ 100 mls/hr Q8H IV 08/15/24 22:00 08/15/24 22:30 Review of Systems As above, the other systems are negative Vital Signs Vital Signs Date Time Temp Pulse Resp B/P (MAP) Pulse Ox O2 Delivery O2 Flow Rate FiO2 08/15/24 20:00 88 16 99 Room Air* 0 21 08/15/24 17:40 98.9 149/87 (107) 98.9 Physical Exam GENERAL EXAM: General: the patient is well developed and nourished. No acute distress. HEENT: Normocephalic, neck is supple, no carotid bruits. No mass. RESPIRATORY: Normal respiratory effort with symmetrical lung expansion. Lungs clear to auscultation. CARDIOVASCULAR: Regular rate and rhythm with no murmurs. S1, S2. ABDOMEN: Soft, nontender, normal bowel sound NEUROLOGICAL: MENTAL STATUS: Subjective SPEECH, LANGUAGE, HIGHER CORTICAL FUNCTION: She does not vocalize CRANIAL NERVES: #2: Visual field is full to visual thread #3,4,6: Pupils are equal, round and reactive. EOMs full and conjugate. #5: Facial sensation intact in all three divisions bilaterally. Mandibular strength intact. #7: Facial muscles symmetrical and strength intact. #8: Deferred #9,10: Deferred #11: Deferred #12: Deferred SENSATION: Sensation to touch and pinprick is okay MOTOR: Normal tone in the upper and lower extremity. Normal muscle bulk. No fasciculations. No abnormal movements or posturing. She moves the arms and legs REFLEXES: Deep tendon reflexes are symmetrical. No pathological reflexes. CEREBELLAR/COORDINATION: Deferred GAIT/STATION: deferred Labs/Diagnostic Data Labs Test 08/15/24 12:22 08/15/24 08:25 08/15/24 08:10 08/15/24 05:36 Range/Units Ammonia 12 11-32 umol/L Influenza Type A Antigen Negative Negative Influenza Type B Antigen Negative Negative SARS-CoV-2 Antigen (Rapid) Negative NEGATIVE Urine Color Yellow Yellow Urine Clarity Clear Clear Urine pH 5.5 5.0-9.0 Urine Specific [place] 1.024 1.001-1.035 Urine Protein Trace H Negative Urine Ketones 1+ H Negative Urine Blood Negative Negative /uL Urine Nitrite Negative Negative Urine Bilirubin Negative Negative Urine Urobilinogen Normal Negative mg/dL Urine Leukocyte Esterase Negative Negative /uL Urine RBC 2 0 - 4 /hpf Urine Microscopic WBC 2 0-5 /HPF Urine Squamous Epithelial Cells None seen <5 /hpf Urine Bacteria Few H None Seen /hpf Urine Hyaline Casts Few 0 - 2 /lpf Urine Mucus Few None Seen Urine Glucose Normal Normal mg/dL Urine Opiates Screen Neg NEGATIVE Urine Fentanyl Screen Neg NEGATIVE Urine Barbiturates Screen Neg NEGATIVE Urine Phencyclidine Screen Neg NEGATIVE Urine Amphetamines Screen Neg NEGATIVE Urine Benzodiazepines Screen Neg NEGATIVE Urine Cocaine Screen Neg NEGATIVE Urine Cannabinoids Screen Neg NEGATIVE White Blood Count 5.5 # 4.4-10.8 10^3/uL Red Blood Count 4.80 4.0-5.20 10^6/uL Hemoglobin 10.0 L 12.2-16.2 g/dL Hematocrit 31.5 #L 36.0-46.0 % Mean Corpuscular Volume 65.7 #L 80.0-100.0 fL Mean Corpuscular Hemoglobin 20.9 L 28.0-32.0 pg Mean Corpuscular Hemoglobin Concent 31.9 L 32.0-36.0 g/dL Red Cell Distribution Width 17.0 H 11.8-14.3 % Platelet Count 336 140-450 10^3/uL Mean Platelet Volume 8.7 6.9-10.8 fL Neutrophils (%) (Auto) 80.9 H 37.0-80.0 % Lymphocytes (%) (Auto) 5.5 L 10.0-50.0 % Monocytes (%) (Auto) 13.1 H 0.0-12.0 % Eosinophils (%) (Auto) 0.1 0.0-7.0 % Basophils (%) (Auto) 0.4 0.0-2.0 % Neutrophils # (Auto) 4.4 1.6-8.6 10 ^3/uL Lymphocytes # (Auto) 0.3 L 0.4-5.4 10 ^3/uL Monocytes # (Auto) 0.7 0-1.3 10 ^3/uL Eosinophils # (Auto) 0 0-0.8 10 ^3/uL Basophils # (Auto) 0 0-0.2 10 ^3/uL Nucleated Red Blood Cells 0.1 % Platelet Estimate Adequate Microcytosis Marked Sodium Level 141 136-145 mmol/L Potassium Level 3.3 L 3.5-5.1 mmol/L Chloride Level 106 98-107 mmol/L Carbon Dioxide Level 25 20-31 mmol/L Anion Gap 10 5-15 Blood Urea Nitrogen 18 9-23 mg/dL Creatinine 0.66 0.550-1.02 mg/dL Glomerular Filtration Rate Calc 90 >90 mL/min BUN/Creatinine Ratio 27.3 H 10.0-20.0 Serum Glucose 91 74-106 mg/dL Calcium Level 9.1 8.7-10.4 mg/dL Total Bilirubin 0.5 0.2-1.0 mg/dL Aspartate Amino Transferase (AST) 21 13-40 U/L Alanine Aminotransferase (ALT) 11 7-40 U/L Alkaline Phosphatase 66 46-116 U/L Total Protein 5.8 5.7-8.2 g/dL Albumin 3.7 3.2-4.8 g/dL Test 08/14/24 19:58 08/14/24 19:50 08/14/24 18:33 Range/Units Free Thyroxine (T4) Calculated 1.40 0.89-1.76 ng/dL Free Triiodothyronine (T3) pg/mL 4.11 2.3-4.2 pg/mL Blood Gas Specimen Type Arterial Blood Gas Sample Site Right radial Blood Gas Patient Temperature 37.0 Arterial Blood Date Drawn [id number] Arterial Blood pH 7.513 H 7.350-7.450 Arterial Blood Partial Pressure CO2 28.2 L 32.0-45.0 mmHg Arterial Blood Partial Pressure O2 79.0 L 83.0-108.0 mmHg Arterial Blood HCO3 22.2 21.0-28.0 mmol/L Arterial Blood Oxygen Saturation 96.2 94.0-98.0 % Arterial Blood Base Excess 0.0 -2.0-3.0 mmol/L Arterial Blood Oxyhemoglobin 94.8 94.0-98.0 % Arterial Blood Carboxyhemoglobin 0.7 0.5-1.5 % Arterial Blood Methemoglobin 0.8 0.0-1.5 % Alec Test Yes Blood Gas Total Hemoglobin 11.00 L 12.0-16.0 g/dL Blood Gas Modality Room air FiO2 % 21.0 Prothrombin Time 11.1 9.3-11.8 sec Prothrombin Time INR 1.05 0.9-1.15 Activated Partial Thromboplast Time 22.0 L 24.5-34.5 SEC Lactic Acid Level 1.4 0.4-2.0 mmol/L Phosphorus Level 3.7 2.4-5.1 mg/dL Magnesium Level 1.6 1.6-2.6 mg/dL Thyroid Stimulating Hormone (TSH) 0.01 L 0.55-4.78 uIU/mL Microbiology Date/Time Source Procedure Growth Status 08/14/24 19:58 Blood Blood Culture - Preliminary NO GROWTH AFTER 24 HOURS OF INCUBATION. Resulted Assessment Altered mental status Metabolic encephalopathy Dementia ? Alzheimer disease ? Lewy body disease Convulsive spells with loss of consciousness Like the patient had generalized tonic-clonic seizure Gait disturbance secondary to dementia, rule out other etiology ? Infection Plan/Recommendation Monitoring Supportive treatment Telemetry EEG IV antibiotics A trial of Keppra 500mg BId Ativan for seizure breakthrough May consider preventive seizure treatment Up to chair Physical therapy Room bright during the daytime More recommendation per clinical course This medical document was created using an electronic medical record system with [employer] dictation system. Although this document has been carefully reviewed, there may still be some phonetic and typographical errors. These areas are purely typographical due to imperfections of the software programs, and do not reflect any compromise in the patient's medical care. Plan discussed with: Other AIDEN GONZALEZ MD Aug 15, 2024 22:56
[2024-08-16] VITALS (8 sets, daily range): BP systolic 119–147; BP diastolic 60–90; PULSE 65–83; RESP 16–22; TEMP 97.9–98.4; O2SAT 96–100
[2024-08-16] MEDS ORDERED: LORazepam 2MG/ML-1ML VIAL IV PRN
[2024-08-16] MEDS ORDERED: VANCOMYCIN 1GM/250ML KIT 250 ML IV SCH (06:00)
[2024-08-16 07:25] LABS: Anion Gap 11 (5-15); Calcium 9.1 mg/dL (8.7-10.4); Carbon Dioxide 25 mmol/L (20-31); Chloride 106 mmol/L (98-107); Sodium 142 mmol/L (136-145)
[2024-08-16 07:26] LABS: Potassium 3.3 mmol/L (3.5-5.1)
[2024-08-16 07:28] LABS: Basophils # (auto) 0 10 ^3/uL (0-0.2); Eosinophils # (auto) 0 10 ^3/uL (0-0.8); Eosinophils % (auto) 0.2 % (0.0-7.0); White Blood Cell 4.5 10^3/uL (4.4-10.8)
[2024-08-16 07:31] LABS: BUN/Creatinine Ratio 29.1 (10.0-20.0); Basophils % (auto) 0.5 % (0.0-2.0); Blood Urea Nitrogen 16 mg/dL (9-23); Glucose 77 mg/dL (74-106); Hematocrit 28.4 % (36.0-46.0); Hemoglobin 9.2 g/dL (12.2-16.2); Lymphocytes # (auto) 1.3 10 ^3/uL (0.4-5.4); Lymphocytes % (auto) 29.3 % (10.0-50.0); Mean Corpuscular Hemoglobin 21.4 pg (28.0-32.0); Mean Corpuscular Hgb Conc. 32.5 g/dL (32.0-36.0); Mean Corpuscular Volume 65.8 fL (80.0-100.0); Monocytes # (auto) 0.7 10 ^3/uL (0-1.3); Monocytes % (auto) 14.9 % (0.0-12.0); Neutrophils # (auto) 2.5 10 ^3/uL (1.6-8.6); Neutrophils % (auto) 55.1 % (37.0-80.0); Nucleated Red Blood Cells % 0.2 %; Platelet Count (auto) 286 10^3/uL (140-450); Red Blood Cells 4.31 10^6/uL (4.0-5.20)
[2024-08-16 08:14] LABS: Alanine Aminotransferase 10 U/L (7-40); Albumin 3.4 g/dL (3.2-4.8); Alkaline Phosphatase 58 U/L (46-116); Anion Gap 10 (5-15); Aspartate Aminotransferase 27 U/L (13-40); BUN/Creatinine Ratio 30.4 (10.0-20.0); Bilirubin, Total 0.3 mg/dL (0.2-1.0); Blood Urea Nitrogen 17 mg/dL (9-23); Calcium 9.1 mg/dL (8.7-10.4); Carbon Dioxide 24 mmol/L (20-31); Chloride 107 mmol/L (98-107); Glucose 76 mg/dL (74-106); Sodium 141 mmol/L (136-145)
[2024-08-16 08:17] LABS: Potassium 3.4 mmol/L (3.5-5.1); Total Protein 5.3 g/dL (5.7-8.2)
[2024-08-16] MEDS: DOXYCYCLINE 100MG/100ML 100 ML IV SCH (10:00)
[2024-08-16] MEDS ORDERED: methIMAzole 5 MG TAB PO SCH (10:00)
[2024-08-16] MEDS: levETIRAcetam 500 mg/100ml 100 ML IV SCH (10:00)
[2024-08-16] MEDS: THIAMINE 100mg/ml INJ (200mg/2ml VIAL) IV ONE (10:00)
[2024-08-16] MEDS ORDERED: CEFEPIME 2GM/50ML NS 50 ML IV SCH (10:00)
[2024-08-16] MEDS: MULTIPLE VITAMIN TAB PO SCH (10:00)
[2024-08-16] MEDS ORDERED: AZITHROMYCIN 500MG/ 250ML 250 ML IV SCH (10:00)
--- NOTE | 2024-08-16 12:18 | DVH ---
EXAMINATION: MRI BRAIN HEAD WO CONTRAST INDICATION: unremitting encephalopathy COMPARISON: CT head 08/14/2024 TECHNIQUE: Multiplanar, multisequence magnetic resonance imaging of the brain was performed without the use of i ntravenous contrast. FINDINGS: The MR images are degraded by motion artifact. There is no restricted diffusion. There are moderate c hronic small-vessel ischemic changes in the supratentorial white matter. There is no evidence of hemo rrhage, mass, mass effect or midline shift. There is no hydrocephalus or extra-axial fluid collection . The visualized intracranial vasculature demonstrates appropriate flow-voids. There is a partially e mpty sella turcica. The sagittal midline structures otherwise appear unremarkable. The craniocervical junction is within normal limits. The calvarium demonstrates normal marrow signal. There is mucosal thickening in the right maxillary sinus. There is small amount of fluid in the left mastoid air cell s. IMPRESSION: 1. There is no acute intracranial process. 2. Moderate chronic small-vessel ischemic changes in the supratentorial white matter. 3. Partially empty sella. HS:Y
[2024-08-16] MEDS: methIMAzole 5 MG TAB PO ONE (13:30)
--- NOTE | 2024-08-16 16:52 | DVHPN2 ---
Subjective 08/16 - no changes. still the same. but tolerating po. unclear if she is refusing to answer questions or not but does communicate needs to nurse and daughter. today MRI, LP possible. trial multivitamin resus. 08/15 patient continues to be severely lethargic, speaking very slowly and after delayed pauses. Unable to get any significant history from patient. She appears to have hypersensitive to any touch. Contacted her daughter Thelma who endorses that patient at baseline is of normal functional status aside from some mild dementia that includes some short-term memory loss. Reviewed: H&P Changes from previous H/P or p: No Changes General: Per HPI Objective Vitals Vital Signs Date Time Temp Pulse Resp B/P (MAP) Pulse Ox O2 Delivery O2 Flow Rate FiO2 08/16/24 13:00 98.0 68 16 140/80 (100) 98 98.0 08/16/24 08:00 Room Air* 0 21 Intake/Output Intake and Output 08/16/24 07:00 Output Total 250 ml Balance -250 ml Output Urine Total 250 ml Exam GEN: thin frail, alert, HEENT: NC/AT; MMM. CV: systolic murur 08/22 LUNGS: CTAB, no w/r/c. ABD: Soft, NT/ND, NBS, no masses or organomegaly. EXT: skin Warm, well perfused. no rashes. No clubbing, cyanosis, or edema. NEURO: Ambulating with no limitations. unable to perform complete neuro exam, not following commands. slow delayed speech, moving al extremities, AOx2 (not to time, 194) Medications Current Medications Medications Dose Ordered Sig/Heather Route Start Time Stop Time Status Last Admin Dose Admin Doxycycline Hyclate 100 ml @ 50 mls/hr Q12H IV 08/16/24 10:00 08/16/24 10:00 50 MLS/HR Vancomycin HCl 0 ml @ 0 mls/hr UD IV 08/15/24 16:00 Vancomycin HCl 100 ml @ 100 mls/hr Q12H IV 08/15/24 20:00 08/16/24 08:00 100 MLS/HR Aztreonam 2 gm/ Dextrose 100 ml @ 100 mls/hr Q8H IV 08/15/24 22:00 08/16/24 06:04 100 MLS/HR Levetiracetam 100 ml @ 400 mls/hr BID IV 08/16/24 10:00 08/16/24 10:00 400 MLS/HR Lorazepam 1 mg Q5MINP PRN IV 08/16/24 00:00 Multivitamins 1 tab DAILY PO 08/16/24 10:00 08/16/24 10:00 1 TAB Methimazole 15 mg DAILY PO 08/17/24 10:00 Laboratory Results Laboratory Tests 08/16/24 05:54 Chemistry Test 08/16/24 05:54 Albumin 3.4 g/dL (3.2-4.8) Calcium Level 9.1 mg/dL (8.7-10.4) Total Protein 5.3 g/dL (5.7-8.2) L LFT Test 08/16/24 05:54 Alanine Aminotransferase (ALT) 10 U/L (7-40) Alkaline Phosphatase 58 U/L (46-116) Aspartate Amino Transferase (AST) 27 U/L (13-40) Total Bilirubin 0.3 mg/dL (0.2-1.0) Urinalysis Test 08/15/24 08:10 Urine Color Yellow (Yellow) Urine Clarity Clear (Clear) Urine pH 5.5 (5.0-9.0) Urine Specific [place] 1.024 (1.001-1.035) Urine Protein Trace (Negative) H Urine Ketones 1+ (Negative) H Urine Blood Negative /uL (Negative) Urine Nitrite Negative (Negative) Urine Bilirubin Negative (Negative) Urine Urobilinogen Normal mg/dL (Negative) Urine Leukocyte Esterase Negative /uL (Negative) Urine RBC 2 /hpf (0 - 4) Urine Microscopic WBC 2 /HPF (0-5) Urine Squamous Epithelial Cells None seen /hpf (<5) Urine Bacteria Few /hpf (None Seen) H Urine Hyaline Casts Few /lpf (0 - 2) Urine Mucus Few (None Seen) Urine Glucose Normal mg/dL (Normal) Microbiology Microbiology Date/Time Source Procedure Growth Status 08/14/24 19:58 Blood Blood Culture - Preliminary NO GROWTH AFTER 24 HOURS OF INCUBATION. Resulted Labs and/or images reviewed: Labs reviewed by me, Image(s) reviewed by me Assessment/Plan Assessment/Plan 08/16 - no changes. still the same. but tolerating po. unclear if she is refusing to answer questions or not but does communicate needs to nurse and daughter. today MRI, LP possible. trial multivitamin resus. # metabolic encephalopathy due to sepsis/infection? questionable thyroid abnormalities? Meningitis? -head CT nl, need MRI, re-consult neuro -IV antibiotics, stopped nazario. cont vanc and aztreonam (possible meningitis), add doxy (cover atypicals) -PRIOR patient was planned for lumbar puncture but family refused. lots of ABx, can still consider lumbar LP though ?RPR, lyme?, # dementia -family history of Lewy body dementia #severe mlnutriotion, BMI 15 # heart failure with preserved ejection fraction, chronic-echo reveals moderate degree LVH and moderate degree LV diastolic dysfunction #Heavily calcified aortic leaflets-seen on echo # moderate degree pulmonary hypertension, likely group two/group three-seen on echo with RVSP of 55 #Hypertension-on metoprolol home dose # AFib with RVR, currently sinus rhythm with multiple PACs-continue home dose metoprolol-patient did not take any anticoagulation at home # COPD, stable-currently on room air # hyperthyroidism, thyroid storm less likely- Continue home dose methimazole #UTI (prior vanc/nazario/ctx) - now vanc/aztreonam/doxy # microcytic anemia Monitor CBC # coagulopathy likely due to sepsis-monitor # hypokalemia Replaced prn # hyponatremia - Monitor # 2.6 cm right lower pole renal cyst -seen on imaging diet - CLD and SUPERVISOR TELLERS dvt lovenox ppi protonix medsurg full code Plan discussed with: Daughter My Orders Orders - JOSSY NOLAND MD Procedure Category Date Status Time Mrsa Screen TARIK 08/15/24 Uncollected 19:24 Vancomycin 750mg Kit PHA 08/15/24 In Process (Vancomycin Hcl) 20:00 Vancomycin Per LJ 08/15/24 In Process Pharmacy Protoc 20:53 Aztreonam 1gm Inj PHA 08/15/24 In Process (Azactam) 22:[address] 08/16/24 Logged 05:43 Vitamin B1 (Thiamine) LAB 08/16/24 In Process 05:43 Multiple Vitamin PHA 08/16/24 In Process Tablet (Mvi Tab) 10:00 Full Liq Diet DIET 08/16/24 Transmitted Lunch Brain Head Wo Contrast MRI 08/16/24 Resulted 09:59 Insert Midline ORDERS 08/16/24 Transmitted 12:20 Pureed DIET 08/16/24 Transmitted Dinner Date of Service: Aug 16, 2024 Billing Provider: JOSSY NOLAND MD Common Visit Codes: [id number] INP/OBS CARE(HIGH) JOSSY NOLAND MD Aug 16, 2024 16:52
--- NOTE | 2024-08-16 19:22 | DVHPN2 ---
Progress Note - Dictate Date Seen: Aug 16, 2024 Medical Necessity Reason Pt with a Central, PICC or Fol: Yes The following are medically ne: Shaw Catheter Subjective Ms. Gisela Escalona is a 78 years old female with a history of hypertension, atrial fibrillation have congestive heart failure, asthma, COPD, anemia, dementia, the patient was brought to the [facility] on 08/14/2024 with a chief company of ALOC I saw her on 07/28/24 for ALOC (urinary tract infection, sepsis) I have seen and examined the patient, I have discussed with her nurse, she was awake, but she may not be happy with me, her eyes are closed with strong resistance when I try to open them, she does not listen to my verbal commands, or talk to me UDS, 07/29/2024: Negative Urinalysis, 08/15/2024: WBC: 2, urine leukocyte esterase: Negative WBC/HB/PLT/MCV, 08/15/2024: 5.5/10/336/65.7 CMP, 07/29/2024: Unremarkable Vitamin B12, 07/26/2024: 892, 08/16/24: 425 Folic acid 07/26/24: 30.88 TSH, 07/26/2024: < 0.01, 08/14/2019 5:0.01 FT4, 08/14/2024: 1.4 EEG, 07/30/24: Inadequate, possibly mildly abnormal EEG Chest x-ray, 08/14/2024: Pulmonary venous congestion CT head, 07/26/2024: No evidence of acute intracranial abnormality CT head, 07/28/2024: 1. Motion limited study. 2. No evidence of acute intracranial hemorrhage. 3. Nonacute findings as described above CT head, 08/14/2024: No acute intracranial hemorrhage, midline shift or mass effect. If symptoms persist, further evaluation with MRI is recommended MRI head, 08/16/2024: 1. There is no acute intracranial process. 2. Moderate chronic small-vessel ischemic changes in the supratentorial white matter. 3. Partially empty sella vital signs Vital Sign Date Time Temp Pulse Resp B/P (MAP) Pulse Ox O2 Delivery O2 Flow Rate FiO2 08/16/24 17:00 98.2 70 22 119/70 (86) 96 98.2 08/16/24 08:00 Room Air* 0 21 Total Intake and Output 08/15/24 08/15/24 08/16/24 15:00 23:00 07:00 Output Total 250 ml Balance -250 ml medications Current Medications Medications Dose Ordered Sig/Heather Route Start Time Stop Time Status Last Admin Dose Admin Doxycycline Hyclate 100 ml @ 50 mls/hr Q12H IV 08/16/24 10:00 08/16/24 10:00 50 MLS/HR Vancomycin HCl 0 ml @ 0 mls/hr UD IV 08/15/24 16:00 Vancomycin HCl 100 ml @ 100 mls/hr Q12H IV 08/15/24 20:00 08/16/24 08:00 100 MLS/HR Aztreonam 2 gm/ Dextrose 100 ml @ 100 mls/hr Q8H IV 08/15/24 22:00 08/16/24 14:00 100 MLS/HR Levetiracetam 100 ml @ 400 mls/hr BID IV 08/16/24 10:00 08/16/24 10:00 400 MLS/HR Lorazepam 1 mg Q5MINP PRN IV 08/16/24 00:00 Multivitamins 1 tab DAILY PO 08/16/24 10:00 08/16/24 10:00 1 TAB Methimazole 15 mg DAILY PO 08/17/24 10:00 objective General: the patient is well developed and nourished. No acute distress. MENTAL STATUS: Subjective SPEECH, LANGUAGE, HIGHER CORTICAL FUNCTION: She does not vocalize CRANIAL NERVES: Pupils are equal, round and reactive. EOMs full and conjugate. Facial sensation intact in all three divisions bilaterally. Mandibular strength intact. Facial muscles symmetrical and strength intact. SENSATION: Sensation to touch and pinprick is okay MOTOR: Normal tone in the upper and lower extremity. Normal muscle bulk. No fasciculations. No abnormal movements or posturing. She moves the arms and legs REFLEXES: Deep tendon reflexes are symmetrical. No pathological reflexes. CEREBELLAR/COORDINATION: Deferred GAIT/STATION: deferred laboratory and microbiology Laboratory Tests 08/16/24 05:54 Test 08/16/24 05:54 Range/Units Serum Glucose 76 74-106 mg/dL Problem List Altered mental status Metabolic encephalopathy Dementia ? Alzheimer disease ? Lewy body disease Convulsive spells with loss of consciousness Like the patient had generalized tonic-clonic seizure Gait disturbance secondary to dementia, rule out other etiology ? Infection Assessment/Plan Monitoring Supportive treatment Telemetry EEG IV antibiotics Keppra 500mg BId Ativan for seizure breakthrough May consider preventive seizure treatment Up to chair Physical therapy Room bright during the daytime More recommendation per clinical course This medical document was created using an electronic medical record system with [employer] dictation system. Although this document has been carefully reviewed, there may still be some phonetic and typographical errors. These areas are purely typographical due to imperfections of the software programs, and do not reflect any compromise in the patient's medical car Prognosis poor Plan discussed with: Other AIDEN GONZALEZ MD Aug 16, 2024 19:22
[2024-08-17] VITALS (8 sets, daily range): BP systolic 107–136; BP diastolic 60–73; PULSE 57–118; RESP 16–98; TEMP 98.1–100.8; O2SAT 92–99
[2024-08-17] MEDS: methIMAzole 5 MG TAB PO SCH (09:26)
[2024-08-17 11:39] LABS: Chloride 107 mmol/L (98-107); Sodium 139 mmol/L (136-145)
[2024-08-17 11:40] LABS: Anion Gap 6 (5-15); Carbon Dioxide 26 mmol/L (20-31)
[2024-08-17 11:45] LABS: BUN/Creatinine Ratio 18.9 (10.0-20.0); Blood Urea Nitrogen 10 mg/dL (9-23); Glucose 91 mg/dL (74-106)
[2024-08-17 11:47] LABS: Calcium 8.6 mg/dL (8.7-10.4); Potassium 3.1 mmol/L (3.5-5.1)
--- NOTE | 2024-08-17 23:40 | DVHPN2 ---
Subjective update 08/17 08/15 patient continues to be severely lethargic, speaking very slowly and after delayed pauses. Unable to get any significant history from patient. She appears to have hypersensitive to any touch. Contacted her daughter Thelma who endorses that patient at baseline is of normal functional status aside from some mild dementia that includes some short-term memory loss. 08/16 - no changes. still the same. but tolerating po. unclear if she is refusing to answer questions or not but does communicate needs to nurse and daughter. today MRI, LP possible. trial multivitamin resus. 08/17 - still altered. becomes agitated on sternal rub. will check abg. Reviewed: H&P Changes from previous H/P or p: No Changes General: Per HPI Objective Vitals Vital Signs Date Time Temp Pulse Resp B/P (MAP) Pulse Ox O2 Delivery O2 Flow Rate FiO2 08/17/24 20:00 60 08/17/24 20:00 Room Air* 0 21 08/17/24 17:00 98.1 17 112/64 (80) 92 98.1 Intake/Output Intake and Output 08/17/24 07:00 Intake Total 1360 ml Output Total 275 ml Balance 1085 ml Intake Oral 960 ml IV Total 400 ml Output Urine Total 275 ml Exam GEN: thin frail, alert, HEENT: NC/AT; MMM. CV: systolic murur 08/22 LUNGS: CTAB, no w/r/c. ABD: Soft, NT/ND, NBS, no masses or organomegaly. EXT: skin Warm, well perfused. no rashes. No clubbing, cyanosis, or edema. NEURO: Ambulating with no limitations. unable to perform complete neuro exam, not following commands. slow delayed speech, moving al extremities, AOx2 (not to time, 1942) Medications Current Medications Medications Dose Ordered Sig/Heather Route Start Time Stop Time Status Last Admin Dose Admin Doxycycline Hyclate 100 ml @ 50 mls/hr Q12H IV 08/16/24 10:00 08/17/24 22:46 50 MLS/HR Vancomycin HCl 0 ml @ 0 mls/hr UD IV 08/15/24 16:00 Vancomycin HCl 100 ml @ 100 mls/hr Q12H IV 08/15/24 20:00 08/17/24 19:40 100 MLS/HR Aztreonam 2 gm/ Dextrose 100 ml @ 100 mls/hr Q8H IV 08/15/24 22:00 08/17/24 21:36 100 MLS/HR Levetiracetam 100 ml @ 400 mls/hr BID IV 08/16/24 10:00 08/17/24 21:11 400 MLS/HR Lorazepam 1 mg Q5MINP PRN IV 08/16/24 00:00 Multivitamins 1 tab DAILY PO 08/16/24 10:00 08/17/24 09:26 1 TAB Methimazole 15 mg DAILY PO 08/17/24 10:00 08/17/24 09:26 15 MG Laboratory Results Laboratory Tests 08/16/24 05:54 08/17/24 11:00 Chemistry Test 08/17/24 11:00 Calcium Level 8.6 mg/dL (8.7-10.4) L Urinalysis Test 08/15/24 08:10 Urine Color Yellow (Yellow) Urine Clarity Clear (Clear) Urine pH 5.5 (5.0-9.0) Urine Specific [place] 1.024 (1.001-1.035) Urine Protein Trace (Negative) H Urine Ketones 1+ (Negative) H Urine Blood Negative /uL (Negative) Urine Nitrite Negative (Negative) Urine Bilirubin Negative (Negative) Urine Urobilinogen Normal mg/dL (Negative) Urine Leukocyte Esterase Negative /uL (Negative) Urine RBC 2 /hpf (0 - 4) Urine Microscopic WBC 2 /HPF (0-5) Urine Squamous Epithelial Cells None seen /hpf (<5) Urine Bacteria Few /hpf (None Seen) H Urine Hyaline Casts Few /lpf (0 - 2) Urine Mucus Few (None Seen) Urine Glucose Normal mg/dL (Normal) Microbiology Microbiology Date/Time Source Procedure Growth Status 08/17/24 05:16 Nose MRSA Screen - Final Complete 08/15/24 17:41 Voided Urine Urine Culture - Preliminary Resulted 08/14/24 19:58 Blood Blood Culture - Preliminary NO GROWTH AFTER 72 HOURS OF INCUBATION. Resulted Labs and/or images reviewed: Labs reviewed by me, Image(s) reviewed by me Assessment/Plan Assessment/Plan 08/17 - still altered. becomes agitated on sternal rub. will check abg. # metabolic encephalopathy due to sepsis/infection? questionable thyroid abnormalities? Meningitis? -head CT nl, need MRI, re-consult neuro -IV antibiotics, stopped nazario. cont vanc and aztreonam (possible meningitis), add doxy (cover atypicals) -PRIOR patient was planned for lumbar puncture but family refused. lots of ABx, can still consider lumbar LP though ?RPR, lyme?, - MRI old ischemic changes - NURSE CONSULTANT rec puree - vanc/aztreonam/doxy (meningitis, cover atypical for ?atypical pneumonia) - PT rec HH with FWW/BSC/WC - bcx, ucx pending. # dementia -family history of Lewy body dementia #severe mlnutriotion, BMI 15 # heart failure with preserved ejection fraction, chronic-echo reveals moderate degree LVH and moderate degree LV diastolic dysfunction #Heavily calcified aortic leaflets-seen on echo # moderate degree pulmonary hypertension, likely group two/group three-seen on echo with RVSP of 55 #Hypertension-on metoprolol home dose # AFib with RVR, currently sinus rhythm with multiple PACs-continue home dose metoprolol-patient did not take any anticoagulation at home # COPD, stable-currently on room air # hyperthyroidism, thyroid storm less likely- Continue home dose methimazole #UTI (prior vanc/nazario/ctx) - now vanc/aztreonam/doxy # microcytic anemia Monitor CBC # coagulopathy likely due to sepsis-monitor # hypokalemia Replaced prn # hyponatremia - Monitor # 2.6 cm right lower pole renal cyst -seen on imaging diet - NURSE CONSULTANT rec puree diet. dvt lovenox ppi protonix medsurg full code Plan discussed with: Patient Date of Service: Aug 17, 2024 Billing Provider: JOSSY NOLAND MD Common Visit Codes: [id number] INP/OBS CARE(HIGH) JOSSY NOLAND MD Aug 17, 2024 23:40
[2024-08-18 01:00] VITALS: BP 133/74; PULSE 55; RESP 18; TEMP 99; O2SAT 97
[2024-08-18 05:00] VITALS: BP 130/74; PULSE 58; RESP 18; TEMP 98.5; O2SAT 98
[2024-08-18 05:48] LABS: Basophils # (auto) 0 10 ^3/uL (0-0.2); Lymphocytes # (auto) 1.5 10 ^3/uL (0.4-5.4); Neutrophils # (auto) 1.9 10 ^3/uL (1.6-8.6); Red Cell Distribution Width 17.2 % (11.8-14.3); White Blood Cell 4.1 10^3/uL (4.4-10.8)
[2024-08-18 05:51] LABS: Anion Gap 10 (5-15); Calcium 8.7 mg/dL (8.7-10.4); Carbon Dioxide 25 mmol/L (20-31); Sodium 142 mmol/L (136-145)
[2024-08-18 05:52] LABS: Basophils % (auto) 0.7 % (0.0-2.0); Eosinophils # (auto) 0.3 10 ^3/uL (0-0.8); Eosinophils % (auto) 6.5 % (0.0-7.0); Hematocrit 28.6 % (36.0-46.0); Hemoglobin 9.1 g/dL (12.2-16.2); Lymphocytes % (auto) 36.2 % (10.0-50.0); Mean Corpuscular Hemoglobin 21.2 pg (28.0-32.0); Mean Corpuscular Hgb Conc. 31.9 g/dL (32.0-36.0); Mean Corpuscular Volume 66.7 fL (80.0-100.0); Monocytes # (auto) 0.4 10 ^3/uL (0-1.3); Monocytes % (auto) 10.2 % (0.0-12.0); Neutrophils % (auto) 46.4 % (37.0-80.0); Nucleated Red Blood Cells % 0.2 %; Platelet Count (auto) 258 10^3/uL (140-450)
[2024-08-18 05:57] LABS: BUN/Creatinine Ratio 19.6 (10.0-20.0); Blood Urea Nitrogen 10 mg/dL (9-23); Glucose 77 mg/dL (74-106)
[2024-08-18 06:18] LABS: Chloride 107 mmol/L (98-107); Potassium 3.5 mmol/L (3.5-5.1)
[2024-08-18 07:52] LABS: Base Excess 0.3 mmol/L (-2.0-3.0)
[2024-08-18 08:00] VITALS: PULSE 63
[2024-08-18 09:00] VITALS: BP 147/78; PULSE 57; RESP 15; TEMP 98.3; O2SAT 100
--- NOTE | 2024-08-18 18:43 | DVHPN2 ---
Subjective update 08/18 08/15 patient continues to be severely lethargic, speaking very slowly and after delayed pauses. Unable to get any significant history from patient. She appears to have hypersensitive to any touch. Contacted her daughter Thelma who endorses that patient at baseline is of normal functional status aside from some mild dementia that includes some short-term memory loss. 08/16 - no changes. still the same. but tolerating po. unclear if she is refusing to answer questions or not but does communicate needs to nurse and daughter. today MRI, LP possible. trial multivitamin resus. 08/17 - still altered. becomes agitated on sternal rub. will check abg. 08/18 labs stable, vitals stable. Patient continues to remain minimally verbal, she is A&O times oriented to person and place but not to time. PT recommends home health. Workup thus far negative. Neurology is on board, unclear etiology of patient's mental status change, dementia possible Reviewed: H&P Changes from previous H/P or p: No Changes General: Per HPI Objective Vitals Vital Signs Date Time Temp Pulse Resp B/P (MAP) Pulse Ox O2 Delivery O2 Flow Rate FiO2 08/18/24 09:00 98.3 57 15 147/78 (101) 100 98.3 08/18/24 08:00 Room Air* 0 21 Intake/Output Intake and Output 08/18/24 07:00 Intake Total 400 ml Balance 400 ml IV Total 400 ml Exam GEN: thin frail, alert, HEENT: NC/AT; MMM. CV: systolic murur 08/22 LUNGS: CTAB, no w/r/c. ABD: Soft, NT/ND, NBS, no masses or organomegaly. EXT: skin Warm, well perfused. no rashes. No clubbing, cyanosis, or edema. NEURO: Ambulating with no limitations. unable to perform complete neuro exam, not following commands. slow delayed speech, moving al extremities, AOx2 (not to time, 194) Medications Current Medications Medications Dose Ordered Sig/Heather Route Start Time Stop Time Status Last Admin Dose Admin Doxycycline Hyclate 100 ml @ 50 mls/hr Q12H IV 08/16/24 10:00 08/18/24 13:48 50 MLS/HR Vancomycin HCl 0 ml @ 0 mls/hr UD IV 08/15/24 16:00 Vancomycin HCl 100 ml @ 100 mls/hr Q12H IV 08/15/24 20:00 08/18/24 08:46 100 MLS/HR Aztreonam 2 gm/ Dextrose 100 ml @ 100 mls/hr Q8H IV 08/15/24 22:00 08/18/24 14:00 100 MLS/HR Levetiracetam 100 ml @ 400 mls/hr BID IV 08/16/24 10:00 08/18/24 12:25 400 MLS/HR Lorazepam 1 mg Q5MINP PRN IV 08/16/24 00:00 Multivitamins 1 tab DAILY PO 08/16/24 10:00 08/18/24 08:57 1 TAB Methimazole 15 mg DAILY PO 08/17/24 10:00 08/18/24 08:57 15 MG Laboratory Results Laboratory Tests 08/18/24 04:56 Chemistry Test 08/18/24 04:56 Calcium Level 8.7 mg/dL (8.7-10.4) Urinalysis Test 08/15/24 08:10 Urine Color Yellow (Yellow) Urine Clarity Clear (Clear) Urine pH 5.5 (5.0-9.0) Urine Specific [place] 1.024 (1.001-1.035) Urine Protein Trace (Negative) H Urine Ketones 1+ (Negative) H Urine Blood Negative /uL (Negative) Urine Nitrite Negative (Negative) Urine Bilirubin Negative (Negative) Urine Urobilinogen Normal mg/dL (Negative) Urine Leukocyte Esterase Negative /uL (Negative) Urine RBC 2 /hpf (0 - 4) Urine Microscopic WBC 2 /HPF (0-5) Urine Squamous Epithelial Cells None seen /hpf (<5) Urine Bacteria Few /hpf (None Seen) H Urine Hyaline Casts Few /lpf (0 - 2) Urine Mucus Few (None Seen) Urine Glucose Normal mg/dL (Normal) Blood Gas Results Test 08/18/24 07:35 Arterial Blood pH 7.459 (7.350-7.450) FiO2 % 21.0 Microbiology Microbiology Date/Time Source Procedure Growth Status 08/17/24 05:16 Nose MRSA Screen - Final Complete 08/15/24 17:41 Voided Urine Urine Culture - Final Complete 08/14/24 19:58 Blood Blood Culture - Preliminary NO GROWTH AFTER 72 HOURS OF INCUBATION. Resulted Labs and/or images reviewed: Labs reviewed by me, Image(s) reviewed by me Assessment/Plan Assessment/Plan 2/2 labs stable, vitals stable. Patient continues to remain minimally verbal, she is A&O times oriented to person and place but not to time. PT recommends home health. Workup thus far negative. Neurology is on board, unclear etiology of patient's mental status change, dementia possible # metabolic encephalopathy due to sepsis/infection? questionable thyroid abnormalities? Meningitis? -head CT nl, re-consult neuro -IV antibiotics, stopped nazario. cont vanc and aztreonam (possible meningitis), add doxy (cover atypicals) -PRIOR patient was planned for lumbar puncture but family refused. lots of ABx, can still consider lumbar LP though ?RPR, lyme?, - bcx, ucx negative after72 hours - MRI old ischemic changes - TIMBER BUCKER rec puree - vanc/aztreonam/doxy (meningitis, cover atypical for ?atypical pneumonia) - PT rec HH with FWW/BSC/WC - supplement diet with boost b.i.d. high protein # dementia -family history of Lewy body dementia #severe mlnutriotion, BMI 15 # heart failure with preserved ejection fraction, chronic-echo reveals moderate degree LVH and moderate degree LV diastolic dysfunction #Heavily calcified aortic leaflets-seen on echo # moderate degree pulmonary hypertension, likely group two/group three-seen on echo with RVSP of 55 #Hypertension-on metoprolol home dose # AFib with RVR, currently sinus rhythm with multiple PACs-continue home dose metoprolol-patient did not take any anticoagulation at home # COPD, stable-currently on room air # hyperthyroidism, thyroid storm less likely- Continue home dose methimazole #UTI (prior vanc/nazario/ctx) - now vanc/aztreonam/doxy # microcytic anemia Monitor CBC # coagulopathy likely due to sepsis-monitor # hypokalemia Replaced prn # hyponatremia - Monitor # 2.6 cm right lower pole renal cyst -seen on imaging diet - TIMBER BUCKER rec puree diet. dvt lovenox ppi protonix medsurg full code Plan discussed with: Patient My Orders Orders - JOSSY NOLAND MD Procedure Category Date Status Time Abg W/ Co-Ox RT 08/18/24 Logged 04:00 Complete Blood Count LAB 08/19/24 Verified 04:00 Creatinine LAB 08/19/24 Verified 04:00 Vancomycin,Trough LAB 08/19/24 Verified 07:00 Date of Service: Aug 18, 2024 Billing Provider: JOSSY NOLAND MD Common Visit Codes: [id number] INP/OBS CARE(HIGH) JOSSY NOLAND MD Aug 18, 2024 18:43
[2024-08-18 20:00] VITALS: PULSE 63
[2024-08-18 21:00] VITALS: BP 153/81; PULSE 60; RESP 16; TEMP 99.2; O2SAT 95
[2024-08-18] MEDS: cefTRIAXone 1GM/50ML D5W 50 ML IV ONE (21:12)
[2024-08-19] VITALS (8 sets, daily range): BP systolic 116–155; BP diastolic 76–81; PULSE 61–80; RESP 16–17; TEMP 97.7–98.7; O2SAT 99–100
[2024-08-19 08:25] LABS: Basophils # (auto) 0 10 ^3/uL (0-0.2); Hematocrit 35.2 % (36.0-46.0); Monocytes # (auto) 0.5 10 ^3/uL (0-1.3); Red Cell Distribution Width 17.1 % (11.8-14.3); White Blood Cell 5.9 10^3/uL (4.4-10.8)
[2024-08-19 08:28] LABS: Basophils % (auto) 0.3 % (0.0-2.0); Eosinophils # (auto) 0.2 10 ^3/uL (0-0.8); Eosinophils % (auto) 2.7 % (0.0-7.0); Lymphocytes # (auto) 1.6 10 ^3/uL (0.4-5.4); Lymphocytes % (auto) 26.3 % (10.0-50.0); Mean Corpuscular Hgb Conc. 31.2 g/dL (32.0-36.0); Mean Corpuscular Volume 67.2 fL (80.0-100.0); Monocytes % (auto) 7.8 % (0.0-12.0); Neutrophils # (auto) 3.7 10 ^3/uL (1.6-8.6); Neutrophils % (auto) 62.9 % (37.0-80.0); Nucleated Red Blood Cells % 0.2 %; Platelet Count (auto) 261 10^3/uL (140-450); Red Blood Cells 5.25 10^6/uL (4.0-5.20)
[2024-08-19 08:32] LABS: Alanine Aminotransferase 12 U/L (7-40); Albumin 3.7 g/dL (3.2-4.8); Alkaline Phosphatase 68 U/L (46-116); Anion Gap 13 (5-15); Aspartate Aminotransferase 17 U/L (13-40); BUN/Creatinine Ratio 18.2 (10.0-20.0); Calcium 9.2 mg/dL (8.7-10.4); Carbon Dioxide 25 mmol/L (20-31); Chloride 103 mmol/L (98-107); Glucose 78 mg/dL (74-106); Sodium 141 mmol/L (136-145)
[2024-08-19 08:33] LABS: Bilirubin, Total 0.4 mg/dL (0.2-1.0)
[2024-08-19 08:34] LABS: Blood Urea Nitrogen 8 mg/dL (9-23); Potassium 3.3 mmol/L (3.5-5.1); Total Protein 5.7 g/dL (5.7-8.2)
[2024-08-19 10:56] LABS: Hypochromia Moderate; Platelet Estimate Adequate
[2024-08-19] MEDS: POTASSIUM EFFERVESENT TAB 25 MEQ PO ONE (12:30)
[2024-08-19] MEDS: cefTRIAXone 1GM/50ML D5W 50 ML IV SCH (12:36)
--- NOTE | 2024-08-19 14:45 | DVHPN2 ---
Progress Note - Dictate Date Seen: Aug 19, 2024 Medical Necessity Reason Pt with a Central, PICC or Fol: Yes The following are medically ne: Shaw Catheter Subjective Ms. Gisela Escalona is a 78 years old female with a history of hypertension, atrial fibrillation have congestive heart failure, asthma, COPD, anemia, dementia, the patient was brought to the [facility] on 08/14/2024 with a chief company of ALOC I saw her on 07/28/24 for ALOC (urinary tract infection, sepsis) I have seen and examined the patient, I have discussed with her nurse, she is awake, but she does not talk and is not cooperative with me. Her nurse relates the patient was awakened oriented to person place earlier today. Cranial nerve examination is remarkable. She does not move the extremities UDS, 07/29/2024: Negative Urinalysis, 08/15/2024: WBC: 2, urine leukocyte esterase: Negative WBC/HB/PLT/MCV, 08/15/2024: 5.5/10/336/65.7 CMP, 07/29/2024: Unremarkable Vitamin B12, 07/26/2024: 892, 08/16/24: 425 Folic acid 07/26/24: 30.88 TSH, 07/26/2024: < 0.01, 08/14/2019 5:0.01 FT4, 08/14/2024: 1.4 EEG, 07/30/24: Inadequate, possibly mildly abnormal EEG Chest x-ray, 08/14/2024: Pulmonary venous congestion CT head, 07/26/2024: No evidence of acute intracranial abnormality CT head, 07/28/2024: 1. Motion limited study. 2. No evidence of acute intracranial hemorrhage. 3. Nonacute findings as described above CT head, 08/14/2024: No acute intracranial hemorrhage, midline shift or mass effect. If symptoms persist, further evaluation with MRI is recommended MRI head, 08/16/2024: 1. There is no acute intracranial process. 2. Moderate chronic small-vessel ischemic changes in the supratentorial white matter. 3. Partially empty sella vital signs Vital Sign Date Time Temp Pulse Resp B/P (MAP) Pulse Ox O2 Delivery O2 Flow Rate FiO2 08/19/24 09:00 98.6 66 16 142/80 (100) 99 98.6 08/19/24 08:05 Room Air* 0 21 Total Intake and Output 08/18/24 08/18/24 08/19/24 15:00 23:00 07:00 Intake Total 300 ml 100 ml Balance 300 ml 100 ml medications Current Medications Medications Dose Ordered Sig/Heather Route Start Time Stop Time Status Last Admin Dose Admin Vancomycin HCl 0 ml @ 0 mls/hr UD IV 08/15/24 16:00 Levetiracetam 100 ml @ 400 mls/hr BID IV 08/16/24 10:00 08/19/24 12:26 400 MLS/HR Lorazepam 1 mg Q5MINP PRN IV 08/16/24 00:00 Multivitamins 1 tab DAILY PO 08/16/24 10:00 08/19/24 09:25 1 TAB Methimazole 15 mg DAILY PO 08/17/24 10:00 08/19/24 09:25 15 MG Ceftriaxone Sodium 50 ml @ 100 mls/hr DAILY@09 IV 08/19/24 09:00 08/19/24 12:36 100 MLS/HR Vancomycin HCl 100 ml @ 200 mls/hr Q12H IV 08/19/24 20:00 objective General: the patient is well developed and nourished. No acute distress. MENTAL STATUS: Subjective SPEECH, LANGUAGE, HIGHER CORTICAL FUNCTION: She does not vocalize CRANIAL NERVES: Pupils are equal, round and reactive. EOMs full and conjugate. Facial sensation intact in all three divisions bilaterally. Mandibular strength intact. Facial muscles symmetrical and strength intact. SENSATION: Sensation to touch and pinprick is okay MOTOR: Normal tone in the upper and lower extremity. Normal muscle bulk. No fasciculations. No abnormal movements or posturing. She does not move the extremities REFLEXES: Deep tendon reflexes are symmetrical. No pathological reflexes. CEREBELLAR/COORDINATION: Deferred GAIT/STATION: deferred laboratory and microbiology Laboratory Tests 08/19/24 07:34 Test 08/19/24 07:34 Range/Units Serum Glucose 78 74-106 mg/dL Problem List Altered mental status Metabolic encephalopathy Dementia ? Alzheimer disease ? Lewy body disease Convulsive spells with loss of consciousness Like the patient had generalized tonic-clonic seizure Gait disturbance secondary to dementia, rule out other etiology ? Infection She may have returned to her baseline mental status Assessment/Plan Monitoring Supportive treatment Telemetry EEG IV antibiotics Keppra 500mg BId Ativan for seizure breakthrough May consider preventive seizure treatment Up to chair Physical therapy Room bright during the daytime More recommendation per clinical course This medical document was created using an electronic medical record system with [employer] dictation system. Although this document has been carefully reviewed, there may still be some phonetic and typographical errors. These areas are purely typographical due to imperfections of the software programs, and do not reflect any compromise in the patient's medical car Prognosis poor Plan discussed with: Other AIDEN GONZALEZ MD Aug 19, 2024 14:45
--- NOTE | 2024-08-19 16:44 | DVHINCON2 ---
Date of Service if different f: Aug 19, 2024 Time of Service: 10:06 Consultation ([facility]) Consulting Physician: SIMÓN JONES MD Labs Laboratory Tests Test 08/14/24 18:33 08/14/24 19:58 08/15/24 05:36 08/15/24 08:10 Prothrombin Time 11.1 sec (9.3-11.8) Prothromb Time International Ratio 1.05 (0.9-1.15) Activated Partial Thromboplast Time 22.0 SEC (24.5-34.5) Lactic Acid Level 1.4 mmol/L (0.4-2.0) Phosphorus Level 3.7 mg/dL (2.4-5.1) Magnesium Level 1.6 mg/dL (1.6-2.6) Thyroid Stimulating Hormone (TSH) 0.01 uIU/mL (0.55-4.78) Free Thyroxine (T4) Calculated 1.40 ng/dL (0.89-1.76) Free Triiodothyronine (T3) pg/mL 4.11 pg/mL (2.3-4.2) Microcytosis Marked Urine Color Yellow (Yellow) Urine Clarity Clear (Clear) Urine pH 5.5 (5.0-9.0) Urine Specific [place] 1.024 (1.001-1.035) Urine Protein Trace (Negative) Urine Ketones 1+ (Negative) Urine Blood Negative /uL (Negative) Urine Nitrite Negative (Negative) Urine Bilirubin Negative (Negative) Urine Urobilinogen Normal mg/dL (Negative) Urine Leukocyte Esterase Negative /uL (Negative) Urine RBC 2 /hpf (0 - 4) Urine Microscopic WBC 2 /HPF (0-5) Urine Squamous Epithelial Cells None seen /hpf (<5) Urine Bacteria Few /hpf (None Seen) Urine Hyaline Casts Few /lpf (0 - 2) Urine Mucus Few (None Seen) Urine Glucose Normal mg/dL (Normal) Urine Opiates Screen Neg (NEGATIVE) Urine Fentanyl Screen Neg (NEGATIVE) Urine Barbiturates Screen Neg (NEGATIVE) Urine Phencyclidine Screen Neg (NEGATIVE) Urine Amphetamines Screen Neg (NEGATIVE) Urine Benzodiazepines Screen Neg (NEGATIVE) Urine Cocaine Screen Neg (NEGATIVE) Urine Cannabinoids Screen Neg (NEGATIVE) Test 08/15/24 08:25 08/15/24 12:22 08/16/24 05:54 08/16/24 09:08 Influenza Type A Antigen Negative (Negative) Influenza Type B Antigen Negative (Negative) SARS-CoV-2 Antigen (Rapid) Negative (NEGATIVE) Ammonia 12 umol/L (11-32) Vitamin B12 Level 425 pg/mL (211-911) Test 08/18/24 07:35 08/19/24 07:34 Blood Gas Specimen Type Arterial Blood Gas Sample Site Left radial Blood Gas Patient Temperature 37.0 Arterial Blood Date Drawn [id number] Arterial Blood pH 7.459 (7.350-7.450) Arterial Blood Partial Pressure CO2 34.4 mmHg (32.0-45.0) Arterial Blood Partial Pressure O2 53.7 mmHg (83.0-108.0) Arterial Blood HCO3 23.9 mmol/L (21.0-28.0) Arterial Blood Oxygen Saturation 89.8 % (94.0-98.0) Arterial Blood Base Excess 0.3 mmol/L (-2.0-3.0) Arterial Blood Oxyhemoglobin 89.1 % (94.0-98.0) Arterial Blood Carboxyhemoglobin 0.3 % (0.5-1.5) Arterial Blood Methemoglobin 0.5 % (0.0-1.5) Alec Test Modified Blood Gas Total Hemoglobin 9.40 g/dL (12.0-16.0) Blood Gas Modality Room air FiO2 % 21.0 Blood Gas Critical Value Read Back Yes Blood Gas Notified Whom Dr.akhtar marroquin Blood Gas Notified Time [id number] Blood Gas Notified By Adrienne mendez rt White Blood Count 5.9 10^3/uL (4.4-10.8) Red Blood Count 5.25 10^6/uL (4.0-5.20) Hemoglobin 11.0 g/dL (12.2-16.2) Hematocrit 35.2 % (36.0-46.0) Mean Corpuscular Volume 67.2 fL (80.0-100.0) Mean Corpuscular Hemoglobin 21.0 pg (28.0-32.0) Mean Corpuscular Hemoglobin Concent 31.2 g/dL (32.0-36.0) Red Cell Distribution Width 17.1 % (11.8-14.3) Platelet Count 261 10^3/uL (140-450) Mean Platelet Volume 8.4 fL (6.9-10.8) Neutrophils (%) (Auto) 62.9 % (37.0-80.0) Lymphocytes (%) (Auto) 26.3 % (10.0-50.0) Monocytes (%) (Auto) 7.8 % (0.0-12.0) Eosinophils (%) (Auto) 2.7 % (0.0-7.0) Basophils (%) (Auto) 0.3 % (0.0-2.0) Neutrophils # (Auto) 3.7 10 ^3/uL (1.6-8.6) Lymphocytes # (Auto) 1.6 10 ^3/uL (0.4-5.4) Monocytes # (Auto) 0.5 10 ^3/uL (0-1.3) Eosinophils # (Auto) 0.2 10 ^3/uL (0-0.8) Basophils # (Auto) 0 10 ^3/uL (0-0.2) Nucleated Red Blood Cells 0.2 % Sodium Level 141 mmol/L (136-145) Potassium Level 3.3 mmol/L (3.5-5.1) Chloride Level 103 mmol/L (98-107) Carbon Dioxide Level 25 mmol/L (20-31) Anion Gap 13 (5-15) Blood Urea Nitrogen 8 mg/dL (9-23) Creatinine 0.44 mg/dL (0.550-1.02) Glomerular Filtration Rate Calc 100 mL/min (>90) BUN/Creatinine Ratio 18.2 (10.0-20.0) Serum Glucose 78 mg/dL (74-106) Calcium Level 9.2 mg/dL (8.7-10.4) Total Bilirubin 0.4 mg/dL (0.2-1.0) Aspartate Amino Transf (AST/SGOT) 17 U/L (13-40) Alanine Aminotransferase (ALT/SGPT) 12 U/L (7-40) Alkaline Phosphatase 68 U/L (46-116) Total Protein 5.7 g/dL (5.7-8.2) Albumin 3.7 g/dL (3.2-4.8) Vancomycin Level Trough 18.8 ug/mL (5-10) Microbiology Date/Time Source Procedure Growth Status 08/17/24 05:16 Nose MRSA Screen - Final Complete 08/15/24 17:41 Voided Urine Urine Culture - Final Complete 08/14/24 19:58 Blood Blood Culture - Preliminary NO GROWTH AFTER 72 HOURS OF INCUBATION. Resulted Appearance: Stated age Psychomotor activity: Lethargic Behavioral: Withdrawn Eye contact: Avoids Speech: Soft Affect: Blunted Mood: Anxious Thought processes: Disorganized Thought content: Paucity of thoughts Suicidal ideations: Absent Homicidal ideations: Absent Orientation: Confused Memory intact: Poor Intellect: Average Abstractability: Marginal Concentration: Limited Attention: Limited Judgement: Poor Insight: Poor Vitals Vital Signs Date Time Temp Pulse Resp B/P (MAP) Pulse Ox O2 Delivery O2 Flow Rate FiO2 08/19/24 08:05 Room Air* 0 21 08/19/24 05:00 97.8 70 16 144/80 (101) 100 97.8 Current medications Current Medications Medications Dose Ordered Sig/Heather Route Start Time Stop Time Status Last Admin Dose Admin Vancomycin HCl 0 ml @ 0 mls/hr UD IV 08/15/24 16:00 Vancomycin HCl 100 ml @ 100 mls/hr Q12H IV 08/15/24 20:00 08/19/24 09:25 100 MLS/HR Levetiracetam 100 ml @ 400 mls/hr BID IV 08/16/24 10:00 08/18/24 22:29 400 MLS/HR Lorazepam 1 mg Q5MINP PRN IV 08/16/24 00:00 Multivitamins 1 tab DAILY PO 08/16/24 10:00 08/19/24 09:25 1 TAB Methimazole 15 mg DAILY PO 08/17/24 10:00 08/19/24 09:25 15 MG Ceftriaxone Sodium 50 ml @ 100 mls/hr DAILY@09 IV 08/19/24 09:00 Treatment plan discussed: With staff, Family Medication adjusted: Yes Labs ordered: No Psychotherapy provided: No Type: Voluntary History of Present Illness Reason for Consult: psychiatric evaluation PER H&P: This is a 78-year-old female with a past medical history of hypertension, COPD, AFib, CHF (preserved ejection fraction), hyperthyroidism, Hx of UTI brought to the hospital due to altered mental status. The patient stays at [facility] since 1 week for rehabilitation, and had a fall 3 days back with an uncertain head trauma. The patient was discharged from [facility] at 07/26/2024 admitted due to encephalopathy secondary to UTI and the patient was given vancomycin and meropenem. per,you milan, the patient at baseline can communicate properly but since fall 3 days back being more altered. Due to altered mental status review of system could not obtain. PSYCHIATRIST HPI: The patient was seen and evaluated at [facility] via telepsychiatry platform. 78 yr old female was admitted 08/14 with altered mental status. She was attempted to be interviewed today, but was not speaking much and was unable to answer questions posed to her Collateral information from daughter Thelma ([phone]): She reported that her mother told her she wants to go home. She has not been clinically diagnosed with dementia. She had been admitted to [facility] for two weeks for UTI and has not been walking since that time. She was sent to [facility] for a couple days and then she fell. She had asked her daughter about seeing the roommates under the bed, so felt she had been hallucinating. She forgets a lot of things. She can't sign her signature. She talks about her childhood and things happening in the distance past. She is unaware of the present date. She has difficulty handling finances. She is unable to text or use the phone. She had left the stove on and left the water running. Past Psychiatric History : No history of hospitalization, treatment or suicide attempts. Family history: father had Lewy body dementia Current medications: Metoprolol, Norvasc, Lasix, methimazole, melatonin Allergic history: Penicillin and sulfa antibiotics Past Medical History : hypertension, AFib, CHF (preserved ejection fraction), hyperthyroidism, Hx of UTI Substance Use: Ex-smoker. Denied use of alcohol and other drug use. Social History : Moved to [place] from [place] two years ago. , but for several years. Has six children. Lives in [place] with daughter Thelma. DIAGNOSIS: Rule Out NEUROCOGNITIVE DISORDER; RULE OUT DELIRIUM Formulation: This 78 yr old female appears to suffer from cognitive impairment which is likely a combination of delirium and neurocognitive disorder (dementia) or mild cognitive impairment. She may benefit from starting medication to help with sleep and hallucinations. She does not appear to have medical decision making capability. Plan: 1. Medical decision making: The patient does not currently appear to have medical decision making capability so a power of criminal defense attorney should be employed. 2. I recommend avoiding antihistamines and benzodiazepines in patients with cognitive impairment as this can contribute to cognitive impairment. Also seniors may be more sensitive to medications in general so I recommend starting at a low dose and slowly titrating to an effective dose. 3. Medications: I recommend starting Remeron 7.5mg qhs for sleep with a goal of having her sleep through the night to avoid middle of the night confusion/disori entation. I recommend starting low dose antipsychotic such as Risperidone 0.5mg qhs to help reduce hallucinations. However, often hallucinations are due to delirium and once the cause of the delirium is corrected (such as infection, medications, metabolic disturbance), the patient may not require rat exterminator antipsychotic use. I recommend starting low dose SSRI, such as Lexapro 5mg qam since cognitive impairment can lead to disorientation and anxiety/frustration over not knowing what is going on. SSRI should help reduce the anxiety and perseveration. 4. Case discussed with Team SHAWANDA Maher and patient's daughter, Thelma. 5. Please recontact psychiatry for further follow up or reevaluation. Assessment/Diagnosis/Plan Reviewed: Labs, Medications, Previous Orders SIMÓN JONES MD Aug 19, 2024 10:10
[2024-08-19] MEDS: ACETAMINOPHEN 325 MG TAB PO PRN (17:02)
[2024-08-19] MEDS: VANCOMYCIN 500mg/100mL 100 ML IV SCH (20:34)
[2024-08-19] MEDS ORDERED: CEFD300C2 PO (21:10)
--- NOTE | 2024-08-19 21:24 | DVHPNRES ---
Progress Note Date Seen: Aug 19, 2024 Resident Creating Document: CRISTELA SOARES RESIDENT Medical Necessity Reason Pt with a Central, PICC or Fol: Yes The following are medically ne: Shaw Catheter Subjective Review of Systems pt seen and examined at bedside Alert and oriented X3 currently lethargic and slow to talk did not mention of any complaints Objective vital signs Vital Sign Date Time Temp Pulse Resp B/P (MAP) Pulse Ox O2 Delivery O2 Flow Rate FiO2 08/19/24 17:00 98.2 80 16 116/76 (89) 100 98.2 08/19/24 08:05 Room Air* 0 21 Total Intake and Output 08/18/24 08/18/24 08/19/24 15:00 23:00 07:00 Intake Total 300 ml 100 ml Balance 300 ml 100 ml medications Current Medications Medications Dose Ordered Sig/Heather Route Start Time Stop Time Status Last Admin Dose Admin Vancomycin HCl 0 ml @ 0 mls/hr UD IV 08/15/24 16:00 Levetiracetam 100 ml @ 400 mls/hr BID IV 08/16/24 10:00 08/19/24 12:26 400 MLS/HR Lorazepam 1 mg Q5MINP PRN IV 08/16/24 00:00 Multivitamins 1 tab DAILY PO 08/16/24 10:00 08/19/24 09:25 1 TAB Methimazole 15 mg DAILY PO 08/17/24 10:00 08/19/24 09:25 15 MG Ceftriaxone Sodium 50 ml @ 100 mls/hr DAILY@09 IV 08/19/24 09:00 08/19/24 12:36 100 MLS/HR Vancomycin HCl 100 ml @ 200 mls/hr Q12H IV 08/19/24 20:00 Acetaminophen 650 mg Q6HP PRN PO 08/19/24 16:00 08/19/24 17:02 650 MG Examination Examination General Appearance: Alert, Oriented X3, lethargic HEENT: EOMI Respiratory: Clear to auscultation, Normal air movement, currently on 2 L of oxygen through nasal cannula Cardiovascular: Regular rate, Normal S1, Normal S2 Abdominal: Normal bowel sounds Extremities: No cyanosis, No edema, Normal pulses, No tenderness/swelling Skin: No rashes, No breakdown Neuro: Normal speech, tone, lethargic laboratory and microbiology Laboratory Tests 08/19/24 07:34 Test 08/19/24 07:34 Range/Units Serum Glucose 78 74-106 mg/dL Microbiology Date/Time Source Procedure Growth Status 08/17/24 05:16 Nose MRSA Screen - Final Complete 08/15/24 17:41 Voided Urine Urine Culture - Final Complete 08/14/24 19:58 Blood Blood Culture - Final NO GROWTH AFTER 5 DAYS OF INCUBATION. Complete Labs and/or images reviewed: Labs reviewed by me, Image(s) reviewed by me Problem List/Assessment/Plan Problem List/Assessment/Plan Assessment/plan # metabolic encephalopathy due to ?sepsis Meningitis? ?UTI ?Seizures-post ictal -Head CT -IV antibiotics -MRI shows . There is no acute intracranial process.Moderate chronic small- vessel ischemic changes in the supratentorial white matter. Partially empty sella. will order cortisol AM #Partially empty sella. seen on MRI will order cortisol AM #Moderate chronic small-vessel ischemic changes in the supratentorial white matter -seen on MRI -start eliquis #?Dementia -family history of Lewy body dementia #severe malnutrition -BMI 15 #?UTI -IV antibiotics #Microcytic anemia -monitor #Hypokalemia -corrected -monitor #Heart failure with preserved ejection fraction, chronic -echo reveals moderate degree LVH and moderate degree LV diastolic dysfunction #Heavily calcified aortic leaflets -seen on echo #Moderate degree pulmonary hypertension -seen on echo #Hypertension will resume home meds #AFib -starting eliquis #Hyperthyroidism -continue home meds #COPD, stable -currently on 2l 02 through nasal canula #2.6 cm right lower pole renal cyst -seen on imaging Physical therapy ordered health services manager consulted to arrange home physical therapy discharge planning within 24-48 hours Family updated about the condition of the patient at bedside and over the phone advance care planning-full code- time spent 19 mins Case discussion with dr perez Plan discussed with: Daughter, Other My Orders My Orders Orders - CRISTELA SOARES RESIDENT Procedure Category Date Status Time Acetaminophen Tablet PHA 08/19/24 In Process (Tylenol Tablet) 16:00 Date of Service: Aug 19, 2024 Billing Provider: NORMAN PEREZ MD Common Visit Codes: [id number] INP/OBS CARE(HIGH) Secondary Visit Codes: [id number] CARE PLAN 30 MINUTES CRISTELA SOARES RESIDENT Aug 19, 2024 21:24 NORMAN PEREZ MD Aug 20, 2024 15:34
[2024-08-19] MEDS: APIXABAN 5 MG TAB PO SCH (21:59)
[2024-08-20] VITALS (8 sets, daily range): BP systolic 100–153; BP diastolic 39–78; PULSE 60–72; RESP 16–19; TEMP 97.3–98; O2SAT 96–100
[2024-08-20] MEDS: amLODIPine BESYLATE 5 MG TAB PO SCH (09:58)
[2024-08-20 10:11] LABS: Basophils # (auto) 0.2 10 ^3/uL (0-0.2); White Blood Cell 8.2 10^3/uL (4.4-10.8)
[2024-08-20 10:14] LABS: Basophils % (auto) 2.5 % (0.0-2.0); Eosinophils # (auto) 0.6 10 ^3/uL (0-0.8); Eosinophils % (auto) 7.9 % (0.0-7.0); Hematocrit 31.8 % (36.0-46.0); Hemoglobin 10.2 g/dL (12.2-16.2); Lymphocytes # (auto) 2.3 10 ^3/uL (0.4-5.4); Lymphocytes % (auto) 27.5 % (10.0-50.0); Mean Corpuscular Hemoglobin 21.5 pg (28.0-32.0); Mean Corpuscular Hgb Conc. 32.1 g/dL (32.0-36.0); Monocytes # (auto) 0.7 10 ^3/uL (0-1.3); Monocytes % (auto) 8.9 % (0.0-12.0); Neutrophils # (auto) 4.3 10 ^3/uL (1.6-8.6); Neutrophils % (auto) 53.2 % (37.0-80.0); Nucleated Red Blood Cells % 0.3 %; Platelet Count (auto) 230 10^3/uL (140-450); Red Blood Cells 4.74 10^6/uL (4.0-5.20); Red Cell Distribution Width 17.3 % (11.8-14.3)
[2024-08-20 11:03] LABS: Anion Gap 11 (5-15); Carbon Dioxide 26 mmol/L (20-31); Chloride 105 mmol/L (98-107); Sodium 142 mmol/L (136-145)
[2024-08-20 11:04] LABS: Calcium 9.1 mg/dL (8.7-10.4)
[2024-08-20 11:09] LABS: BUN/Creatinine Ratio 14.8 (10.0-20.0)
[2024-08-20 11:24] LABS: Blood Urea Nitrogen 8 mg/dL (9-23); Magnesium 1.4 mg/dL (1.6-2.6); Potassium 3.2 mmol/L (3.5-5.1)
[2024-08-20 11:42] LABS: Glucose 69 mg/dL (74-106)
[2024-08-20 12:54] LABS: Platelet Estimate Adequate
[2024-08-20 12:55] LABS: Hypochromia Moderate
[2024-08-20] MEDS: MAGNESIUM SULFATE 1GM/100ML 100 ML IV SCH (14:08)
[2024-08-20] MEDS: POTASSIUM EFFERVESENT TAB 25 MEQ PO ONE (14:08)
[2024-08-20] MEDS ORDERED: CEFD300C2 PO (18:24)
--- NOTE | 2024-08-20 19:07 | DVHPNRES ---
Progress Note Date Seen: Aug 20, 2024 Resident Creating Document: CRISTELA SOARES RESIDENT Medical Necessity Reason Pt with a Central, PICC or Fol: Yes The following are medically ne: Shaw Catheter Subjective Review of Systems pt seen and examined at bedside Alert and oriented X3 currently lethargic and slow to talk did not mention of any complaints Objective vital signs Vital Sign Date Time Temp Pulse Resp B/P (MAP) Pulse Ox O2 Delivery O2 Flow Rate FiO2 08/20/24 17:00 97.4 72 17 138/72 (94) 99 97.4 08/20/24 08:05 Room Air* 0 21 Total Intake and Output 08/19/24 08/19/24 08/20/24 15:00 23:00 07:00 Intake Total 250 ml 200 ml Balance 250 ml 200 ml medications Current Medications Medications Dose Ordered Sig/Heather Route Start Time Stop Time Status Last Admin Dose Admin Vancomycin HCl 0 ml @ 0 mls/hr UD IV 08/15/24 16:00 Levetiracetam 100 ml @ 400 mls/hr BID IV 08/16/24 10:00 08/20/24 12:39 400 MLS/HR Lorazepam 1 mg Q5MINP PRN IV 08/16/24 00:00 Multivitamins 1 tab DAILY PO 08/16/24 10:00 08/20/24 09:58 1 TAB Methimazole 15 mg DAILY PO 08/17/24 10:00 08/20/24 09:58 15 MG Ceftriaxone Sodium 50 ml @ 100 mls/hr DAILY@09 IV 08/19/24 09:00 08/20/24 13:03 100 MLS/HR Vancomycin HCl 100 ml @ 200 mls/hr Q12H IV 08/19/24 20:00 08/20/24 09:52 200 MLS/HR Acetaminophen 650 mg Q6HP PRN PO 08/19/24 16:00 08/19/24 17:02 650 MG Apixaban 5 mg BID PO 08/19/24 22:00 08/20/24 09:58 5 MG Amlodipine Besylate 10 mg DAILY PO 08/20/24 10:00 08/20/24 09:58 10 MG Examination Examination General Appearance: Alert, Oriented X3, lethargic HEENT: EOMI Respiratory: Clear to auscultation, Normal air movement, currently on 2 L of oxygen through nasal cannula Cardiovascular: Regular rate, Normal S1, Normal S2 Abdominal: Normal bowel sounds Extremities: No cyanosis, No edema, Normal pulses, No tenderness/swelling Skin: No rashes, No breakdown Neuro: Normal speech, tone, lethargic laboratory and microbiology Laboratory Tests 08/20/24 09:52 Test 08/20/24 09:52 Range/Units Serum Glucose 69 L 74-106 mg/dL Microbiology Date/Time Source Procedure Growth Status 08/17/24 05:16 Nose MRSA Screen - Final Complete 08/15/24 17:41 Voided Urine Urine Culture - Final Complete 08/14/24 19:58 Blood Blood Culture - Final NO GROWTH AFTER 5 DAYS OF INCUBATION. Complete Labs and/or images reviewed: Labs reviewed by me, Image(s) reviewed by me Problem List/Assessment/Plan Problem List/Assessment/Plan Assessment/plan # metabolic encephalopathy due to ?sepsis Meningitis? ?UTI ?Seizures-post ictal -Head CT -IV antibiotics -MRI shows . There is no acute intracranial process.Moderate chronic small- vessel ischemic changes in the supratentorial white matter. Partially empty sella. - cortisol AM #Partially empty sella. seen on MRI will order cortisol AM #Moderate chronic small-vessel ischemic changes in the supratentorial white matter -seen on MRI -start eliquis #?Dementia -family history of Lewy body dementia #severe malnutrition -BMI 15 #?UTI -IV antibiotics #Microcytic anemia -monitor #Hypokalemia -corrected -monitor #Heart failure with preserved ejection fraction, chronic -echo reveals moderate degree LVH and moderate degree LV diastolic dysfunction #Heavily calcified aortic leaflets -seen on echo #Moderate degree pulmonary hypertension -seen on echo #Hypertension will resume home meds #AFib -starting eliquis #Hyperthyroidism -continue home meds #COPD, stable -currently on 2l 02 through nasal canula #2.6 cm right lower pole renal cyst -seen on imaging Physical therapy ordered financial services associate consulted to arrange home physical therapy advance care planning- full code- time spent 21 mins discharge planning within 24-48 hours Case discussion with dr perez Plan discussed with: Other My Orders My Orders Orders - CRISTELA SOARES RESIDENT Procedure Category Date Status Time * [employer] Supervisor CONS 08/19/24 Transmitted Consult Apixaban (Eliquis) PHA 08/19/24 In Process 22:00 Amlodipine Tablet PHA 08/20/24 In Process ([facility] Tablet) 10:00 Date of Service: Aug 20, 2024 Billing Provider: NORMAN PEREZ MD Common Visit Codes: [id number] INP/OBS CARE(HIGH) Secondary Visit Codes: [id number] CARE PLAN 30 MINUTES CRISTELA SOARES RESIDENT Aug 20, 2024 19:07 NORMAN PEREZ MD Aug 25, 2024 12:42
--- NOTE | 2024-08-20 19:08 | DVHDSRES ---
Discharge Summary Date of Admission Resident Creating Document: CRISTELA SOARES Aug 14, 2024 at 23:27 Date of Discharge: Aug 20, 2024 Labs/Diagnostic Data: Laboratory Results Test 08/20/24 09:52 08/20/24 08:46 08/19/24 07:34 08/18/24 07:35 White Blood Count 8.2 10^3/uL (4.4-10.8) Red Blood Count 4.74 10^6/uL (4.0-5.20) Hemoglobin 10.2 g/dL (12.2-16.2) Hematocrit 31.8 % (36.0-46.0) Mean Corpuscular Volume 67.0 fL (80.0-100.0) Mean Corpuscular Hemoglobin 21.5 pg (28.0-32.0) Mean Corpuscular Hemoglobin Concent 32.1 g/dL (32.0-36.0) Red Cell Distribution Width 17.3 % (11.8-14.3) Platelet Count 230 10^3/uL (140-450) Mean Platelet Volume 8.9 fL (6.9-10.8) Neutrophils (%) (Auto) 53.2 % (37.0-80.0) Lymphocytes (%) (Auto) 27.5 % (10.0-50.0) Monocytes (%) (Auto) 8.9 % (0.0-12.0) Eosinophils (%) (Auto) 7.9 % (0.0-7.0) Basophils (%) (Auto) 2.5 % (0.0-2.0) Neutrophils # (Auto) 4.3 10 ^3/uL (1.6-8.6) Lymphocytes # (Auto) 2.3 10 ^3/uL (0.4-5.4) Monocytes # (Auto) 0.7 10 ^3/uL (0-1.3) Eosinophils # (Auto) 0.6 10 ^3/uL (0-0.8) Basophils # (Auto) 0.2 10 ^3/uL (0-0.2) Nucleated Red Blood Cells 0.3 % Platelet Estimate Adequate Clumped Platelets Hypochromasia (manual) Moderate Microcytosis Marked Sodium Level 142 mmol/L (136-145) Potassium Level 3.2 mmol/L (3.5-5.1) Chloride Level 105 mmol/L (98-107) Carbon Dioxide Level 26 mmol/L (20-31) Anion Gap 11 (5-15) Blood Urea Nitrogen 8 mg/dL (9-23) Creatinine 0.54 mg/dL (0.550-1.02) Glomerular Filtration Rate Calc 95 mL/min (>90) BUN/Creatinine Ratio 14.8 (10.0-20.0) Serum Glucose 69 mg/dL (74-106) Calcium Level 9.1 mg/dL (8.7-10.4) Magnesium Level 1.4 mg/dL (1.6-2.6) Cortisol AM Sample 15.96 ug/dL (5.27-22.45) Total Bilirubin 0.4 mg/dL (0.2-1.0) Aspartate Amino Transferase (AST) 17 U/L (13-40) Alanine Aminotransferase (ALT) 12 U/L (7-40) Alkaline Phosphatase 68 U/L (46-116) Total Protein 5.7 g/dL (5.7-8.2) Albumin 3.7 g/dL (3.2-4.8) Vancomycin Level Trough 18.8 ug/mL (5-10) Blood Gas Specimen Type Arterial Blood Gas Sample Site Left radial Blood Gas Patient Temperature 37.0 Arterial Blood Date Drawn [id number] Arterial Blood pH 7.459 (7.350-7.450) Arterial Blood Partial Pressure CO2 34.4 mmHg (32.0-45.0) Arterial Blood Partial Pressure O2 53.7 mmHg (83.0-108.0) Arterial Blood HCO3 23.9 mmol/L (21.0-28.0) Arterial Blood Oxygen Saturation 89.8 % (94.0-98.0) Arterial Blood Base Excess 0.3 mmol/L (-2.0-3.0) Arterial Blood Oxyhemoglobin 89.1 % (94.0-98.0) Arterial Blood Carboxyhemoglobin 0.3 % (0.5-1.5) Arterial Blood Methemoglobin 0.5 % (0.0-1.5) Alec Test Modified Blood Gas Total Hemoglobin 9.40 g/dL (12.0-16.0) Blood Gas Modality Room air FiO2 % 21.0 Blood Gas Critical Value Read Back Yes Blood Gas Notified Whom Dr.akhtar marroquin Blood Gas Notified Time [id number] Blood Gas Notified By Adrienne mendez rt Test 08/16/24 09:08 08/16/24 05:54 08/15/24 12:22 08/15/24 08:25 Vitamin B12 Level 425 pg/mL (211-911) Ammonia 12 umol/L (11-32) Influenza Type A Antigen Negative (Negative) Influenza Type B Antigen Negative (Negative) SARS-CoV-2 Antigen (Rapid) Negative (NEGATIVE) Test 08/15/24 08:10 08/14/24 19:58 08/14/24 18:33 Urine Color Yellow (Yellow) Urine Clarity Clear (Clear) Urine pH 5.5 (5.0-9.0) Urine Specific [place] 1.024 (1.001-1.035) Urine Protein Trace (Negative) Urine Ketones 1+ (Negative) Urine Blood Negative /uL (Negative) Urine Nitrite Negative (Negative) Urine Bilirubin Negative (Negative) Urine Urobilinogen Normal mg/dL (Negative) Urine Leukocyte Esterase Negative /uL (Negative) Urine RBC 2 /hpf (0 - 4) Urine Microscopic WBC 2 /HPF (0-5) Urine Squamous Epithelial Cells None seen /hpf (<5) Urine Bacteria Few /hpf (None Seen) Urine Hyaline Casts Few /lpf (0 - 2) Urine Mucus Few (None Seen) Urine Glucose Normal mg/dL (Normal) Urine Opiates Screen Neg (NEGATIVE) Urine Fentanyl Screen Neg (NEGATIVE) Urine Barbiturates Screen Neg (NEGATIVE) Urine Phencyclidine Screen Neg (NEGATIVE) Urine Amphetamines Screen Neg (NEGATIVE) Urine Benzodiazepines Screen Neg (NEGATIVE) Urine Cocaine Screen Neg (NEGATIVE) Urine Cannabinoids Screen Neg (NEGATIVE) Free Thyroxine (T4) Calculated 1.40 ng/dL (0.89-1.76) Free Triiodothyronine (T3) pg/mL 4.11 pg/mL (2.3-4.2) Prothrombin Time 11.1 sec (9.3-11.8) Prothrombin Time INR 1.05 (0.9-1.15) Activated Partial Thromboplast Time 22.0 SEC (24.5-34.5) Lactic Acid Level 1.4 mmol/L (0.4-2.0) Phosphorus Level 3.7 mg/dL (2.4-5.1) Thyroid Stimulating Hormone (TSH) 0.01 uIU/mL (0.55-4.78) Other Laboratory Tests 08/20/24 09:52 Final Diagnosis/Problems List UTI Discharge Disposition: Home Discharge Instruct/Medications Diet: Cardiac 2g Na,low cholest Activity: No Restrictions, As Tolerated Follow Up/Referral: fu with pcp in 1 wk Medications: resume home meds script to pharmacy Discharge Statement: "Patient was advised to return to the ER or call 911 if any headaches, dizziness, shortness of breath, chest pain, abdominal pain, bleeding, fevers, or worsening of medical condition. Patient was counseled about treatment plan, medications, possible side effects, patientverbalized understanding. All questions were answered to the best of my ability. This discharge took greater then 30 minutes in planning, reviewing documentation, counseling the patient, and discussing with other team members." ASSESSMENT ASSESSMENT Assessment CRISTELA BERGMAN RESIDENT Aug 20, 2024 19:08
[2024-08-20] MEDS: POTASSIUM CHL 20MEQ/100ML 100 ML IV SCH (22:47)
[2024-08-21 01:00] VITALS: BP 157/86; PULSE 81; RESP 16; TEMP 97.4; O2SAT 99
[2024-08-21 05:00] VITALS: BP 141/74; PULSE 61; RESP 16; TEMP 98.1; O2SAT 99
[2024-08-21 06:42] LABS: Basophils # (auto) 0.1 10 ^3/uL (0-0.2); Lymphocytes # (auto) 1.5 10 ^3/uL (0.4-5.4); Monocytes # (auto) 0.5 10 ^3/uL (0-1.3)
[2024-08-21 06:52] LABS: Basophils % (auto) 1.1 % (0.0-2.0); Eosinophils # (auto) 0.5 10 ^3/uL (0-0.8); Eosinophils % (auto) 9.1 % (0.0-7.0); Hematocrit 28.7 % (36.0-46.0); Hemoglobin 9.4 g/dL (12.2-16.2); Lymphocytes % (auto) 24.7 % (10.0-50.0); Mean Corpuscular Hemoglobin 21.6 pg (28.0-32.0); Mean Corpuscular Hgb Conc. 32.9 g/dL (32.0-36.0); Mean Corpuscular Volume 65.7 fL (80.0-100.0); Monocytes % (auto) 8.9 % (0.0-12.0); Neutrophils # (auto) 3.4 10 ^3/uL (1.6-8.6); Neutrophils % (auto) 56.2 % (37.0-80.0); Nucleated Red Blood Cells % 0.3 %; Platelet Count (auto) 241 10^3/uL (140-450); Red Blood Cells 4.37 10^6/uL (4.0-5.20)
[2024-08-21 08:02] VITALS: PULSE 69
[2024-08-21 08:07] LABS: Chloride 106 mmol/L (98-107); Sodium 142 mmol/L (136-145)
[2024-08-21 08:08] LABS: Anion Gap 9 (5-15); Carbon Dioxide 27 mmol/L (20-31)
[2024-08-21 08:09] LABS: Calcium 9.2 mg/dL (8.7-10.4)
[2024-08-21 08:13] LABS: BUN/Creatinine Ratio 12.5 (10.0-20.0); Glucose 79 mg/dL (74-106)
[2024-08-21 08:14] LABS: Blood Urea Nitrogen 7 mg/dL (9-23); Potassium 3.2 mmol/L (3.5-5.1)
[2024-08-21 08:36] VITALS: BP 133/74; PULSE 64; RESP 17; TEMP 98.1; O2SAT 99
[2024-08-21] MEDS: POTASSIUM EFFERVESENT TAB 25 MEQ PO ONE ×2 (10:55→13:00)
[2024-08-21 13:00] VITALS: BP 143/73; PULSE 65; RESP 16; TEMP 98.1; O2SAT 100
[2024-08-21] MEDS ORDERED: ESCI5TAB PO (15:52)
[2024-08-21] MEDS ORDERED: MIRT-93 PO (15:52)
[2024-08-21 16:44] VITALS: BP 146/76; PULSE 79; RESP 18; TEMP 98.9; O2SAT 96
--- NOTE | 2024-08-21 19:06 | DVHPNRES ---
Progress Note Date Seen: Aug 21, 2024 Resident Creating Document: CRISTELA SOARES RESIDENT Medical Necessity Reason Pt with a Central, PICC or Fol: Yes The following are medically ne: Shaw Catheter Subjective Review of Systems pt seen and examined at bedside Alert and oriented X3 currently lethargic and slow to talk did not mention of any complaints Objective vital signs Vital Sign Date Time Temp Pulse Resp B/P (MAP) Pulse Ox O2 Delivery O2 Flow Rate FiO2 08/21/24 16:44 98.9 79 18 146/76 (99) 96 98.9 08/21/24 08:10 Room Air* 0 21 Total Intake and Output 08/20/24 08/20/24 08/21/24 15:00 23:00 07:00 Intake Total 250 ml 536 ml 150 ml Output Total 400 ml Balance 250 ml 136 ml 150 ml medications Current Medications Medications Dose Ordered Sig/Heather Route Start Time Stop Time Status Last Admin Dose Admin Vancomycin HCl 0 ml @ 0 mls/hr UD IV 08/15/24 16:00 Levetiracetam 100 ml @ 400 mls/hr BID IV 08/16/24 10:00 08/20/24 22:24 400 MLS/HR Lorazepam 1 mg Q5MINP PRN IV 08/16/24 00:00 Multivitamins 1 tab DAILY PO 08/16/24 10:00 08/20/24 09:58 1 TAB Methimazole 15 mg DAILY PO 08/17/24 10:00 08/20/24 09:58 15 MG Ceftriaxone Sodium 50 ml @ 100 mls/hr DAILY@09 IV 08/19/24 09:00 08/20/24 13:03 100 MLS/HR Vancomycin HCl 100 ml @ 200 mls/hr Q12H IV 08/19/24 20:00 08/20/24 09:52 200 MLS/HR Acetaminophen 650 mg Q6HP PRN PO 08/19/24 16:00 08/19/24 17:02 650 MG Apixaban 5 mg BID PO 08/19/24 22:00 08/20/24 09:58 5 MG Amlodipine Besylate 10 mg DAILY PO 08/20/24 10:00 08/20/24 09:58 10 MG Examination Examination General Appearance: Alert, Oriented X3, lethargic HEENT: EOMI Respiratory: Clear to auscultation, Normal air movement, currently on 2 L of oxygen through nasal cannula Cardiovascular: Regular rate, Normal S1, Normal S2 Abdominal: Normal bowel sounds Extremities: No cyanosis, No edema, Normal pulses, No tenderness/swelling Skin: No rashes, No breakdown Neuro: Normal speech, tone, lethargic laboratory and microbiology Laboratory Tests 08/21/24 05:56 Test 08/21/24 05:56 Range/Units Serum Glucose 79 74-106 mg/dL Microbiology Date/Time Source Procedure Growth Status 08/17/24 05:16 Nose MRSA Screen - Final Complete 08/15/24 17:41 Voided Urine Urine Culture - Final Complete 08/14/24 19:58 Blood Blood Culture - Final NO GROWTH AFTER 5 DAYS OF INCUBATION. Complete Labs and/or images reviewed: Labs reviewed by me, Image(s) reviewed by me Problem List/Assessment/Plan Problem List/Assessment/Plan Assessment/plan # metabolic encephalopathy due to ?sepsis Meningitis? ?UTI ?Seizures-post ictal -Head CT -IV antibiotics -MRI shows . There is no acute intracranial process.Moderate chronic small- vessel ischemic changes in the supratentorial white matter. Partially empty sella. - cortisol AM #Partially empty sella. seen on MRI will order cortisol AM #Moderate chronic small-vessel ischemic changes in the supratentorial white matter -seen on MRI -start eliquis #?Dementia -family history of Lewy body dementia #severe malnutrition -BMI 15 #?UTI -IV antibiotics #Microcytic anemia -monitor #Hypokalemia -corrected -monitor #Heart failure with preserved ejection fraction, chronic -echo reveals moderate degree LVH and moderate degree LV diastolic dysfunction #Heavily calcified aortic leaflets -seen on echo #Moderate degree pulmonary hypertension -seen on echo #Hypertension will resume home meds #AFib -starting eliquis #Hyperthyroidism -continue home meds #COPD, stable -currently on 2l 02 through nasal canula #2.6 cm right lower pole renal cyst -seen on imaging Physical therapy ordered client services account manager consulted to arrange home physical therapy pt was planned to be discharged yesterday but had hypokalemia Discharge planning today Case discussion with dr perez Plan discussed with: Other My Orders My Orders Orders - CRISTELA SOARES RESIDENT Procedure Category Date Status Time Discontinue Shaw LJ 08/21/24 In Process Catheter 17:25 Date of Service: Aug 21, 2024 Billing Provider: NORMAN PEREZ MD Common Visit Codes: [id number] INP/OBS CARE(HIGH) CRISTELA SOARES RESIDENT Aug 21, 2024 19:06 NORMAN PEREZ MD Aug 25, 2024 12:48
--- NOTE | 2024-08-21 19:07 | DVHDSRES ---
Discharge Summary Date of Admission Resident Creating Document: CRISTELA SOARES Aug 14, 2024 at 23:27 Date of Discharge: Aug 20, 2024 Labs/Diagnostic Data: Laboratory Results Test 08/21/24 05:56 08/20/24 09:52 08/20/24 08:46 08/19/24 07:34 White Blood Count 6.0 10^3/uL (4.4-10.8) Red Blood Count 4.37 10^6/uL (4.0-5.20) Hemoglobin 9.4 g/dL (12.2-16.2) Hematocrit 28.7 % (36.0-46.0) Mean Corpuscular Volume 65.7 fL (80.0-100.0) Mean Corpuscular Hemoglobin 21.6 pg (28.0-32.0) Mean Corpuscular Hemoglobin Concent 32.9 g/dL (32.0-36.0) Red Cell Distribution Width 17.0 % (11.8-14.3) Platelet Count 241 10^3/uL (140-450) Mean Platelet Volume 8.5 fL (6.9-10.8) Neutrophils (%) (Auto) 56.2 % (37.0-80.0) Lymphocytes (%) (Auto) 24.7 % (10.0-50.0) Monocytes (%) (Auto) 8.9 % (0.0-12.0) Eosinophils (%) (Auto) 9.1 % (0.0-7.0) Basophils (%) (Auto) 1.1 % (0.0-2.0) Neutrophils # (Auto) 3.4 10 ^3/uL (1.6-8.6) Lymphocytes # (Auto) 1.5 10 ^3/uL (0.4-5.4) Monocytes # (Auto) 0.5 10 ^3/uL (0-1.3) Eosinophils # (Auto) 0.5 10 ^3/uL (0-0.8) Basophils # (Auto) 0.1 10 ^3/uL (0-0.2) Nucleated Red Blood Cells 0.3 % Sodium Level 142 mmol/L (136-145) Potassium Level 3.2 mmol/L (3.5-5.1) Chloride Level 106 mmol/L (98-107) Carbon Dioxide Level 27 mmol/L (20-31) Anion Gap 9 (5-15) Blood Urea Nitrogen 7 mg/dL (9-23) Creatinine 0.56 mg/dL (0.550-1.02) Glomerular Filtration Rate Calc 94 mL/min (>90) BUN/Creatinine Ratio 12.5 (10.0-20.0) Serum Glucose 79 mg/dL (74-106) Calcium Level 9.2 mg/dL (8.7-10.4) Platelet Estimate Adequate Clumped Platelets Hypochromasia (manual) Moderate Microcytosis Marked Magnesium Level 1.4 mg/dL (1.6-2.6) Cortisol AM Sample 15.96 ug/dL (5.27-22.45) Total Bilirubin 0.4 mg/dL (0.2-1.0) Aspartate Amino Transferase (AST) 17 U/L (13-40) Alanine Aminotransferase (ALT) 12 U/L (7-40) Alkaline Phosphatase 68 U/L (46-116) Total Protein 5.7 g/dL (5.7-8.2) Albumin 3.7 g/dL (3.2-4.8) Vancomycin Level Trough 18.8 ug/mL (5-10) Test 08/18/24 07:35 08/16/24 09:08 08/16/24 05:54 08/15/24 12:22 Blood Gas Specimen Type Arterial Blood Gas Sample Site Left radial Blood Gas Patient Temperature 37.0 Arterial Blood Date Drawn [id number] Arterial Blood pH 7.459 (7.350-7.450) Arterial Blood Partial Pressure CO2 34.4 mmHg (32.0-45.0) Arterial Blood Partial Pressure O2 53.7 mmHg (83.0-108.0) Arterial Blood HCO3 23.9 mmol/L (21.0-28.0) Arterial Blood Oxygen Saturation 89.8 % (94.0-98.0) Arterial Blood Base Excess 0.3 mmol/L (-2.0-3.0) Arterial Blood Oxyhemoglobin 89.1 % (94.0-98.0) Arterial Blood Carboxyhemoglobin 0.3 % (0.5-1.5) Arterial Blood Methemoglobin 0.5 % (0.0-1.5) Alec Test Modified Blood Gas Total Hemoglobin 9.40 g/dL (12.0-16.0) Blood Gas Modality Room air FiO2 % 21.0 Blood Gas Critical Value Read Back Yes Blood Gas Notified Whom Dr.akhtar marroquin Blood Gas Notified Time [id number] Blood Gas Notified By Adrienne mendez rt Vitamin B12 Level 425 pg/mL (211-911) Ammonia 12 umol/L (11-32) Test 08/15/24 08:25 08/15/24 08:10 08/14/24 19:58 08/14/24 18:33 Influenza Type A Antigen Negative (Negative) Influenza Type B Antigen Negative (Negative) SARS-CoV-2 Antigen (Rapid) Negative (NEGATIVE) Urine Color Yellow (Yellow) Urine Clarity Clear (Clear) Urine pH 5.5 (5.0-9.0) Urine Specific [place] 1.024 (1.001-1.035) Urine Protein Trace (Negative) Urine Ketones 1+ (Negative) Urine Blood Negative /uL (Negative) Urine Nitrite Negative (Negative) Urine Bilirubin Negative (Negative) Urine Urobilinogen Normal mg/dL (Negative) Urine Leukocyte Esterase Negative /uL (Negative) Urine RBC 2 /hpf (0 - 4) Urine Microscopic WBC 2 /HPF (0-5) Urine Squamous Epithelial Cells None seen /hpf (<5) Urine Bacteria Few /hpf (None Seen) Urine Hyaline Casts Few /lpf (0 - 2) Urine Mucus Few (None Seen) Urine Glucose Normal mg/dL (Normal) Urine Opiates Screen Neg (NEGATIVE) Urine Fentanyl Screen Neg (NEGATIVE) Urine Barbiturates Screen Neg (NEGATIVE) Urine Phencyclidine Screen Neg (NEGATIVE) Urine Amphetamines Screen Neg (NEGATIVE) Urine Benzodiazepines Screen Neg (NEGATIVE) Urine Cocaine Screen Neg (NEGATIVE) Urine Cannabinoids Screen Neg (NEGATIVE) Free Thyroxine (T4) Calculated 1.40 ng/dL (0.89-1.76) Free Triiodothyronine (T3) pg/mL 4.11 pg/mL (2.3-4.2) Prothrombin Time 11.1 sec (9.3-11.8) Prothrombin Time INR 1.05 (0.9-1.15) Activated Partial Thromboplast Time 22.0 SEC (24.5-34.5) Lactic Acid Level 1.4 mmol/L (0.4-2.0) Phosphorus Level 3.7 mg/dL (2.4-5.1) Thyroid Stimulating Hormone (TSH) 0.01 uIU/mL (0.55-4.78) Other Laboratory Tests 08/21/24 05:56 Brief Hx & Hospital Course: 78-year-old female with past medical history of hypertension, COPD, A-Fib, heart failure with preserved ejection fraction, hypothyroidism, history of UTI presented with chief complaint of altered mental status. Patient was recently discharged from the hospital and was discharged to [facility] acute [facility]. Patient had a mechanical fall there but unknown history for head trauma. As per Patient was started getting more altered for last three days. Head CT was done, revealed no acute intracranial hemorrhage, midline shift or mass effect. If symptoms persist, further evaluation with MRI is recommended. Patient was started on IV antibiotics for possible UTI. Patient's hypokalemia was corrected. MRI had revealed There is no acute intracranial process. Moderate chronic small-vessel ischemic changes in the supratentorial white matter. Partially empty sella. Patient's mental status improved during the hospital stay. Patient was alert and oriented x3 but was having fluctuation in cognition and was not participating in communication. Tele psych was consulted. Scaffold Setter was consulted to arrange home physical therapy as per family discussion At the time of discharge, patient had stable vitals, no new complaints. Discharge plan was discussed with the patient and patient's family. Patient was advised To follow up PCP and Psychiatry within one week after discharge. Patient was discharged to home with home physical therapy. Patient was discharged on cefdinir for seven days, escitalopram and mirtazapine. time spent in discharge planning was 51 mins Condition at Discharge: Stable Final Diagnosis/Problems List #metabolic encephalopathy due to ?sepsis Meningitis? ?UTI ?Seizures-post ictal #Partially empty sella. #Moderate chronic small-vessel ischemic changes in the supratentorial white matter #?Dementia #severe malnutrition #?UTI #Microcytic anemia #Hypokalemia #Heart failure with preserved ejection fraction, chronic #Heavily calcified aortic leaflets #Moderate degree pulmonary hypertension #Hypertension #AFib #Hyperthyroidism #COPD, stable #2.6 cm right lower pole renal cyst Discharge Disposition: Home with Health Services (Physical therapy) Discharge Instruct/Medications Diet: Cardiac 2g Na,low cholest Activity: No Restrictions, As Tolerated Follow Up/Referral: fu with pcp in 1 wk Medications: resume home meds script to pharmacy Discharge Statement: "Patient was advised to return to the ER or call 911 if any headaches, dizziness, shortness of breath, chest pain, abdominal pain, bleeding, fevers, or worsening of medical condition. Patient was counseled about treatment plan, medications, possible side effects, patientverbalized understanding. All questions were answered to the best of my ability. This discharge took greater then 30 minutes in planning, reviewing documentation, counseling the patient, and discussing with other team members." ASSESSMENT ASSESSMENT Assessment UTI Date of Service: Aug 20, 2024 Billing Provider: NORMAN PEREZ MD Common Visit Codes: 04432-FGH/OBS DISCH DAY >30min CRISTELA SOARES Aug 21, 2024 19:07 NORMAN PEREZ MD Aug 25, 2024 13:15
[2024-08-25 14:06] LABS: Vitamin B1, Whole Blood 66.3 nmol/L (66.5-200.0)
== END 2024-08-21 19:10 | disposition home health service (06) | DRG 97 ==
LOC: EDBD 17:51 → ER 17:51 → TELE 23:27 → TELE-WESTW 08-15 17:40
PROVIDERS: ADMIT Internal Medicine; ATTEND Internal Medicine
PROC: 05HD33Z Insertion of Infusion Device into Right Cephalic Vein, Percutaneous Approach (ICD-10-PCS; principal; 2024-08-16)
PROC: B54MZZA Ultrasonography of Right Upper Extremity Veins, Guidance (ICD-10-PCS; 2024-08-16)
DX: G03.9 Meningitis, unspecified (principal); E05.91 Thyrotoxicosis, unspecified with thyrotoxic crisis or storm; E43 Unspecified severe protein-calorie malnutrition; D68.9 Coagulation defect, unspecified; E87.1 Hypo-osmolality and hyponatremia; N39.0 Urinary tract infection, site not specified; Z68.1 Body mass index [BMI] 19.9 or less, adult; I50.32 Chronic diastolic (congestive) heart failure; Z20.822 Contact with and (suspected) exposure to COVID-19; D50.9 Iron deficiency anemia, unspecified; E87.6 Hypokalemia; F02.A0 Dementia in other diseases classified elsewhere, mild, without behavioral disturbance, psychotic disturbance, mood disturbance, and anxiety; G30.9 Alzheimer's disease, unspecified; I11.0 Hypertensive heart disease with heart failure; I27.22 Pulmonary hypertension due to left heart disease; I48.91 Unspecified atrial fibrillation; N28.1 Cyst of kidney, acquired; G40.909 Epilepsy, unspecified, not intractable, without status epilepticus; J44.89 Other specified chronic obstructive pulmonary disease; Z88.0 Allergy status to penicillin; Z88.2 Allergy status to sulfonamides; Z87.891 Personal history of nicotine dependence
CPT/HCPCS: 36415; 36600; 70450; 70551; 71045; 80048; 80053; 80202; 80307; 81001; 82140; 82533; 82565; 82607; 82805; 83605; 83735; 84100; 84132; 84425; 84439; 84443; 84481; 85025; 85610; 85730; 87040; 87081; 87086; 87426; 87804; 92610; 93005; 97110; 97116; 97163; 97530; G0378; J1956; J3480; J7060

== ENCOUNTER 2024-12-18 11:53 | Inpatient (IN) | payer MEDICARE, OTHER ==
[~2024-12-18] VITALS: Ht 157.5 cm; Wt 97.7 kg
[~2024-12-18 11:53] MED LIST changes: -AMLO1TAB21 PO; +CEFD300C2 PO; +ESCI5TAB PO; -FURO20TA3 PO; -METO-289 PO; +MIRT-93 PO
--- NOTE | 2024-12-18 12:17 | ED.PDOC ---
SOB-HPI HPI Comments 79 y.o female with PMHx of Dementia, CHF and thyroid disease, presents to the ED for an evaluation of SOB and difficulty swallowing that started 4 days ago. Patient was BIB daughter who states patient has became less alert over time, and developed a cough with moderate amount of sputum and loss of appetite. Patient presents with SPO2 of 97% RA. No other complaints at this time. 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 CONTROL AGENT History: Unknown Family History Family History: Reviewed,noncontributory to illness Social History Smoker: Non-Smoker Alcohol: Denies ETOH Use Drugs: Denies Drug Use Lives In: Home Respiratory: reports: cough Gastrointestinal: reports: difficulty swallowing, poor appetite Unable to Obtain due to: Dementia Physical Exam General Appearance: Moderate Distress HEENT: Normal ENT Inspection, Pharynx Normal, TMs Normal Neck: Full Range of Motion, Non-Tender, Normal, Normal Inspection Respiratory: Chest Non-Tender, Lungs Clear, No Accessory Muscle Use, No Respiratory Distress, Normal Breath Sounds Cardiovascular: No Edema, No JVD, No Murmur, No Gallop, Normal Peripheral Pulses, Regular Rate/Rhythm Breast Exam: Deferred Gastrointestinal: No Organomegaly, Non Tender, No Pulsatile Mass, Normal Bowel Sounds, Soft Genitalia: Deferred Pelvic: Deferred Rectal: Deferred Extremities: No calf tenderness, No pedal edema Musculoskeletal : Apperance: Normal Neurologic: Alert, No Motor Deficits, No Sensory Deficits Cerebellar Function: NOT DONE Reflexes: NOT DONE Skin: Normal Color Peripheral Pulses: 3+ Radial (R), 3+ Radial (L) Lymphatic: No Adenopathy EKG EKG : Pulse Rate (adult): 124 Cardiac Rhythm: ST Was a procedure done? Was a procedure done?: No Differential Dx Differential Diagnosis: Anxiety, Asthma, Bronchitis, CHF, COPD, Respiratory Distress, URI X-Ray, Labs, Meds, VS Vital Signs Date Time Temp Pulse Resp B/P (MAP) Pulse Ox O2 Delivery O2 Flow Rate FiO2 12/18/24 12:17 124 12/18/24 12:07 99.8 124 20 129/78 (95) 97 99.8 12/18/24 12:07 124 20 97 Room Air 0 Lab Test 12/18/24 14:59 12/18/24 12:15 Range/Units Troponin I High Sensitivity 52 *H 53 *H </=34 ng/L White Blood Count 6.5 4.4-10.8 10^3/uL Red Blood Count 5.46 H 4.0-5.20 10^6/uL Hemoglobin 10.9 L 12.2-16.2 g/dL Hematocrit 34.7 L 36.0-46.0 % Mean Corpuscular Volume 63.6 L 80.0-100.0 fL Mean Corpuscular Hemoglobin 20.0 L 28.0-32.0 pg Mean Corpuscular Hemoglobin Concent 31.5 L 32.0-36.0 g/dL Red Cell Distribution Width 15.7 H 11.8-14.3 % Platelet Count 273 140-450 10^3/uL Mean Platelet Volume 10.2 6.9-10.8 fL Neutrophils (%) (Auto) 78.6 37.0-80.0 % Lymphocytes (%) (Auto) 14.6 10.0-50.0 % Monocytes (%) (Auto) 6.5 0.0-12.0 % Eosinophils (%) (Auto) 0.1 0.0-7.0 % Basophils (%) (Auto) 0.2 0.0-2.0 % Neutrophils # (Auto) 5.1 1.6-8.6 10 ^3/uL Lymphocytes # (Auto) 0.9 0.4-5.4 10 ^3/uL Monocytes # (Auto) 0.4 0-1.3 10 ^3/uL Eosinophils # (Auto) 0 0-0.8 10 ^3/uL Basophils # (Auto) 0 0-0.2 10 ^3/uL Nucleated Red Blood Cells 0.1 % Sodium Level 151 H 136-145 mmol/L Potassium Level 3.4 L 3.5-5.1 mmol/L Chloride Level 111 H 98-107 mmol/L Carbon Dioxide Level 26 20-31 mmol/L Anion Gap 14 5-15 Blood Urea Nitrogen 30 H 9-23 mg/dL Creatinine 0.65 0.550-1.02 mg/dL Glomerular Filtration Rate Calc 90 >90 mL/min BUN/Creatinine Ratio 46.2 H 10.0-20.0 Serum Glucose 122 H 74-106 mg/dL Calcium Level 10.1 8.7-10.4 mg/dL B-Type Natriuretic Peptide 114.98 0-100 pg/mL Current Medications Medications (Trade) Dose Ordered Sig/Heather Route Start Time Stop Time Status Last Admin Sodium Chloride 500 ml @ 500 mls/hr Q1H ONCE IV 12/18/24 12:15 12/18/24 13:14 DC 12/18/24 14:29 Patient alert. Tachycardia. Blood pressure within normal limits. Saturation pristine on room air. No leg swelling. EKG shows sinus tachycardia. Reviewed her history. Not using accessory muscles. Baseline. History of dementia. Not in distress. Abdomen is soft nontender. Pristine physical examination. Continue to monitor. Spoke with Cardiology stated that they should be admitted for further workup. Was given aspirin. EXAM: XY CHEST PORTABLE Indication: sob Technique: Single frontal view of the chest was obtained Comparison: XY CHEST XRAY 1 VIEW on DOS: 08/14/24, XY CHEST XRAY 1 VIEW on DOS: 07/29/24, XY CHEST PORTABLE on DOS: 07/28/24, XY CHEST PORTABLE on DOS: 07/26/24, XY CHEST PORTABLE on DOS: 05/10/24 FINDINGS: Lines and Tubes: None Lungs: No focal consolidation. Pleura: No effusion. No pneumothorax. Cardiomediastinal contours: Unremarkable Bones: No acute osseous abnormality. IMPRESSION: No acute cardiopulmonary disease. Electronically Signed by: Dianna Chaney at 06 Time of 1ST Reevaluation: 12:17 Reevaluation 1ST: Unchanged Patient Education/Counseling: Other Family Education/Counseling: Diagnosis, Treatment, Prognosis Departure 1 Departure Time of Disposition: 12:23 Impression: Primary Impression: CHF (congestive heart failure) Qualified Codes: I50.43 - Acute on chronic combined systolic (congestive) and diastolic (congestive) heart failure Additional Impression: Dementia Qualified Codes: F03.90 - Unspecified dementia, unspecified severity, without behavioral disturbance, psychotic disturbance, mood disturbance, and anxiety Disposition: ADMITTED INPATIENT Admit to: Med Surg Condition: Guarded Critical Care Note Critical Care Time?: No Stability Stability form required: No Heart Score Heart Score: Heart Score Response (Comments) Value History Slightly Suspicious 0 EKG Normal 0 Age >65 2 Risk Factors >3 or Hx ASHD 2 Troponin 1-2 x's Normal limit 1 Total 5 I personally scribed for DEVIN WICK MD ([email or web address]) on 12/18/24 at 12:17. Electronically submitted by Bethany Emmanuel ([facility]). I personally scribed for DEVIN WICK MD ([email or web address]) on 12/18/24 at 14:13. Electronically submitted by Bethany Emmanuel ([facility]). DEVIN WIKC MD Dec 18, 2024 12:17
[2024-12-18 12:29] LABS: Basophils # (auto) 0 10 ^3/uL (0-0.2); Eosinophils # (auto) 0 10 ^3/uL (0-0.8); Eosinophils % (auto) 0.1 % (0.0-7.0); Lymphocytes # (auto) 0.9 10 ^3/uL (0.4-5.4); Nucleated Red Blood Cells % 0.1 %; Red Cell Distribution Width 15.7 % (11.8-14.3)
[2024-12-18 12:31] LABS: Basophils % (auto) 0.2 % (0.0-2.0); Hematocrit 34.7 % (36.0-46.0); Hemoglobin 10.9 g/dL (12.2-16.2); Lymphocytes % (auto) 14.6 % (10.0-50.0); Mean Corpuscular Hgb Conc. 31.5 g/dL (32.0-36.0); Mean Corpuscular Volume 63.6 fL (80.0-100.0); Monocytes # (auto) 0.4 10 ^3/uL (0-1.3); Monocytes % (auto) 6.5 % (0.0-12.0); Neutrophils # (auto) 5.1 10 ^3/uL (1.6-8.6); Neutrophils % (auto) 78.6 % (37.0-80.0); Platelet Count (auto) 273 10^3/uL (140-450); Red Blood Cells 5.46 10^6/uL (4.0-5.20); White Blood Cell 6.5 10^3/uL (4.4-10.8)
[2024-12-18 12:34] LABS: Anion Gap 14 (5-15); Calcium 10.1 mg/dL (8.7-10.4); Carbon Dioxide 26 mmol/L (20-31)
[2024-12-18 12:39] LABS: BUN/Creatinine Ratio 46.2 (10.0-20.0)
[2024-12-18 12:48] LABS: Blood Urea Nitrogen 30 mg/dL (9-23); Chloride 111 mmol/L (98-107); Glucose 122 mg/dL (74-106); Potassium 3.4 mmol/L (3.5-5.1); Sodium 151 mmol/L (136-145)
--- NOTE | 2024-12-18 12:51 | DVH ---
EXAM: XY CHEST PORTABLE Indication: sob Technique: Single frontal view of the chest was obtained Comparison: XY CHEST XRAY 1 VIEW on DOS: 08/14/24, XY CHEST XRAY 1 VIEW on DOS: 07/29/24, XY CHEST PORT ABLE on DOS: 07/28/24, XY CHEST PORTABLE on DOS: 07/26/24, XY CHEST PORTABLE on DOS: 05/10/24 FINDINGS: Lines and Tubes: None Lungs: No focal consolidation. Pleura: No effusion. No pneumothorax. Cardiomediastinal contours: Unremarkable Bones: No acute osseous abnormality. IMPRESSION: No acute cardiopulmonary disease.
[2024-12-18] MEDS: SODIUM CHLORIDE 0.9% 500 ML IV ONE (14:29)
--- NOTE | 2024-12-18 16:30 | ECG ---
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
[2024-12-18] MEDS: FUROSEMIDE 20 MG/2 ML VIAL IV ONE (17:00)
[2024-12-18] MEDS: ASPirin 81 mg TAB PO ONE (17:00)
--- NOTE | 2024-12-18 17:26 | DVHINCON2 ---
Date Seen: Dec 18, 2024 Referring Physician MD Jocelyn Reason for Consultation Demand ischemia History of Present Illness This is a 79-year-old female patient who presents to the emergency room with chief complaint of shortness of breath, poor appetite, and malodorous urine. The patient was brought in by her primary caregivers, her two daughters at bedside. At the time of assessment, the patient is not answering any questions. Patient's family at bedside able to provide accurate history. According to the patient's main caregiver, her daughter, the patient has been experiencing these symptoms for approximately one week. She decided to bring the patient to the emergency room for further evaluation. Cardiology has now been consulted at this time for elevated troponin level. Initial twelve lead electrocardiogram lost in the emergency room. A repeat twelve lead electrocardiogram was done at time of assessment at 1637 and reveals sinus rhythm with PVCs and left ventricular hypertrophy. Initial troponin level of 53ng/L with flat trend thereafter. Initial BNP level of 114.98pg/mL. Significant past medical history includes congestive heart failure, coronary artery disease s/p PTCA X1 LACI (on ASA), aortic stenosis, paroxysmal atrial fibrillation (off NOAC due to GI bleed), hypertension, COPD, thyroid disease, anemia, and dementia. The patient sees enhanced environmental operator in the outpatient setting. Past Medical History Past medical history reviewed. No other significant than mentioned above. Past Surgical History Denies any previous surgeries Family History: FH: dementia G8 FATHER FHx: rheumatoid arthritis G8 MOTHER Family History Family history reviewed. Social History Denies the use of tobacco, alcohol or illicit drugs. Allergies: Coded Allergies: Penicillins (Verified Allergy, Unknown, 02/04/23) Sulfa Antibiotics (Verified Allergy, Unknown, 02/04/23) Home Meds Active Scripts Escitalopram Oxalate (Lexapro) 5 Mg Tab, 5 MG PO DAILY for 30 Days, #30 TAB 2 Refills Prov:NORMAN PEREZ MD 08/21/24 Mirtazapine (Remeron) 15 Mg Tab, 7.5 MG PO QPM for 30 Days, #15 TAB 2 Refills Prov:NORMAN PEREZ MD 08/21/24 Cefdinir (Cefdinir) 300 Mg Cap, 1 CAP PO BID, #14 CAP Prov:CRISTELA SOARES 08/20/24 Reported Medications Metolazone (Metolazone) 2.5 Mg Tab, 1 TAB PO DAILY for 90 Days, #90 08/15/24 Metoprolol Succinate (Metoprolol Succinate Er) 100 Mg Tab, 1 TAB PO DAILY for 31 Days, #31 08/15/24 Furosemide (Furosemide) 40 Mg Tab, 1 TAB PO DAILY for 90 Days, #90 08/15/24 Amlodipine Besylate (Amlodipine Besylate) 10 Mg Tab, 1 TAB PO DAILY for 31 Days, #31 08/15/24 Pantoprazole Sodium Sesquihydr (Protonix) 40 Mg Tab, 1 TAB PO DAILY for 31 Days 07/27/24 Ferrous Sulfate (Ferrous Sulfate) 325 Mg Tab, 1 TAB PO BID for 90 Days, #180 07/27/24 Methimazole (Methimazole) 5 Mg Tab, 3 TAB PO DAILY for 31 Days, #93 07/27/24 Acetaminophen (Acetaminophen) 325 Mg Tab, 325 MG PO Q4HP PRN for MILD PAIN for 30 Days, MG 0 Refills 05/10/24 Home Meds Home medications reviewed. Review of Systems Constitutional: Generalized weakness, decreased appetite Ears, Nose, & Throat: No symptom reported Eyes: No symptom reported Neurological: No symptoms reported Pulmonary/Respiratory: No symptoms reported Cardiovascular: No symptom reported Gastrointestinal: No symptom reported Genitourinary: Foul odor in urine Musculoskeletal: No symptom reported Skin: No symptom reported Psychiatric: No symptom reported Endocrine: No symptom reported Hematologic/Lymphatic: No symptom reported Vital Signs Vital Signs Date Time Temp Pulse Resp B/P (MAP) Pulse Ox O2 Delivery O2 Flow Rate FiO2 12/18/24 16:37 86 12/18/24 16:00 98.0 20 155/88 (110) 99 98.0 12/18/24 13:30 Room Air* 0 21 Physical Exam General Appearance: Cooperative. Cachectic Pulmonary/Respiratory: Clear, bilateral breaths sounds. Cardiovascular/Chest: Regular rate and rhythm. Peripheral Pulses: 2+ Radial (R). 2+ Radial (L). 2+ Pedal (R). 2+ Pedal (L) Abdominal Exam: Normal bowel sounds. Ankle Exam: Negative ankle edema Lower extremities: Negative lower extremity edema Neuro/Mental Status: A/OX1, confused Thoughts/Psych: Deferred Appearance: No acute distress. Skin Exam: Normal inspection. Normal color. Warm and dry. Labs/Diagnostic Data Labs Test 12/18/24 14:59 12/18/24 12:15 Range/Units Troponin I High Sensitivity 52 *H </=34 ng/L White Blood Count 6.5 4.4-10.8 10^3/uL Red Blood Count 5.46 H 4.0-5.20 10^6/uL Hemoglobin 10.9 L 12.2-16.2 g/dL Hematocrit 34.7 L 36.0-46.0 % Mean Corpuscular Volume 63.6 L 80.0-100.0 fL Mean Corpuscular Hemoglobin 20.0 L 28.0-32.0 pg Mean Corpuscular Hemoglobin Concent 31.5 L 32.0-36.0 g/dL Red Cell Distribution Width 15.7 H 11.8-14.3 % Platelet Count 273 140-450 10^3/uL Mean Platelet Volume 10.2 6.9-10.8 fL Neutrophils (%) (Auto) 78.6 37.0-80.0 % Lymphocytes (%) (Auto) 14.6 10.0-50.0 % Monocytes (%) (Auto) 6.5 0.0-12.0 % Eosinophils (%) (Auto) 0.1 0.0-7.0 % Basophils (%) (Auto) 0.2 0.0-2.0 % Neutrophils # (Auto) 5.1 1.6-8.6 10 ^3/uL Lymphocytes # (Auto) 0.9 0.4-5.4 10 ^3/uL Monocytes # (Auto) 0.4 0-1.3 10 ^3/uL Eosinophils # (Auto) 0 0-0.8 10 ^3/uL Basophils # (Auto) 0 0-0.2 10 ^3/uL Nucleated Red Blood Cells 0.1 % Sodium Level 151 H 136-145 mmol/L Potassium Level 3.4 L 3.5-5.1 mmol/L Chloride Level 111 H 98-107 mmol/L Carbon Dioxide Level 26 20-31 mmol/L Anion Gap 14 5-15 Blood Urea Nitrogen 30 H 9-23 mg/dL Creatinine 0.65 0.550-1.02 mg/dL Glomerular Filtration Rate Calc 90 >90 mL/min BUN/Creatinine Ratio 46.2 H 10.0-20.0 Serum Glucose 122 H 74-106 mg/dL Calcium Level 10.1 8.7-10.4 mg/dL B-Type Natriuretic Peptide 114.98 0-100 pg/mL Assessment NSTEMI, likely type II Chronic compensated HFpEF, NYHA class III Coronary artery disease status post PTCA x1 LACI (on aspirin) Aortic stenosis , moderate degree Moderate degree aortic valve regurgitation Paroxysmal atrial fibrillation (off NOAC due to GI bleed) Hypertension COPD Pulmonary hypertension Hypokalemia Thyroid disease Acute on chronic anemia Dementia Plan/Recommendation We will continue following plan/recommendations (Dr. Wong): Case discussed with . We will proceed with obtaining a transthoracic echocardiogram to evaluate cardiac function. Previous transthoracic echocardiogram done on 07/27/2024 reveals EF 55%. Per patient's family, the patient has been having a decreased appetite, malodorous urine, and shortness of breath for one week prior to emergency room arrival. Chest x-ray does not reveal any fluid overload. No peripheral edema noted on assessment. BNP 114.98pg/ml, the patient is euvolemic. The patient with a history of atrial fibrillation is off of NOAC therapy given history of GI bleed. We will recommend SCDs. Monitor and replete electrolytes as needed, keep potassium greater than four and magnesium greater than two. The patient with a history of CAD takes aspirin 81 mg orally at home. We will recommend to continue single antiplatelet therapy and lipid-lowering agent. Closely monitor hemoglobin and hematocrit levels. Pending urinalysis to rule out a urinary tract infection per primary team. Thank you for allowing us to care for this patient. Please call with any questions or concerns. Critical care time spent: 44 minutes This medical document was created using an electronic medical record system with voice recognition software and computerized dictation system. Although this document has been carefully reviewed, there might still be some phonetic and typographical errors. Occasional wrong-word or ``sound-alike substitutions may have occurred due to the inherent limitations of voice recognition software. These areas are purely typographical due to imperfections of the software programs and do not reflect any compromise in the patient's medical care. Please read the chart carefully and recognize, using context, where these substitutions have occurred. Plan discussed with: Patient, Daughter NYHA Physical activity limitations: Class3(Marked) ordinary Date of Service: Dec 18, 2024 Billing Provider: SIMPSON,HORACE TIE HACKER Cardiology Common Codes: [id number] INP/OBS CARE (High) HORACE SIMPSON TIE HACKER Dec 18, 2024 17:26
[2024-12-18] MEDS ORDERED: DOCUSATE SOD 100 MG CAP PO PRN (18:15)
[2024-12-18] MEDS ORDERED: NITROGLYCERIN 0.4 MG SL TAB SL PRN (18:15)
[2024-12-18] MEDS ORDERED: ONDANSETRON HCL 4 MG/2 ML VIAL IV PRN (18:15)
[2024-12-18] MEDS: D5W/SOD CHL 0.45% 1,000 ML IV ONE (18:22)
--- NOTE | 2024-12-18 18:24 | DVHHP2 ---
History of Present Illness Reason for Visit: weakness and ams History of Present Illness 79-year-old female with past medical history of dementia, CHF, thyroid disease, atrial fibrillation, anemia, asthma, and hypertension, presents to the ED accompanied by her daughters, Thelma and Karla. Family reports progressive decline in mentation and ambulation over the past 45 days, with new-onset confusion, decreased speech, and weakness. They noted vomiting two days ago without blood or diarrhea. Additionally, she has experienced significant unintentional weight loss over the past 45 months, dropping from 135 pounds to an unmeasured but notably thinner appearance.Daughters state her symptoms resemble previous episodes of UTI-induced delirium. They report a family history of Lewy body dementia. The patients primary care physician reportedly did not address this current cognitive and functional decline in a recent visit one month ago. while in ED Data Reviewed: Weight loss observed Received Lasix and IV NS in ED cBC: Hgb 10.1 / Hct 34.7BMP: Na 154 ?, K 3.4, Cl 111, BUN 30, Glu 122 ? concern for dehydration UA: Pending ? likely UTI will start levaquin for now ppx CXR: Shows no acute pulmonary process ordered CT Brain/Chest/Abd/Pelvis: Pending, BMP Osmolality Panel: Ordered for hypernatremia EKG/Cardiology: Cardiology consulted in ED for a-fib Family declined Shaw; UA via straight cath obtained Patient is NPO for dysphagia evaluation, Full code per family Contact: Thelma ([phone]), Karla ([phone])., will admit for further workup and care Past Medical History See HPI above Past Surgical History See HPI above Family History Reviewed, non-contributory to the management of this case. Past Social History The patient lives at home, denies smoking, alcohol or illicit drugs abuse. Review of Systems Constitutional: No: Fever, Chills, Sweats, Weakness, Malaise, Other Eyes: No: Pain, Vision change, Conjunctivae inflammation, Eyelid inflammation, Other, Redness ENT: No: Ear pain, Ear discharge, Nose pain, Nose discharge, Nose congestion, Mouth pain, Mouth swelling, Throat pain, Throat swelling, Other Respiratory: No: Cough, Dry, Shortness of breath, SOB with excertion, Wheezing, Hemoptysis, Pleuritic Pain, Sputum, Wheezing, Other Cardiovascular: No: Chest Pain, Palpitations, Orthopnea, Paroxysmal Noc. Dyspnea, Edema, Lt Headedness, Other Gastrointestinal: No: Nausea, Vomiting, Abdominal Pain, Diarrhea, Constipation, Melena, Hematochezia, Other Genitourinary: No Dysuria, No Frequency, No Incontinence, No Hematuria, No Retention, No Other Musculoskeletal: No: other, neck pain, shoulder pain, arm pain, back pain, hand pain, leg pain, foot pain Skin: No: Rash, Lesions, Jaundice, Bruising, Other Neurological: Weakness, Confusion, Other (confused); No: Numbness, Incoordination, Change in speech, Seizures Allergies: Coded Allergies: Penicillins (Verified Allergy, Unknown, 02/04/23) Sulfa Antibiotics (Verified Allergy, Unknown, 02/04/23) Medications Current Medications Medications Dose Ordered Sig/Heather Route Start Time Stop Time Status Last Admin Dose Admin Atorvastatin Calcium 20 mg HS PO 12/18/24 22:00 Aspirin 81 mg DAILY PO 12/19/24 10:00 Hydralazine HCl 10 mg Q6HP PRN IV 12/18/24 17:30 Exam Vital Signs Vital Signs Date Time Temp Pulse Resp B/P (MAP) Pulse Ox O2 Delivery O2 Flow Rate FiO2 12/18/24 18:00 84 16 171/85 (113) 99 12/18/24 16:00 98.0 98.0 12/18/24 13:30 Room Air* 0 21 General Appearance: Alert, Other (confused ) HEENT: Atraumatic, PERRLA, EOMI, Other (dry mouth/emaciated in appearance ) Respiratory: Clear to auscultation, Normal air movement Cardiovascular: Regular rate, Normal S1, Normal S2, No murmurs Abdominal: Normal bowel sounds, Soft, No tenderness, No hepatospenomegaly, No masses, Other (PD catheter to abdomen no erythema no drainage clamped soft abdomen) Extremities: No clubbing, No cyanosis, No edema, Normal pulses, No tenderness/swelling Skin: No rashes, No breakdown, No significant lesion (stage 1 buttocks wound ) Neuro: Other (neuro non focal ) Labs/Xrays I reviewed labs, imaging CT scan abdomen pelvis, EKG and all diagnostic studies on this patient from ED records and the medical chart Chest x-ray unremarkable Labs Test 12/18/24 14:59 12/18/24 12:15 Range/Units Troponin I High Sensitivity 52 *H </=34 ng/L White Blood Count 6.5 4.4-10.8 10^3/uL Red Blood Count 5.46 H 4.0-5.20 10^6/uL Hemoglobin 10.9 L 12.2-16.2 g/dL Hematocrit 34.7 L 36.0-46.0 % Mean Corpuscular Volume 63.6 L 80.0-100.0 fL Mean Corpuscular Hemoglobin 20.0 L 28.0-32.0 pg Mean Corpuscular Hemoglobin Concent 31.5 L 32.0-36.0 g/dL Red Cell Distribution Width 15.7 H 11.8-14.3 % Platelet Count 273 140-450 10^3/uL Mean Platelet Volume 10.2 6.9-10.8 fL Neutrophils (%) (Auto) 78.6 37.0-80.0 % Lymphocytes (%) (Auto) 14.6 10.0-50.0 % Monocytes (%) (Auto) 6.5 0.0-12.0 % Eosinophils (%) (Auto) 0.1 0.0-7.0 % Basophils (%) (Auto) 0.2 0.0-2.0 % Neutrophils # (Auto) 5.1 1.6-8.6 10 ^3/uL Lymphocytes # (Auto) 0.9 0.4-5.4 10 ^3/uL Monocytes # (Auto) 0.4 0-1.3 10 ^3/uL Eosinophils # (Auto) 0 0-0.8 10 ^3/uL Basophils # (Auto) 0 0-0.2 10 ^3/uL Nucleated Red Blood Cells 0.1 % Sodium Level 151 H 136-145 mmol/L Potassium Level 3.4 L 3.5-5.1 mmol/L Chloride Level 111 H 98-107 mmol/L Carbon Dioxide Level 26 20-31 mmol/L Anion Gap 14 5-15 Blood Urea Nitrogen 30 H 9-23 mg/dL Creatinine 0.65 0.550-1.02 mg/dL Glomerular Filtration Rate Calc 90 >90 mL/min BUN/Creatinine Ratio 46.2 H 10.0-20.0 Serum Glucose 122 H 74-106 mg/dL Calcium Level 10.1 8.7-10.4 mg/dL B-Type Natriuretic Peptide 114.98 0-100 pg/mL Assessment/Plan Assessment/Plan 79 yr old female Acute encephalopathy and functional decline in the setting of dementia and suspected dehydration with UTI. Evaluation for metabolic and infectious etiologies warranted. Altered mental status / Acute encephalopathy Likely multifactorial: UTI vs metabolic encephalopathy vs worsening dementia vs hypernatremia CT brain ordered awaiting results ordered Neurology consult requested Monitor neuro checks, maintain NPO for now Tylenol PRN for discomfort ordered ua fu results ordered tsh fu results swallow evaluation ordered ct scan abd pelvis fu results ordered tsh fu results acute Hypernatremia, likely dehydration-induced Gentle IV fluid rehydration (avoid rapid correction) Check serum/urine osmolality and urine sodium Monitor BMP follow up acute Suspected UTI Empiric Levaquin started UA sent via straight cath Monitor for fevers and leukocytosis Await urine culture results acute on chronic Dementia, likely progressing ordered ct scan of brain Significant cognitive and functional decline reported Family states primary care did not address progression ordered neurologist consult fu results chronic Atrial fibrillation no rvr On rate control; Monitor telemetry lovenox for now acute on chronic diastolic systolic CHF history with mild exacerbation bnp elevated 114.98 Monitor volume status Lasix given in ED; reassess need based on exam and labs Echo ordered fu results cards consult fu results acute Cough x5 days CXR shows no acute pulmonary disease Monitor for hypoxia or worsening symptoms No antibiotics unless pneumonia suspected acute stage 1 ulcer turn q2h wound care consult fu results acute anemia likely chronic disease ordered occult blood rounding team can order anemia workup acute hyperkalemia ordered potassium replacement ordered mag and phos fu results Chronic Problem List: CHF Atrial fibrillation Dementia Asthma Hypertension Anemia Thyroid disease FEN / PPx Fluids: Gentle IV hydration ( D5 NS) was provided in er Electrolytes: Monitor closely due to hypernatremia Nutrition: NPO speech eval for dysphagia DVT Prophylaxis: SCDs GI Prophylaxis: protonix for now since npo Disposition: Admit to telemetry for further evaluation of acute encephalopathy, suspected UTI, and hypernatremia. Monitor closely for evolving neurologic or infectious signs. Family supportive and involved. Full code per daughters Plan discussed with: Daughter My Orders Orders - LUCY RECINOS DNP Procedure Category Date Status Time Insert/Manage Urinary LJ 12/18/24 In Process Catheter 17:36 Urine Sodium LAB 12/18/24 Transmitted 18:14 Urine Creatinine LAB 12/18/24 Transmitted 18:14 Osmolality, Serum LAB 12/18/24 Transmitted 18:14 Osmolality Urine LAB 12/18/24 Transmitted 18:[address] 12/18/24 Logged 18:[address] 12/18/24 Logged Contrast 18:14 * Neurology Consult CONS 12/18/24 Transmitted 18:14 Thyroid Stimulating LAB 12/18/24 Transmitted Hormone 18:14 * Swallow Request ST 12/18/24 Transmitted 18:14 Urine Bacterial TARIK 12/18/24 Transmitted Culture 18:14 Npo (Nothing By DIET 12/18/24 Transmitted Mouth) Diet Dinner Stool Occult Blood LAB 12/18/24 Transmitted 18:14 Levofloxacin Levaquin PHA 12/19/24 Transmitted 10:00 Levofloxacin Levaquin PHA 12/18/24 Transmitted 18:15 Communication Order ORDERS 12/18/24 Transmitted 18:14 Potassium Chl Bin PHA 12/18/24 Transmitted KCL 18:15 Lactic Acid W/ Reflex LAB 12/18/24 Transmitted Order 18:14 Admit ADMIT 12/18/24 Transmitted 18:14 Allergies [facility] 12/18/24 Transmitted 18:14 Code Status CODE 12/18/24 Transmitted 18:14 Ondansetron Hcl PHA 12/18/24 Transmitted (Zofran) 18:15 Docusate Sodium PHA 12/18/24 Transmitted Capsule (Colace 18:15 Fall Risk Precautions [facility] 12/18/[address] 18:14 Complete Blood Count LAB 12/19/24 Verified 04:00 Comprehensive LAB 12/19/24 Verified Metabolic Panel 04:00 Condition: Fair [facility] 12/18/24 Transmitted 18:14 Bedrest With Bathroom [facility] 12/18/24 Transmitted Privileg 18:14 Lovenox 40mg PHA 12/18/24 Transmitted 18:15 Nitroglycerin PHA 12/18/24 Transmitted Sublingual (Ntrostat 18:15 Stat Ekg For Chest [facility] 12/18/24 Transmitted Pain 18:14 Notify Md Of Changes [facility] 12/18/24 Transmitted From Base 18:14 Diet Aide For [facility] 12/18/24 Transmitted 24 Hours 18:14 Emergency Dysrhythmia [facility] 12/18/24 Transmitted Protocol 18:14 Rhythm Strips Once [facility] 12/18/24 Transmitted Every Shift 18:14 Oxygen By Nasal RT 12/18/24 Transmitted Cannula 18:14 Date of Service: Dec 18, 2024 Billing Provider: LUCY RECINOS DNP Common Visit Codes: [id number] INP/OBS CARE (HIGH) LUCY RECINOS [facility] Dec 18, 2024 18:24
[2024-12-18 18:32] VITALS: PULSE 84; RESP 16; O2SAT 99
[2024-12-18 19:15] VITALS: RESP 18; O2SAT 99
[2024-12-18] MEDS: ENOXAPARIN SOD 40 MG/0.4 ML SYRINGE SC SCH (19:27)
[2024-12-18] MEDS: levoFLOXacin 500MG 100 ML IV ONE (19:29)
[2024-12-18] MEDS: POTASSIUM CHL 20MEQ/100ML 100 ML IV SCH (19:29)
--- NOTE | 2024-12-18 20:46 | DVH ---
CT HEAD WITHOUT CONTRAST INDICATION: eval for acute confusion COMPARISON: CT HEAD WITHOUT CONTRAST on DOS: 08/14/24, CT HEAD WITHOUT CONTRAST on DOS: 07/28/24, CT HE AD WITHOUT CONTRAST on DOS: 07/26/24, CT HEAD WITHOUT CONTRAST on DOS: 05/10/24 TECHNIQUE: CT of the head without intravenous contrast. RADIATION DOSE: CTDIvol: 59 mGy, DLP: 2332 mGy*cm FINDINGS: There is no evidence of acute intracranial hemorrhage, extra-axial collection, mass effect, midline s hift, herniation or hydrocephalus. The ventricles, sulci and cisterns are age appropriate. The leahy -white differentiation is intact. Right maxillary opacification compatible with sinusitis The surrou nding soft tissues and osseous structures are unremarkable. IMPRESSION: 1. No evidence of acute intracranial hemorrhage, mass effect or hydrocephalus. 2. Right maxillary sinusitis.
[2024-12-18 21:25] LABS: Anion Gap 11 (5-15); Carbon Dioxide 28 mmol/L (20-31)
[2024-12-18 21:26] LABS: Calcium 10.1 mg/dL (8.7-10.4)
[2024-12-18 21:27] LABS: Chloride 112 mmol/L (98-107); Potassium 3.2 mmol/L (3.5-5.1); Sodium 151 mmol/L (136-145)
[2024-12-18 21:31] LABS: BUN/Creatinine Ratio 40.4 (10.0-20.0)
[2024-12-18 21:32] LABS: Blood Urea Nitrogen 23 mg/dL (9-23); Glucose 109 mg/dL (74-106)
--- NOTE | 2024-12-18 21:39 | DVH ---
CT SCAN ABDOMEN AND PELVIS WITHOUT CONTRAST CLINICAL HISTORY: eval for abd pain and vomiting TECHNIQUE: Helical axial images are obtained from the lung bases through the pelvis without oral cont rast. No intravenous contrast was administered. Coronal and sagittal reformatted images were generate d from thin section reconstructions. One or more of the following radiation dose reduction techniques were used for this examination: automated exposure control, adjustment of the mA and/or kV according to patient size, use of iterative reconstruction technique. COMPARISON: 05/31/2023 FINDINGS: LOWER THORAX: Imaged lung bases are grossly clear. Coronary artery calcifications. ABDOMEN AND PELVIS: Evaluation of visceral and vascular structures is limited due to lack of contrast administration. Streak and motion artifact also somewhat limit evaluation. As visualized, the unenhanced liver, spleen and pancreas appear grossly unremarkable. Fat containing left adrenal lesion is again noted. This may represent a myelolipoma. Chronic appearing mild left hydronephrosis. No sizable, obstructing urinary tract calculi identified. Aortoiliac atherosclerotic calcifications. No evidence of abdominal aortic aneurysm. Thickening versus underdistention of the stomach. No evidence of small-bowel obstruction. Normal tawanda iber appendix. No free intraperitoneal air or fluid identified. Moderate volume colonic stool. Large volume stool in the rectum. No sizable bladder calculus. Multilevel degenerative changes of the thoracolumbar spine. Subcutaneous emphysema in the right lower anterior abdominal wall may be from recent injections. Plea se correlate clinically. IMPRESSION: Artifactually limited, noncontrast examination. Thickening versus underdistention of the stomach. Correlate for possible gastritis. Otherwise no steve dence of bowel obstruction at this time. Large volume stool in the rectum. Correlate for possible constipation/ fecal impaction. A few other findings as above.
[2024-12-18] MEDS: PANTOPRAZOLE 40 MG/10 ML VIAL INJ IV ONE (21:53)
[2024-12-18] MEDS: hydrALAZINE HCL 20 MG/ML VL IV PRN (21:59)
[2024-12-18] MEDS: ATORVASTATIN 20 MG TAB PO SCH (22:00)
[2024-12-18 23:29] VITALS: BP 147/84; PULSE 105; PULSE 81; RESP 16; RESP 19; TEMP 99.1; O2SAT 100; O2SAT 99
[2024-12-18] MEDS ORDERED: AMLO1TAB22 PO (23:42)
[2024-12-18] MEDS ORDERED: PANT40TA57 PO (23:42)
[2024-12-19] VITALS (8 sets, daily range): BP systolic 133–164; BP diastolic 61–98; PULSE 76–106; RESP 6–18; TEMP 97.1–98.8; O2SAT 95–100
--- NOTE | 2024-12-19 09:14 | DVHINCON2 ---
Date of service: Dec 19, 2024 Referring Physician Peewee Reason for Consultation Evaluation for encephalopathy with dementia History of Present Illness Ms. Gisela Escalona is a 79 years old female with a history of hypertension, atrial fibrillation have congestive heart failure, asthma, COPD, anemia, dementia, the patient was brought to the [facility] on 08/14/2024 with a chief company of ALOC, decreased appetite, coughing, and shortness breath.. At this time, she is awake, she does not talk or vocalize, she is oriented to herself, she is not cooperative. The history is obtained from her daughter I saw her on 07/28/24 for ALOC urinary tract infection, sepsis, 08/15/2024 for relapse encephalopathy with the falls Since 2022, she has progressive mild intermittent short-term memory difficulty, gait disturbance and she used a cane to walk. In early 2023, she was said to have dementia. Since 08/2024, She remembers all her family members, but she cannot find her way home in her neighborhood, she is completely dependent on the family for daily living Her daughter related the patient had 4 passing out events with mild shaking in 2022, 2023, 06/2024, 11/2024. All happened after hot showers, with increased sweating but without associated incontinence, oral trauma/laceration, the events last for a few sec, and were preceded by hot feeling. I suspected seizure in 07/2024 and recommended Eligio [phone] CBC/HB/PLT/MCV, 12/18/2024: 6.5/10.9/273/63.6 Na, 12/18/2024: 151, 151 Vitamin B12, 07/26/2024: 892 Folic acid 07/26/24: 30.88 TSH, 07/26/2024: < 0.01, 08/14/2024: 0.01, 12/18/2024: <0.01 FT4, 08/14/2024: 1.4 EEG, 07/30/24: Inadequate, possibly mildly abnormal EEG CT head, 07/26/2024: No evidence of acute intracranial abnormality CT head, 07/28/2024: 1. Motion limited study. 2. No evidence of acute intracranial hemorrhage. 3. Nonacute findings as described above CT head, 08/14/2024: No acute intracranial hemorrhage, midline shift or mass effect. If symptoms persist, further evaluation with MRI is recommended CT head, 12/18/2024: 1. No evidence of acute intracranial hemorrhage, mass effect or hydrocephalus. 2. Right maxillary sinusitis. Past Medical History Hypertension, congestive heart failure, AFib, asthma, COPD, anemia, dementia Past Surgical History None Family History: FH: dementia G8 FATHER FHx: rheumatoid arthritis G8 MOTHER Family History Father had Lewy body disease. Rheumatoid arthritis Social History She was a tobacco smoker, no history of alcohol or recreational substance abuse Allergies: Coded Allergies: Penicillins (Verified Allergy, Unknown, 02/04/23) Sulfa Antibiotics (Verified Allergy, Unknown, 02/04/23) Home Meds Active Scripts Escitalopram Oxalate (Lexapro) 5 Mg Tab, 5 MG PO DAILY for 30 Days, #30 TAB 2 Refills Prov:NORMAN PEREZ MD 08/21/24 Mirtazapine (Remeron) 15 Mg Tab, 7.5 MG PO QPM for 30 Days, #15 TAB 2 Refills Prov:NORMAN PEREZ MD 08/21/24 Cefdinir (Cefdinir) 300 Mg Cap, 1 CAP PO BID, #14 CAP Prov:CRISTELA SOARES RESIDENT 08/20/24 Reported Medications Pantoprazole Sodium Sesquihydr (Pantoprazole Sodium Dr) 40 Mg Tab, 1 TAB PO DAILY 12/18/24 Amlodipine Besylate (Amlodipine Besylate) 5 Mg Tab, 1 TAB PO DAILY 12/18/24 Metolazone (Metolazone) 2.5 Mg Tab, 1 TAB PO DAILY for 90 Days, #90 08/15/24 Metoprolol Succinate (Metoprolol Succinate Er) 100 Mg Tab, 1 TAB PO DAILY for 31 Days, #31 08/15/24 Amlodipine Besylate (Amlodipine Besylate) 10 Mg Tab, 1 TAB PO DAILY for 31 Days, #31 08/15/24 Ferrous Sulfate (Ferrous Sulfate) 325 Mg Tab, 1 TAB PO BID for 90 Days, #180 07/27/24 Methimazole (Methimazole) 5 Mg Tab, 3 TAB PO DAILY for 31 Days, #93 07/27/24 Acetaminophen (Acetaminophen) 325 Mg Tab, 325 MG PO Q4HP PRN for MILD PAIN for 30 Days, MG 0 Refills 05/10/24 Discontinued Reported Medications Furosemide (Furosemide) 40 Mg Tab, 1 TAB PO DAILY for 90 Days, #90 08/15/24 Pantoprazole Sodium Sesquihydr (Protonix) 40 Mg Tab, 1 TAB PO DAILY for 31 Days 07/27/24 Current Medications Current Medications Medications (Trade) Dose Ordered Sig/Heather Route PRN Reason Start Time Stop Time Status Last Admin Atorvastatin Calcium (Lipitor) 20 mg HS PO 12/18/24 22:00 Aspirin 81 mg DAILY PO 12/19/24 10:00 Hydralazine HCl (Apresoline Injection) 10 mg Q6HP PRN IV SBP>150 12/18/24 17:30 12/18/24 21:59 Levofloxacin/ Dextrose 100 ml @ 100 mls/hr DAILY@1800 IV 12/19/24 18:00 Potassium Chloride 100 ml @ 50 mls/hr Q2H IV 12/18/24 18:15 12/18/24 22:14 DC 12/18/24 21:53 Ondansetron HCl (Zofran) 4 mg Q4HP PRN IV NAUSEA / VOMITING 12/18/24 18:15 Docusate Sodium (Colace Capsule) 100 mg BIDPRN PRN PO FOR CONSTIPATION 12/18/24 18:15 Enoxaparin Sodium (Lovenox) 40 mg DAILY@1800 SC 12/18/24 18:15 12/18/24 19:27 Nitroglycerin (Ntrostat Sublingual) 0.4 mg Q5MINP PRN SL FOR CHEST PAIN 12/18/24 18:15 Pantoprazole Sodium (Protonix) 40 mg DAILY IV 12/19/24 10:00 Acetaminophen/ Hydrocodone Bitart ([place] 5/325MG Tab) 1 tab Q8HPRN PRN PO MODERATE PAIN (4-6 PAIN SCALE) 12/18/24 23:00 Magnesium Sulfate/ Dextrose 100 ml @ 100 mls/hr Q1HR IV 12/19/24 09:00 12/19/24 10:59 Review of Systems As above, the other systems are negative Vital Signs Vital Signs Date Time Temp Pulse Resp B/P (MAP) Pulse Ox O2 Delivery O2 Flow Rate FiO2 12/19/24 05:00 98.1 88 18 157/84 (108) 100 98.1 12/18/24 23:29 Room Air* 0 21 Physical Exam GENERAL EXAM: General: the patient is well developed and nourished. No acute distress. HEENT: Normocephalic, neck is supple, no carotid bruits. No mass. RESPIRATORY: Normal respiratory effort with symmetrical lung expansion. Lungs clear to auscultation. CARDIOVASCULAR: Regular rate and rhythm with no murmurs. S1, S2. ABDOMEN: Soft, nontender, normal bowel sound NEUROLOGICAL: MENTAL STATUS: Subjective SPEECH, LANGUAGE, HIGHER CORTICAL FUNCTION: She does not vocalize CRANIAL NERVES: #2: Visual field is full to visual thread #3,4,6: Pupils are equal, round and reactive. EOMs full and conjugate. #5: Facial sensation intact in all three divisions bilaterally. Mandibular strength intact. #7: Facial muscles symmetrical and strength intact. #8: Deferred #9,10: Deferred #11: Deferred #12: Deferred SENSATION: Sensation to touch and pinprick is okay MOTOR: Normal tone in the upper and lower extremity. Normal muscle bulk. No fasciculations. No abnormal movements or posturing. She moves the arms and legs REFLEXES: Deep tendon reflexes are symmetrical. No pathological reflexes. CEREBELLAR/COORDINATION: Deferred GAIT/STATION: deferred Labs/Diagnostic Data Labs Test 12/18/24 21:08 12/18/24 19:14 12/18/24 18:14 12/18/24 14:59 Range/Units Sodium Level 151 H 136-145 mmol/L Potassium Level 3.2 L 3.5-5.1 mmol/L Chloride Level 112 H 98-107 mmol/L Carbon Dioxide Level 28 20-31 mmol/L Anion Gap 11 5-15 Blood Urea Nitrogen 23 9-23 mg/dL Creatinine 0.57 0.550-1.02 mg/dL Glomerular Filtration Rate Calc 93 >90 mL/min BUN/Creatinine Ratio 40.4 H 10.0-20.0 Serum Glucose 109 H 74-106 mg/dL Calcium Level 10.1 8.7-10.4 mg/dL Lactic Acid Level 1.2 0.4-2.0 mmol/L Urine Osmolality 348 mOsm/kg Troponin I High Sensitivity 52 *H </=34 ng/L Test 12/18/24 12:15 Range/Units White Blood Count 6.5 4.4-10.8 10^3/uL Red Blood Count 5.46 H 4.0-5.20 10^6/uL Hemoglobin 10.9 L 12.2-16.2 g/dL Hematocrit 34.7 L 36.0-46.0 % Mean Corpuscular Volume 63.6 L 80.0-100.0 fL Mean Corpuscular Hemoglobin 20.0 L 28.0-32.0 pg Mean Corpuscular Hemoglobin Concent 31.5 L 32.0-36.0 g/dL Red Cell Distribution Width 15.7 H 11.8-14.3 % Platelet Count 273 140-450 10^3/uL Mean Platelet Volume 10.2 6.9-10.8 fL Neutrophils (%) (Auto) 78.6 37.0-80.0 % Lymphocytes (%) (Auto) 14.6 10.0-50.0 % Monocytes (%) (Auto) 6.5 0.0-12.0 % Eosinophils (%) (Auto) 0.1 0.0-7.0 % Basophils (%) (Auto) 0.2 0.0-2.0 % Neutrophils # (Auto) 5.1 1.6-8.6 10 ^3/uL Lymphocytes # (Auto) 0.9 0.4-5.4 10 ^3/uL Monocytes # (Auto) 0.4 0-1.3 10 ^3/uL Eosinophils # (Auto) 0 0-0.8 10 ^3/uL Basophils # (Auto) 0 0-0.2 10 ^3/uL Nucleated Red Blood Cells 0.1 % Serum Osmolality 326 H 278-298 mOsm/kg Magnesium Level 1.5 L 1.6-2.6 mg/dL B-Type Natriuretic Peptide 114.98 0-100 pg/mL Thyroid Stimulating Hormone (TSH) < 0.01 L 0.55-4.78 uIU/mL Assessment Altered mental status Metabolic encephalopathy Dementia Alzheimer disease 4 passing out spells Likely she had syncopes Gait disturbance, multifactorial Dehydration Hypernatremia Plan/Recommendation Monitoring Supportive treatment Telemetry Rehydration IV antibiotics She does not need preventive seizure treatment Up to chair Physical therapy Room bright during the daytime More recommendation per clinical course Progress: Poor This medical document was created using an electronic medical record system with [employer] system. Although this document has been carefully reviewed, there may still be some phonetic and typographical errors. These areas are purely typographical due to imperfections of the software programs, and do not reflect any compromise in the patient's medical care. Plan discussed with: Daughter, Other AIDEN GONZALEZ MD Dec 19, 2024 09:14
[2024-12-19] MEDS: PANTOPRAZOLE 40 MG/10 ML VIAL INJ IV SCH (09:45)
[2024-12-19] MEDS: MAGNESIUM SULFATE 1GM/100ML 100 ML IV SCH (09:45)
[2024-12-19] MEDS: ASPirin 81 mg TAB PO SCH (10:00)
[2024-12-19 10:31] LABS: Basophils # (auto) 0 10 ^3/uL (0-0.2); Eosinophils # (auto) 0 10 ^3/uL (0-0.8); Hemoglobin 11.1 g/dL (12.2-16.2); Mean Corpuscular Hemoglobin 20.1 pg (28.0-32.0); Neutrophils # (auto) 3.1 10 ^3/uL (1.6-8.6); White Blood Cell 5.6 10^3/uL (4.4-10.8)
[2024-12-19 10:36] LABS: Basophils % (auto) 0.5 % (0.0-2.0); Eosinophils % (auto) 0.8 % (0.0-7.0); Hematocrit 34.9 % (36.0-46.0); Lymphocytes # (auto) 1.7 10 ^3/uL (0.4-5.4); Lymphocytes % (auto) 30.7 % (10.0-50.0); Mean Corpuscular Hgb Conc. 31.9 g/dL (32.0-36.0); Mean Corpuscular Volume 62.9 fL (80.0-100.0); Monocytes # (auto) 0.7 10 ^3/uL (0-1.3); Monocytes % (auto) 12.5 % (0.0-12.0); Neutrophils % (auto) 55.5 % (37.0-80.0); Nucleated Red Blood Cells % 0.4 %; Platelet Count (auto) 223 10^3/uL (140-450); Red Blood Cells 5.54 10^6/uL (4.0-5.20); Red Cell Distribution Width 15.9 % (11.8-14.3)
[2024-12-19 10:51] LABS: Alanine Aminotransferase 20 U/L (7-40); Albumin 3.8 g/dL (3.2-4.8); Alkaline Phosphatase 60 U/L (46-116); Anion Gap 9 (5-15); Aspartate Aminotransferase 35 U/L (13-40); BUN/Creatinine Ratio 31.6 (10.0-20.0); Bilirubin, Total 0.8 mg/dL (0.2-1.0); Blood Urea Nitrogen 18 mg/dL (9-23); Calcium 10.4 mg/dL (8.7-10.4); Carbon Dioxide 28 mmol/L (20-31); Chloride 112 mmol/L (98-107); Cholesterol 117 mg/dL (< 200); Glucose 99 mg/dL (74-106); HDL Cholesterol 38 mg/dL (40-59); LDL Cholesterol 57 mg/dL (< 100); Potassium 3.7 mmol/L (3.5-5.1); Sodium 149 mmol/L (136-145); Total Protein 6.3 g/dL (5.7-8.2); Triglycerides 92 mg/dL (< 150)
--- NOTE | 2024-12-19 10:54 | DVHPN2 ---
Consult Progress Note Subjective Other Systems: Patient in normal sinus rhythm with PACs on assistant secretary Objective vital signs Vital Sign Date Time Temp Pulse Resp B/P (MAP) Pulse Ox O2 Delivery O2 Flow Rate FiO2 12/19/24 09:56 168/88 12/19/24 09:00 98.8 80 12 100 98.8 12/18/24 23:29 Room Air* 0 21 Total Intake and Output 12/18/24 12/18/24 12/19/24 15:00 23:00 07:00 Intake Total 500 ml 0 ml Balance 500 ml 0 ml medications Current Medications Medications Dose Ordered Sig/Heather Route Start Time Stop Time Status Last Admin Dose Admin Atorvastatin Calcium 20 mg HS PO 12/18/24 22:00 Aspirin 81 mg DAILY PO 12/19/24 10:00 Hydralazine HCl 10 mg Q6HP PRN IV 12/18/24 17:30 12/19/24 09:56 10 MG Levofloxacin/ Dextrose 100 ml @ 100 mls/hr DAILY@1800 IV 12/19/24 18:00 Ondansetron HCl 4 mg Q4HP PRN IV 12/18/24 18:15 Docusate Sodium 100 mg BIDPRN PRN PO 12/18/24 18:15 Enoxaparin Sodium 40 mg DAILY@1800 SC 12/18/24 18:15 12/18/24 19:27 40 MG Nitroglycerin 0.4 mg Q5MINP PRN SL 12/18/24 18:15 Pantoprazole Sodium 40 mg DAILY IV 12/19/24 10:00 12/19/24 09:45 40 MG Acetaminophen/ Hydrocodone Bitart 1 tab Q8HPRN PRN PO 12/18/24 23:00 Magnesium Sulfate/ Dextrose 100 ml @ 100 mls/hr Q1HR IV 12/19/24 09:00 12/19/24 10:59 12/19/24 09:45 100 MLS/HR Examination: GENERAL:Abnormal (Generalized weakness), LUNGS:Normal, CVS:Normal, NEURO:Abnormal (Confused) laboratory and microbiology Laboratory Tests 12/19/24 10:18 Test 12/19/24 10:18 Range/Units Serum Glucose Pending Problem List/Assessment/Plan Problem List/Assessment/Plan NSTEMI, likely type II Chronic compensated HFpEF, NYHA class III Coronary artery disease status post PTCA x1 LACI (on aspirin) Aortic stenosis , moderate degree Moderate degree aortic valve regurgitation Paroxysmal atrial fibrillation (off NOAC due to GI bleed) Hypertension COPD Pulmonary hypertension Hypokalemia, resolved Hypomagnesemia Thyroid disease, uncontrolled Acute on chronic anemia Dementia Plan/Recommendations (Dr. Gaxiola): Case discussed with . Previous transthoracic echocardiogram done on 07/27/2024 reveals EF 55%. Per patient's family, the patient has been having a decreased appetite, malodorous urine, and shortness of breath for one week prior to emergency room arrival. Chest x-ray does not reveal any fluid overload. No peripheral edema noted on assessment. BNP 114.98pg/ml, the patient is euvolemic. The patient with a history of atrial fibrillation is off of NOAC therapy given history of GI bleed. We will recommend SCDs. Monitor and replete electrolytes as needed, keep potassium greater than four and magnesium greater than two. The patient with a history of CAD takes aspirin 81 mg orally at home. We will recommend to continue single antiplatelet therapy and lipid-lowering agent. Closely monitor hemoglobin and hematocrit levels. Patient currently unable to swallow or follow commands. Administer IV hydralazine p.r.n. for BP control. Pending urinalysis to rule out a urinary tract infection per primary team. The patient appears to be very frail and cachectic. Consider goals of care with family. There is no further inpatient cardiac workup indicated at this time. Cardiology will sign off. Thank you for allowing us to care for this patient. Please call with any questions or concerns. This medical document was created using an electronic medical record system with voice recognition software and computerized dictation system. Although this document has been carefully reviewed, there might still be some phonetic and typographical errors. Occasional wrong-word or ``sound-alike substitutions may have occurred due to the inherent limitations of voice recognition software. These areas are purely typographical due to imperfections of the software programs and do not reflect any compromise in the patient's medical care. Please read the chart carefully and recognize, using context, where these substitutions have occurred. Plan discussed with: Other (Bedside RN) Date of Service: Dec 19, 2024 Billing Provider: HORACE SIMPSON Common Visit Codes: [id number] INP/OBS CARE(HIGH) HORACE SIMPSON Dec 19, 2024 10:54
[2024-12-19 11:02] LABS: Free T3 12.84 pg/mL (2.3-4.2); Free T4 (Free Thyroxine) 7.16 ng/dL (0.89-1.76)
--- NOTE | 2024-12-19 12:12 | DVHPN2 ---
Subjective 79-year-old female who was admitted for altered level of consciousness The patient has underlying dementia and according to her family she has been confused more in the last few days She is cachectic She is very confused and nonverbal She appears to be dry Changes from previous H/P or p: Changes Eyes: No Pain, No Vision change, No Conjunctivae inflammation, No Eyelid inflammation, No Other, No Redness ENT: No Ear pain, No Ear discharge, No Nose pain, No Nose discharge, No Nose congestion, No Mouth pain, No Mouth swelling, No Throat pain, No Throat swelling, No Other Cardiovascular: No Chest Pain, No Palpitations, No Orthopnea, No Paroxysmal Noc. Dyspnea, No Edema, No Lt Headedness, No Other Respiratory: No Cough, No Dry, No Shortness of breath, No SOB with excertion, No Wheezing, No Hemoptysis, No Pleuritic Pain, No Sputum, No Other Gastrointestinal: No Nausea, No Vomiting, No Abdominal Pain, No Diarrhea, No Constipation, No Melena, No Hematochezia, No Other Genitourinary: No Dysuria, No Frequency, No Incontinence, No Hematuria, No Retention, No Other Musculoskeletal: No other, No neck pain, No shoulder pain, No arm pain, No back pain, No hand pain, No leg pain, No foot pain Skin: No Rash, No Lesions, No Jaundice, No Bruising, No Other Objective Vitals Vital Signs Date Time Temp Pulse Resp B/P (MAP) Pulse Ox O2 Delivery O2 Flow Rate FiO2 12/19/24 09:56 168/88 12/19/24 09:00 98.8 80 12 100 98.8 12/18/24 23:29 Room Air* 0 21 Intake/Output Intake and Output 12/19/24 07:00 Intake Total 500 ml Balance 500 ml Intake Oral 0 ml IV Total 500 ml # Voids 1 # Bowel Movements 1 General Appearance: Alert, Other (Disoriented) Lungs: Clear to auscultation, Normal air movement Cardiovascular: Normal S2, Other (Irregularly irregular) Abdomen: Normal bowel sounds, Soft, No tenderness Extremities: No edema Medications Current Medications Medications Dose Ordered Sig/Heather Route Start Time Stop Time Status Last Admin Dose Admin Atorvastatin Calcium 20 mg HS PO 12/18/24 22:00 Aspirin 81 mg DAILY PO 12/19/24 10:00 Hydralazine HCl 10 mg Q6HP PRN IV 12/18/24 17:30 12/19/24 09:56 10 MG Levofloxacin/ Dextrose 100 ml @ 100 mls/hr DAILY@1800 IV 12/19/24 18:00 Ondansetron HCl 4 mg Q4HP PRN IV 12/18/24 18:15 Docusate Sodium 100 mg BIDPRN PRN PO 12/18/24 18:15 Enoxaparin Sodium 40 mg DAILY@1800 SC 12/18/24 18:15 12/18/24 19:27 40 MG Nitroglycerin 0.4 mg Q5MINP PRN SL 12/18/24 18:15 Pantoprazole Sodium 40 mg DAILY IV 12/19/24 10:00 12/19/24 09:45 40 MG Acetaminophen/ Hydrocodone Bitart 1 tab Q8HPRN PRN PO 12/18/24 23:00 Laboratory Results Laboratory Tests 12/19/24 10:18 Chemistry Test 12/18/24 12:15 12/18/24 21:08 12/19/24 10:18 Calcium Level 10.1 mg/dL (8.7-10.4) 10.1 mg/dL (8.7-10.4) 10.4 mg/dL (8.7-10.4) Magnesium Level 1.5 mg/dL (1.6-2.6) L Albumin 3.8 g/dL (3.2-4.8) Total Protein 6.3 g/dL (5.7-8.2) Lipid panel Test 12/19/24 10:18 Cholesterol Level 117 mg/dL (< 200) HDL Cholesterol 38 mg/dL (40-59) L Triglycerides Level 92 mg/dL (< 150) Cardiac Markers Test 12/18/24 12:15 B-Type Natriuretic Peptide 114.98 pg/mL (0-100) LFT Test 12/19/24 10:18 Alanine Aminotransferase (ALT) 20 U/L (7-40) Alkaline Phosphatase 60 U/L (46-116) Aspartate Amino Transferase (AST) 35 U/L (13-40) Total Bilirubin 0.8 mg/dL (0.2-1.0) HgA1c, TSH Test 12/18/24 12:15 12/19/24 10:18 Thyroid Stimulating Hormone (TSH) < 0.01 uIU/mL (0.55-4.78) L Hemoglobin A1c 5.2 % A1C (<5.7) Urinalysis Test 12/18/24 18:14 Urine Osmolality 348 mOsm/kg Microbiology Microbiology Date/Time Source Procedure Growth Status 12/18/24 18:14 Urine - Midstream Clean Catch Urine Culture - Preliminary Resulted Assessment/Plan Assessment/Plan Acute metabolic encephalopathy Dehydration Hyperthyroidism Hypernatremia Underlying dementia Rule out UTI Paroxysmal atrial fibrillation Acute on chronic diastolic heart failure Cachexia Hypokalemia Plan Continue IV fluids D5 half NS NPO Swallow eval Replace potassium We will have to discuss with the family regarding advance directives They are not at the bedside at this time The patient is very confused and cachectic looking TSH is very low Plan discussed with: Other Date of Service: Dec 19, 2024 Billing Provider: HOA العلي MD Common Visit Codes: [id number] INP/OBS CARE(HIGH) HOA العلي MD Dec 19, 2024 12:11
[2024-12-19] MEDS: D5W/SOD CHL 0.45% 1,000 ML IV SCH (14:00)
--- NOTE | 2024-12-19 15:58 | DVHSR ---
APPROVED REPORT EXAM: Two-dimensional and M-mode echocardiogram with Doppler and color Doppler. Blood Pressure: 157/84 mmHg INDICATION Eval cardiac function RISK FACTORS Height: 5'2", Weight: 101 DIMENSIONS LVDd3.9 (3.8-5.7cm)LA (2D)4.4 (1.9-4.0cm)Aortic Root3.1 (2.0-3.7cm) LVDs2.3 (2.5-4.0cm)LA (MM) (1.9-4.0cm)Aortic Cusp Exc1.4 (1.5-2.0cm) EF (%) 70.0 (55-70%)Rt. Atrium4.4 (1.9-4.0cm)Asc. Aorta cm IVSd1.6 (0.7-1.1cm)RV (D) (1.8-2.4cm) PWd1.2 (0.7-1.1cm) Mitral Valve MitralMitral Stenosis E/A ratio0.02D MVAcm2 Aortic Valve Aortic ValveAortic Stenosis LVOT Diameter2.0 (1.8-2.4cm)Doppler AVAcm2 Pulmonic Valve V21.43m/s Tricuspid Valve TR Velocity3.72m/s [id number] Other Information Quality : Technically LimitedRhythm : Technically limited study due to pt being combative Conclusion lvef 70% by visual estimate moderate concentric LVH normal rv function left atrium enlarged no severe valve abnormaliteis noted aortic sclerosis moderrate tricupsid regurg likely severe pulm htn, pasp >65 mmgh ,correlate clinically
[2024-12-19] MEDS: levoFLOXacin 500MG 100 ML IV SCH (17:16)
[2024-12-20] VITALS (7 sets, daily range): BP systolic 109–168; BP diastolic 61–111; PULSE 70–96; RESP 16–19; TEMP 97.7–98.6; O2SAT 98–99
[2024-12-20] MEDS: HYDROcodone-ACET 5/325MG TAB PO PRN (11:00)
[2024-12-20 11:39] LABS: Basophils # (auto) 0 10 ^3/uL (0-0.2); Basophils % (auto) 0.2 % (0.0-2.0); Eosinophils # (auto) 0 10 ^3/uL (0-0.8); Hemoglobin 11.3 g/dL (12.2-16.2); Lymphocytes # (auto) 1.4 10 ^3/uL (0.4-5.4); Monocytes # (auto) 0.6 10 ^3/uL (0-1.3)
[2024-12-20 11:41] LABS: Eosinophils % (auto) 0.7 % (0.0-7.0); Hematocrit 35.6 % (36.0-46.0); Lymphocytes % (auto) 20.5 % (10.0-50.0); Mean Corpuscular Hemoglobin 20.2 pg (28.0-32.0); Mean Corpuscular Hgb Conc. 31.9 g/dL (32.0-36.0); Mean Corpuscular Volume 63.5 fL (80.0-100.0); Monocytes % (auto) 8.8 % (0.0-12.0); Neutrophils # (auto) 4.9 10 ^3/uL (1.6-8.6); Neutrophils % (auto) 69.8 % (37.0-80.0); Nucleated Red Blood Cells % 0.1 %; Platelet Count (auto) 190 10^3/uL (140-450); Red Blood Cells 5.61 10^6/uL (4.0-5.20); Red Cell Distribution Width 15.8 % (11.8-14.3)
[2024-12-20 11:57] LABS: Alanine Aminotransferase 17 U/L (7-40); Alkaline Phosphatase 60 U/L (46-116); Anion Gap 10 (5-15); BUN/Creatinine Ratio 26.9 (10.0-20.0); Blood Urea Nitrogen 14 mg/dL (9-23); Calcium 10.1 mg/dL (8.7-10.4); Carbon Dioxide 26 mmol/L (20-31); Glucose 96 mg/dL (74-106)
[2024-12-20 11:58] LABS: Albumin 3.5 g/dL (3.2-4.8); Aspartate Aminotransferase 27 U/L (13-40)
[2024-12-20 11:59] LABS: Bilirubin, Total 0.9 mg/dL (0.2-1.0)
[2024-12-20 12:00] LABS: Chloride 110 mmol/L (98-107); Magnesium 1.5 mg/dL (1.6-2.6); Potassium 3.5 mmol/L (3.5-5.1); Sodium 146 mmol/L (136-145); Total Protein 5.6 g/dL (5.7-8.2)
[2024-12-20 12:03] LABS: Urine Bacteria None Seen /hpf (None Seen)
[2024-12-20 12:14] LABS: Urine Blood Negative /uL (Negative); Urine Clarity Clear (Clear); Urine Color Yellow (Yellow); Urine Mucus FEW (None Seen); Urine Protein, UAD Negative (Negative); Urine Specific Gravity 1.018 (1.001-1.035); Urine Squamous Epithelial Cell None Seen /hpf (<5); Urine Urobilinogen Normal (Negative); Urine WBC 2 /HPF (0-5); Urine pH 6.5 (5.0-9.0)
[2024-12-20 12:29] LABS: Creatinine, Urine 76.15 mg/dL (30.0-125.0)
[2024-12-20 13:26] LABS: Platelet Estimate Adequate
[2024-12-20 13:27] LABS: Hypochromia Moderate
[2024-12-20 13:28] LABS: Ovalocytes FEW
--- NOTE | 2024-12-20 14:43 | ECG ---
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
--- NOTE | 2024-12-20 14:53 | DVHPN2 ---
Subjective According to family she is somewhat more alert compared to yesterday Her repeat sodium today is down to 146 Potassium 3.5 Magnesium 1.5 She is able to swallow Changes from previous H/P or p: Changes Eyes: No Pain, No Vision change, No Conjunctivae inflammation, No Eyelid inflammation, No Other, No Redness ENT: No Ear pain, No Ear discharge, No Nose pain, No Nose discharge, No Nose congestion, No Mouth pain, No Mouth swelling, No Throat pain, No Throat swelling, No Other Cardiovascular: No Chest Pain, No Palpitations, No Orthopnea, No Paroxysmal Noc. Dyspnea, No Edema, No Lt Headedness, No Other Respiratory: No Cough, No Dry, No Shortness of breath, No SOB with excertion, No Wheezing, No Hemoptysis, No Pleuritic Pain, No Sputum, No Other Gastrointestinal: No Nausea, No Vomiting, No Abdominal Pain, No Diarrhea, No Constipation, No Melena, No Hematochezia, No Other Genitourinary: No Dysuria, No Frequency, No Incontinence, No Hematuria, No Retention, No Other Musculoskeletal: No other, No neck pain, No shoulder pain, No arm pain, No back pain, No hand pain, No leg pain, No foot pain Skin: No Rash, No Lesions, No Jaundice, No Bruising, No Other Objective Vitals Vital Signs Date Time Temp Pulse Resp B/P (MAP) Pulse Ox O2 Delivery O2 Flow Rate FiO2 12/20/24 13:00 73 19 168/90 (116) 12/20/24 08:17 Room Air* 0 21 12/20/24 05:00 98.1 98.1 12/20/24 01:00 98 Intake/Output Intake and Output 12/20/24 07:00 Intake Total 100 ml Balance 100 ml Intake Oral 0 ml IV Total 100 ml # Voids 3 General Appearance: Alert, Other (Disoriented) Lungs: Clear to auscultation, Normal air movement Cardiovascular: Normal S2, Other (Irregularly irregular) Abdomen: Normal bowel sounds, Soft, No tenderness Extremities: No edema Medications Current Medications Medications Dose Ordered Sig/Heather Route Start Time Stop Time Status Last Admin Dose Admin Atorvastatin Calcium 20 mg HS PO 12/18/24 22:00 12/19/24 21:19 20 MG Aspirin 81 mg DAILY PO 12/19/24 10:00 12/20/24 09:47 81 MG Hydralazine HCl 10 mg Q6HP PRN IV 12/18/24 17:30 12/20/24 11:01 10 MG Levofloxacin/ Dextrose 100 ml @ 100 mls/hr DAILY@1800 IV 12/19/24 18:00 12/19/24 17:16 100 MLS/HR Ondansetron HCl 4 mg Q4HP PRN IV 12/18/24 18:15 Docusate Sodium 100 mg BIDPRN PRN PO 12/18/24 18:15 Enoxaparin Sodium 40 mg DAILY@1800 SC 12/18/24 18:15 12/19/24 17:16 40 MG Nitroglycerin 0.4 mg Q5MINP PRN SL 12/18/24 18:15 Pantoprazole Sodium 40 mg DAILY IV 12/19/24 10:00 12/20/24 09:47 40 MG Acetaminophen/ Hydrocodone Bitart 1 tab Q8HPRN PRN PO 12/18/24 23:00 12/20/24 11:00 1 TAB Dextrose/Sodium Chloride 1,000 ml @ 50 mls/hr Q20H IV 12/19/24 12:15 12/20/24 09:49 50 MLS/HR Methimazole 10 mg Q8HR PO 12/20/24 14:00 Enteral Nutritional Formula 240 ml TIDWM PO 12/20/24 12:00 Laboratory Results Laboratory Tests 12/20/24 11:29 Chemistry Test 12/20/24 11:29 Albumin 3.5 g/dL (3.2-4.8) Calcium Level 10.1 mg/dL (8.7-10.4) Magnesium Level 1.5 mg/dL (1.6-2.6) L Total Protein 5.6 g/dL (5.7-8.2) L LFT Test 12/20/24 11:29 Alanine Aminotransferase (ALT) 17 U/L (7-40) Alkaline Phosphatase 60 U/L (46-116) Aspartate Amino Transferase (AST) 27 U/L (13-40) Total Bilirubin 0.9 mg/dL (0.2-1.0) Urinalysis Test 12/18/24 18:14 12/20/24 12:00 Urine Osmolality 348 mOsm/kg Urine Color Yellow (Yellow) Urine Clarity Clear (Clear) Urine pH 6.5 (5.0-9.0) Urine Specific [place] 1.018 (1.001-1.035) Urine Protein Negative (Negative) Urine Ketones Negative (Negative) Urine Blood Negative /uL (Negative) Urine Nitrite Negative (Negative) Urine Bilirubin Negative (Negative) Urine Urobilinogen Normal mg/dL (Negative) Urine Leukocyte Esterase Negative /uL (Negative) Urine RBC 1 /hpf (0 - 4) Urine Microscopic WBC 2 /HPF (0-5) Urine Squamous Epithelial Cells None seen /hpf (<5) Urine Bacteria None seen /hpf (None Seen) Urine Mucus Few (None Seen) Urine Creatinine 76.15 mg/dL (30.0-125.0) Urine Sodium 205 mmol/L (40-220) Urine Glucose Normal mg/dL (Normal) Microbiology Microbiology Date/Time Source Procedure Growth Status 12/18/24 18:14 Urine - Midstream Clean Catch Urine Culture - Preliminary Resulted Assessment/Plan Assessment/Plan Acute metabolic encephalopathy Dehydration Hyperthyroidism Hypernatremia Underlying dementia Rule out UTI Paroxysmal atrial fibrillation Acute on chronic diastolic heart failure Cachexia Hypokalemia Decubitus sacral ulcer Plan Continue IV fluids D5 half NS NPO Swallow eval Replace potassium We will have to discuss with the family regarding advance directives They are not at the bedside at this time The patient is very confused and cachectic looking TSH is very low 12/20/2024: Hypomagnesemia: Replace UA was done, negative Metabolic encephalopathy: Continue IV fluids and IV antibiotics Levaquin Hypernatremia: Continue D5 half NS Hyperthyroidism: Continue methimazole DVT prophylaxis: Lovenox IV Protonix Ensure Discussed with the 2 daughters at the bedside Informed them about the poor prognosis They still want her to be full code They will discuss the option of hospice and let us know later Plan discussed with: Patient, Daughter My Orders Orders - HOA العلي MD Procedure Category Date Status Time * Dietary Consult CONS 12/19/24 Transmitted 16:33 Cleanse Wound With LJ 12/19/24 In Process Mild Soap A 11:50 Pureed DIET 12/20/24 Transmitted Lunch Methimazole Tab PHA 12/20/24 In Process (Tapazole) 14:00 Nutritional PHA 12/20/24 In Process Supplements (Ensure 12:00 Insert Midline ORDERS 12/20/24 Transmitted 11:36 Urine Bacterial TARIK 12/20/24 In Process Culture 11:58 Date of Service: Dec 20, 2024 Billing Provider: HOA العلي MD Common Visit Codes: [id number] INP/OBS CARE(HIGH) HOA العلي MD Dec 20, 2024 14:53
[2024-12-20] MEDS: methIMAzole 5 MG TAB PO SCH (14:55)
[2024-12-20] MEDS: Ensure HIGH Protein Chocolate 8oz Bottle PO SCH (14:55)
[2024-12-20] MEDS: MAGNESIUM SULFATE 1GM/100ML 100 ML IV SCH (16:05)
[2024-12-21] VITALS (7 sets, daily range): BP systolic 116–139; BP diastolic 62–92; PULSE 68–83; RESP 16–19; TEMP 97.3–98.1; O2SAT 98–100
[2024-12-21 07:14] LABS: Basophils # (auto) 0 10 ^3/uL (0-0.2); Eosinophils # (auto) 0.1 10 ^3/uL (0-0.8); Hemoglobin 9.7 g/dL (12.2-16.2); Mean Corpuscular Hemoglobin 20.2 pg (28.0-32.0); Monocytes # (auto) 0.8 10 ^3/uL (0-1.3); Red Blood Cells 4.79 10^6/uL (4.0-5.20)
[2024-12-21 07:17] LABS: Basophils % (auto) 0.1 % (0.0-2.0); Eosinophils % (auto) 1.8 % (0.0-7.0); Lymphocytes % (auto) 27.4 % (10.0-50.0); Mean Corpuscular Hgb Conc. 32.4 g/dL (32.0-36.0); Mean Corpuscular Volume 62.6 fL (80.0-100.0); Neutrophils # (auto) 4.3 10 ^3/uL (1.6-8.6); Neutrophils % (auto) 59.7 % (37.0-80.0); Nucleated Red Blood Cells % 0.1 %; Platelet Count (auto) 212 10^3/uL (140-450); Red Cell Distribution Width 15.5 % (11.8-14.3); White Blood Cell 7.2 10^3/uL (4.4-10.8)
[2024-12-21 07:25] LABS: Anion Gap 9 (5-15); Carbon Dioxide 28 mmol/L (20-31); Potassium 3.6 mmol/L (3.5-5.1); Sodium 144 mmol/L (136-145)
[2024-12-21 07:26] LABS: Calcium 9.7 mg/dL (8.7-10.4)
[2024-12-21 07:27] LABS: Chloride 107 mmol/L (98-107)
[2024-12-21 07:30] LABS: Glucose 94 mg/dL (74-106)
[2024-12-21 07:31] LABS: BUN/Creatinine Ratio 26.9 (10.0-20.0); Blood Urea Nitrogen 14 mg/dL (9-23); Magnesium 1.9 mg/dL (1.6-2.6)
--- NOTE | 2024-12-21 12:54 | DVHPN2 ---
Subjective More alert Sodium is better at 1:44 a.m. Magnesium is better at 1.9 Changes from previous H/P or p: Changes Eyes: No Pain, No Vision change, No Conjunctivae inflammation, No Eyelid inflammation, No Other, No Redness ENT: No Ear pain, No Ear discharge, No Nose pain, No Nose discharge, No Nose congestion, No Mouth pain, No Mouth swelling, No Throat pain, No Throat swelling, No Other Cardiovascular: No Chest Pain, No Palpitations, No Orthopnea, No Paroxysmal Noc. Dyspnea, No Edema, No Lt Headedness, No Other Respiratory: No Cough, No Dry, No Shortness of breath, No SOB with excertion, No Wheezing, No Hemoptysis, No Pleuritic Pain, No Sputum, No Other Gastrointestinal: No Nausea, No Vomiting, No Abdominal Pain, No Diarrhea, No Constipation, No Melena, No Hematochezia, No Other Genitourinary: No Dysuria, No Frequency, No Incontinence, No Hematuria, No Retention, No Other Musculoskeletal: No other, No neck pain, No shoulder pain, No arm pain, No back pain, No hand pain, No leg pain, No foot pain Skin: No Rash, No Lesions, No Jaundice, No Bruising, No Other Objective Vitals Vital Signs Date Time Temp Pulse Resp B/P (MAP) Pulse Ox O2 Delivery O2 Flow Rate FiO2 12/21/24 08:00 68 12/21/24 08:00 16 99 Room Air* 0 21 12/21/24 05:02 98.0 116/92 (100) 98.0 Intake/Output Intake and Output 12/21/24 07:00 Intake Total 760 ml Balance 760 ml Intake Oral 660 ml IV Total 100 ml # Voids 1 General Appearance: Alert, Other (Disoriented) Lungs: Clear to auscultation, Normal air movement Cardiovascular: Normal S2, Other (Irregularly irregular) Abdomen: Normal bowel sounds, Soft, No tenderness Extremities: No edema Medications Current Medications Medications Dose Ordered Sig/Heather Route Start Time Stop Time Status Last Admin Dose Admin Atorvastatin Calcium 20 mg HS PO 12/18/24 22:00 12/20/24 21:26 20 MG Aspirin 81 mg DAILY PO 12/19/24 10:00 12/21/24 10:41 81 MG Hydralazine HCl 10 mg Q6HP PRN IV 12/18/24 17:30 12/20/24 11:01 10 MG Levofloxacin/ Dextrose 100 ml @ 100 mls/hr DAILY@1800 IV 12/19/24 18:00 12/20/24 18:17 100 MLS/HR Ondansetron HCl 4 mg Q4HP PRN IV 12/18/24 18:15 Docusate Sodium 100 mg BIDPRN PRN PO 12/18/24 18:15 Enoxaparin Sodium 40 mg DAILY@1800 SC 12/18/24 18:15 12/20/24 18:17 40 MG Nitroglycerin 0.4 mg Q5MINP PRN SL 12/18/24 18:15 Pantoprazole Sodium 40 mg DAILY IV 12/19/24 10:00 12/21/24 10:41 40 MG Acetaminophen/ Hydrocodone Bitart 1 tab Q8HPRN PRN PO 12/18/24 23:00 12/20/24 11:00 1 TAB Dextrose/Sodium Chloride 1,000 ml @ 50 mls/hr Q20H IV 12/19/24 12:15 12/20/24 09:49 50 MLS/HR Methimazole 10 mg Q8HR PO 12/20/24 14:00 12/21/24 05:29 10 MG Enteral Nutritional Formula 240 ml TIDWM PO 12/20/24 12:00 12/21/24 09:03 240 ML Laboratory Results Laboratory Tests 12/21/24 06:03 Chemistry Test 12/21/24 06:03 Calcium Level 9.7 mg/dL (8.7-10.4) Magnesium Level 1.9 mg/dL (1.6-2.6) Urinalysis Test 12/18/24 18:14 12/20/24 12:00 Urine Osmolality 348 mOsm/kg Urine Color Yellow (Yellow) Urine Clarity Clear (Clear) Urine pH 6.5 (5.0-9.0) Urine Specific [place] 1.018 (1.001-1.035) Urine Protein Negative (Negative) Urine Ketones Negative (Negative) Urine Blood Negative /uL (Negative) Urine Nitrite Negative (Negative) Urine Bilirubin Negative (Negative) Urine Urobilinogen Normal mg/dL (Negative) Urine Leukocyte Esterase Negative /uL (Negative) Urine RBC 1 /hpf (0 - 4) Urine Microscopic WBC 2 /HPF (0-5) Urine Squamous Epithelial Cells None seen /hpf (<5) Urine Bacteria None seen /hpf (None Seen) Urine Mucus Few (None Seen) Urine Creatinine 76.15 mg/dL (30.0-125.0) Urine Sodium 205 mmol/L (40-220) Urine Glucose Normal mg/dL (Normal) Microbiology Microbiology Date/Time Source Procedure Growth Status 12/20/24 12:00 Urine - Catheterized Urine Culture - Preliminary Resulted Assessment/Plan Assessment/Plan Acute metabolic encephalopathy Dehydration Hyperthyroidism Hypernatremia Underlying dementia Rule out UTI Paroxysmal atrial fibrillation Acute on chronic diastolic heart failure Cachexia Hypokalemia Decubitus sacral ulcer Plan Continue IV fluids D5 half NS NPO Swallow eval Replace potassium We will have to discuss with the family regarding advance directives They are not at the bedside at this time The patient is very confused and cachectic looking TSH is very low 12/20/2024: Hypomagnesemia: Replace UA was done, negative Metabolic encephalopathy: Continue IV fluids and IV antibiotics Levaquin Hypernatremia: Continue D5 half NS Hyperthyroidism: Continue methimazole DVT prophylaxis: Lovenox IV Protonix Ensure Discussed with the 2 daughters at the bedside Informed them about the poor prognosis They still want her to be full code They will discuss the option of hospice and let us know later 12/21/2024: Hypomagnesemia: Replace IV Hyperthyroidism: Continue methimazole Sure IV fluids D5 1/2 NS Monitor closely Plan discussed with: Patient Date of Service: Dec 21, 2024 Billing Provider: HOA العلي MD Common Visit Codes: [id number] INP/OBS CARE(HIGH) HOA العلي MD Dec 21, 2024 12:54
[2024-12-21] MEDS: MAGNESIUM SULFATE 1GM/100ML 100 ML IV ONE (13:12)
--- NOTE | 2024-12-21 22:05 | DVHPN2 ---
Progress Note - Dictate Date Seen: Dec 21, 2024 Medical Necessity Reason Pt with a Central, PICC or Fol: No Subjective Ms. Gisela Escalona is a 79 years old female with a history of hypertension, atrial fibrillation have congestive heart failure, asthma, COPD, anemia, dementia, the patient was brought to the [facility] on 08/14/2024 with a chief company of [employer], decreased appetite, coughing, and shortness breath. Have seen and examined the patient, she is awake, she does not talk or vocalize, she maybe oriented to herself, she is not cooperative. Urinalysis, 12/20/2024: Unremarkable CBC/HB/PLT/MCV, 12/18/2024: 6.5/10.9/273/63.6 Na, 12/18/2024: 151, 151 Vitamin B12, 07/26/2024: 892 Folic acid 07/26/24: 30.88 TSH, 07/26/2024: < 0.01, 08/14/2024: 0.01, 12/18/2024: <0.01 FT4, 08/14/2024: 1.4 EEG, 07/30/24: Inadequate, possibly mildly abnormal EEG CT head, 07/26/2024: No evidence of acute intracranial abnormality CT head, 07/28/2024: 1. Motion limited study. 2. No evidence of acute intracranial hemorrhage. 3. Nonacute findings as described above CT head, 08/14/2024: No acute intracranial hemorrhage, midline shift or mass effect. If symptoms persist, further evaluation with MRI is recommended CT head, 12/18/2024: 1. No evidence of acute intracranial hemorrhage, mass effect or hydrocephalus. 2. Right maxillary sinusitis vital signs Vital Sign Date Time Temp Pulse Resp B/P (MAP) Pulse Ox O2 Delivery O2 Flow Rate FiO2 12/21/24 21:00 97.6 83 19 125/69 (87) 99 97.6 12/21/24 20:00 Room Air* 0 21 Total Intake and Output 12/20/24 12/20/24 12/21/24 15:00 23:00 07:00 Intake Total 340 ml 420 ml Balance 340 ml 420 ml medications Current Medications Medications Dose Ordered Sig/Heather Route Start Time Stop Time Status Last Admin Dose Admin Atorvastatin Calcium 20 mg HS PO 12/18/24 22:00 12/21/24 20:35 20 MG Aspirin 81 mg DAILY PO 12/19/24 10:00 12/21/24 10:41 81 MG Hydralazine HCl 10 mg Q6HP PRN IV 12/18/24 17:30 12/20/24 11:01 10 MG Levofloxacin/ Dextrose 100 ml @ 100 mls/hr DAILY@1800 IV 12/19/24 18:00 12/21/24 17:22 100 MLS/HR Ondansetron HCl 4 mg Q4HP PRN IV 12/18/24 18:15 Docusate Sodium 100 mg BIDPRN PRN PO 12/18/24 18:15 Enoxaparin Sodium 40 mg DAILY@1800 SC 12/18/24 18:15 12/21/24 17:22 40 MG Nitroglycerin 0.4 mg Q5MINP PRN SL 12/18/24 18:15 Pantoprazole Sodium 40 mg DAILY IV 12/19/24 10:00 12/21/24 10:41 40 MG Acetaminophen/ Hydrocodone Bitart 1 tab Q8HPRN PRN PO 12/18/24 23:00 12/20/24 11:00 1 TAB Dextrose/Sodium Chloride 1,000 ml @ 50 mls/hr Q20H IV 12/19/24 12:15 12/21/24 20:02 50 MLS/HR Methimazole 10 mg Q8HR PO 12/20/24 14:00 12/21/24 20:35 10 MG Enteral Nutritional Formula 240 ml TIDWM PO 12/20/24 12:00 12/21/24 13:06 240 ML objective General: the patient is well developed and nourished. No acute distress. MENTAL STATUS: Subjective SPEECH, LANGUAGE, HIGHER CORTICAL FUNCTION: She does not vocalize CRANIAL NERVES: Pupils are equal, round and reactive. EOMs full and conjugate. Facial sensation intact in all three divisions bilaterally. Mandibular strength intact. Facial muscles symmetrical and strength intact. SENSATION: Sensation to touch and pinprick is okay MOTOR: Normal tone in the upper and lower extremity. Normal muscle bulk. No fasciculations. No abnormal movements or posturing. She moves the arms and legs REFLEXES: Deep tendon reflexes are symmetrical. No pathological reflexes. CEREBELLAR/COORDINATION: Deferred GAIT/STATION: deferred laboratory and microbiology Laboratory Tests 12/21/24 06:03 Test 12/21/24 06:03 Range/Units Serum Glucose 94 74-106 mg/dL Problem List Altered mental status Metabolic encephalopathy Dementia Alzheimer disease, I suspect severe dementia on her 4 passing out spells (2022, 2023, 06/2024, 11/2024) Likely she had syncopes Gait disturbance, multifactorial Dehydration Hypernatremia Assessment/Plan Monitoring Supportive treatment Telemetry Rehydration IV antibiotics She does not need preventive seizure treatment Up to chair Physical therapy Room bright during the daytime More recommendation per clinical course This medical document was created using an electronic medical record system with [employer] dictation system. Although this document has been carefully reviewed, there may still be some phonetic and typographical errors. These areas are purely typographical due to imperfections of the software programs, and do not reflect any compromise in the patient's medical care. Prognosis poor Dietary Evaluation Review Comments: pureed diet with Ensure high protein PO 240ml supplements TID, Hugo BD for wound healing. Expected Outcomes/Goals: gradual wt loss, Plan discussed with: Other AIDEN GONZALEZ MD Dec 21, 2024 22:05
[2024-12-22] VITALS (9 sets, daily range): BP systolic 117–162; BP diastolic 50–97; PULSE 69–96; RESP 17–20; TEMP 97.5–98.9; O2SAT 94–100
[2024-12-22] MEDS: MEGESTROL ACET 400MG/10ML ORAL SUSP PO ONE (13:00)
--- NOTE | 2024-12-22 13:03 | DVHPN2 ---
Subjective She is more alert however she is also more agitated and refusing care and she refused to have blood work Changes from previous H/P or p: Changes Eyes: No Pain, No Vision change, No Conjunctivae inflammation, No Eyelid inflammation, No Other, No Redness ENT: No Ear pain, No Ear discharge, No Nose pain, No Nose discharge, No Nose congestion, No Mouth pain, No Mouth swelling, No Throat pain, No Throat swelling, No Other Cardiovascular: No Chest Pain, No Palpitations, No Orthopnea, No Paroxysmal Noc. Dyspnea, No Edema, No Lt Headedness, No Other Respiratory: No Cough, No Dry, No Shortness of breath, No SOB with excertion, No Wheezing, No Hemoptysis, No Pleuritic Pain, No Sputum, No Other Gastrointestinal: No Nausea, No Vomiting, No Abdominal Pain, No Diarrhea, No Constipation, No Melena, No Hematochezia, No Other Genitourinary: No Dysuria, No Frequency, No Incontinence, No Hematuria, No Retention, No Other Musculoskeletal: No other, No neck pain, No shoulder pain, No arm pain, No back pain, No hand pain, No leg pain, No foot pain Skin: No Rash, No Lesions, No Jaundice, No Bruising, No Other Objective Vitals Vital Signs Date Time Temp Pulse Resp B/P (MAP) Pulse Ox O2 Delivery O2 Flow Rate FiO2 12/22/24 09:00 () 12/22/24 08:00 Room Air* 0 21 Intake/Output Intake and Output 12/22/24 07:00 Intake Total 1760 ml Balance 1760 ml Intake Oral 660 ml IV Total 1100 ml # Voids 5 General Appearance: Alert, Other (Disoriented) Lungs: Clear to auscultation, Normal air movement Cardiovascular: Normal S2, Other (Irregularly irregular) Abdomen: Normal bowel sounds, Soft, No tenderness Extremities: No edema Medications Current Medications Medications Dose Ordered Sig/Heather Route Start Time Stop Time Status Last Admin Dose Admin Atorvastatin Calcium 20 mg HS PO 12/18/24 22:00 12/21/24 20:35 20 MG Aspirin 81 mg DAILY PO 12/19/24 10:00 12/21/24 10:41 81 MG Hydralazine HCl 10 mg Q6HP PRN IV 12/18/24 17:30 12/22/24 04:28 10 MG Levofloxacin/ Dextrose 100 ml @ 100 mls/hr DAILY@1800 IV 12/19/24 18:00 12/21/24 17:22 100 MLS/HR Ondansetron HCl 4 mg Q4HP PRN IV 12/18/24 18:15 Docusate Sodium 100 mg BIDPRN PRN PO 12/18/24 18:15 Enoxaparin Sodium 40 mg DAILY@1800 SC 12/18/24 18:15 12/21/24 17:22 40 MG Nitroglycerin 0.4 mg Q5MINP PRN SL 12/18/24 18:15 Pantoprazole Sodium 40 mg DAILY IV 12/19/24 10:00 12/21/24 10:41 40 MG Acetaminophen/ Hydrocodone Bitart 1 tab Q8HPRN PRN PO 12/18/24 23:00 12/20/24 11:00 1 TAB Dextrose/Sodium Chloride 1,000 ml @ 50 mls/hr Q20H IV 12/19/24 12:15 12/21/24 20:02 50 MLS/HR Methimazole 10 mg Q8HR PO 12/20/24 14:00 12/21/24 20:35 10 MG Enteral Nutritional Formula 240 ml TIDWM PO 12/20/24 12:00 12/22/24 08:00 240 ML Laboratory Results Laboratory Tests 12/21/24 06:03 Urinalysis Test 12/18/24 18:14 12/20/24 12:00 Urine Osmolality 348 mOsm/kg Urine Color Yellow (Yellow) Urine Clarity Clear (Clear) Urine pH 6.5 (5.0-9.0) Urine Specific [place] 1.018 (1.001-1.035) Urine Protein Negative (Negative) Urine Ketones Negative (Negative) Urine Blood Negative /uL (Negative) Urine Nitrite Negative (Negative) Urine Bilirubin Negative (Negative) Urine Urobilinogen Normal mg/dL (Negative) Urine Leukocyte Esterase Negative /uL (Negative) Urine RBC 1 /hpf (0 - 4) Urine Microscopic WBC 2 /HPF (0-5) Urine Squamous Epithelial Cells None seen /hpf (<5) Urine Bacteria None seen /hpf (None Seen) Urine Mucus Few (None Seen) Urine Creatinine 76.15 mg/dL (30.0-125.0) Urine Sodium 205 mmol/L (40-220) Urine Glucose Normal mg/dL (Normal) Microbiology Microbiology Date/Time Source Procedure Growth Status 12/20/24 12:00 Urine - Catheterized Urine Culture - Final Complete Assessment/Plan Assessment/Plan Acute metabolic encephalopathy Dehydration Hyperthyroidism Hypernatremia Underlying dementia Rule out UTI Paroxysmal atrial fibrillation Acute on chronic diastolic heart failure Cachexia Hypokalemia Decubitus sacral ulcer Plan Continue IV fluids D5 half NS NPO Swallow eval Replace potassium We will have to discuss with the family regarding advance directives They are not at the bedside at this time The patient is very confused and cachectic looking TSH is very low 12/20/2024: Hypomagnesemia: Replace UA was done, negative Metabolic encephalopathy: Continue IV fluids and IV antibiotics Levaquin Hypernatremia: Continue D5 half NS Hyperthyroidism: Continue methimazole DVT prophylaxis: Lovenox IV Protonix Ensure Discussed with the 2 daughters at the bedside Informed them about the poor prognosis They still want her to be full code They will discuss the option of hospice and let us know later 12/21/2024: Hypomagnesemia: Replace IV Hyperthyroidism: Continue methimazole Sure IV fluids D5 1/2 NS Monitor closely 12/22/2024: Dementia with agitation: Add risperidone Continue home medication Remeron Add Megace Continue IV fluids D5 half NS Protein supplement IV Protonix Methimazole Monitor closely Plan discussed with: Daughter, Other My Orders Orders - HOA العلي MD Procedure Category Date Status Time Megestrol Oral PHA 12/22/24 Transmitted Suspension (Megace 22:00 Megestrol Oral PHA 12/22/24 Transmitted Suspension (Megace 13:00 Mirtazapine Tablet PHA 12/22/24 Transmitted (Remeron Tablet) 22:00 Date of Service: Dec 22, 2024 Billing Provider: HOA العلي MD Common Visit Codes: [id number] INP/OBS CARE(HIGH) HOA العلي MD Dec 22, 2024 13:02
[2024-12-22] MEDS: risperiDONE 1 MG TAB PO ONE (14:51)
[2024-12-22 15:28] LABS: Potassium 4.3 mmol/L (3.5-5.1); Sodium 144 mmol/L (136-145)
[2024-12-22 15:30] LABS: Anion Gap 11 (5-15)
[2024-12-22 15:31] LABS: Blood Urea Nitrogen 13 mg/dL (9-23); Magnesium 1.9 mg/dL (1.6-2.6)
[2024-12-22 15:41] LABS: Carbon Dioxide 25 mmol/L (20-31); Chloride 108 mmol/L (98-107); Glucose 124 mg/dL (74-106)
[2024-12-22] MEDS: MEGESTROL ACET 400MG/10ML ORAL SUSP PO SCH (20:37)
[2024-12-22] MEDS ORDERED: MIRTAZAPINE 30 MG TAB PO SCH (22:00)
--- NOTE | 2024-12-22 23:25 | DVHPN2 ---
Progress Note - Dictate Date Seen: Dec 22, 2024 Medical Necessity Reason Pt with a Central, PICC or Fol: No Subjective Ms. Gisela Escalona is a 79 years old female with a history of hypertension, atrial fibrillation have congestive heart failure, asthma, COPD, anemia, dementia, the patient was brought to the [facility] on 08/14/2024 with a chief company of [employer], decreased appetite, coughing, and shortness breath. Have seen and examined the patient, she is awake, she does not talk or vocalize (was able to say simple words per nurse reports), she maybe oriented to herself, she is not cooperative. Urinalysis, 12/20/2024: Unremarkable CBC/HB/PLT/MCV, 12/18/2024: 6.5/10.9/273/63.6 Na, 12/18/2024: 151, 151 Vitamin B12, 07/26/2024: 892 Folic acid 07/26/24: 30.88 TSH, 07/26/2024: < 0.01, 08/14/2024: 0.01, 12/18/2024: <0.01 FT4, 08/14/2024: 1.4 EEG, 07/30/24: Inadequate, possibly mildly abnormal EEG CT head, 07/26/2024: No evidence of acute intracranial abnormality CT head, 07/28/2024: 1. Motion limited study. 2. No evidence of acute intracranial hemorrhage. 3. Nonacute findings as described above CT head, 08/14/2024: No acute intracranial hemorrhage, midline shift or mass effect. If symptoms persist, further evaluation with MRI is recommended CT head, 12/18/2024: 1. No evidence of acute intracranial hemorrhage, mass effect or hydrocephalus. 2. Right maxillary sinusitis vital signs Vital Sign Date Time Temp Pulse Resp B/P (MAP) Pulse Ox O2 Delivery O2 Flow Rate FiO2 12/22/24 21:39 150/97 12/22/24 21:00 97.6 86 18 100 97.6 12/22/24 20:00 Room Air* 0 21 Total Intake and Output 12/21/24 12/21/24 12/22/24 15:00 23:00 07:00 Intake Total 1340 ml 420 ml Balance 1340 ml 420 ml medications Current Medications Medications Dose Ordered Sig/Heather Route Start Time Stop Time Status Last Admin Dose Admin Atorvastatin Calcium 20 mg HS PO 12/18/24 22:00 12/22/24 20:37 20 MG Aspirin 81 mg DAILY PO 12/19/24 10:00 12/22/24 10:00 81 MG Hydralazine HCl 10 mg Q6HP PRN IV 12/18/24 17:30 12/22/24 21:39 10 MG Levofloxacin/ Dextrose 100 ml @ 100 mls/hr DAILY@1800 IV 12/19/24 18:00 12/22/24 18:14 100 MLS/HR Ondansetron HCl 4 mg Q4HP PRN IV 12/18/24 18:15 Docusate Sodium 100 mg BIDPRN PRN PO 12/18/24 18:15 Enoxaparin Sodium 40 mg DAILY@1800 SC 12/18/24 18:15 12/22/24 18:14 40 MG Nitroglycerin 0.4 mg Q5MINP PRN SL 12/18/24 18:15 Pantoprazole Sodium 40 mg DAILY IV 12/19/24 10:00 12/22/24 10:00 40 MG Acetaminophen/ Hydrocodone Bitart 1 tab Q8HPRN PRN PO 12/18/24 23:00 12/20/24 11:00 1 TAB Dextrose/Sodium Chloride 1,000 ml @ 50 mls/hr Q20H IV 12/19/24 12:15 12/22/24 21:21 50 MLS/HR Methimazole 10 mg Q8HR PO 12/20/24 14:00 12/22/24 20:37 10 MG Enteral Nutritional Formula 240 ml TIDWM PO 12/20/24 12:00 12/22/24 18:14 240 ML Megestrol Acetate 400 mg BID PO 12/22/24 22:00 12/22/24 20:37 400 MG Risperidone 0.5 mg DAILY PO 12/23/24 10:00 objective General: the patient is well developed and nourished. No acute distress. MENTAL STATUS: Subjective SPEECH, LANGUAGE, HIGHER CORTICAL FUNCTION: She does not vocalize CRANIAL NERVES: Pupils are equal, round and reactive. EOMs full and conjugate. Facial sensation intact in all three divisions bilaterally. Mandibular strength intact. Facial muscles symmetrical and strength intact. SENSATION: Sensation to touch and pinprick is okay MOTOR: Normal tone in the upper and lower extremity. Normal muscle bulk. No fasciculations. No abnormal movements or posturing. She moves the arms and legs REFLEXES: Deep tendon reflexes are symmetrical. No pathological reflexes. CEREBELLAR/COORDINATION: Deferred GAIT/STATION: deferred laboratory and microbiology Laboratory Tests 12/22/24 15:09 12/21/24 06:03 Test 12/22/24 15:09 Range/Units Serum Glucose 124 H 74-106 mg/dL Problem List Altered mental status Metabolic encephalopathy Dementia Alzheimer disease, I suspect severe dementia on her 4 passing out spells (2022, 2023, 06/2024, 11/2024) Likely she had syncopes Gait disturbance, multifactorial Dehydration Hypernatremia Assessment/Plan Monitoring Supportive treatment Telemetry Rehydration IV antibiotics She does not need preventive seizure treatment Up to chair Physical therapy Room bright during the daytime More recommendation per clinical course This medical document was created using an electronic medical record system with [employer] dictation system. Although this document has been carefully reviewed, there may still be some phonetic and typographical errors. These areas are purely typographical due to imperfections of the software programs, and do not reflect any compromise in the patient's medical care. Prognosis poor Dietary Evaluation Review Comments: pureed diet with Ensure high protein PO 240ml supplements TID, Hugo BD for wound healing. Expected Outcomes/Goals: gradual wt loss, Plan discussed with: Other AIDEN GONZALEZ MD Dec 22, 2024 23:25
[2024-12-23 01:00] VITALS: BP 136/82; PULSE 80; RESP 18; TEMP 98.2; O2SAT 99
[2024-12-23 05:00] VITALS: BP 152/91; PULSE 78; RESP 18; TEMP 97.9; O2SAT 99
[2024-12-23 08:00] VITALS: PULSE 90; RESP 17
[2024-12-23 09:00] VITALS: BP 162/83; PULSE 95; RESP 16; TEMP 97.7; O2SAT 100
[2024-12-23] MEDS: risperiDONE 1 MG TAB PO SCH (09:51)
--- NOTE | 2024-12-23 10:23 | DVHPN2 ---
Progress Note - Dictate Date Seen: Dec 23, 2024 Medical Necessity Reason Pt with a Central, PICC or Fol: No Subjective Ms. Gisela Escalona is a 79 years old female with a history of hypertension, atrial fibrillation have congestive heart failure, asthma, COPD, anemia, dementia, the patient was brought to the [facility] on 08/14/2024 with a chief company of [employer], decreased appetite, coughing, and shortness breath. Have seen and examined the patient, she is awake, she talks a little bit, happy, cooperative, she is oriented to person, likely to place as well Urinalysis, 12/20/2024: Unremarkable CBC/HB/PLT/MCV, 12/18/2024: 6.5/10.9/273/63.6 Na, 12/18/2024: 151, 151 Vitamin B12, 07/26/2024: 892 Folic acid 07/26/24: 30.88 TSH, 07/26/2024: < 0.01, 08/14/2024: 0.01, 12/18/2024: <0.01 FT4, 08/14/2024: 1.4 EEG, 07/30/24: Inadequate, possibly mildly abnormal EEG CT head, 07/26/2024: No evidence of acute intracranial abnormality CT head, 07/28/2024: 1. Motion limited study. 2. No evidence of acute intracranial hemorrhage. 3. Nonacute findings as described above CT head, 08/14/2024: No acute intracranial hemorrhage, midline shift or mass effect. If symptoms persist, further evaluation with MRI is recommended CT head, 12/18/2024: 1. No evidence of acute intracranial hemorrhage, mass effect or hydrocephalus. 2. Right maxillary sinusitis vital signs Vital Sign Date Time Temp Pulse Resp B/P (MAP) Pulse Ox O2 Delivery O2 Flow Rate FiO2 12/23/24 08:00 17 Room Air* 0 21 12/23/24 06:40 161/92 12/23/24 05:00 97.9 78 99 97.9 Total Intake and Output 12/22/24 12/22/24 12/23/24 15:00 23:00 07:00 Intake Total 900 ml 160 ml Balance 900 ml 160 ml medications Current Medications Medications Dose Ordered Sig/Heather Route Start Time Stop Time Status Last Admin Dose Admin Atorvastatin Calcium 20 mg HS PO 12/18/24 22:00 12/22/24 20:37 20 MG Aspirin 81 mg DAILY PO 12/19/24 10:00 12/23/24 09:51 81 MG Hydralazine HCl 10 mg Q6HP PRN IV 12/18/24 17:30 12/23/24 06:40 10 MG Levofloxacin/ Dextrose 100 ml @ 100 mls/hr DAILY@1800 IV 12/19/24 18:00 12/22/24 18:14 100 MLS/HR Ondansetron HCl 4 mg Q4HP PRN IV 12/18/24 18:15 Docusate Sodium 100 mg BIDPRN PRN PO 12/18/24 18:15 Enoxaparin Sodium 40 mg DAILY@1800 SC 12/18/24 18:15 12/22/24 18:14 40 MG Nitroglycerin 0.4 mg Q5MINP PRN SL 12/18/24 18:15 Pantoprazole Sodium 40 mg DAILY IV 12/19/24 10:00 12/22/24 10:00 40 MG Acetaminophen/ Hydrocodone Bitart 1 tab Q8HPRN PRN PO 12/18/24 23:00 12/20/24 11:00 1 TAB Dextrose/Sodium Chloride 1,000 ml @ 50 mls/hr Q20H IV 12/19/24 12:15 12/22/24 21:21 50 MLS/HR Methimazole 10 mg Q8HR PO 12/20/24 14:00 12/22/24 20:37 10 MG Enteral Nutritional Formula 240 ml TIDWM PO 12/20/24 12:00 12/23/24 09:52 240 ML Megestrol Acetate 400 mg BID PO 12/22/24 22:00 12/23/24 09:51 400 MG Risperidone 0.5 mg DAILY PO 12/23/24 10:00 12/23/24 09:51 0.5 MG objective General: the patient is well developed and nourished. No acute distress. MENTAL STATUS: Subjective SPEECH, LANGUAGE, HIGHER CORTICAL FUNCTION: She does not vocalize CRANIAL NERVES: Pupils are equal, round and reactive. EOMs full and conjugate. Facial sensation intact in all three divisions bilaterally. Mandibular strength intact. Facial muscles symmetrical and strength intact. SENSATION: Sensation to touch and pinprick is okay MOTOR: Normal tone in the upper and lower extremity. Normal muscle bulk. No fasciculations. No abnormal movements or posturing. She moves the arms and legs REFLEXES: Deep tendon reflexes are symmetrical. No pathological reflexes. CEREBELLAR/COORDINATION: Deferred GAIT/STATION: deferred laboratory and microbiology Laboratory Tests 12/22/24 15:09 12/21/24 06:03 Test 12/22/24 15:09 Range/Units Serum Glucose 124 H 74-106 mg/dL Problem List Altered mental status Metabolic encephalopathy Dementia Alzheimer disease, I suspect severe dementia on her 4 passing out spells (2022, 2023, 06/2024, 11/2024) Likely she had syncopes Gait disturbance, multifactorial Dehydration Hypernatremia Assessment/Plan Monitoring Supportive treatment Telemetry A trial of Aricept 5mg qd IV antibiotics She does not need preventive seizure treatment Up to chair Physical therapy Room bright during the daytime More recommendation per clinical course This medical document was created using an electronic medical record system with [employer] computerized dictation system. Although this document has been carefully reviewed, there may still be some phonetic and typographical errors. These areas are purely typographical due to imperfections of the software programs, and do not reflect any compromise in the patient's medical care. Dietary Evaluation Review Comments: pureed diet with Ensure high protein PO 240ml supplements TID, Hugo BD for wound healing. Expected Outcomes/Goals: gradual wt loss, Plan discussed with: Other AIDEN GONZALEZ MD Dec 23, 2024 10:23
[2024-12-23] MEDS ORDERED: MEGE20TA3 PO (10:46)
--- NOTE | 2024-12-23 10:49 | DVHDS2 ---
Discharge Summary Date of Admission Dec 18, 2024 at 18:14 Date of Discharge: Dec 23, 2024 Labs/Diagnostic Data: Laboratory Results Test 12/22/24 15:09 12/21/24 06:03 12/20/24 12:00 12/20/24 11:29 Sodium Level 144 mmol/L (136-145) Potassium Level 4.3 mmol/L (3.5-5.1) Chloride Level 108 mmol/L (98-107) Carbon Dioxide Level 25 mmol/L (20-31) Anion Gap 11 (5-15) Blood Urea Nitrogen 13 mg/dL (9-23) Creatinine 0.62 mg/dL (0.550-1.02) Glomerular Filtration Rate Calc 91 mL/min (>90) BUN/Creatinine Ratio 21.0 (10.0-20.0) Serum Glucose 124 mg/dL (74-106) Calcium Level 10.0 mg/dL (8.7-10.4) Magnesium Level 1.9 mg/dL (1.6-2.6) White Blood Count 7.2 10^3/uL (4.4-10.8) Red Blood Count 4.79 10^6/uL (4.0-5.20) Hemoglobin 9.7 g/dL (12.2-16.2) Hematocrit 30.0 % (36.0-46.0) Mean Corpuscular Volume 62.6 fL (80.0-100.0) Mean Corpuscular Hemoglobin 20.2 pg (28.0-32.0) Mean Corpuscular Hemoglobin Concent 32.4 g/dL (32.0-36.0) Red Cell Distribution Width 15.5 % (11.8-14.3) Platelet Count 212 10^3/uL (140-450) Mean Platelet Volume 10.9 fL (6.9-10.8) Neutrophils (%) (Auto) 59.7 % (37.0-80.0) Lymphocytes (%) (Auto) 27.4 % (10.0-50.0) Monocytes (%) (Auto) 11.0 % (0.0-12.0) Eosinophils (%) (Auto) 1.8 % (0.0-7.0) Basophils (%) (Auto) 0.1 % (0.0-2.0) Neutrophils # (Auto) 4.3 10 ^3/uL (1.6-8.6) Lymphocytes # (Auto) 2.0 10 ^3/uL (0.4-5.4) Monocytes # (Auto) 0.8 10 ^3/uL (0-1.3) Eosinophils # (Auto) 0.1 10 ^3/uL (0-0.8) Basophils # (Auto) 0 10 ^3/uL (0-0.2) Nucleated Red Blood Cells 0.1 % Urine Color Yellow (Yellow) Urine Clarity Clear (Clear) Urine pH 6.5 (5.0-9.0) Urine Specific [place] 1.018 (1.001-1.035) Urine Protein Negative (Negative) Urine Ketones Negative (Negative) Urine Blood Negative /uL (Negative) Urine Nitrite Negative (Negative) Urine Bilirubin Negative (Negative) Urine Urobilinogen Normal mg/dL (Negative) Urine Leukocyte Esterase Negative /uL (Negative) Urine RBC 1 /hpf (0 - 4) Urine Microscopic WBC 2 /HPF (0-5) Urine Squamous Epithelial Cells None seen /hpf (<5) Urine Bacteria None seen /hpf (None Seen) Urine Mucus Few (None Seen) Urine Creatinine 76.15 mg/dL (30.0-125.0) Urine Sodium 205 mmol/L (40-220) Urine Glucose Normal mg/dL (Normal) Platelet Estimate Adequate Hypochromasia (manual) Moderate Microcytosis Moderate Ovalocytes Few Stomatocytes Vicente Cells Few Total Bilirubin 0.9 mg/dL (0.2-1.0) Aspartate Amino Transferase (AST) 27 U/L (13-40) Alanine Aminotransferase (ALT) 17 U/L (7-40) Alkaline Phosphatase 60 U/L (46-116) Total Protein 5.6 g/dL (5.7-8.2) Albumin 3.5 g/dL (3.2-4.8) Test 12/19/24 10:18 12/18/24 19:14 12/18/24 18:14 12/18/24 14:59 Hemoglobin A1c 5.2 % A1C (<5.7) Triglycerides Level 92 mg/dL (< 150) Cholesterol Level 117 mg/dL (< 200) LDL Cholesterol 57 mg/dL (< 100) HDL Cholesterol 38 mg/dL (40-59) Free Thyroxine (T4) Calculated 7.16 ng/dL (0.89-1.76) Free Triiodothyronine (T3) pg/mL 12.84 pg/mL (2.3-4.2) Lactic Acid Level 1.2 mmol/L (0.4-2.0) Urine Osmolality 348 mOsm/kg Troponin I High Sensitivity 52 ng/L (</=34) Test 12/18/24 12:15 Serum Osmolality 326 mOsm/kg (278-298) B-Type Natriuretic Peptide 114.98 pg/mL (0-100) Thyroid Stimulating Hormone (TSH) < 0.01 uIU/mL (0.55-4.78) Other Laboratory Tests 12/22/24 15:09 12/21/24 06:03 Brief Hx & Hospital Course: Final diagnoses: Acute metabolic encephalopathy Dehydration Hyperthyroidism Hypernatremia Underlying dementia Rule out UTI Paroxysmal atrial fibrillation Acute on chronic diastolic heart failure Cachexia Hypokalemia Decubitus sacral ulcer 79-year-old female who was admitted for altered level of consciousness Her sodium was extremely high She was dehydrated According to her family she was not eating drinking much and she has been losing weight The take care of her at home completely She is full code She was given IV fluids here with D51/2NS which improved her sodium level and her mental status improved slowly Sodium was 151 on admission and is down to 144 yesterday We do not have labs today The patient has been refusing She was started on ensure According to the family she is back to her normal now They would like to take her home Discharged home on the same home medications and add Megace 4 appetite stimulation Stable for discharge Urinalysis was negative The urine culture was negative Also add donepezil 5 mg daily Condition at Discharge: Stable Final Diagnosis/Problems List Acute metabolic encephalopathy Dehydration Hyperthyroidism Hypernatremia Underlying dementia Rule out UTI Paroxysmal atrial fibrillation Acute on chronic diastolic heart failure Cachexia Hypokalemia Decubitus sacral ulcer Discharge Disposition: Home SNF Discharge Will this Physician continue t: No Discharge Statement: "Patient was advised to return to the ER or call 911 if any headaches, dizziness, shortness of breath, chest pain, abdominal pain, bleeding, fevers, or worsening of medical condition. Patient was counseled about treatment plan, medications, possible side effects, patientverbalized understanding. All questions were answered to the best of my ability. This discharge took greater then 30 minutes in planning, reviewing documentation, counseling the patient, and discussing with other team members." ASSESSMENT ASSESSMENT Assessment Date of Service: Dec 23, 2024 Billing Provider: HOA العلي MD Common Visit Codes: 46647-QKW/OBS DISCH DAY >30min HOA العلي MD Dec 23, 2024 10:48
[2024-12-23] MEDS ORDERED: DONE5TAB80 PO (10:50)
[2024-12-23 11:26] VITALS: BP 161/92; PULSE 98; RESP 16; TEMP 36.5; O2SAT 97
[2024-12-23 11:35] LABS: Basophils # (auto) 0 10 ^3/uL (0-0.2); Basophils % (auto) 0.2 % (0.0-2.0); Eosinophils # (auto) 0 10 ^3/uL (0-0.8); Hemoglobin 11.4 g/dL (12.2-16.2); Nucleated Red Blood Cells % 0.1 %
[2024-12-23 11:38] LABS: Eosinophils % (auto) 0.6 % (0.0-7.0); Hematocrit 35.6 % (36.0-46.0); Lymphocytes # (auto) 1.7 10 ^3/uL (0.4-5.4); Mean Corpuscular Volume 62.6 fL (80.0-100.0); Monocytes # (auto) 0.6 10 ^3/uL (0-1.3); Monocytes % (auto) 8.6 % (0.0-12.0); Neutrophils # (auto) 5.2 10 ^3/uL (1.6-8.6); Neutrophils % (auto) 68.6 % (37.0-80.0); Platelet Count (auto) 236 10^3/uL (140-450); Red Blood Cells 5.68 10^6/uL (4.0-5.20); Red Cell Distribution Width 15.9 % (11.8-14.3); White Blood Cell 7.5 10^3/uL (4.4-10.8)
[2024-12-23 11:47] LABS: Alanine Aminotransferase 16 U/L (7-40); Albumin 3.6 g/dL (3.2-4.8); Alkaline Phosphatase 62 U/L (46-116); Anion Gap 14 (5-15); Aspartate Aminotransferase 18 U/L (13-40); BUN/Creatinine Ratio 17.2 (10.0-20.0); Blood Urea Nitrogen 10 mg/dL (9-23); Calcium 10.2 mg/dL (8.7-10.4); Carbon Dioxide 24 mmol/L (20-31); Magnesium 1.6 mg/dL (1.6-2.6); Sodium 145 mmol/L (136-145)
[2024-12-23 11:48] LABS: Bilirubin, Total 0.6 mg/dL (0.2-1.0); Chloride 107 mmol/L (98-107); Glucose 125 mg/dL (74-106); Potassium 3.2 mmol/L (3.5-5.1)
[2024-12-23] MEDS ORDERED: DONEPEZIL HYDROCHLORIDE 5 MG TAB PO SCH (22:00)
== END 2024-12-23 13:00 | disposition home or self-care (01) | DRG 70 ==
LOC: ER 11:53 → OVERFLOW 18:14 → TELE-EAST 22:58
PROVIDERS: ADMIT Internal Medicine Geriatric Medicine; ATTEND Internal Medicine Geriatric Medicine
PROC: 05H933Z Insertion of Infusion Device into Right Brachial Vein, Percutaneous Approach (ICD-10-PCS; principal; 2024-12-20)
PROC: B54MZZA Ultrasonography of Right Upper Extremity Veins, Guidance (ICD-10-PCS; 2024-12-20)
PROC: 05PYX3Z Removal of Infusion Device from Upper Vein, External Approach (ICD-10-PCS; 2024-12-22)
PROC: 05HA33Z Insertion of Infusion Device into Left Brachial Vein, Percutaneous Approach (ICD-10-PCS; 2024-12-22)
PROC: B54NZZA Ultrasonography of Left Upper Extremity Veins, Guidance (ICD-10-PCS; 2024-12-22)
DX: G93.41 Metabolic encephalopathy (principal); I21.A1 Myocardial infarction type 2; I50.33 Acute on chronic diastolic (congestive) heart failure; E87.0 Hyperosmolality and hypernatremia; R64 Cachexia; Z68.1 Body mass index [BMI] 19.9 or less, adult; I11.0 Hypertensive heart disease with heart failure; E86.0 Dehydration; I35.2 Nonrheumatic aortic (valve) stenosis with insufficiency; E87.6 Hypokalemia; I27.20 Pulmonary hypertension, unspecified; D64.9 Anemia, unspecified; J44.9 Chronic obstructive pulmonary disease, unspecified; R13.10 Dysphagia, unspecified; F17.200 Nicotine dependence, unspecified, uncomplicated; E83.42 Hypomagnesemia; I48.0 Paroxysmal atrial fibrillation; R53.81 Other malaise; G30.9 Alzheimer's disease, unspecified; F02.80 Dementia in other diseases classified elsewhere, unspecified severity, without behavioral disturbance, psychotic disturbance, mood disturbance, and anxiety; I25.10 Atherosclerotic heart disease of native coronary artery without angina pectoris; E05.90 Thyrotoxicosis, unspecified without thyrotoxic crisis or storm; I49.3 Ventricular premature depolarization; Z88.0 Allergy status to penicillin; Z88.2 Allergy status to sulfonamides; Z81.8 Family history of other mental and behavioral disorders; Z79.1 Long term (current) use of non-steroidal anti-inflammatories (NSAID); Z79.899 Other long term (current) drug therapy; Z82.61 Family history of arthritis; Z98.61 Coronary angioplasty status; Z79.82 Long term (current) use of aspirin; Z82.49 Family history of ischemic heart disease and other diseases of the circulatory system; L89.152 Pressure ulcer of sacral region, stage 2
CPT/HCPCS: 36415; 70450; 71045; 74176; 80048; 80053; 80061; 81001; 82570; 83036; 83605; 83735; 83880; 83930; 83935; 84300; 84439; 84443; 84481; 84484; 85025; 87086; 93005; 93306; 96361; 96374; 97163; G0378; J1956; J2470; J3480

== ENCOUNTER 2025-03-30 15:03 | Inpatient (IN) | payer OTHER ==
[~2025-03-30] VITALS: Ht 165.1 cm; Wt 52.5 kg
[~2025-03-30 15:03] MED LIST changes: -CEFD300C2 PO; +DONE5TAB80 PO; -FURO40TA4 PO; +MEGE20TA3 PO; -METO2.5T PO; -PANT40TA2 PO; +PANT40TA57 PO
[2025-03-30 17:00] VITALS: BP 153/72; PULSE 62; RESP 16; TEMP 97.8; O2SAT 99
[2025-03-30 17:26] VITALS: PULSE 66; RESP 16; O2SAT 96
[2025-03-30] MEDS ORDERED: hydrALAZINE HCL 20 MG/ML VL IV PRN (18:00)
[2025-03-30 20:00] VITALS: PULSE 67; RESP 14; O2SAT 100
[2025-03-30 21:00] VITALS: BP 154/87; PULSE 67; RESP 14; TEMP 97.6; O2SAT 100
[2025-03-31] VITALS (8 sets, daily range): BP systolic 141–164; BP diastolic 83–115; PULSE 65–88; RESP 14–20; TEMP 97.5–98.2; O2SAT 93–100
[2025-03-31] MEDS ORDERED: ONDANSETRON HCL 4 MG/2 ML VIAL IV PRN (09:30)
[2025-03-31] MEDS ORDERED: ACETAMINOPHEN 325 MG TAB PO PRN (09:30)
--- NOTE | 2025-03-31 11:19 | DVHHP2 ---
History of Present Illness History of Present Illness 79-year-old female with past medical history of dementia, CHF, thyroid disease, atrial fibrillation, anemia, asthma, and hypertension, presents as transfer from [facility]. Patient was admitted there after presentation for thighs term with seizures. Patient also noted to be in AFib RVR. Patient was started on Keppra b.i.d., methimazole t.i.d., hydrocortisone 50 mg q.8, continue Xarelto, propranolol 20 t.i.d. with rate controlled and 50s. Patient was extubated on 03/29/2025 and transferred to in network facility [facility]. Patient is A&O times 1 unable to offer any meaningful ROS but looks comfortable. family Contact: Thelma ([phone]), Karla ([phone])., Review of Systems Review of Systems Not applicable, A&O x1 poor historian Allergies: Coded Allergies: Aspirin (Verified Allergy, Intermediate, 03/31/25) Iodine (Verified Allergy, Unknown, 03/31/25) Latex (Verified Allergy, Unknown, 03/31/25) Penicillins (Verified Allergy, Unknown, 02/04/23) Sulfa Antibiotics (Verified Allergy, Unknown, 02/04/23) Medications Current Medications Medications Dose Ordered Sig/Heather Route Start Time Stop Time Status Last Admin Dose Admin Hydralazine HCl 10 mg Q6HP PRN IV 03/30/25 18:00 Acetaminophen/ Hydrocodone Bitart 1 tab Q4HP PRN PO 03/31/25 09:30 Ondansetron HCl 4 mg Q4HP PRN IV 03/31/25 09:30 Enoxaparin Sodium 40 mg DAILY SC 03/31/25 10:00 UNV Acetaminophen 650 mg Q6HP PRN PO 03/31/25 09:30 Morphine Sulfate 2 mg Q4HPRN PRN IV 03/31/25 09:30 Exam Vital Signs Vital Signs Date Time Temp Pulse Resp B/P (MAP) Pulse Ox O2 Delivery O2 Flow Rate FiO2 03/31/25 05:00 97.8 66 20 164/83 (110) 98 97.8 03/30/25 20:00 Room Air* 0 21 Exam GEN: Healthy appearing, well-developed, NAD. HEENT: NC/AT; MMM. CV: RRR, no m/r/g. LUNGS: CTAB, no w/r/c. ABD: Soft, NT/ND, NBS, no masses or organomegaly. EXT: skin Warm, well perfused. no rashes. No clubbing, cyanosis, or edema. NEURO: Ambulating with no limitations. No focal deficits. SEPSIS Sepsis Screen Physician Orders Admit (03/31/25 09:29) Code Status (03/31/25 09:29) Full Liq Diet (03/31/25 Breakfast) Hydrocodone-Acet 5/325mg Tab ([place] 5/32 (03/31/25 09:30) Ondansetron Hcl (Zofran) (03/31/25 09:30) Enoxaparin Sodium (Lovenox) (03/31/25 10:00) Complete Blood Count (04/01/25 04:00) Comprehensive Metabolic Panel (04/01/25 04:00) Acetaminophen Tablet (Tylenol Tablet) (03/31/25 09:30) Morphine Sulfate Injection (03/31/25 09:30) Complete Blood Count (03/31/25 09:29) Comprehensive Metabolic Panel (03/31/25 09:29) Thyroid Stimulating Hormone (03/31/25 09:29) Free T4 (Free Thyroxine) (03/31/25 09:29) * Wound Consult (03/31/25 ) * Dietary Consult (03/31/25 10:12) Vital Signs Date Time Temp Pulse Resp B/P (MAP) Pulse Ox O2 Delivery O2 Flow Rate FiO2 03/31/25 05:00 97.8 66 20 164/83 (110) 98 97.8 Assessment/Plan Assessment/Plan 03/31: Patient was admitted at [facility] for respiratory failure due to thyrotoxicosis. She has been seen in the hospital prior for multiple times with acute toxic metabolic encephalopathy, hypernatremia. Today she is A&O x1, tangential speech,. We will resume medications that was started in prior facility, CBC CMP and re-evaluate the case. She was extubated? Two days ago. Diagnosis: Thyrotoxicosis/thyroid storm Respiratory failure due to above AFib RVR seizures, ? Febrile dementia, CHF, atrial fibrillation, anemia, asthma, hypertension Plan: Continue medications per prior facility Amlodipine 10 daily Lovenox 30 subQ Hydralazine 50 mg daily b.i.d. Hydrocortisone 50 mg t.i.d. Keppra 500 mg IV b.i.d. Valsartan 100 cc mg daily Full liquid diet Tele Full code Plan discussed with: Patient, Other My Orders Orders - JOSSY NOLAND MD Procedure Category Date Status Time Hydralazine Injection PHA 03/30/25 In Process (Apresoline Inject 18:00 Admit ADMIT 03/31/25 Transmitted 09:29 Code Status CODE 03/31/25 Transmitted 09:29 Full Liq Diet DIET 03/31/25 Transmitted Breakfast Hydrocodone-Acet PHA 03/31/25 In Process 5/325mg Tab ([place] 09:30 Ondansetron Hcl PHA 03/31/25 In Process (Zofran) 09:30 Enoxaparin Sodium PHA 03/31/25 Logged (Lovenox) 10:00 Complete Blood Count LAB 04/01/25 Verified 04:00 Comprehensive LAB 04/01/25 Verified Metabolic Panel 04:00 Acetaminophen Tablet PHA 03/31/25 In Process (Tylenol Tablet) 09:30 Morphine Sulfate PHA 03/31/25 In Process Injection 09:30 Complete Blood Count LAB 03/31/25 Logged 09:29 Comprehensive LAB 03/31/25 Logged Metabolic Panel 09:29 Thyroid Stimulating LAB 03/31/25 Logged Hormone 09:29 Free T4 (Free LAB 03/31/25 Logged Thyroxine) 09:29 * Wound Consult CONS 03/31/25 Transmitted * Dietary Consult CONS 03/31/25 Transmitted 10:12 Date of Service: Mar 31, 2025 Billing Provider: JOSSY NOLAND MD Common Visit Codes: [id number] INP/OBS CARE (HIGH) Secondary Visit Codes: [id number] CARE PLAN 30 MINUTES JOSSY NOLAND MD Mar 31, 2025 11:19
[2025-03-31 14:00] LABS: Hemoglobin 11.8 g/dL (12.2-16.2)
[2025-03-31 14:02] LABS: Hematocrit 37.6 % (36.0-46.0); Mean Corpuscular Hemoglobin 20.7 pg (28.0-32.0); Mean Corpuscular Volume 66.1 fL (80.0-100.0)
[2025-03-31 14:12] LABS: Alanine Aminotransferase 17 U/L (7-40); Albumin 3.4 g/dL (3.2-4.8); Alkaline Phosphatase 66 U/L (46-116); Anion Gap 9 (5-15); BUN/Creatinine Ratio 11.6 (10.0-20.0); Calcium 8.8 mg/dL (8.7-10.4); Carbon Dioxide 26 mmol/L (20-31); Chloride 107 mmol/L (98-107); Potassium 3.6 mmol/L (3.5-5.1); Sodium 142 mmol/L (136-145)
[2025-03-31 14:14] LABS: Bilirubin, Total 0.7 mg/dL (0.2-1.0); Blood Urea Nitrogen 8 mg/dL (9-23); Glucose 122 mg/dL (74-106)
[2025-03-31 14:15] LABS: Total Protein 5.7 g/dL (5.7-8.2)
[2025-03-31 14:49] LABS: Total Cells Counted 100.0 (100)
[2025-03-31 14:50] LABS: Anisocytosis Slight
[2025-03-31 14:51] LABS: Ovalocytes FEW
[2025-03-31] MEDS: HYDROCORTISONE SOD SUCC 100 MG/2ML INJ VIAL IV SCH (17:09)
[2025-03-31] MEDS: ENOXAPARIN SOD 30 MG/0.3 ML SYRINGE SC SCH (17:14)
[2025-03-31] MEDS: levETIRAcetam 1000 mg/100ml 100 ML IV SCH (21:22)
[2025-03-31] MEDS: LACTATED RINGER'S 1,000 ML IV SCH (21:22)
[2025-04-01] VITALS (8 sets, daily range): BP systolic 123–157; BP diastolic 80–91; PULSE 73–102; RESP 16–18; TEMP 97.7–98.3; O2SAT 90–100
[2025-04-01 08:40] LABS: Hemoglobin 10.8 g/dL (12.2-16.2)
[2025-04-01 08:42] LABS: Hematocrit 33.0 % (36.0-46.0); Mean Corpuscular Hemoglobin 21.1 pg (28.0-32.0); Mean Corpuscular Volume 64.5 fL (80.0-100.0)
[2025-04-01 08:52] LABS: Alanine Aminotransferase 17 U/L (7-40); Albumin 3.5 g/dL (3.2-4.8); Alkaline Phosphatase 69 U/L (46-116); Anion Gap 10 (5-15); BUN/Creatinine Ratio 21.2 (10.0-20.0); Blood Urea Nitrogen 11 mg/dL (9-23); Carbon Dioxide 29 mmol/L (20-31); Chloride 103 mmol/L (98-107); Glucose 92 mg/dL (74-106); Sodium 142 mmol/L (136-145); Total Protein 5.7 g/dL (5.7-8.2)
[2025-04-01 08:53] LABS: Bilirubin, Total 0.6 mg/dL (0.2-1.0); Calcium 8.4 mg/dL (8.7-10.4); Potassium 3.4 mmol/L (3.5-5.1)
[2025-04-01 09:15] LABS: Total Cells Counted 100.0 (100)
[2025-04-01] MEDS: VALSARTAN 80 MG TAB PO SCH (09:35)
--- NOTE | 2025-04-01 11:25 | DVHPN2 ---
Subjective Patient doing well she is at her baseline seen at bedside today. Reviewed: H&P Changes from previous H/P or p: No Changes General: Per HPI Objective Vitals Vital Signs Date Time Temp Pulse Resp B/P (MAP) Pulse Ox O2 Delivery O2 Flow Rate FiO2 04/01/25 09:35 157/91 04/01/25 09:00 98.1 87 17 97 98.1 04/01/25 08:10 Room Air* 0 21 Intake/Output Intake and Output 04/01/25 07:00 Intake Total 950 ml Balance 950 ml Intake Oral 850 ml IV Total 100 ml # Voids 10 Exam GEN: Healthy appearing, well-developed, NAD. HEENT: NC/AT; MMM. CV: RRR, no m/r/g. LUNGS: CTAB, no w/r/c. ABD: Soft, NT/ND, NBS, no masses or organomegaly. EXT: skin Warm, well perfused. no rashes. No clubbing, cyanosis, or edema. NEURO: Ambulating with no limitations. No focal deficits. Medications Current Medications Medications Dose Ordered Sig/Heather Route Start Time Stop Time Status Last Admin Dose Admin Hydralazine HCl 10 mg Q6HP PRN IV 03/30/25 18:00 Acetaminophen/ Hydrocodone Bitart 1 tab Q4HP PRN PO 03/31/25 09:30 Ondansetron HCl 4 mg Q4HP PRN IV 03/31/25 09:30 Enoxaparin Sodium 30 mg DAILY SC 03/31/25 11:21 04/01/25 09:34 30 MG Acetaminophen 650 mg Q6HP PRN PO 03/31/25 09:30 Morphine Sulfate 2 mg Q4HPRN PRN IV 03/31/25 09:30 Amlodipine Besylate 10 mg DAILY PO 04/01/25 10:00 04/01/25 09:35 10 MG Hydralazine HCl 50 mg BID PO 03/31/25 22:00 04/01/25 09:34 50 MG Levetiracetam 100 ml @ 400 mls/hr BID IV 03/31/25 22:00 04/01/25 09:33 400 MLS/HR Valsartan 160 mg DAILY PO 04/01/25 10:00 04/01/25 09:35 160 MG Hydrocortisone Sodium Succinate 50 mg TID IV 03/31/25 14:00 04/02/25 10:00 04/01/25 05:34 50 MG Lactated Ringer's 1,000 ml @ 75 mls/hr [id number] IV 03/31/25 20:00 03/31/25 21:22 75 MLS/HR Methimazole 10 mg DAILY PO 04/01/25 10:00 Carvedilol 6.25 mg Q12HR PO 04/01/25 10:00 Laboratory Results Laboratory Tests 04/01/25 07:23 Chemistry Test 03/31/25 13:35 04/01/25 07:23 Albumin 3.4 g/dL (3.2-4.8) 3.5 g/dL (3.2-4.8) Calcium Level 8.8 mg/dL (8.7-10.4) 8.4 mg/dL (8.7-10.4) L Total Protein 5.7 g/dL (5.7-8.2) 5.7 g/dL (5.7-8.2) LFT Test 03/31/25 13:35 04/01/25 07:23 Alanine Aminotransferase (ALT) 17 U/L (7-40) 17 U/L (7-40) Alkaline Phosphatase 66 U/L (46-116) 69 U/L (46-116) Aspartate Amino Transferase (AST) 26 U/L (13-40) 33 U/L (13-40) Total Bilirubin 0.7 mg/dL (0.2-1.0) 0.6 mg/dL (0.2-1.0) HgA1c, TSH Test 03/31/25 13:35 Thyroid Stimulating Hormone (TSH) 0.01 uIU/mL (0.55-4.78) L Labs and/or images reviewed: Labs reviewed by me, Image(s) reviewed by me Assessment/Plan Assessment/Plan 03/31: Patient was admitted at [facility] for respiratory failure due to thyrotoxicosis. She has been seen in the hospital prior for multiple times with acute toxic metabolic encephalopathy, hypernatremia. Today she is A&O x1, tangential speech,. We will resume medications that was started in prior facility, CBC CMP and re-evaluate the case. She was extubated? Two days ago. 04/01: Patient A&O x1, remembers daughter's name. Patient does not endorse any positives for review of systems, exam benign, vitals stable. Likely we will begin discharge planning today. We will start Lasix 20 daily for CHF, switch to regular diet with lactulose 10 daily, plan to wean off hydrocortisone, patient has new onset cough portable CXR today, PT order today, continue blood pressure meds daily, consult Neurology,, Diagnosis: Thyrotoxicosis/thyroid storm Respiratory failure due to above AFib RVR seizures, ? Febrile dementia, CHF, atrial fibrillation, anemia, asthma, hypertension Plan: Continue medications per prior facility MR Amlodipine 10 daily Lovenox 30 subQ Hydralazine 50 mg daily b.i.d. Hydrocortisone 50 mg t.i.d. Keppra 500 mg IV b.i.d. Valsartan 100 cc mg daily Full liquid diet Tele Full code Plan discussed with: Patient My Orders Orders - JOSSY NOLAND MD Procedure Category Date Status Time Amlodipine Tablet PHA 04/01/25 In Process (Norvasc Tablet) 10:00 Hydralazine Hcl PHA 03/31/25 In Process Tablet (Apresoline 22:00 Levetiracetam 1000 PHA 03/31/25 In Process Mg/100ml (Levetiracet 22:00 Valsartan (Diovan) PHA 04/01/25 In Process 10:00 Hydrocortisone PHA 03/31/25 In Process Succinate Inj 14:00 Lactated Ringer's PHA 03/31/25 In Process 20:00 Mrsa Screen TARIK 03/31/25 In Process 20:09 Methimazole Tab PHA 04/01/25 In Process (Tapazole) 10:00 Carvedilol Tablet PHA 04/01/25 In Process (Coreg Tablet) 10:00 Date of Service: Apr 01, 2025 Billing Provider: JOSSY NOLAND MD Common Visit Codes: [id number] INP/OBS CARE(HIGH) JOSSY NOLAND MD Apr 01, 2025 11:25
[2025-04-01] MEDS: CARVEDILOL 3.125 MG TAB PO SCH (14:33)
[2025-04-01] MEDS: methIMAzole 5 MG TAB PO SCH (14:34)
[2025-04-02] VITALS (9 sets, daily range): BP systolic 127–164; BP diastolic 76–94; PULSE 68–79; RESP 16–18; TEMP 97.6–98.9; O2SAT 97–100
--- NOTE | 2025-04-02 09:38 | DVHPN2 ---
Subjective Patient doing well she is at her baseline seen at bedside today. Reviewed: H&P Changes from previous H/P or p: No Changes General: Per HPI Objective Vitals Vital Signs Date Time Temp Pulse Resp B/P (MAP) Pulse Ox O2 Delivery O2 Flow Rate FiO2 04/02/25 05:00 98.9 68 18 151/85 (107) 98 98.9 04/01/25 20:00 Room Air* 0 21 Intake/Output Intake and Output 04/02/25 07:00 Intake Total 2560 ml Balance 2560 ml Intake Oral 2560 ml # Voids 4 Exam GEN: Healthy appearing, well-developed, NAD. HEENT: NC/AT; MMM. CV: RRR, no m/r/g. LUNGS: CTAB, no w/r/c. ABD: Soft, NT/ND, NBS, no masses or organomegaly. EXT: skin Warm, well perfused. no rashes. No clubbing, cyanosis, or edema. NEURO: Ambulating with no limitations. No focal deficits. Medications Current Medications Medications Dose Ordered Sig/Heather Route Start Time Stop Time Status Last Admin Dose Admin Hydralazine HCl 10 mg Q6HP PRN IV 03/30/25 18:00 Acetaminophen/ Hydrocodone Bitart 1 tab Q4HP PRN PO 03/31/25 09:30 Ondansetron HCl 4 mg Q4HP PRN IV 03/31/25 09:30 Enoxaparin Sodium 30 mg DAILY SC 03/31/25 11:21 04/01/25 09:34 30 MG Acetaminophen 650 mg Q6HP PRN PO 03/31/25 09:30 Morphine Sulfate 2 mg Q4HPRN PRN IV 03/31/25 09:30 Amlodipine Besylate 10 mg DAILY PO 04/01/25 10:00 04/01/25 09:35 10 MG Hydralazine HCl 50 mg BID PO 03/31/25 22:00 04/01/25 22:09 50 MG Levetiracetam 100 ml @ 400 mls/hr BID IV 03/31/25 22:00 04/01/25 22:09 400 MLS/HR Valsartan 160 mg DAILY PO 04/01/25 10:00 04/01/25 09:35 160 MG Hydrocortisone Sodium Succinate 50 mg TID IV 03/31/25 14:00 04/02/25 10:00 04/02/25 05:34 50 MG Lactated Ringer's 1,000 ml @ 75 mls/hr [id number] IV 03/31/25 20:00 04/01/25 13:35 75 MLS/HR Methimazole 10 mg DAILY PO 04/01/25 10:00 04/01/25 14:34 10 MG Carvedilol 6.25 mg Q12HR PO 04/01/25 10:00 04/01/25 22:08 6.25 MG Furosemide 20 mg DAILY PO 04/02/25 10:00 UNV Lactulose 15 ml DAILY PO 04/02/25 10:00 04/09/25 10:00 UNV Laboratory Results Laboratory Tests 04/01/25 07:23 Microbiology Microbiology Date/Time Source Procedure Growth Status 03/31/25 21:00 Nose MRSA Screen - Final Complete Labs and/or images reviewed: Labs reviewed by me, Image(s) reviewed by me Assessment/Plan Assessment/Plan Review [facility] data:: Review of imaging done in [place] Ultrasound thyroid done showing right inferior nodule TR 5 highly suspicious repeat ultrasound 5 years, heterogenous thyroid gland consistent with diffuse thyroid disease related to hypothyroid, left inferior nodule TR 4 moderately suspicious follow up scan 1235 years.. MRI pain without con done showing moderate small-vessel angiopathy, no acute infarct,. CT angio head and neck done showing negative CTA without aneurysm dissection or arterial occlusions. - patient's main reason for admission include CVA, stroke, seizure, thyrotoxicosis,.. Neurology evaluated and recommended Keppra 1 g b.i.d. with outpatient neurology follow up. Recommendation for medical neurology was applesauce 5 mg oral t.i.d.., they were continuing Toprol-XL 100, Patient had EEG performed, EEG was interpreted Endocrinology plan was hydrocortisone methimazole propranolol, hydrocortisone is now weaned off, continuing methimazole and propranolol, can likely follow up with with endocrine outpatient., -patient has history of AFib remains on rivaroxaban, rales on was held transiently [facility] Rosanna due to bloody secretions from ETT, now continuing. Patient is meds before transfer was amlodipine 10 mg, hydralazine 50 oral b.i.d., hydrocortisone 50 IV t.i.d., Keppra 1000 b.i.d., methimazole 5 mg t.i.d., Protonix 40 IV daily, propranolol 20 mg p.o. t.i.d., paroxetine 20 mg daily, valsartan 320 mg nightly,, On EEG patient was showing epileptiform findings on surgery bowel, the seizures was noted as complex partial seizures, prior to transfer patient had 24 hours free of seizure activity. And cerebellar was discontinued. , also premeal transaminitis patient is [employer]. -patient had meeting with palliative care team at [place] and patient's family 2 daughters had decided on continuing all life saving measures and keeping patient full code.. When patient is not having seizure activity there is some nonepileptic abnormalities including generalized theta delta activity and, focal slowing delta activity over the right temporal lobe the impression reads diffuse encephalopathy with underlying focal switch her and/or functional abnormalities the right control region. There were also some temporary use of sedative and analgesic during sedation for intubation, there was also use of acetazolamide 500 b.i.d. for 1 day, also use of bisacodyl rectal suppository, clonidine, Colace, fentanyl, labetalol IV, [place] magnesia suspension, midazolam Versed,, MiraLax, Senokot,. SUMMARY DVH 03/31: Patient was admitted at [facility] for respiratory failure due to thyrotoxicosis. She has been seen in the hospital prior for multiple times with acute toxic metabolic encephalopathy, hypernatremia. Today she is A&O x1, tangential speech,. We will resume medications that was started in prior facility, CBC CMP and re-evaluate the case. She was extubated? Two days ago. 04/01: Patient A&O x1, remembers daughter's name. Patient does not endorse any positives for review of systems, exam benign, vitals stable. Likely we will begin discharge planning today. We will start Lasix 20 daily for CHF, switch to regular diet with lactulose 10 daily, plan to wean off hydrocortisone, patient has new onset cough portable CXR today, PT order today, continue blood pressure meds daily, consult Neurology,, 04/02- orders not entered yesterday, theyre now ordered today. need rec on anti- epileptic and thyroid medications. endo and neuro to eval. Diagnosis: Thyrotoxicosis/thyroid storm Respiratory failure due to above AFib RVR seizures, ? Febrile dementia, CHF, atrial fibrillation, anemia, asthma, hypertension Plan: Continue medications per prior facility MR Amlodipine 10 daily Lovenox 30 subQ Hydralazine 50 mg daily b.i.d. Hydrocortisone 50 mg t.i.d. Keppra 500 mg IV b.i.d. Valsartan 100 cc mg daily Full liquid diet Tele Full code Plan discussed with: Patient My Orders Orders - JOSSY NOLAND MD Procedure Category Date Status Time Methimazole Tab PHA 04/01/25 In Process (Tapazole) 10:00 Carvedilol Tablet PHA 04/01/25 In Process (Coreg Tablet) 10:00 Pt Request For Service PT 04/02/25 Logged 08:07 Chest Portable XY 04/02/25 Taken 08:07 Furosemide Tablet PHA 04/02/25 Logged (Lasix Tablet) 10:00 Cardiac DIET 04/02/25 Transmitted Diet-2gna,Lofat,Lochol Breakfast * Endocrinology CONS 04/02/25 Transmitted Consult 08:07 * Neurology Consult CONS 04/02/25 Transmitted 08:07 Lactulose Oral PHA 04/02/25 Logged 10:00 Date of Service: Apr 02, 2025 Billing Provider: JOSSY NOLAND MD Common Visit Codes: [id number] INP/OBS CARE(HIGH) JOSSY NOLAND MD Apr 02, 2025 09:38
--- NOTE | 2025-04-02 09:40 | DVH ---
INDICATION: new cough, eval pna, TECHNIQUE: Frontal view of the chest. COMPARISON: XY CHEST PORTABLE on DOS: 12/18/24, XY CHEST XRAY 1 VIEW on DOS: 08/14/24, XY CHEST XRAY 1 V IEW on DOS: 07/29/24, XY CHEST PORTABLE on DOS: 07/28/24, XY CHEST PORTABLE on DOS: 07/26/24 FINDINGS: Right basilar airspace opacity. The heart and mediastinal contours are grossly unremarkable. There i s no evidence of pleural disease. The bony structures of the chest are intact without fracture. IMPRESSION: 1. Right basilar pneumonia.
[2025-04-02] MEDS: MORPHINE SULFATE INJ 2 MG/ml SYRG IV PRN (10:42)
[2025-04-02] MEDS: FUROSEMIDE 20 MG TAB PO SCH (19:19)
[2025-04-02] MEDS: LACTULOSE 20Gm/30ML SOLN PO SCH (19:19)
[2025-04-02] MEDS: methIMAzole 5 MG TAB PO SCH (22:45)
[2025-04-02] MEDS: DOXYCYCLINE 100 MG TAB/CAP PO SCH (22:45)
[2025-04-03] VITALS (8 sets, daily range): BP systolic 115–144; BP diastolic 57–86; PULSE 52–99; RESP 18–21; TEMP 98–98.3; O2SAT 96–100
--- NOTE | 2025-04-03 10:50 | DVHPN2 ---
Subjective Patient doing well she is at her baseline seen at bedside today. Reviewed: H&P Changes from previous H/P or p: No Changes General: Per HPI Objective Vitals Vital Signs Date Time Temp Pulse Resp B/P (MAP) Pulse Ox O2 Delivery O2 Flow Rate FiO2 04/03/25 09:45 52 144/75 04/03/25 09:00 98.0 21 100 98.0 04/02/25 20:00 Room Air* 0 21 Intake/Output Intake and Output 04/03/25 07:00 Intake Total 924 ml Balance 924 ml Intake Oral 824 ml IV Total 100 ml # Voids 6 Exam GEN: Healthy appearing, well-developed, NAD. HEENT: NC/AT; MMM. CV: RRR, no m/r/g. LUNGS: CTAB, no w/r/c. ABD: Soft, NT/ND, NBS, no masses or organomegaly. EXT: skin Warm, well perfused. no rashes. No clubbing, cyanosis, or edema. NEURO: Ambulating with no limitations. No focal deficits. Medications Current Medications Medications Dose Ordered Sig/Heather Route Start Time Stop Time Status Last Admin Dose Admin Hydralazine HCl 10 mg Q6HP PRN IV 03/30/25 18:00 Acetaminophen/ Hydrocodone Bitart 1 tab Q4HP PRN PO 03/31/25 09:30 Ondansetron HCl 4 mg Q4HP PRN IV 03/31/25 09:30 Acetaminophen 650 mg Q6HP PRN PO 03/31/25 09:30 Morphine Sulfate 2 mg Q4HPRN PRN IV 03/31/25 09:30 04/02/25 10:42 2 MG Amlodipine Besylate 10 mg DAILY PO 04/01/25 10:00 04/03/25 09:44 10 MG Hydralazine HCl 50 mg BID PO 03/31/25 22:00 04/03/25 09:44 50 MG Levetiracetam 100 ml @ 400 mls/hr BID IV 03/31/25 22:00 04/03/25 09:37 400 MLS/HR Valsartan 160 mg DAILY PO 04/01/25 10:00 04/03/25 09:45 160 MG Lactated Ringer's 1,000 ml @ 75 mls/hr [id number] IV 03/31/25 20:00 04/03/25 02:36 75 MLS/HR Carvedilol 6.25 mg Q12HR PO 04/01/25 10:00 04/02/25 22:47 6.25 MG Furosemide 20 mg DAILY PO 04/02/25 10:00 04/03/25 09:43 20 MG Lactulose 15 ml DAILY PO 04/02/25 10:00 04/09/25 10:00 04/03/25 09:42 15 ML Methimazole 5 mg TID PO 04/02/25 22:00 04/03/25 05:32 5 MG Rivaroxaban 15 mg QPM PO 04/03/25 18:00 Doxycycline Monohydrate 100 mg Q12HR PO 04/02/25 22:00 04/03/25 09:44 100 MG Laboratory Results Laboratory Tests 04/01/25 07:23 Microbiology Microbiology Date/Time Source Procedure Growth Status 03/31/25 21:00 Nose MRSA Screen - Final Complete Labs and/or images reviewed: Labs reviewed by me, Image(s) reviewed by me Assessment/Plan Assessment/Plan Review [facility] data:: Review of imaging done in [place] Ultrasound thyroid done showing right inferior nodule TR 5 highly suspicious repeat ultrasound 5 years, heterogenous thyroid gland consistent with diffuse thyroid disease related to hypothyroid, left inferior nodule TR 4 moderately suspicious follow up scan 1235 years.. MRI pain without con done showing moderate small-vessel angiopathy, no acute infarct,. CT angio head and neck done showing negative CTA without aneurysm dissection or arterial occlusions. - patient's main reason for admission include CVA, stroke, seizure, thyrotoxicosis,.. Neurology evaluated and recommended Keppra 1 g b.i.d. with outpatient neurology follow up. Recommendation for medical neurology was applesauce 5 mg oral t.i.d.., they were continuing Toprol-XL 100, Patient had EEG performed, EEG was interpreted Endocrinology plan was hydrocortisone methimazole propranolol, hydrocortisone is now weaned off, continuing methimazole and propranolol, can likely follow up with with endocrine outpatient., -patient has history of AFib remains on rivaroxaban, rales on was held transiently NSAID Rosanna due to bloody secretions from ETT, now continuing. Patient is meds before transfer was amlodipine 10 mg, hydralazine 50 oral b.i.d., hydrocortisone 50 IV t.i.d., Keppra 1000 b.i.d., methimazole 5 mg t.i.d., Protonix 40 IV daily, propranolol 20 mg p.o. t.i.d., paroxetine 20 mg daily, valsartan 320 mg nightly,, On EEG patient was showing epileptiform findings on surgery bowel, the seizures was noted as complex partial seizures, prior to transfer patient had 24 hours free of seizure activity. And cerebellar was discontinued. , also premeal transaminitis patient is [employer]. -patient had meeting with palliative care team at [place] and patient's family 2 daughters had decided on continuing all life saving measures and keeping patient full code.. When patient is not having seizure activity there is some nonepileptic abnormalities including generalized theta delta activity and, focal slowing delta activity over the right temporal lobe the impression reads diffuse encephalopathy with underlying focal switch her and/or functional abnormalities the right control region. There were also some temporary use of sedative and analgesic during sedation for intubation, there was also use of acetazolamide 500 b.i.d. for 1 day, also use of bisacodyl rectal suppository, clonidine, Colace, fentanyl, labetalol IV, [place] magnesia suspension, midazolam Versed,, MiraLax, Senokot,. SUMMARY DVH 03/31: Patient was admitted at [facility] for respiratory failure due to thyrotoxicosis. She has been seen in the hospital prior for multiple times with acute toxic metabolic encephalopathy, hypernatremia. Today she is A&O x1, tangential speech,. We will resume medications that was started in prior facility, CBC CMP and re-evaluate the case. She was extubated? Two days ago. 04/01: Patient A&O x1, remembers daughter's name. Patient does not endorse any positives for review of systems, exam benign, vitals stable. Likely we will begin discharge planning today. We will start Lasix 20 daily for CHF, switch to regular diet with lactulose 10 daily, plan to wean off hydrocortisone, patient has new onset cough portable CXR today, PT order today, continue blood pressure meds daily, consult Neurology,, 04/02- orders not entered yesterday, theyre now ordered today. need rec on anti- epileptic and thyroid medications. endo and neuro to eval. 04/03-patient had quit discharge plan comes in, however patient family difficult declining to leave without neurology eval here, we will make neurology aware likely discharge tomorrow, patient appearing weeks today, we will deescalate diet to puree, we will follow up with PT eval. family denied PT and then patient too sleepy for PT eval today. i feel family is being untruthful of patients mobility status and likely patient is not rehab potential and more bedbound. .. pending neurology eval Diagnosis: Thyrotoxicosis/thyroid storm Respiratory failure due to above AFib RVR seizures, ? Febrile dementia, CHF, atrial fibrillation, anemia, asthma, hypertension Plan: Continue medications per prior facility MR Amlodipine 10 daily Lovenox 30 subQ Hydralazine 50 mg daily b.i.d. Hydrocortisone 50 mg t.i.d. Keppra 500 mg IV b.i.d. Valsartan 100 cc mg daily Full liquid diet Tele Full code Plan discussed with: Patient My Orders Orders - JOSSY NOLAND MD Procedure Category Date Status Time Methimazole Tab PHA 04/02/25 In Process (Tapazole) 22:00 Doxycycline Tablet PHA 04/02/25 In Process (Vibramycin Tablet) 22:00 Rivaroxaban Tablet PHA 04/03/25 In Process (Xarelto Tablet) 18:00 * Neurology Consult CONS 04/03/25 Verified 10:44 Pureed DIET 04/03/25 Verified Lunch Date of Service: Apr 03, 2025 Billing Provider: JOSSY NOLAND MD Common Visit Codes: [id number] INP/OBS CARE(HIGH) JOSSY NOLAND MD Apr 03, 2025 10:50
[2025-04-03] MEDS: RIVAROXABAN 15 MG TAB PO SCH (18:00)
--- NOTE | 2025-04-03 23:39 | DVHINCON2 ---
Date of service: Apr 03, [address] Jerri Martinez Reason for Consultation Status post seizure, cont, EEG from [facility] please evaluated anti epileptic need History of Present Illness Ms. Gisela Escalona is a 79 years old female with a history of hypertension, atrial fibrillation have congestive heart failure, asthma, COPD, anemia, dementia, the patient was transferred to the [facility] from [facility] on 03/30/2025 for seizure. At that time, the patient is awake, but he does not vocalize, not able to provide history, we could not find/locate paperwork from [facility]. The information is obtained from the chart review I saw her on 07/28/24 for ALOC urinary tract infection, sepsis, 08/15/2024 for relapse encephalopathy with the falls, 12/19/2024 for encephalopathy with dementia Apparently, she was admitted to the [facility] for seizure, possible stroke, thyrotoxicosis Her MR brain showed moderate small-vessel angiopathy but no acute infarct, CTA head and neck were unremarkable Her EEG showed epileptiform discharges, and the seizure was noted as partial complex seizure She was seen by a neurologist and Keppra 1000 mg b.i.d. were recommended Per my previous documentation dated 12/19/2024, since 2022, she has progressive mild intermittent short-term memory difficulty, gait disturbance and she used a cane to walk. In early 2023, she was said to have dementia. She remembered all her family members, but she could not find her way home in her neighborhood, she was completely dependent on the family for daily living Per my documentation dated 12/19/2024, Her daughter related the patient had 4 passing out events with mild shaking in 2022, 2023, 06/2024, 11/2024. All happened after hot showers, with increased sweating but without associated incontinence, oral trauma/laceration, the events last for a few sec, and were preceded by hot feeling. WBC/HB/PLT/MCV, 04/01/2025: 8.9/10.8/351/64.5 CMP, 03/31/2025: Unremarkable TG/HDL/LDL/HDL, 12/19/2024: 92/117/57/38 Vitamin B12, 07/26/2024: 892, 08/16/24: 425 Folic acid 07/26/24: 30.88 TSH, 07/26/2024: < 0.01, 08/14/2024: 0.01, 12/18/2024: <0.01 FT4, 08/14/2024: 1.4 EEG, 07/30/24: Inadequate, possibly mildly abnormal EEG CT head, 07/26/2024: No evidence of acute intracranial abnormality CT head, 07/28/2024: 1. Motion limited study. 2. No evidence of acute intracranial hemorrhage. 3. Nonacute findings as described above CT head, 08/14/2024: No acute intracranial hemorrhage, midline shift or mass effect. If symptoms persist, further evaluation with MRI is recommended CT head, 12/18/2024: 1. No evidence of acute intracranial hemorrhage, mass effect or hydrocephalus. 2. Right maxillary sinusitis MRI head, 08/16/2024: 1. There is no acute intracranial process. 2. Moderate chronic small-vessel ischemic changes in the supratentorial white matter. 3. Partially empty sella Past Medical History Hypertension, congestive heart failure, AFib, asthma, COPD, anemia, dementia Past Surgical History None Family History: FH: dementia G8 FATHER FHx: rheumatoid arthritis G8 MOTHER Family History Rheumatoid arthritis. Father had Lewy body disease. Social History She was a tobacco smoker, no history of alcohol or recreational substance abuse Allergies: Coded Allergies: Aspirin (Verified Allergy, Intermediate, 03/31/25) Iodine (Verified Allergy, Unknown, 03/31/25) Latex (Verified Allergy, Unknown, 03/31/25) Penicillins (Verified Allergy, Unknown, 02/04/23) Sulfa Antibiotics (Verified Allergy, Unknown, 02/04/23) Home Meds Active Scripts Donepezil Hydrochloride (DONEPEZIL HCL) 5 Mg Tab, 5 MG PO HS for 30 Days, #30 TAB Prov:HOA العلي MD 12/23/24 Megestrol Acetate (Megace) 20 Mg Tb, 20 MG PO BID for 30 Days, #60 TAB Prov:HOA العلي MD 12/23/24 Escitalopram Oxalate (Lexapro) 5 Mg Tab, 5 MG PO DAILY for 30 Days, #30 TAB 2 Refills Prov:NORMAN PEREZ MD 08/21/24 Mirtazapine (Remeron) 15 Mg Tab, 7.5 MG PO QPM for 30 Days, #15 TAB 2 Refills Prov:NORMAN PEREZ MD 08/21/24 Reported Medications Pantoprazole Sodium Sesquihydr (Pantoprazole Sodium Dr) 40 Mg Tab, 1 TAB PO DAILY 12/18/24 Metoprolol Succinate (Metoprolol Succinate Er) 100 Mg Tab, 1 TAB PO DAILY for 31 Days, #31 08/15/24 Amlodipine Besylate (Amlodipine Besylate) 10 Mg Tab, 1 TAB PO DAILY for 31 Days, #31 08/15/24 Ferrous Sulfate (Ferrous Sulfate) 325 Mg Tab, 1 TAB PO BID for 90 Days, #180 07/27/24 Methimazole (Methimazole) 5 Mg Tab, 3 TAB PO DAILY for 31 Days, #93 07/27/24 Acetaminophen (Acetaminophen) 325 Mg Tab, 325 MG PO Q4HP PRN for MILD PAIN for 30 Days, MG 0 Refills 05/10/24 Current Medications Current Medications Medications (Trade) Dose Ordered Sig/Heather Route PRN Reason Start Time Stop Time Status Last Admin Rivaroxaban (Xarelto Tablet) 15 mg QPM PO 04/03/25 18:00 Review of Systems As above, the other systems are negative Vital Signs Vital Signs Date Time Temp Pulse Resp B/P (MAP) Pulse Ox O2 Delivery O2 Flow Rate FiO2 04/03/25 22:23 136/83 04/03/25 22:22 59 04/03/25 20:42 98.3 18 96 98.3 04/03/25 08:00 Room Air* 0 21 Physical Exam GENERAL EXAM: General: the patient is well developed and nourished. No acute distress. HEENT: Normocephalic, neck is supple, no carotid bruits. No mass. RESPIRATORY: Normal respiratory effort with symmetrical lung expansion. Lungs clear to auscultation. CARDIOVASCULAR: Regular rate and rhythm with no murmurs. S1, S2. ABDOMEN: Soft, nontender, normal bowel sound NEUROLOGICAL: MENTAL STATUS: Subjective SPEECH, LANGUAGE, HIGHER CORTICAL FUNCTION: She does not vocalize CRANIAL NERVES: #2: Visual field is full to visual thread #3,4,6: Pupils are equal, round and reactive. EOMs full and conjugate. #5: Facial sensation intact in all three divisions bilaterally. Mandibular strength intact. #7: Facial muscles symmetrical and strength intact. #8: Unremarkable #9,10: Deferred #11: Deferred #12: Deferred SENSATION: Sensation to touch and pinprick is okay MOTOR: Normal tone in the upper and lower extremity. Normal muscle bulk. No fasciculations. No abnormal movements or posturing. She moves the arms and legs REFLEXES: Deep tendon reflexes are symmetrical. No pathological reflexes. CEREBELLAR/COORDINATION: Deferred GAIT/STATION: deferred Labs/Diagnostic Data Labs Test 04/01/25 07:23 03/31/25 13:35 Range/Units White Blood Count 8.9 # 4.4-10.8 10^3/uL Red Blood Count 5.11 4.0-5.20 10^6/uL Hemoglobin 10.8 L 12.2-16.2 g/dL Hematocrit 33.0 #L 36.0-46.0 % Mean Corpuscular Volume 64.5 L 80.0-100.0 fL Mean Corpuscular Hemoglobin 21.1 L 28.0-32.0 pg Mean Corpuscular Hemoglobin Concent 32.6 32.0-36.0 g/dL Red Cell Distribution Width 16.7 H 11.8-14.3 % Platelet Count 351 140-450 10^3/uL Mean Platelet Volume 8.2 6.9-10.8 fL Neutrophils (%) (Auto) 37.0-80.0 % Lymphocytes (%) (Auto) 10.0-50.0 % Monocytes (%) (Auto) 0.0-12.0 % Basophils (%) (Auto) 0.0-2.0 % Neutrophils # (Auto) 1.6-8.6 10 ^3/uL Lymphocytes # (Auto) 0.4-5.4 10 ^3/uL Monocytes # (Auto) 0-1.3 10 ^3/uL Differential Total Cells Counted 100.0 100 Neutrophils % (Manual) 91 H 37.0-80.0 Band Neutrophils % (Manual) 0 Lymphocytes % (Manual) 5 L 10.0-50.0 Monocytes % (Manual) 2 0-12 Eosinophils % (Manual) 0 0-7 Basophils % (Manual) 0 0.0-2.0 Metamyelocytes % (manual) 1 Myelocytes % (Manual) 1 Promyelocytes % (Manual) 0 Blast Cells % (Manual) 0 Reactive Lymphocytes 0 Platelet Estimate Adequate Hypochromasia (manual) Moderate Microcytosis Marked Target Cells Few Schistocytes Few Sodium Level 142 136-145 mmol/L Potassium Level 3.4 L 3.5-5.1 mmol/L Chloride Level 103 98-107 mmol/L Carbon Dioxide Level 29 20-31 mmol/L Anion Gap 10 5-15 Blood Urea Nitrogen 11 9-23 mg/dL Creatinine 0.52 L 0.550-1.02 mg/dL Glomerular Filtration Rate Calc 95 >90 mL/min BUN/Creatinine Ratio 21.2 H 10.0-20.0 Serum Glucose 92 74-106 mg/dL Calcium Level 8.4 L 8.7-10.4 mg/dL Total Bilirubin 0.6 0.2-1.0 mg/dL Aspartate Amino Transferase (AST) 33 13-40 U/L Alanine Aminotransferase (ALT) 17 7-40 U/L Alkaline Phosphatase 69 46-116 U/L Total Protein 5.7 5.7-8.2 g/dL Albumin 3.5 3.2-4.8 g/dL Anisocytosis (manual) Slight Ovalocytes Few Thyroid Stimulating Hormone (TSH) 0.01 L 0.55-4.78 uIU/mL Free Thyroxine (T4) Calculated 0.86 L 0.89-1.76 ng/dL Microbiology Date/Time Source Procedure Growth Status 03/31/25 21:00 Nose MRSA Screen - Final Complete Assessment Partial complex seizure diagnosed in [facility] Altered mental status Metabolic encephalopathy Dementia Alzheimer disease 4 passing out spells Likely syncopes Gait disturbance, multifactorial Plan/Recommendation Monitoring Supportive treatment Telemetry EEG, ok as outpatient Aminata Owens recommended 500 mg b.i.d. Ativan for seizure breakthrough Up to chair Physical therapy Room bright during the daytime Address her dementia as outpatient (her home medication may include donepezil 5 mg daily) More recommendation per clinical course Okay to discharge with outpatient EEG Progress: Poor This medical document was created using an electronic medical record system with [employer] dictation system. Although this document has been carefully reviewed, there may still be some phonetic and typographical errors. These areas are purely typographical due to imperfections of the software programs, and do not reflect any compromise in the patient's medical care. Plan discussed with: Other AIDEN GONZALEZ MD Apr 03, 2025 23:39
[2025-04-04] VITALS (8 sets, daily range): BP systolic 123–152; BP diastolic 77–82; PULSE 50–76; RESP 16–20; TEMP 98–98.5; O2SAT 95–100
[2025-04-04] MEDS ORDERED: LORazepam 2MG/ML-1ML VIAL IV PRN (00:15)
[2025-04-04] MEDS ORDERED: KETOROLAC TROMETH 30 MG/ML 1ML VIAL IV ONE (08:30)
[2025-04-04 09:27] LABS: Base Excess 7.1 mmol/L (-2.0-3.0)
[2025-04-04] MEDS: levETIRAcetam 500 mg/100ml 100 ML IV SCH (10:12)
[2025-04-04] MEDS: HYDROCORTISONE SOD SUCC 100 MG/2ML INJ VIAL IV ONE (10:13)
[2025-04-04] MEDS: methylPREDNISolone SOD SUCC 40 MG/ML VL IV ONE (10:14)
[2025-04-04] MEDS: HYDROcodone-ACET 5/325MG TAB PO PRN (10:16)
--- NOTE | 2025-04-04 12:36 | DVH ---
Exam: CT CT AB PEL WO CON-NO ORAL OR IV History: ABD PAIN Comparison Study: CT CT AB PEL WO CON-NO ORAL OR IV on DOS: 12/18/24, CT CT AB PEL WITH IV CON ONLY on DOS: 05/31/23, CT CT AB PEL WO CON-NO ORAL OR IV on DOS: 02/05/23 Technique: Multidetector spiral CT of the abdomen was performed from lung bases to pubic symphysis. I maging was performed without IV contrast. Axial, coronal and sagittal multiplanar reformats were obta ined from the axial data set by the technologist. Radiation Dose : 1. Abdomen/Pelvis: CTDIvol 6.07 mGy, DLP 279.01 mGy*cm. Findings: Evaluation of solid organs is limited due to lack of intravenous contrast use. Lung Bases: Cardiomegaly. Moderate right and small left pleural effusion. Liver: The liver is normal in size. No focal lesions. Gallbladder and Biliary Tree: Unremarkable Spleen: Unremarkable Pancreas: The pancreas is grossly normal in appearance. Adrenal Glands: Unremarkable Kidneys: Kidneys are grossly normal without calculi or hydronephrosis. Bladder: Grossly unremarkable for degree of distention. Bowel: The stomach is grossly normal in appearance. Large volume colonic stool. Wall thickening of th e rectum. The appendix is not visualized; however, no secondary findings of acute appendicitis identi fied. Ascites: Absent Lymphadenopathy: No mesenteric, retroperitoneal or periportal lymphadenopathy. Abdominal Wall and Mesentery: Unremarkable. Vasculature: The visualized abdominal aorta is normal in size and caliber. There is extensive athero sclerotic calcification of the aorta and its branches. Evaluation of abdominal and pelvic vessels is limited due to lack of intravenous contrast. Pelvic Organs: Unremarkable Musculoskeletal: No aggressive focal bony lesions, acute fractures or dislocation. Multilevel degener ative changes of the spine. IMPRESSION: Cardiomegaly with moderate right and small left pleural effusion. Large volume colonic stool. Wall thickening of the rectum. This may represent stercoral colitis. Clinical correlation advised. Radiation optimization: All CT scans at this facility use at least one of these dose optimization dilan hniques: automated exposure control mA and/or kV adjustment per patient size (includes targeted exam s where dose is matched to clinical indication) or iterative reconstruction.
[2025-04-04] MEDS ORDERED: LACT10SO3 PO (17:57)
[2025-04-04] MEDS ORDERED: DOCU-265 PO (17:57)
[2025-04-04] MEDS ORDERED: CARV6.2551 PO (17:57)
[2025-04-04] MEDS ORDERED: DOXY100C79 PO (17:57)
[2025-04-04] MEDS ORDERED: HYDR25TA87 PO (17:57)
[2025-04-04] MEDS ORDERED: VALS320T PO (17:57)
[2025-04-04] MEDS ORDERED: HYDR20TA19 PO (17:57)
[2025-04-04] MEDS ORDERED: KEP500T PO (17:57)
[2025-04-04] MEDS ORDERED: AMLO1TAB23 PO (17:57)
--- NOTE | 2025-04-04 18:02 | DVHDS2 ---
Discharge Summary Date of Admission Mar 30, 2025 at 17:05 Date of Discharge: Apr 04, 2025 Labs/Diagnostic Data: Laboratory Results Test 04/04/25 09:10 04/01/25 07:23 03/31/25 13:35 Blood Gas Specimen Type Arterial Blood Gas Sample Site Right radial Blood Gas Patient Temperature 37.0 Arterial Blood Date Drawn [id number] Arterial Blood pH 7.531 (7.350-7.450) Arterial Blood Partial Pressure CO2 36.8 mmHg (32.0-45.0) Arterial Blood Partial Pressure O2 74.4 mmHg (83.0-108.0) Arterial Blood HCO3 30.1 mmol/L (21.0-28.0) Arterial Blood Oxygen Saturation 96.1 % (94.0-98.0) Arterial Blood Base Excess 7.1 mmol/L (-2.0-3.0) Arterial Blood Oxyhemoglobin 94.9 % (94.0-98.0) Arterial Blood Carboxyhemoglobin 0.7 % (0.5-1.5) Arterial Blood Methemoglobin 0.5 % (0.0-1.5) Alec Test Yes Blood Gas Total Hemoglobin 11.30 g/dL (12.0-16.0) Blood Gas Modality Room air Blood Gas Spontaneous Rate 16 FiO2 % 21.0 White Blood Count 8.9 10^3/uL (4.4-10.8) Red Blood Count 5.11 10^6/uL (4.0-5.20) Hemoglobin 10.8 g/dL (12.2-16.2) Hematocrit 33.0 % (36.0-46.0) Mean Corpuscular Volume 64.5 fL (80.0-100.0) Mean Corpuscular Hemoglobin 21.1 pg (28.0-32.0) Mean Corpuscular Hemoglobin Concent 32.6 g/dL (32.0-36.0) Red Cell Distribution Width 16.7 % (11.8-14.3) Platelet Count 351 10^3/uL (140-450) Mean Platelet Volume 8.2 fL (6.9-10.8) Neutrophils (%) (Auto) % (37.0-80.0) Lymphocytes (%) (Auto) % (10.0-50.0) Monocytes (%) (Auto) % (0.0-12.0) Basophils (%) (Auto) % (0.0-2.0) Neutrophils # (Auto) 10 ^3/uL (1.6-8.6) Lymphocytes # (Auto) 10 ^3/uL (0.4-5.4) Monocytes # (Auto) 10 ^3/uL (0-1.3) Differential Total Cells Counted 100.0 (100) Neutrophils % (Manual) 91 (37.0-80.0) Band Neutrophils % (Manual) 0 Lymphocytes % (Manual) 5 (10.0-50.0) Monocytes % (Manual) 2 (0-12) Eosinophils % (Manual) 0 (0-7) Basophils % (Manual) 0 (0.0-2.0) Metamyelocytes % (manual) 1 Myelocytes % (Manual) 1 Promyelocytes % (Manual) 0 Blast Cells % (Manual) 0 Reactive Lymphocytes 0 Platelet Estimate Adequate Hypochromasia (manual) Moderate Microcytosis Marked Target Cells Few Schistocytes Few Sodium Level 142 mmol/L (136-145) Potassium Level 3.4 mmol/L (3.5-5.1) Chloride Level 103 mmol/L (98-107) Carbon Dioxide Level 29 mmol/L (20-31) Anion Gap 10 (5-15) Blood Urea Nitrogen 11 mg/dL (9-23) Creatinine 0.52 mg/dL (0.550-1.02) Glomerular Filtration Rate Calc 95 mL/min (>90) BUN/Creatinine Ratio 21.2 (10.0-20.0) Serum Glucose 92 mg/dL (74-106) Calcium Level 8.4 mg/dL (8.7-10.4) Total Bilirubin 0.6 mg/dL (0.2-1.0) Aspartate Amino Transferase (AST) 33 U/L (13-40) Alanine Aminotransferase (ALT) 17 U/L (7-40) Alkaline Phosphatase 69 U/L (46-116) Total Protein 5.7 g/dL (5.7-8.2) Albumin 3.5 g/dL (3.2-4.8) Anisocytosis (manual) Slight Ovalocytes Few Thyroid Stimulating Hormone (TSH) 0.01 uIU/mL (0.55-4.78) Free Thyroxine (T4) Calculated 0.86 ng/dL (0.89-1.76) Other Laboratory Tests 04/01/25 07:23 Brief Hx & Hospital Course: 79-year-old female with past medical history of dementia, CHF, thyroid disease, atrial fibrillation, anemia, asthma, and hypertension, presents as transfer from [facility]. Patient was admitted there after presentation for thighs term with seizures. Patient also noted to be in AFib RVR. Patient was started on Keppra b.i.d., methimazole t.i.d., hydrocortisone 50 mg q.8, continue Xarelto, propranolol 20 t.i.d. with rate controlled and 50s. Patient was extubated on 03/29/2025 and transferred to in network facility [facility]. Patient is A&O times 1 unable to offer any meaningful ROS but looks comfortable. 03/31: Patient was admitted at [facility] for respiratory failure due to thyrotoxicosis. She has been seen in the hospital prior for multiple times with acute toxic metabolic encephalopathy, hypernatremia. Today she is A&O x1, tangential speech,. We will resume medications that was started in prior facility, CBC CMP and re-evaluate the case. She was extubated? Two days ago. 04/01: Patient A&O x1, remembers daughter's name. Patient does not endorse any positives for review of systems, exam benign, vitals stable. Likely we will begin discharge planning today. We will start Lasix 20 daily for CHF, switch to regular diet with lactulose 10 daily, plan to wean off hydrocortisone, patient has new onset cough portable CXR today, PT order today, continue blood pressure meds daily, consult Neurology,, 04/02- orders not entered yesterday, theyre now ordered today. need rec on anti- epileptic and thyroid medications. endo and neuro to eval. 04/03-patient had quit discharge plan comes in, however patient family difficult declining to leave without neurology eval here, we will make neurology aware likely discharge tomorrow, patient appearing weeks today, we will deescalate diet to puree, we will follow up with PT eval. family denied PT and then patient too sleepy for PT eval today. i feel family is being untruthful of patients mobility status and likely patient is not rehab potential and more bedbound. .. pending neurology eval 04/04: Patient has been reviewed by Neurology they recommend 500 mg Keppra twice daily. Otherwise patient is stable. Patient was sleepy today, was given hydrocortisone and had significant improvement, she needs slow tapering of hydrocortisone over long taper, to follow up with PCP thereafter. Patient vital signs stable, stable for discharge as per plan below. 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, tonic clonic, controlled Stroke CVA ruled out adrenal shock , likely Acute on chronic constipation, severe stool burden Acute pneumonia, Gram-negative Gram-positive possible respiratory failure due to above AFib RVR severe Protein calorie malnutrition physical deconditioning Advanced dementia, complicated with poor oral intake depression possible dementia, CHF, atrial fibrillation, anemia, asthma, hypertension plan: - Continue amlodipine 10g daily, Coreg 6.25 mg twice daily, hydralazine 25 mg twice daily, Take valsartan 160 mg daily - Doxycycline 100 mg twice daily for 3 days - Furosemide 20 mg daily - Take lactulose 10 g suspension daily for 14 days and docusate 100 mg twice daily for 30 days - Take Keppra 500 mg oral tablet twice daily until I follow up with neurologist - Take Tapazole 5 mg times daily, - Take hydrocortisone 20 mg twice daily for 2 weeks, then once daily for 2 weeks, review with PCP for further instructions on continuation. - Continue pureed diet, advance as patient recovers - Continue home PT Continue other home medications not mentioned above (donepezil 5 mg, Lexapro 5 mg daily, ). Defer megasterol and Remeron to PCP. 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, tonic clonic, controlled Stroke CVA ruled out adrenal shock , likely Acute on chronic constipation, severe stool burden Acute pneumonia, Gram-negative Gram-positive possible respiratory failure due to above AFib RVR severe Protein calorie malnutrition physical deconditioning Advanced dementia, complicated with poor oral intake depression possible dementia, CHF, atrial fibrillation, anemia, asthma, hypertension Discharge Disposition: Home Discharge Instruct/Medications Diet: See Comment Diet comment: puree Activity: No Restrictions, As Tolerated Follow Up/Referral: below Medications: below Scheduled Amlodipine Besylate (Amlodipine Besylate), 1 TAB PO DAILY, (Reported) Amlodipine Besylate (Amlodipine Besylate), 1 TAB PO DAILY Carvedilol (Carvedilol), 1 TAB PO BID Docusate Sodium (Docusate Sodium), 100 MG PO BID Donepezil Hydrochloride (Donepezil Hcl), 5 MG PO HS Doxycycline (Monohydrate) (Doxycycline), 100 MG PO BID Escitalopram Oxalate (Lexapro), 5 MG PO DAILY Ferrous Sulfate (Ferrous Sulfate), 1 TAB PO BID, (Reported) Hydralazine HCl (Hydralazine HCl), 25 MG PO BID Hydrocortisone Base (Hydrocortisone), 20 MG PO BID Lactulose (Lactulose), 10 GM PO DAILY Levetiracetam (Keppra Tablet), 500 MG PO BID Megestrol Acetate (Megace), 20 MG PO BID Methimazole (Methimazole), 3 TAB PO DAILY, (Reported) Metoprolol Succinate (Metoprolol Succinate Er), 1 TAB PO DAILY, (Reported) Mirtazapine (Remeron), 7.5 MG PO QPM Pantoprazole Sodium Sesquihydr (Pantoprazole Sodium Dr), 1 TAB PO DAILY, (Reported) Valsartan (Diovan), 0.5 TAB PO DAILY Scheduled PRN Acetaminophen (Acetaminophen), 325 MG PO Q4HP PRN for MILD PAIN, (Reported) Discharge Statement: "Patient was advised to return to the ER or call 911 if any headaches, dizziness, shortness of breath, chest pain, abdominal pain, bleeding, fevers, or worsening of medical condition. Patient was counseled about treatment plan, medications, possible side effects, patientverbalized understanding. All questions were answered to the best of my ability. This discharge took greater then 30 minutes in planning, reviewing documentation, counseling the patient, and discussing with other team members." Date of Service: Apr 04, 2025 Billing Provider: JOSSY NOLNAD MD Common Visit Codes: 54951-IFN/OBS DISCH DAY >30min JOSSY NOLAND MD Apr 04, 2025 18:02
[2025-04-04] MEDS: HYDROCORTISONE 10 MG TAB PO ONE (22:34)
[2025-04-05 01:00] VITALS: BP 122/47; PULSE 59; RESP 18; TEMP 97.4; O2SAT 100
[2025-04-05 08:00] VITALS: PULSE 61; RESP 18; O2SAT 100
[2025-04-05] MEDS: HYDROCORTISONE 10 MG TAB PO SCH (08:00)
== END 2025-04-05 10:20 | disposition home health service (06) | DRG 100 ==
LOC: CENTRAL 17:05 → TELE-CENTR 03-31 09:29 → TELE-WESTW 04-02 20:58
PROVIDERS: ADMIT Student in an Organized Health Care Education/Training Program; ATTEND Student in an Organized Health Care Education/Training Program
DX: G40.409 Other generalized epilepsy and epileptic syndromes, not intractable, without status epilepticus (principal); E43 Unspecified severe protein-calorie malnutrition; G93.41 Metabolic encephalopathy; J96.90 Respiratory failure, unspecified, unspecified whether with hypoxia or hypercapnia; J15.69 Pneumonia due to other Gram-negative bacteria; J15.9 Unspecified bacterial pneumonia; F02.83 Dementia in other diseases classified elsewhere, unspecified severity, with mood disturbance; E27.2 Addisonian crisis; J44.0 Chronic obstructive pulmonary disease with (acute) lower respiratory infection; G40.209 Localization-related (focal) (partial) symptomatic epilepsy and epileptic syndromes with complex partial seizures, not intractable, without status epilepticus; E05.90 Thyrotoxicosis, unspecified without thyrotoxic crisis or storm; I11.0 Hypertensive heart disease with heart failure; I50.9 Heart failure, unspecified; I48.91 Unspecified atrial fibrillation; D64.9 Anemia, unspecified; G30.9 Alzheimer's disease, unspecified; R26.9 Unspecified abnormalities of gait and mobility; K59.09 Other constipation; F32.A Depression, unspecified; R74.01 Elevation of levels of liver transaminase levels; F17.200 Nicotine dependence, unspecified, uncomplicated; Z87.440 Personal history of urinary (tract) infections; Z82.49 Family history of ischemic heart disease and other diseases of the circulatory system; Z88.6 Allergy status to analgesic agent; Z88.0 Allergy status to penicillin; Z79.899 Other long term (current) drug therapy; Z79.01 Long term (current) use of anticoagulants; Z88.8 Allergy status to other drugs, medicaments and biological substances; Z68.20 Body mass index [BMI] 20.0-20.9, adult
CPT/HCPCS: 36415; 36600; 71045; 74176; 80053; 82805; 84439; 84443; 85007; 85027; 87081; 97110; 97163; 97530; G0378